=== PATIENT | male | born 1955 | race Caucasian/White ===

== ENCOUNTER 2022-01-19 07:30 | Outpatient (REF) | payer OTHER, SELFPAY ==
--- NOTE | ~2022-01-19 | MR_ITS ---
EXAMINATION: MR LUMBAR SPINE WITHOUT CONTRAST CLINICAL INFORMATION: Lumbosacral radiculopathy. . Patient reports no prior spine surgery. COMPARISON: MRI 10/24/2018 TECHNIQUE: MRI of the lumbar spine was obtained using routine sequences without contrast. FINDINGS: VERTEBRAL BODIES AND PARASPINAL STRUCTURES: Alignment is anatomic. Vertebral body heights are maintained. No evidence of acute fracture. Bone marrow signal is within normal limits. Small marginal osteophytes and endplate irregularity seen at multiple levels. Disc desiccation prominent disc height loss at L5-S1. The right kidney is inferiorly positioned, at the level of the lumbosacral junction. No suspicious findings in the left kidney. Psoas and paraspinal musculature appears unremarkable. CONUS MEDULLARIS AND CAUDA EQUINA: Normal signal in the distal cord and conus. Conus terminating at the level of L1. SPINAL LEVELS: T12-L1: There is a disc osteophyte complex anteriorly. No significant disc bulge along the posterior aspect. No significant central canal or neural foramen stenosis. L1-L2: No significant posterior disc bulge. No central canal or neural foramen stenosis. L2-L3: Broad-based posterior disc bulge, with a right paracentral disc extrusion with inferior migration is redemonstrated. Moderate central canal stenosis, more prominent on the right, with right L3 nerve root compression. Findings appear relatively similar as compared to previous. No significant neural foramen stenosis. Bilateral facet arthropathy. L3-L4: Mild broad-based posterior disc bulge abutting bilateral L4 nerves. Mild central canal stenosis. Bilateral facet arthropathy. Mild bilateral neural foramen narrowing, similar to previous. L4-L5: Mild diffuse disc bulge, abutting bilateral L5 nerves. Moderate central canal stenosis. Bilateral facet arthropathy. Inferior hypertrophy. Mild bilateral neural foramen narrowing. L5-S1: There is a diffuse disc bulge. There is a moderate posterior disc osteophyte complex, more prominent from previous. This is abutting bilateral S1 nerves. Bilateral facet arthropathy. Ligamentum hypertrophy. Severe central canal stenosis. Moderate to severe right neural foramen, mild left neural foramen narrowing. Findings more prominent as compared to previous. MR/MR lumbar spine wo con IMPRESSION: -At L2-3, there is disc abnormality including a right paracentral disc extrusion with inferior migration, moderate central canal stenosis and the right L3 nerve root compression. Findings appear similar as compared to previous. -L5-S1, there is a moderate posterior disc osteophyte complex, abutting bilateral S1 nerves, severe central canal stenosis, moderate to severe right neural foramen stenosis, mild left neural foramen narrowing. Findings more prominent as compared to previous. -There is multilevel lumbar spondylosis, with findings detailed level by level in the body report. -The right kidney is inferiorly positioned anterior to the lumbosacral junction.
== END 2022-01-19 07:31 | disposition home or self-care (01) ==
LOC: HO.MRI 07:30
PROVIDERS: Visit Provider Anesthesiology
DX: M54.17 Radiculopathy, lumbosacral region (principal)
CPT/HCPCS: 72148

== ENCOUNTER 2022-04-06 07:29 | Outpatient (REF) | payer OTHER, SELFPAY ==
--- NOTE | ~2022-04-06 | MR_ITS ---
EXAMINATION: MR THORACIC SPINE WITHOUT CONTRAST CLINICAL INFORMATION: 67-year-old with self-reported upper abdominal pain with pressure wrapping around to back. History of disc disease. Thoracic radiculopathy. COMPARISON: None TECHNIQUE: MRI of the thoracic spine was obtained using routine sequences without contrast. FINDINGS: ALIGNMENT: There is approximately 43 degrees of thoracic kyphosis centered at the T7 level. No spondylolisthesis or retrolisthesis. VERTEBRAL BODIES AND BONE MARROW: Mild-to- moderate chronic anterior wedge compression deformity of T8 and a mild anterior chronic wedge compression deformity of T7. Mild anterior wedge compression deformity of T9 also noted and possibly at T6. No non-healed compression fractures. Remaining vertebral body heights are well-maintained. No suspicious marrow replacing process or bone marrow edema or retrolisthesis. DISC SPACES AND ENDPLATES: Multilevel discogenic degenerative changes, most apparent at T7-T8 with severe disc space height loss, disc desiccation, Schmorl's nodes and spondylosis at this level. Moderate disc space height loss, disc desiccation and Schmorl's nodes with mild spondylosis at T6-T7 and T8-T9 and to a lesser degree at T9-T10 and T10-T11. Schmorl's nodes at T5-T6 noted. Anterior marginal spondylosis asymmetric to the right noted between T5-T6 and T12-L1 inclusive. Schmorl's nodes noted at T8-T11-T12 and T12-L1. Anterior marginal disc osteophyte complexes at T1-T2 and T2-T3. PARASPINAL SOFT TISSUES: The paravertebral soft tissues appear unremarkable. Possible small gallstone in the gallbladder on activities director scouting view. SPINAL CORD: The thoracic spinal cord is normal in morphology and signal intensity without focal lesion, edema or syrinx accounting for artifacts. The conus terminates at T12-L1. SPINAL LEVELS: C7-T1: Small central disc protrusion noted with mild indentation of the ventral thecal sac without cord impingement or canal stenosis. No significant facet arthrosis or neuroforaminal stenosis. T1-T2: Unremarkable. T2-T3: No disc herniation or canal stenosis. No significant facet arthrosis or neuroforaminal stenosis. There is a prominent vein in the interspinous space at this level of indeterminate significance. T3-T4: No disc herniation or canal stenosis. No significant DJD or neuroforaminal stenosis. Prominent vein in the intraspinal space noted. T4-T5: Unremarkable. T5-T6: Unremarkable. T6-T7: Unremarkable. T7-T8: Unremarkable. T8-T9: Unremarkable. T9-T10: Small right paramedian disc osteophyte complex without cord impingement or canal stenosis. No significant DJD or neuroforaminal stenosis. T10-T11: Unremarkable. T11-T12: Tiny left subarticular to foraminal disc protrusion without significant canal or neuroforaminal stenosis and no evidence for neural impingement. T12-L1: Unremarkable. MR/MR thoracic spine wo con IMPRESSION: 1. Thoracic kyphosis centered at T7 as described above. 2. Multilevel thoracic DDD and spondylosis as detailed by level above with degenerative changes most prominent in the mid thoracic spine, with a small right paramedian disc osteophyte complex at T9-T10 and a tiny left subarticular to foraminal disc protrusion at T11-T12 without significant canal or neuroforaminal compromise and no evidence for spinal cord or neural impingement. 3. [id number] chronic anterior wedge compression deformities between T6 and T9 inclusive with no evidence for any non-healed fractures or significant retropulsion. 4. Possible gallstone in the gallbladder which can be confirmed sonographically if clinically warranted.
== END 2022-04-06 07:30 | disposition home or self-care (01) ==
LOC: HO.MRI 07:29
PROVIDERS: Visit Provider Internal Medicine
DX: M54.14 Radiculopathy, thoracic region (principal)
CPT/HCPCS: 72146

== ENCOUNTER 2022-04-22 08:26 | Outpatient (REF) | payer OTHER, SELFPAY ==
--- NOTE | ~2022-04-22 | US_ITS ---
EXAMINATION: US ABDOMEN COMPLETE CLINICAL INFORMATION: Epigastric pain. COMPARISON: None TECHNIQUE: Real-time imaging of the abdominal viscera. FINDINGS: PANCREAS: Normal. ABDOMINAL AORTA: The proximal, mid, and distal segments are normal in caliber. INFERIOR VENA CAVA: Visualized portions are normal. LIVER: The liver is normal in size. The liver contour is normal. There is mild increased liver echogenicity. No focal hepatic lesion. There is no intrahepatic biliary duct dilatation seen. GALLBLADDER: The gallbladder is physiologically distended. Multiple mobile gallstones are present. No evidence of gallbladder wall thickening or pericholecystic fluid. COMMON BILE DUCT: Normal in caliber measuring 0.2 cm in diameter. RIGHT KIDNEY:: The right kidneys located in the pelvis No hydronephrosis. No renal calculi or focal parenchymal lesions. The kidney measures 9.3 cm in maximum dimension. LEFT KIDNEY: Normal. No hydronephrosis. No renal calculi or focal parenchymal lesions. The kidney measures 11.3 cm in maximum dimension. SPLEEN: Normal. The spleen measures 9.2 cm in maximum dimension. FREE FLUID: None. US/US abdomen complete IMPRESSION: Cholelithiasis without wall thickening. The right kidney is located in the pelvis Mild hepatic steatosis Rest of the abdominal ultrasound is unremarkable.
== END 2022-04-22 08:27 | disposition home or self-care (01) ==
LOC: HO.HMGCX 08:26
PROVIDERS: PCP Internal Medicine; Visit Provider Internal Medicine
DX: R10.13 Epigastric pain (principal)
CPT/HCPCS: 76700

== ENCOUNTER 2023-04-22 13:15 | Observation (INO) | payer OTHER, SELFPAY ==
--- NOTE | ~2023-04-22 | XR_ITS ---
EXAMINATION: XR CHEST CLINICAL INFORMATION: Syncope, chest pressure. COMPARISON: None available. TECHNIQUE: Frontal view of the chest was obtained. FINDINGS: No significant abnormality is noted involving the heart, lungs, mediastinum, bony thorax or soft tissues. XR/XR chest 1V IMPRESSION: Unremarkable chest examination.
--- NOTE | ~2023-04-22 | CT_ITS ---
CT head/brain wo IV con CLINICAL INFORMATION: Reason for Exam syncope COMPARISON: No prior CT scan available for comparison. TECHNIQUE: Department standard protocol. This CT examination was performed using dose optimization techniques as appropriate, variously including the following: *Automated exposure control *Adjustment of mA and/or kV according to patient size (this includes techniques or standardized protocols for targeted exams where dose is matched to indication/reason for exam; i.e. extremities or head) *Use of iterative reconstruction technique DLP: 584 mGy-cm FINDINGS: CEREBRAL HEMISPHERES: There is no evidence of intra-axial or extra-axial mass, hemorrhage or acute infarct. BRAIN PARENCHYMA: Normal larsen-white matter differentiation. SUBDURAL SPACE: No bleed. BASAL GANGLIA AND PINEAL GLAND: Unremarkable VENTRICLES: Symmetric and normal in size. CEREBELLUM AND BRAINSTEM: No space-occupying mass, hemorrhage or acute infarct. CEREBELLOPONTINE ANGLES: No lesion found. ORBITS: No intraorbital mass. VESSELS: Unremarkable SKULL BASE: Unremarkable INCLUDED SINUSES AT SKULL BASE: Clear SKULL AND SKIN: No fracture or bone lesion found. CT/CT head/brain wo IV con IMPRESSION: No CT evidence of intracranial space-occupying mass, bleed or infarct.
--- NOTE | 2023-04-22 13:17 | ECG_ITS ---
Test Reason : SYNCOPE Blood Pressure : / mmHG Vent. Rate : 064 BPM Atrial Rate : 064 BPM P-R Int : 168 ms QRS Dur : 086 ms QT Int : 418 ms P-R-T Axes : 078 071 063 degrees QTc Int : 431 ms Normal sinus rhythm Normal ECG No previous ECGs available Referred By: Melanie Chavis Electronically Signed By:SAMINA PARKER MD
[2023-04-22 13:28] VITALS: BP 101/60; BP 106/47; PULSE 60; PULSE 65; RESP 12; TEMP 36.4; O2SAT 99; BMI 28.5
[2023-04-22] MEDS: ondansetron HCL 4 MG/2 ML VIAL IVPUSH (13:41)
--- NOTE | 2023-04-22 13:41 | ED_ITS ---
HPI - General Adult General Chief complaint: General Medical Stated complaint: SYNCOPE Time Seen by Provider: 04/22/23 13:15 Source: patient, family ( spouse /daughter) and EMS Mode of arrival: EMS Limitations: no limitations History of Present Illness HPI narrative: 68-year-old male otherwise healthy came in by ambulance after had a syncopal episode at home, daughter/ spouse both in the medical field could not detect a pulse started CPR x1 compression then patient started to wake up. No witnessed seizure activity, no tongue biting, no urinary incontinence , no history of seizure. Patient has sustained a left thumb skin flap. Patient declined chest pain before the syncope now is complaining of lower sternal chest pain likely from a starting CPR. Related Data Allergies Allergy/AdvReac Type Severity Reaction Status Date / Time No Known Allergies Allergy Verified 04/22/23 13:43 Review of Systems 2 Review of Systems: All other systems are reviewed and are negative Constitutional: Reports as per HPI and Reports no additional constitutional complaints Eyes: Reports as per HPI and Reports no additional eye complaints Reports system reviewed and no additional complaints, except as documented Cardiovascular: Reports as per HPI and Reports no additional cardiovascular complaints Respiratory: Reports as per HPI and Reports no additional respiratory complaints Gastrointestinal: Reports as per HPI and Reports no additional gastrointestinal complaints Genitourinary: Reports no additional female genitourinary complaints Musculoskeletal: Reports no additional musculoskeletal complaints Skin/Breast: Reports system reviewed and no additional complaints, except as docu Psychiatric: Reports no additional psychiatric complaints Endocrine: Reports no additional endocrine complaints Hematologic/Lymphatic: Reports no additional hematologic/lymphatic complaints Allergic/Immunologic: Reports no additional allergic/immunologic complaints Reports system reviewed and no additional complaints, except as documented and Reports Abnormal speech present [facility] Social History Social History Advance Directives: No Advance Directives Information Provided: No Physical Exam ED Vital Signs: Vital Signs - 24 hr 04/22/23 13:28 04/22/23 13:45 Temperature 97.5 F Pulse Rate 65 61 Respiratory Rate 12 12 Blood Pressure 106/47 L 115/48 L Pulse Oximetry 99 98 Oxygen Delivery Method Room Air Room Air BMI result Body Mass Index 28.5 Vital signs have been reviewed and appear to be correct. Blood pressure elevated. Heart rate normal. Respiratory rate normal. Temperature normal. Oxygen saturation normal. Appearance: Alert. Oriented X3. No acute distress. Head: Normal external exam. Normocephalic. Atraumatic. No Cody signs noted. No raccoon eyes noted Eyes: PERRLA. EOMI. Conjunctiva and sclera normal. Eyelids normal. ENT: TM's Normal. Pharynx normal. Uvula midline. Moist mucous membranes. No trismus noted. No drooling noted. No muffled voice noted. Neck: Normal inspection. Neck supple. FROM. No adenopathy. Thyroid Normal. No meningeal signs. No neck mass noted. CVS: Normal heart rate and rhythm. Heart sound normal. No murmurs noted. Pulses normal throughout. Respiratory: No respiratory distress. Painless inspiration. Breath sounds normal. No wheezes/rales/rhonchi noted. Chest nontender. No accessory muscle usage noted or decreased air movement noted. Abdomen: Soft and nontender. Bowel sounds normal in all 4 quadrants. No distention noted. No organomegaly noted. No visible injury noted. Back: No CVA tenderness. Full range of motion noted. Skin: Skin warm and dry. Normal skin color. Normal skin turgor. No rashes/lesions/lacerations noted. Extremities: 1 x 1 cm area of skin tear at the tip of the left thumb Neuro: Oriented X 3. Cranial nerve exam: II-XII are grossly intact No motor deficit. No sensory deficit. Reflexes normal. Course Reevaluation(s) Reevaluation #1: a 68-year-old male came in by EMS after had a syncopal episode while he was working in his backyard, patient declined any chest pain or shortness of breath, family stated that they could not detect a pulse they started CPR x1 the patient started to respond. Patient is complaining of chest pain unlikely after CPR, otherwise there is no significant finding on the EKG lead, labs or chest x-ray. Time: 14:54 Medications Administered Discontinued Medications Generic Name Dose Route Start Last Admin Trade Name Freq PRN Reason Stop Dose Admin Ondansetron HCl 4 mg 04/22/23 13:27 04/22/23 13:41 Ondansetron Hcl 4 Mg/2 Ml Vial IVPUSH 04/22/23 13:28 4 mg ONCE ONE Administration Medical Decision Making Differential Diagnosis Differential Diagnoses: The differential diagnosis associated with the presentation includes ( ACS, CHF, orthostatic hypotension, dehydration, intracranial pathology, electrolyte abnormality, severe anemia.) Admission/Observation Consideration of admission/observation: Escalation of care including admission/observation considered Consult Healthcare Provider Management of the patient was discussed with: Hospitalist ( Dr. Back.) Lab Data MDM Lab Attestation statement: I reviewed the patient's lab results. 04/22/23 13:40 04/22/23 13:40 Labs: Lab Results 04/22/23 Range/Units 13:40 WBC 12.0 H (4.8-10.8) X10*3/uL RBC 2.38 L (4.60-5.80) X10*6/uL Hgb 9.5 L (14.0-18.0) g/dl Hct 27.0 L (42.0-52.0) % MCV 113.4 H (80.0-98.0) fL MCH 39.9 H (27.0-33.0) pg MCHC 35.2 (31.0-36.0) g/dl RDW 19.7 H (11.0-16.0) % Plt Count 367 (160-400) X10*3/uL MPV 11.1 (9.4-12.4) fL Immature Gran % (Auto) 1.2 H (0.0-0.4) % Neut % (Auto) 56.5 (45-73) % Lymph % (Auto) 32.6 (20-40) % [place] % (Auto) 6.7 (2-11) % Eos % (Auto) 1.7 (0-4) % Baso % (Auto) 1.3 (0-2) % Lymph # (Auto) 3.9 (1.2-4.9) X10*3/uL [place] # (Auto) 0.8 (0.1-1.2) X10*3/uL Eos # (Auto) 0.2 (0.0-0.4) X10*3/uL Baso # (Auto) 0.2 (0.0-0.2) X10*3/uL Abs Immat Gran (auto) 0.14 H (0.00-0.03) X10*3/uL Absolute Neuts (auto) 6.8 (2.0-8.3) x10*3/uL Absolute Nucleated RBC 0.210 H (0.0-0.012) X10*3/uL Nucleated RBC % (auto) 1.8 H (0.0-0.2) /100WBC Sodium 139 (135-145) mmol/L Potassium 3.8 (3.3-5.1) mmol/L Chloride 106 (96-108) mmol/L Carbon Dioxide 21 L (22-29) mmol/L Anion Gap 16 (12-20) BUN 9 (9-16) mg/dL Creatinine 0.91 (0.5-1.4) mg/dL Estim Creat Clear Calc 82.5 Estimated GFR > 60 Random Glucose 138 H (60-115) mg/dL Calcium 9.7 (8.4-10.2) mg/dL Troponin I High Sens < 2.7 (<3.5-35.0) ng/L B-Natriuretic Peptide 110 H (<100) pg/mL Independent Interpretation I performed an independent interpretation of an: Plain X-Ray ( chest: No acute pathology.) and CT Scan ( Head: No acute intracranial pathology.) Radiology Impression Discussion of test interpretation with radiology: I have reviewed the radiologist's reading. Discharge Plan Discharge Clinical Impression: Syncope and collapse Patient Disposition: Admitted As Inpatient
[2023-04-22 13:44] LABS: MANUAL DIFF FLAG NO
[2023-04-22 13:45] VITALS: BP 115/48; PULSE 61; RESP 12; O2SAT 98
[2023-04-22 13:46] LABS: Basophils Absolute Auto 0.2 X10*3/uL (0.0-0.2); Basophils Percent Auto 1.3 % (0-2); Eosinophils Absolute Auto 0.2 X10*3/uL (0.0-0.4); Eosinophils Percent Auto 1.7 % (0-4); Hemoglobin 9.5 g/dl (14.0-18.0); Imm Gran Abs Auto 0.14 X10*3/uL (0.00-0.03); Imm Gran Pct Auto 1.2 % (0.0-0.4); Lymphocytes Absolute Auto 3.9 X10*3/uL (1.2-4.9); Lymphocytes Percent Auto 32.6 % (20-40); Mean Corpuscular HGB Conc 35.2 g/dl (31.0-36.0); Mean Corpuscular Hemoglobin 39.9 pg (27.0-33.0); Mean Platelet Volume 11.1 fL (9.4-12.4); Monocytes Absolute Auto 0.8 X10*3/uL (0.1-1.2); Monocytes Percent Auto 6.7 % (2-11); Neutrophils Absolute Auto 6.8 x10*3/uL (2.0-8.3); Neutrophils Percent Auto 56.5 % (45-73); Platelet Count 367 X10*3/uL (160-400); Red Blood Count 2.38 X10*6/uL (4.60-5.80); Red Cell Distribution Width 19.7 % (11.0-16.0)
--- NOTE | 2023-04-22 13:46 | PC.NURSE ---
resting quietly in room with family at bedside. patient alert and oriented, respirations even and unlabored. medicated per the SEP, call huynh within reach
[2023-04-22 13:48] LABS: Mean Corpuscular Volume 113.4 fL (80.0-98.0); NRBC Pct Auto 1.8 /100WBC (0.0-0.2)
[2023-04-22 14:06] LABS: Anion Gap 16 (12-20); Blood Urea Nitrogen 9 mg/dL (9-16); Calcium 9.7 mg/dL (8.4-10.2); Carbon Dioxide 21 mmol/L (22-29); Chloride 106 mmol/L (96-108); Creatinine Clr Calc Pharmacy 82.5; Estimated Glomerular Filt Rate > 60; Glucose Random 138 mg/dL (60-115); Potassium 3.8 mmol/L (3.3-5.1); Sodium 139 mmol/L (135-145)
[2023-04-22 14:19] LABS: B Type Natriuretic Peptide 110 pg/mL (<100)
[2023-04-22 14:20] LABS: Troponin-I High Sensitivity < 2.7 ng/L (<3.5-35.0)
--- NOTE | 2023-04-22 15:13 | PHA.MEDREC ---
Pharmacy Consult ? Medication Reconciliation Pharmacy has completed the medication reconciliation. spoke with at bedside and confirmed patient medications. She reported that he takes them all at night so he has not had anything today.
--- NOTE | 2023-04-22 15:26 | PM.IMHP ---
History of Present Illness Date of Service: 04/22/23 Chief Complaint: Syncope 68 year old male with anxiety, gerd and no other chronic illness, anemia is undergoing hematoly work and due for bone marrow bx in the near future, has been experiecing fatigue lately. He presents with a syncopal episode witnessed by and daughter. He was doing outdoor work and had a small cut on left thumb and shortly thereafter felt dizzy and unresponsive in sitting position, pulses were checked and appeared absent. They initiated CPR but became awake just about 30 seconds later. Event didn't resemble seizure, no tongue bite, no urinary or stool incontinence, no foaming from mouth, did had some chest discomfort aftewwards. ED work work up negative, including head CT, normal ECG, troponin I level is normal. Noted anemia with hemoglobin of 9.5 Review of Systems Review of Systems: Gen: no fever Resp: no sob, no cough CV: sligh discomfor chest, no EVANGELISTA, no leg edema GI: No n/v, no abd pain Neuro: No confusion Yes all other systems are reviewed and are negative PMFSH Social History Household Members: Spouse Household Members Other:: 2 Housing: House Do you presently have visiting nurse or other home services: No Patient Tobacco Use Status: Former Tobacco user Tobacco use type: Cigarette and Cigar Cigarette Packs Per Day: 1 Cigarettes Per Day: 20.0 Years Smoked: 27 Smoked in Last 30 Days: No Patient Interested in Nicotine Replacement: No Patient Given Instructions on How to Stop Smoking: No Second Hand Smoke Exposure: No Use of substances other than those prescribed or required for medical reasons: No Currently Displaying Signs/Symptoms of Drug Intoxication Withdrawal: No Any prior treatment program specific to substance use: No Have you been hit, kicked, punched, or otherwise hurt by someone within the past year? If so, by whom?: No Do you feel safe in your current relationship?: Yes Is there a partner from a previous relationship who is making you feel unsafe now?: No Are you made to feel afraid or neglected: No Advance Directives: No Advance Directives Information Provided: No Do you have thoughts of harming others: None Do you have a plan to hurt others: No Plan Recently lost weight without trying: No How much weight loss: Unsure Eating poorly because of decreased appetite: Yes Nutrition screen score: 3 Nutrition Risks: No Nutritional Risk Poor oral hygiene: No Meds Allergies Allergy/AdvReac Type Severity Reaction Status Date / Time No Known Allergies Allergy Verified 04/22/23 13:43 Active Medications: Current Medications Acetaminophen (Acetaminophen 325 Mg Tablet) 650 mg PO Q6H PRN PRN Reason: Pain, Mild (Pain Scale 1-3) Acetaminophen (Acetaminophen Supp 650 Mg Supp.Rect) 650 mg AK Q6H PRN PRN Reason: Pain, Mild (Pain Scale 1-3) Al Hydroxide/Mg Hydroxide (Magnesium Hydrox/Alum Hydrox 30 Ml Oral.Susp) 30 ml PO Q4H PRN PRN Reason: Heartburn/Nausea Ibuprofen (Ibuprofen 400 Mg Tablet) 400 mg PO Q6H PRN PRN Reason: Fever or Pain, Mild (Pain Scale 1-3) Magnesium Hydroxide (Milk Of Magnesia 30 Ml Oral.Susp) 30 ml PO DAILY PRN PRN Reason: Constipation Melatonin (Melatonin 3 Mg Tablet) 3 mg PO BEDTIME PRN PRN Reason: Insomnia Ondansetron HCl (Ondansetron Hcl 4 Mg/2 Ml Vial) 4 mg IVPUSH Q8H PRN PRN Reason: Nausea and Vomiting Sodium Chloride (0.9 % Sodium Chloride Flush 3 Ml Syringe) 3 ml IVFLUSH [facility] Home Medications Medication Instructions Recorded Confirmed Last Taken Type escitalopram oxalate 10 mg tablet 10 mg PO DAILY 04/22/23 04/22/23 Unknown History famotidine 10 mg tablet 10 mg PO DAILY 04/22/23 04/22/23 Unknown History folic acid 400 mcg tablet 0.4 mg PO DAILY 04/22/23 04/22/23 Unknown History multivitamin 1 tab PO DAILY 04/22/23 04/22/23 Unknown History Physical Exam Vital Signs and Narrative: Vital Signs: Last Vital Signs Temp 97.5 F 04/22/23 13:28 Pulse 61 04/22/23 13:45 Resp 12 04/22/23 13:45 BP 115/48 L 04/22/23 13:45 Pulse Ox 98 04/22/23 13:45 O2 Del Method Room Air 04/22/23 13:45 BMI result Body Mass Index 28.5 Const: Other: General: AO X 3, no acute distress Resp: CTA bilateral CVS: S1,S2,RRR GI: +BS, NT, no distention Skin: No rash Neuro: motor grossly intact Psych: appropriate affect Results Labs 04/22/23 13:40 04/22/23 13:40 Labs: Laboratory Results - last 24 hr 04/22/23 13:40 MCV 113.4 H MCH 39.9 H MCHC 35.2 RDW 19.7 H Plt Count 367 MPV 11.1 Immature Gran % (Auto) 1.2 H Neut % (Auto) 56.5 Lymph % (Auto) 32.6 [place] % (Auto) 6.7 Eos % (Auto) 1.7 Baso % (Auto) 1.3 Lymph # (Auto) 3.9 [place] # (Auto) 0.8 Eos # (Auto) 0.2 Baso # (Auto) 0.2 Abs Immat Gran (auto) 0.14 H Absolute Neuts (auto) 6.8 Absolute Nucleated RBC 0.210 H Nucleated RBC % (auto) 1.8 H Anion Gap 16 Estim Creat Clear Calc 82.5 Estimated GFR > 60 Random Glucose 138 H Calcium 9.7 B-Natriuretic Peptide 110 H Imaging Radiologist's Impressions: Impressions Chest X-Ray 04/22/23 14:10 IMPRESSION: Unremarkable chest examination. Head CT 04/22/23 14:34 IMPRESSION: No CT evidence of intracranial space-occupying mass, bleed or infarct. Assessment and Plan (1) Syncope and collapse: Status: Acute Plan Syncope and colapse--story most consistent with vasovagal syncope plan: observe on tele to rule out malignant arrythmia, cardiology to assess to see if further w/u is indicated. 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 Quality Stroke Does the patient have a stroke diagnosis?: No VTE Prior VTE?: No VTE Risk Level:: Medical - low VTE Device Contraindication: N/A - Device Ordered VTE Drug Contraindication: Treatment Not Indicated
[2023-04-22 15:27] VITALS: BP 120/51; PULSE 68
[2023-04-22 15:28] VITALS: BP 113/51; BP 120/51; BP 87/54; PULSE 65; PULSE 66; PULSE 68; RESP 16; O2SAT 99
--- NOTE | 2023-04-22 15:42 | PC.NURSE ---
left thumb cleaned, bacitracin applied to area, wrapped with bandage. family remains at bedside.
[2023-04-22 16:09] VITALS: BMI 27.8
[2023-04-22 16:22] VITALS: BP 126/61; PULSE 75; RESP 18; TEMP 36.5; O2SAT 100
[2023-04-22] MEDS: 0.9 % Sodium Chloride 1,000 ML 100 ML IVCONT (16:44)
[2023-04-22] MEDS: 0.9 % Sodium Chloride Flush 3 ML SYRINGE IVFLUSH ×2 (16:44→21:06)
[2023-04-22 19:20] VITALS: BP 118/58; PULSE 77; RESP 18; TEMP 36.4; O2SAT 98
[2023-04-22] MEDS: Escitalopram Oxalate 10 MG TABLET PO (21:05)
[2023-04-22] MEDS: Multivitamin TABLET 1 TAB PO (21:05)
[2023-04-22] MEDS: Folic Acid 1 MG TABLET 0.5 MG PO (21:06)
[2023-04-22] MEDS: Famotidine 20 MG TABLET 10 MG PO (21:06)
[2023-04-23] VITALS: BP 107/51; PULSE 80; RESP 20; TEMP 36.4; O2SAT 97
[2023-04-23] MEDS: 0.9 % Sodium Chloride 1,000 ML 100 ML IVCONT (01:43)
[2023-04-23 03:04] VITALS: BP 117/56; PULSE 56; RESP 20; TEMP 36.6; O2SAT 97
[2023-04-23 07:31] VITALS: BP 109/56; PULSE 72; RESP 17; TEMP 36.6; O2SAT 96
--- NOTE | 2023-04-23 07:47 | P.PNIM_ITS ---
Subjective Subjective Date of Service: 04/23/23 Interval History: no issues overnight, feels fine, no dizziness Review of Systems Gen: no fever Resp: no sob, no cough CV: no chest pain, no sob GI: No n/v, no abd pain Neuro: No confusion Physical Exam 2 Vital Signs: Vital Signs: Last Vital Signs Temp 97.8 F 04/23/23 07:31 Pulse 72 04/23/23 07:31 Resp 17 04/23/23 07:31 BP 109/56 L 04/23/23 07:31 Pulse Ox 96 04/23/23 07:31 O2 Del Method Room Air 04/23/23 07:31 BMI result Body Mass Index 27.8 Const: Other: General: AO X 3, no acute distress Resp: CTA bilateral CVS: S1,S2,RRR GI: +BS, NT, no distention Skin: No rash Neuro: motor grossly intact Psych: appropriate affect Objective Data Active Medications Acetaminophen (Acetaminophen 325 Mg Tablet) 650 mg PO Q6H PRN PRN Reason: Pain, Mild (Pain Scale 1-3) Al Hydroxide/Mg Hydroxide (Magnesium Hydrox/Alum Hydrox 30 Ml Oral.Susp) 30 ml PO Q4H PRN PRN Reason: Heartburn/Nausea Escitalopram Oxalate (Escitalopram Oxalate 10 Mg Tablet) 10 mg PO BEDTIME [facility] Last Admin: 04/22/23 21:05 Dose: 10 mg Documented By: LAURYN Famotidine (Famotidine 20 Mg Tablet) 10 mg PO BEDTIME [facility] Last Admin: 04/22/23 21:06 Dose: 10 mg Documented By: LAURYN Folic Acid (Folic Acid 1 Mg Tablet) 0.5 mg PO BEDTIME [facility] Last Admin: 04/22/23 21:06 Dose: 0.5 mg Documented By: LAURYN Sodium Chloride (Ns) 1,000 mls @ 100 mls/hr IVCONT .Q10H [facility] Last Admin: 04/23/23 01:43 Dose: 100 mls/hr Documented By: LAURYN Ibuprofen (Ibuprofen 400 Mg Tablet) 400 mg PO Q6H PRN PRN Reason: Fever or Pain, Mild (Pain Scale 1-3) Influenza Virus Vaccine (Flu Vacc [id number](6mos Up)/Pf 0.5 Ml Syringe) 0.5 ml IM .ONCE ONE Stop: 04/23/23 09:01 Magnesium Hydroxide (Milk Of Magnesia 30 Ml Oral.Susp) 30 ml PO DAILY PRN PRN Reason: Constipation Melatonin (Melatonin 3 Mg Tablet) 3 mg PO BEDTIME PRN PRN Reason: Insomnia Multivitamins/Vitamin C (Multivitamin Tablet) 1 tab PO BEDTIME [facility] Last Admin: 04/22/23 21:05 Dose: 1 tab Documented By: LAURYN Ondansetron HCl (Ondansetron Hcl 4 Mg/2 Ml Vial) 4 mg IVPUSH Q8H PRN PRN Reason: Nausea and Vomiting Sodium Chloride (0.9 % Sodium Chloride Flush 3 Ml Syringe) 3 ml IVFLUSH QSHIFT [facility] Last Admin: 04/22/23 21:06 Dose: 3 ml Documented By: LAURYN Labs 04/22/23 13:40 04/22/23 13:40 Labs: Laboratory Results - last 24 hr 04/22/23 13:40 MCV 113.4 H MCH 39.9 H MCHC 35.2 RDW 19.7 H Plt Count 367 MPV 11.1 Immature Gran % (Auto) 1.2 H Neut % (Auto) 56.5 Lymph % (Auto) 32.6 [place] % (Auto) 6.7 Eos % (Auto) 1.7 Baso % (Auto) 1.3 Lymph # (Auto) 3.9 [place] # (Auto) 0.8 Eos # (Auto) 0.2 Baso # (Auto) 0.2 Abs Immat Gran (auto) 0.14 H Absolute Neuts (auto) 6.8 Absolute Nucleated RBC 0.210 H Nucleated RBC % (auto) 1.8 H Anion Gap 16 Estim Creat Clear Calc 82.5 Estimated GFR > 60 Random Glucose 138 H Calcium 9.7 B-Natriuretic Peptide 110 H Assessment and Plan (1) Vasovagal syncope: Status: Acute Plan Syncope and colapse--story most consistent with vasovagal syncope plan: He was observed on tele overnight without any issues, feels fine this morning, up walking and would like to go home Plan : discharge home and to follow up with PCP/locomotive operator tomorrow Anemia w/u underway with [facility] nut sorter operator Time Spent With Patient Time: Total time managing care of this patient today ____ minutes. Quality Stroke Does the patient have a stroke diagnosis?: No VTE Prior VTE?: No VTE Risk Level:: Medical - low VTE Device Contraindication: N/A - Device Ordered VTE Drug Contraindication: Treatment Not Indicated
--- NOTE | 2023-04-23 09:03 | PM.DS ---
DS: Providers Provider Date of Service: 04/23/23 Date of admission: 04/22/23 15:28 Primary care physician: Unknown Physician DS: Diagnosis Discharge Diagnosis (1) Vasovagal syncope: Status: Acute DS: Summary Hospital Course Hospital Course: Patient presented with syncope consistent with vasovagal event, he was observed overnight without any incident and is being discharged home tomorrow, will see PCP/transmission operator tomorrow Time Spent with Patient Time attestation: Total time managing care of this patient today ____ minutes. Discharge coordination time: Greater than 30 minutes Quality: Safe Use of Opioids Does Pt have an Active Cancer Diagnosis on the Problem List?: No Quality: Stroke Does the patient have a stroke diagnosis?: No Physical Exam Vital Signs: Vital Signs: Last Vital Signs Temp 97.8 F 04/23/23 07:31 Pulse 72 04/23/23 07:31 Resp 17 04/23/23 07:31 BP 109/56 L 04/23/23 07:31 Pulse Ox 96 04/23/23 07:31 O2 Del Method Room Air 04/23/23 07:31 BMI result Body Mass Index 27.8 Const: Other: General: AO X 3, no acute distress Resp: CTA bilateral CVS: S1,S2,RRR GI: +BS, NT, no distention Skin: No rash Neuro: motor grossly intact Psych: appropriate affect DS: Data Data Completed and Pending Labs on day of discharge: Laboratory Results - last 24 hr 04/22/23 13:40 WBC 12.0 H RBC 2.38 L Hgb 9.5 L Hct 27.0 L MCV 113.4 H MCH 39.9 H MCHC 35.2 RDW 19.7 H Plt Count 367 MPV 11.1 Immature Gran % (Auto) 1.2 H Neut % (Auto) 56.5 Lymph % (Auto) 32.6 [place] % (Auto) 6.7 Eos % (Auto) 1.7 Baso % (Auto) 1.3 Lymph # (Auto) 3.9 [place] # (Auto) 0.8 Eos # (Auto) 0.2 Baso # (Auto) 0.2 Abs Immat Gran (auto) 0.14 H Absolute Neuts (auto) 6.8 Absolute Nucleated RBC 0.210 H Nucleated RBC % (auto) 1.8 H Sodium 139 Potassium 3.8 Chloride 106 Carbon Dioxide 21 L Anion Gap 16 BUN 9 Creatinine 0.91 Estim Creat Clear Calc 82.5 Estimated GFR > 60 Random Glucose 138 H Calcium 9.7 Troponin I High Sens < 2.7 B-Natriuretic Peptide 110 H Discharge Plan Discharge Anticipated Discharge Date/Time: 04/23/23 08:52 Patient Disposition: Home, Self-Care Discharge Diagnosis: Vasovagal syncope Referrals: Physician,Unknown J [Primary Care Provider] - 1 Week Discharge Medications: Continued multivitamin Tablet 1 tab PO DAILY famotidine 10 mg Tablet 10 mg PO DAILY folic acid 400 mcg Tablet 0.4 mg PO DAILY escitalopram oxalate 10 mg tablet 10 mg PO DAILY Discharge Orders: Discharge Order (Routine); Ordered 04/23/23 Ordered By: Herve Mullins Diet: Advance to usual diet Activity on Discharge: As tolerated Stand Alone Forms: Patient Portal Discharge page Care Plan Goals: full recovery from syncope Health Concerns: vasovagal syncope Plan of Treatment: follow up with your heart doctor as planned Assessment: as above
--- NOTE | 2023-04-23 09:11 | MHC.CM.PN ---
order for home, self-care prior to CM interview w/Pt. CM acknowledge.
--- NOTE | 2023-04-23 09:37 | PC.NURSE ---
Alert and oriented x4 neurologically intact. CISNEROS to command 5/5 sensation intact, +pp bilat no edema noted. LSCTA denies SOB or CP, NS with bigeminy on tele. BS+X4 abdomen soft non-tender denies nausea/vomiting tolerating diet. Denies pain/discomfort. IV removed from left arm cath intact. Discharge to home with spouse education provided able to teach back follow up.
== END 2023-04-23 09:34 | disposition home or self-care (01) ==
LOC: HO.ED 14:53 → HO.EDOVER 15:28 → HO.IMC 15:39
PROVIDERS: Physician Assistant; Admitting Provider Internal Medicine; Emergency Provider Emergency Medicine; Visit Provider Internal Medicine
DX: R55 Syncope and collapse (principal); D64.9 Anemia, unspecified; R07.89 Other chest pain; S61.012A Laceration without foreign body of left thumb without damage to nail, initial encounter; Y28.9XXA Contact with unspecified sharp object, undetermined intent, initial encounter; Y93.H2 Activity, gardening and landscaping; Y92.9 Unspecified place or not applicable; Y99.9 Unspecified external cause status
CPT/HCPCS: 36415; 70450; 71045; 80048; 83880; 84484; 85025; 93005; 96361; 96374; 99222; 99285; J2405

== ENCOUNTER → 2023-04-22 15:28 | Outpatient (BNV) | payer OTHER, SELFPAY | PROVIDERS: Admitting Provider Internal Medicine; Emergency Provider Emergency Medicine; Visit Provider Internal Medicine | DX: R55 Syncope and collapse (principal) | CPT/HCPCS: 99223; 99239 ==

== ENCOUNTER 2023-04-28 14:00 | Outpatient (AMB) | payer OTHER, SELFPAY ==
--- NOTE | 2023-04-28 07:33 | A.OFFVIS_ITS ---
Intake Intake Visit Reasons: LDCT SD Allergies No Known Allergies Allergy (Verified 04/22/23 13:43) HPI LDCT SD HPI Details Initial visit for this 68yo smoker with a 50PYH. Patient has been smoking since age 16 for 52 years at 1ppd. Currently down to 1/2ppd. . Denies marijuana use. Notes social second hand smoke exposure. Reports exposure to asbestos and diesel fumes. . Denies known family history of lung cancer. Denies personal history of cancers. Denies chest CT in last year. . Denies recent travel outside the [place]. Denies recent respiratory illness or recent hospitalization for respiratory issues. Reports testing positive for COVID 07/2021. Admits receiving COVID Vaccine. x 4. . Denies fever, chills, new/worsening cough, hemoptysis, hoarseness or dysphagia. Denies significant chest pain, significant dyspnea or unintentional weight loss. Patient Lung Cancer Screening Questionnaire reviewed with patient by provider. . Shared Decision Making Completed. Patient meets criteria. Discussed in detail with patient, the risk vs benefit of LDCT screening. Patient consents to proceed with scan. Discussed smoking cessation. He is currently using patch trying to quit. [facility] Medical History (Updated 04/28/23 @ 14:08 by Eugenia Agustin PA-C) BPH (benign prostatic hyperplasia) GERD (gastroesophageal reflux disease) Generalized anxiety disorder Nicotine dependence, cigarettes, uncomplicated Surgical History (Updated 04/28/23 @ 07:38 by Eugenia Agustin PA-C) History of cataract surgery Family History (Updated 04/28/23 @ 07:38 by Eugenia Agustin PA-C) Mother Colon cancer, Onset Age: 84 Social History (Updated 04/28/23 @ 14:08 by Eugenia Agustin PA-C) Household Members: Spouse Household Members Other:: 2 Housing: House Do you presently have visiting nurse or other home services: No Patient Tobacco Use Status: Current everyday Tobacco user Tobacco use type: Cigarette and Cigar Cigarettes Per Day: 10 Years Smoked: onset 16yo, 1ppd x 52yrs, now 1/2ppd - 50pyh Second Hand Smoke Exposure: No Assessment & Plan Assessment & Plan (1) Nicotine dependence, cigarettes, uncomplicated: Comment: (current smoker, onset 16yo, 1ppd x 52yrs, now 1/2ppd - 50pyh) Code(s): F17.210 - Nicotine dependence, cigarettes, uncomplicated Plan: - SDM visit completed today in office. - Patient meets criteria for LDCT for lung cancer screening purposes and is asymptomatic. - Smoking cessation counseling offered. Patients can always call [phone]. - Will arrange for a LDCT scan of the chest for screening purposes at [facility]. - Risks, benefits, and alternatives were discussed in detail and the patient agrees to proceed. - Risks discussed include but are not limited to: radiation exposure, anxiety during testing and while awaiting results, false negatives, false positives and possibility of additional intervention such as further imaging or surgical procedures for benign disease. - Benefits are obviously detection of lung cancer at an early stage which can lead to improved outcomes. - Discussed the importance of screening program compliance with adherence to yearly LDCT scan as scheduled - or sooner interval scans for personalized screening regimen. - Discussed follow up plan. Our office will send a letter discussing results and if needed set up phone call and office visit based on CT findings. - Patient educated on results categorization and the management decisions for suspicious findings potentially found on the screening LDCT scan. Any patient with a Lung RADS score of 3 or 4 will be reviewed by a multidisciplinary team at [facility] to form a plan of action in regards to scan findings. - If further work up is warranted for a suspicious lung finding this will be followed by the Lung Cancer Screening program in conjunction with the Thoracic Surgery Department at [facility]. - A copy of the office note and LDCT will be sent to the patient's PCP - as well as documentation on any associated further plans of care. - Incidental findings on LDCT are the PCP's responsibility. These findings are indicated with an S finding on the LDCT Assessment. A note discussing the findings will be sent to the PCP who is then responsible for further management. - All questions answered.? Coding Level of Care Code Lung Cancer Screening G0296 Diagnoses Nicotine dependence, cigarettes, uncomplicated F17.210
== END 2023-04-28 14:30 | disposition home or self-care (01) ==
PROVIDERS: PCP Internal Medicine; Visit Provider Physician Assistant Medical
DX: F17.210 Nicotine dependence, cigarettes, uncomplicated (principal)
CPT/HCPCS: G0296

== ENCOUNTER 2023-04-28 14:20 | Outpatient (REF) | payer OTHER, SELFPAY ==
--- NOTE | ~2023-04-28 | CT_ITS ---
EXAMINATION: CT CHEST LOW-DOSE SCREENING WITHOUT CONTRAST HISTORY: Asymptomatic patient meeting criteria for lung screening. PATIENT PACK-YEAR HISTORY: 52 Current Smoker: Yes If former smoker, years since quitting: COMPARISON: None available. TECHNIQUE: Multidetector volumetric non-contrast CT imaging of the chest was performed using low dose screening CT technique. Axial thin section 0.625 mm reformations in soft tissue and lung windows were obtained. Sagittal and coronal reformations were obtained. Axial MIP images were also created and reviewed. RECONSTRUCTED WIDTH: 1.25 mm x 1.25 mm TOTAL EXAM DLP: 55 mGy-cm CTDIvol: 1.27 L mGy FINDINGS: LUNGS: Mild centrilobular emphysema. No suspicious pulmonary nodule. No focal consolidation. Central airways are patent. PLEURA: Small right pleural effusion. Trace left pleural effusion. LYMPH NODES: No bulky mediastinal, hilar or axillary lymphadenopathy. MEDIASTINUM: Great vessels are of normal caliber. Heart size is normal. No pericardial effusion. CORONARY ARTERY CALCIFICATIONS: Marked. CHEST WALL/BREASTS: Gynecomastia. UPPER ABDOMEN: This study was performed without contrast and with lower than standard dose, reducing the sensitivity for detection of small lesions in the upper abdomen. OSSEOUS STRUCTURES: No destructive bone lesions. CT/CT lung screening IMPRESSION: No suspicious pulmonary nodule. Small right pleural effusion. Trace left pleural effusion. LUNG-RADS CATEGORY ASSESSMENT: 1. Negative. No nodules or definitely benign nodules. Continue annual screening with low-dose CT in 12 months. Probability of malignancy less than 1%. INCIDENTAL FINDINGS (S CATEGORY): Finding: No incidental findings. Significance category: Normal or normal variant. RECOMMENDATION: Low dose lung CT. overall in 1 year. Visual estimate of coronary calcified plaque burden: Severe. However, this exam cannot replace a dedicated cardiac CT calcium score for accurate assessment. LUNG-RADS CATEGORY: 1 -- NEGATIVE
== END 2023-04-28 14:21 | disposition home or self-care (01) ==
LOC: HO.CT 14:20
PROVIDERS: Visit Provider Physician Assistant Medical
DX: Z12.2 Encounter for screening for malignant neoplasm of respiratory organs (principal); F17.210 Nicotine dependence, cigarettes, uncomplicated
CPT/HCPCS: 71271; G0296

== ENCOUNTER → 2023-05-19 07:29 | Outpatient (REF) | payer OTHER, SELFPAY ==
--- NOTE | ~2023-05-19 | NM_ITS ---
Myocardial perfusion study Indication: Heart disease to evaluate for myocardial ischemia Technique: The patient was brought in for a Lexiscan perfusion study on 05/19/2023. Patient performed low-level exercise and was injected 0.4 mg of Lexiscan intravenously. Within a minute of injection, 30 mCi of sestamibi was given intravenously. Images were obtained using the SPECT gamma camera interlaced with the gating device. Images were obtained in supine position. Resting perfusion study was performed on 05/23/2023. Patient was administered 30 mCi of sestamibi intravenously at rest. Images were then obtained in supine position. Images obtained with and without CT attenuation. Total DLP 98 mGy-cm. Images were processed with the software and compared side to side in short axis, horizontal long axis and vertical long axis views. Findings: The stress perfusion study showed non attenuated images show mildly reduced uptake in the mid anterior wall of the LV myocardium with generalized thinning of the anterior wall is noted. Attenuation corrected images also shows mildly to moderately reduced uptake in the mid and generalized of the mid to distal anterior and apical wall of the LV myocardium.. The gated study shows normal LV systolic function with calculated LVEF of 63%. LV cavity is normal in size. The gated study shows normal systolic wall thickening and contraction of segments. Resting study shows both non attenuated as well as attenuated corrected images the inferior wall is improved uptake in the mid anterior wall.. Gating at rest reveals normal systolic wall motion with ejection fraction at 53%. The findings are consistent with very focal mild intensity reversible defect of the mid anterior wall. NM/NM chilango perf SPECT rest & str Impression: 1. Myocardial perfusion imaging study shows very focal mild intensity mid anterior wall ischemia could be branch vessel disease in diagonal territory. 2. Gated LVEF is 63% 3. Transient ischemic dilatation not present EKG is nondiagnostic for ischemia
--- NOTE | 2023-05-19 07:38 | CA_ITS ---
Acquisition Time: 2023-05-19 08:00:53 Total Exercise Time: 00:04:02 Test Indications: CAD Medications: ESCITALOPRAM FAMOTIDINE Protocol: ROMINA Max HR: 118 BPM 77% of Pred: 152 BPM Max BP: 178/062 mmHG Max Work Load: 5.8 METS Exercise stress test exercise 4 min 2 sec of Romina protocol achieiving 77% MPHR, with mild to moderate SOB, no chest discomfort, with isolated PVCs, with normoteensive response to exercise, with nondiagnositic EKGs. Once breathing returned to normal test changed to pharmacolgoical stress test. Pharmaoclgoical stress test with Lexiscan injection while sitting and marching in place, with mild SOB, no chest discomfort, with isolated PACs, with normotensive response to injection, with nondiagnoistiic EKGs. Aminophylline 75mg IVP given to reverse Lexiscan. Nuclear images pending. Test reviewed with Dr. Paredes. Referred By: Chas Noel Overread By: Alicia Jiménez
== END ==
LOC: HO.CARD 07:29
PROVIDERS: Visit Provider Internal Medicine
DX: I25.118 Atherosclerotic heart disease of native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 (principal)
CPT/HCPCS: 78452; 93017; A9500; J0280; J2785

== ENCOUNTER → 2023-05-19 07:38 | Outpatient (BNV) | payer OTHER, SELFPAY | PROVIDERS: Visit Provider Nurse Practitioner | DX: I25.10 Atherosclerotic heart disease of native coronary artery without angina pectoris (principal) | CPT/HCPCS: 78452; 93016; 93018 ==

== ENCOUNTER → 2023-09-04 15:00 | Outpatient (BNV) | payer OTHER, SELFPAY | PROVIDERS: PCP Internal Medicine; Referring Provider Internal Medicine Hematology; Visit Provider Internal Medicine Medical Oncology | DX: D46.9 Myelodysplastic syndrome, unspecified (principal) | CPT/HCPCS: 99204; 99213 ==

== ENCOUNTER 2024-04-29 08:04 | Outpatient (REF) | payer OTHER, SELFPAY ==
--- NOTE | ~2024-04-29 | CT_ITS ---
EXAMINATION: CT LOW-DOSE SCREENING CHEST WITHOUT CONTRAST CLINICAL INFORMATION: Nicotine dependence, cigarettes, uncomplicated. The patient is a current smoker with a 53 pack-year history of smoking. COMPARISON: CT chest 04/28/2023. X-ray chest 04/22/2023. TECHNIQUE: Multidetector volumetric CT imaging of the chest is performed on a Siemens SOMATOM Definition scanner without contrast using low dose technique. Additional 2D coronal and sagittal reformatted images and axial 3D maximum intensity projection (MIP) images are generated on the CT workstation. This CT examination was performed using dose optimization techniques as appropriate, variously including the following: *Automated exposure control *Adjustment of mA and/or kV according to patient size (this includes techniques or standardized protocols for targeted exams where dose is matched to indication/reason for exam; i.e. extremities or head) *Use of iterative reconstruction technique TOTAL EXAM DLP: 55 mGy-cm. CTDIvol: 1.50 mGy. FINDINGS: PULMONARY NODULES: A few tiny punctate nodules are seen. (see saved cartagena images). LUNGS: Lungs bilaterally symmetrically expanded. There is emphysema present with hyperinflation. Mild bronchial thickening without bronchiectasis. No biapical pleural-parenchymal scarring is present, right greater than left, with calcifications. Again seen is a small right pleural effusion, similar to slightly increased when compared to prior. No left-sided effusion or pneumothorax. Central airways patent. MEDIASTINUM: No mediastinal, hilar or axillary adenopathy or free fluid collection. CORONARY ARTERY CALCIFICATION: Severe. THYROID GLAND: Unremarkable to the extent seen. CARDIOVASCULAR STRUCTURES: Aortic and heart size normal. No pericardial effusion. CHEST WALL/AXILLA: Unremarkable. UPPER ABDOMEN: Included portions of the solid organs in the upper abdomen unremarkable on noncontrast imaging. OSSEOUS STRUCTURES: No suspicious focal findings. CT/CT lung screening IMPRESSION: 1. No evidence of pulmonary malignancy. 2. Emphysema. 3. Small right pleural effusion. 4. Severe coronary artery calcifications. ASSESSMENT: 1. Lung-RADS Category 2: Benign appearance or behavior of nodules. N/A 2. Lung-RADS Category S: Negative. There are no clinically significant or potentially clinically significant findings not related to the lungs requiring urgent additional evaluation. RECOMMENDATION: Continued routine annual low-dose CT lung screening in 1 year is recommended. An order for CT CHEST LOW DOSE CANCER SCREENING ([id number]) can be placed. Electronically signed by: Serg Moore MD 06/13/2024 03:52 PM MACY RP
== END 2024-04-29 08:05 | disposition home or self-care (01) ==
LOC: HO.CT 08:04
PROVIDERS: PCP Internal Medicine; Visit Provider Physician Assistant Medical
DX: Z12.2 Encounter for screening for malignant neoplasm of respiratory organs (principal); F17.210 Nicotine dependence, cigarettes, uncomplicated
CPT/HCPCS: 71271

== ENCOUNTER 2024-09-23 11:41 | Outpatient (AMB) | payer OTHER, SELFPAY ==
--- NOTE | 2024-09-23 11:47 | A.OFFVIS_ITS ---
Vital Signs 09/23/24 11:48 Height 5 ft 8 in Weight 178 lb BMI 27.1 BP 138/60 Blood Pressure Location Lt brachial Position Sitting Respiration 16 Pulse 80 Pulse Source Pulse Oximeter Pulse Oximetry (%) 98 Oxygen Delivery Method Room Air Intake Visit Reasons: Chronic back pain Resident Athletic Trainer Required: No Allergies No Known Allergies Allergy (Verified 09/23/24 11:50) Medication List - Last Reconciled 09/23/24 by Anali Frye LPN aspirin 1 tab PO DAILY escitalopram oxalate 10 mg PO DAILY famotidine 10 mg PO DAILY folic acid 0.4 mg PO DAILY metoprolol succinate ER 50 mg PO DAILY multivitamin 1 tab PO DAILY rosuvastatin 40 mg PO DAILY HPI HPI Chronic back pain: Details: History of Present Illness The patient is a 69-year-old male presenting with chronic low back pain. He has experienced low back pain radiating to the right lower extremity for many years due to disc protrusions at the right S1 nerve root and right L3 nerve root at the L2-3 level. Previous treatment consisted of lumbar epidural steroid injections every three months, but they have reduced effectiveness in recent times, providing shorter relief durations. The pain is mainly located in the lower back and exacerbated by physical activity. The patient also has macrocytic anemia affecting his overall vitality. Management options, including nerve stimulator trials and updated imaging, were discussed as the current treatment plan's efficacy diminishes. Pain Description - Onset and Timing: Chronic onset with symptoms present for multiple years. - Quality and Character: Aching and stabbing sensations. - Primary Location: Lower back. - Areas of Radiation: Right lower extremity. - Exacerbating Factors: Physical activity such as walking. - Alleviating Factors: Rest and acetaminophen as needed. - Activities/Functions Interfered: Daily activities due to pain recurrence when steroid injection effects diminish. Physical Exam - Musculoskeletal- Negative straight leg raise test on the right side. Results - Labs: Macrocytic anemia; hemoglobin reported at 8.2, managed with Procrit. - Previous MRI (2021): Disc protrusion at right S1 nerve root and L3 nerve root at the L2-3 level indicating lumbar spinal stenosis. Pain Management - Affect: Pain affects daily activity levels and mobility; limits patient's capability to engage in daily tasks. - Analgesia: Current pain managed with acetaminophen as needed. Pain score ranges from 2-6. - Adverse Effects: Side effects from steroid injections include hiccoughs and rhinorrhea. - Activities of Daily Living: Reduced physical activity, limited engagement in projects, and decreased quality of life. - Aberrant Drug Related Behaviors: None reported or discussed. [facility] Medical History (Updated 09/23/24 @ 12:07 by Joel Astorga MD) Myelodysplastic syndrome GERD (gastroesophageal reflux disease) Generalized anxiety disorder BPH (benign prostatic hyperplasia) Nicotine dependence, cigarettes, uncomplicated Surgical History History of bone marrow biopsy History of cataract surgery Family History Mother Colon cancer, Onset Age: 84 Social History Household Members: Spouse Household Members Other:: 2 Housing: House Do you presently have visiting nurse or other home services: No Patient Tobacco Use Status: Current everyday Tobacco user Tobacco use type: Cigarette and Cigar Cigarette Packs Per Day: 1 Years Smoked: onset 16yo, 1ppd x 52yrs, now 1/2ppd - 50pyh Second Hand Smoke Exposure: No service: No Current occupational status: retired Physical Exam Vital Signs: Last Vital Signs Pulse 80 09/23/24 11:48 Resp 16 09/23/24 11:48 BP 138/60 09/23/24 11:48 Pulse Ox 98 09/23/24 11:48 Oxygen Delivery Method Room Air 09/23/24 11:48 BMI result Body Mass Index 27.1 Assessment & Plan Assessment & Plan (1) Lumbar radiculopathy: Code(s): M54.16 - Radiculopathy, lumbar region Category: Medical Plan Plan 1. Different approaches to the epidural steroid injections were discussed, including using a TF approach with varied steroid types like Decadron, hoping for extended relief. A trial of a temporary nerve stimulator was discussed though the patient presently favors not pursuing this option. Surgical options, such as decompression, remain a potential consideration if other measures fail to provide relief. Continuation of anemia care with ongoing Procrit was acknowledged. Follow-up will either be an in-person visit or a telephone consultation, based on MRI results. Patient was informed and verbally consented to the use of an ambient scribe for clinic note documentation during this visit. Discussion Notes We discussed possible explanations for the patient?s chronic low back pain and considered updated imaging to guide ongoing management. Options for modifying epidural injection technique were explained, along with the introduction to a temporary nerve stimulator, which preliminary trials indicate could provide considerable pain relief. Risks and benefits were thoroughly examined, and patient consent was sought regarding this unit's invasive nature versus regular injections. However, lifestyle implications and scheduling influenced his decision to postpone the trial for now. Alternatives such as potential surgery were also reviewed. We arranged follow-up to assess MRI findings and reassess treatment plans. Patient Instructions - Undergo new MRI imaging as planned. - Continue current analgesic regimen with acetaminophen as needed. - Consider varied approach techniques for future epidural injections. - Avoid activities that exacerbate lower back pain. - Maintain communication with director of slot operations regarding anemia management. - Follow up with our office post-MRI for further evaluation and treatment adjustments. - Report any significant changes in symptoms or new concerns immediately. Orders: Orders MR lumbar spine wo con 09/25/24 M54.16 - Radiculopathy, lumbar region Coding Level of Care Code New Pt Level 4 (95092) Diagnoses Lumbar radiculopathy M54.16
[2024-09-23 11:48] VITALS: BP 138/60; PULSE 80; RESP 16; O2SAT 98; BMI 27.1
== END 2024-09-23 12:16 | disposition home or self-care (01) ==
LOC: HO.PMC 11:42
PROVIDERS: PCP Internal Medicine; Visit Provider Internal Medicine
DX: M54.16 Radiculopathy, lumbar region (principal)
CPT/HCPCS: 99204

== ENCOUNTER → 2024-09-23 11:41 | Outpatient (BNVA) | payer OTHER, SELFPAY | PROVIDERS: PCP Internal Medicine; Visit Provider Internal Medicine ==

== ENCOUNTER 2024-09-25 18:23 | Outpatient (REF) | payer OTHER, SELFPAY ==
--- NOTE | ~2024-09-25 | MR_ITS ---
EXAMINATION: MR LUMBAR SPINE WITHOUT CONTRAST CLINICAL INFORMATION: Radioculopathy, lumbar region. COMPARISON: 01/23/2022. TECHNIQUE: MRI of the lumbar spine was obtained using routine sequences without contrast. FINDINGS: Last rib-bearing vertebra labeled T12. Bone marrow inhomogeneity throughout the axial skeleton. No bone marrow STIR signal abnormality. Multilevel marginal osteophyte formation and disc desiccation from T11-12 to L5-S1. The alignment is normal. The conus medullaris ends at intervertebral disc T12-L1 with normal signal. T11-12: No disc herniation. No neuroforamina stenosis. T12-L1: No disc herniation. No neuroforamina stenosis. L1-2: Left subarticular small disc protrusion. No focal stenosis no compression upon neural elements. L2-3: Broad-based disc bulging. Facet joint and ligamentum flavum hypertrophy. Reduced AP diameter of the thecal sac and the neural foramina. No compression upon neural elements. L3-4: Broad-based disc bulging. Facet joint and ligamentum flavum hypertrophy. Reduced AP diameter of the thecal sac and the neural foramina likely encroaching the neural elements. L4-5: Broad-based disc bulging. Facet joint and ligamentum flavum hypertrophy. Reduced AP diameter of the thecal sac and the neural foramina likely encroaching the neural elements of the central spinal canal. L5-S1: Slightly asymmetric to the right broad-based disc bulging. Facet joint hypertrophy as well as ligamentum flavum. Central spinal canal and to a lesser extent bilateral neuroforamina stenosis right greater than the left side encroaching likely compressing the right S1 right L5 and to a lesser extent left S1 nerve roots. No prevertebral compartment hematoma, mass or fluid collection. Mild dextroconvex curvature apex at L3-4. There is a 2 cm low signal within the lumen of the gallbladder. The left kidney is in normal anatomic position of the retroperitoneum. The right kidney is slightly midline to the right lower pelvis with a small cystic lesion. MR/MR lumbar spine wo con IMPRESSION: Multilevel lumbar spondylosis resulting in central spinal canal and bilateral neuroforamina stenosis right and the left side at L5-S1 encroaching likely compressing the exiting nerve roots, similar findings to a lesser extent at L4-5 and L3-4 and L2-3 levels. Cholelithiasis. Right pelvic kidney ectopy. Electronically signed by: John Beavers MD 09/26/2024 10:14 AM EDT
--- OUTSIDE RECORDS SUMMARY | 2024-09-25 18:30 | XMS_ITS | Data Portability ---
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 On exam ,he has pain on flexion. MRI Lumbar spine shows at L5-S1 level, there is broad based central to right disc protrusion causing right sided stenosis with Right S1 nerve root compression. At L2-3 level there is a small broad based right paracentral extruded disc with inferior migration with right L3 nerve root compression . He is here for a repeat Lumbar epidural steroid injections under fluoroscopic guidance . The risks and benefits of the procedure were discussed in detail. He wishes to proceed. He can follow up as needed. [email or web address] Not available 08/15/2023 14:01:24 11/14/2023 11/14/2023 Man Joe is a 68 year old man with low back pain radiating into right lower extremity with numbness . On exam ,he has pain on flexion. MRI Lumbar spine shows at L5-S1 level, there is broad based central to right disc protrusion causing right sided stenosis with Right S1 nerve root compression. At L2-3 level there is a small broad based right paracentral extruded disc with inferior migration with right L3 nerve root compression . He is here for a repeat Lumbar epidural steroid injections under fluoroscopic guidance . The risks and benefits of the procedure were discussed in detail. He wishes to proceed. He can follow up as needed. [email or web address] Not available 11/14/2023 10:55:08 2024 2024 Man Joe is a 68 year old man with low back pain radiating into right lower extremity with numbness . On exam ,he has pain on flexion. MRI Lumbar spine shows at L5-S1 level, there is broad based central to right disc protrusion causing right sided stenosis with Right S1 nerve root compression. At L2-3 level there is a small broad based right paracentral extruded disc with inferior migration with right L3 nerve root compression . He is here for a repeat Lumbar epidural steroid injections under fluoroscopic guidance . The risks and benefits of the procedure were discussed in detail. He wishes to proceed. He can follow up as needed. [email or web address] Not available 2024 09:04:27 05/15/2024 05/15/2024 Man Joe is a 69 year old man with low back pain radiating into right lower extremity with numbness . On exam ,he has pain on flexion. MRI Lumbar spine shows at L5-S1 level, there is broad based central to right disc protrusion causing right sided stenosis with Right S1 nerve root compression. At L2-3 level there is a small broad based right paracentral extruded disc with inferior migration with right L3 nerve root compression . He is here for a repeat Lumbar epidural steroid injections under fluoroscopic guidance . The risks and benefits of the procedure were discussed in detail. He wishes to proceed. He can follow up as needed. [email or web address] Not available 05/15/2024 14:35:32 08/15/2024 08/15/2024 Man Joe is a 69 year old man with low back pain radiating into right lower extremity with numbness . On exam ,he has pain on flexion. MRI Lumbar spine shows at L5-S1 level, there is broad based central to right disc protrusion causing right sided stenosis with Right S1 nerve root compression. At L2-3 level there is a small broad based right paracentral extruded disc with inferior migration with right L3 nerve root compression . He is here for a repeat Lumbar epidural steroid injections under fluoroscopic guidance . The risks and benefits of the procedure were discussed in detail. He wishes to proceed. He can follow up as needed. [email or web address] Not available 08/15/2024 10:21:47 Plan of Treatment Reminders Order Date Submit Date Provider Last Modified By Organization Details Last Modified Time Details Appointments PROCEDURE 2024 10:00A M Eddi ellison MD Not available Not available Not available Lab None recorded. Referral None recorded. Procedures None recorded. Surgeries None recorded. Imaging None recorded. Medication Orders None recorded. Patient TargetsNo targets recorded. Patient Instructions Encounter Date Encounter Id Patient Instructions Last Modified By Organization Details Last Modified Time 08/15/2023 [id number] He was advised against bed rest lasting longer than four days and to continue activities as tolerated. [email or web address] Not available 08/15/2023 14:01:25 11/14/2023 [id number] He was advised against bed rest lasting longer than four days and to continue activities as tolerated. [email or web address] Not available 11/14/2023 10:55:13 08/15/2024 [id number] He was advised against bed rest lasting longer than four days and to continue activities as tolerated. [email or web address] Not available 08/15/2024 10:24:49 Reason for Referral None Reported. Problems Name Problem SNOMED Code Status Onset Date Resolution Date Notes Provider Name and Address Organization Details Recorded Time Lumbosacral radiculopathy 9167979 Active Eddi ellison MD [address] [facility] , [address], [place], [address], [place] [facility] 15:50:02 Degeneration of lumbar intervertebral disc 74479985 Active Eddi ellison MD [address] [facility] , [address], [place], [address], [place] [facility] 9 15:50:11 Lumbosacral spondylosis without myelopathy [id number] Naomi ellison MD [address] [facility] , [address], [place], [address], [place] [facility] 9 15:50:26 Spinal stenosis of lumbar region 90635128 Active Eddi ellison MD [address] [facility] , [address], [place], [address], [place] [facility] 9 15:50:39 Problem Notes None recorded. Procedures Surgical History Date Name Laterality Status Provider Name and Address Organization Details Recorded Time 08/15/19 25 Lumbar Epidural steroid injection under fluoroscopic guidance completed Eddi Sanchez MD [address] , [address], [place], [address], [place] [facility] 08/15/2024 10:23:05 05/15/20 24 Lumbar Epidural steroid injection under fluoroscopic guidance completed Eddi Sanchez MD [address] , [address], [place], [address], [place] [facility] 05/15/2024 14:35:05 02/06/20 24 Lumbar Epidural steroid injection under fluoroscopic guidance completed Eddi Sanchez MD [address] , [address], [place], [address], [place] [facility] 2024 09:05:55 11/14/19 24 Lumbar Epidural steroid injection under fluoroscopic guidance completed Eddi Sanchez MD [address] , [address], [place], [address], [place] [facility] 11/14/2023 10:55:57 08/15/19 24 Lumbar Epidural steroid injection under fluoroscopic guidance completed Eddi Sanchez MD [address] , [address], [place], [address], [place] [facility] 08/15/2023 14:02:28 05/11/20 23 Lumbar Epidural steroid injection under fluoroscopic guidance completed Eddi Sanchez MD [address] , [address], [place], [address], [place] [facility] 05/11/2023 13:44:22 02/08/20 23 Lumbar Epidural steroid injection under fluoroscopic guidance completed Eddi Sanchez MD [address] , [address], [place], [address], [place] [facility] 02/07/2023 14:32:47 11/09/19 23 Lumbar Epidural steroid injection under fluoroscopic guidance completed Eddi Sanchez MD [address] , [address], [place], [address], [place] [facility] 11/08/2022 11:49:19 08/18/19 23 Lumbar Epidural steroid injection under fluoroscopic guidance completed Eddi Sanchez MD [address] , [address], [place], [address], [place] [facility] 08/18/2022 13:38:49 05/31/20 22 Lumbar Epidural steroid injection under fluoroscopic guidance completed Eddi Sanchez MD [address] , [address], [place], [address], [place] [facility] 05/31/2022 12:01:38 02/17/20 22 Lumbar Epidural steroid injection under fluoroscopic guidance completed Eddi Sanchez MD [address] , [address], [place], [address], [place] [facility] 02/16/2022 11:18:13 11/18/19 22 Lumbar Epidural steroid injection under fluoroscopic guidance completed Eddi Sanchez MD [address] , [address], [place], [address], [place] [facility] 11/17/2021 13:34:00 08/03/19 22 Lumbar Epidural steroid injection under fluoroscopic guidance completed Eddi Sanchez MD [address] , [address], [place], [address], [place] [facility] 08/03/2021 13:51:35 05/04/20 21 Lumbar Epidural steroid injection under fluoroscopic guidance completed Eddi Sanchez MD [address] , [address], [place], [address], [place] [facility] 05/04/2021 09:45:14 02/03/20 21 Lumbar Epidural steroid injection under fluoroscopic guidance completed Eddi Sanchez MD [address] , [address], [place], [address], [place] [facility] 02/02/2021 09:56:45 10/29/19 21 Lumbar Epidural steroid injection under fluoroscopic guidance completed Eddi Sanchez MD [address] , [address], [place], [address], [place] [facility] 10/28/2020 11:04:44 07/08/20 20 Lumbar Epidural steroid injection under fluoroscopic guidance completed Eddi Sanchez MD [address] , [address], [place], [address], [place] [facility] 07/08/2020 09:25:16 01/28/20 20 Lumbar Epidural steroid injection under fluoroscopic guidance completed Eddi Sanchez MD [address] [facility] , [address], [place], [address], [place] [facility] 01/28/2020 11:40:25 08/28/19 20 Lumbar Epidural steroid injection under fluoroscopic guidance completed Eddi Sanchez MD [address] [facility] , [address], [place], [address], [place] [facility] 08/28/2019 13:27:06 03/26/20 19 Lumbar Epidural steroid injection under fluoroscopic guidance completed Eddi Sanchez MD [address] [facility] , [address], [place], [address], [place] [facility] 03/26/2019 10:59:17 01/02/20 19 Lumbar Epidural steroid injection under fluoroscopic guidance completed Eddi Sanchez MD [address] [facility] , [address], [place], [address], [place] [facility] 01/01/2019 18:23:14 11/14/19 19 Lumbar Epidural steroid injection under fluoroscopic guidance completed Eddi Sanchez MD [address] [facility] , [address], [place], [address], [place] [facility] 11/14/2018 08:43:51 Imaging Results None recorded. Procedure Notes None recorded. Medical Equipment None Reported. Allergies No known drug allergies Medications Name Sig Start Date Stop Date Status Note LastModified by Organization Details LastModified Time metoprolol succinate ER 50 mg tablet,exte nded release 24 hr active Not Available Not Available Not Available valacyclovi r 1 gram tablet 01/27 completed Not Available Not Available Not Available Motrin IB 200 mg tablet 4 tab twice daily as needed 03/26 completed Not Available Not Available Not Available morphine ER 30 mg tablet,exte nded release TAKE 1 TABLET BY MOUTH EVERY 12 HOURS FOR 14 DAYS 03/26 completed Not Available Not Available Not Available ketorolac 0.5 % eye drops PUT 1 DROP INTO AFFECTED EYE 4 TIMES A DAY START 3 DAYS PRIOR TO SURGERY 01/20 completed Not Available Not Available Not Available Tylenol 500 mg tablet as needed active Not Available Not Available Not Available oxycodone 5 mg capsule 11/07 completed Not Available Not Available Not Available nicotine 21 mg/24 hr daily transdermal patch 05/15 completed Not Available Not Available Not Available aspirin 81 mg chewable tablet active Not Available Not Available Not Available morphine ER 15 mg tablet,exte nded release 03/26 completed Not Available Not Available Not Available lorazepam 1 mg tablet active Not Available Not Available No t Available methylpredn isolone 4 mg tablets in a dose pack 11/07 completed Not Available Not Available Not Available amoxicillin 875 mg-potassiu m clavulanate 125 mg tablet TAKE 1 TABLET BY MOUTH EVERY 12 HOURS FOR 7 DAYS 08/18 completed Not Available Not Available Not Available oxycodone 5 mg tablet twice daily 01/27 completed Not Available Not Available Not Available escitalopra m 10 mg tablet TAKE 1 TABLET BY MOUTH EVERY DAY FOR 90 DAYS active Not Available Not Available No t Available rosuvastati n 40 mg tablet active Not Available Not Available Not Available Lyrica 50 mg capsule 11/07 completed Not Available Not Available Not Available famotidine active Not Available Not Av ailable Not Available oxycodone 10 mg tablet TAKE 1 TABLET BY MOUTH NEEDED EVERY 4 HOURS FOR 7 DAYS 03/26 completed Not Available Not Available Not Available Prevnar 13 (PF) 0.5 mL intramuscul ar syringe [facility] 02/02 completed Not Available Not Available Not Available morphine 30 mg tablet, crush resistant, extended release Take 1 tablet every 12 hours by oral route. 03/26 completed Not Available Not Available Not Available Flublok Quad (PF) 180 mcg (45 mcg x 4)/0.5 mL IM syringe [facility] 02/02 completed Not Available Not Available Not Available Vitals Date Recorded Body height Heart rate Oxygen saturation Oxygen saturation in Arterial blood by Pulse oximetry Systolic blood pressure Diastolic blood pressure Provider Name and Address Organization Details Last Updated DateTime 4 172.72 cm 65 /min 98 % 98 % 111 mm[Hg] 38 mm[Hg] [facility] 4 13:41:50 Date Recorded Body height Heart rate Oxygen saturation Oxygen saturation in Arterial blood by Pulse oximetry Systolic blood pressure Diastolic blood pressure Provider Name and Address Organization Details Last Updated DateTime 4 172.72 cm 83 /min 97 % 97 % 116 mm[Hg] 42 mm[Hg] Angela [facility] 4 10:33:00 Date Recorded Body height Heart rate Oxygen saturation Oxygen saturation in Arterial blood by Pulse oximetry Systolic blood pressure Diastolic blood pressure Provider Name and Address Organization Details Last Updated DateTime 4 172.72 cm 62 /min 98 % 98 % 119 mm[Hg] 44 mm[Hg] Delia Oswald [facility] 4 08:33:01 Date Recorded Body height Pain severity - 0-10 verbal numeric rating [Score] - Reported Body mass index (BMI) Body weight Oxygen saturation Oxygen saturation in Arterial blood by Pulse oximetry Heart rate Systolic blood pressure Diastolic blood pressure Provider Name and Address Organization Details Last Updated DateTime 4 172.72 cm 5 26.5 kg/m2 10219.0 7 g 98 % 98 % 73 /min 101 mm[Hg] 47 mm[Hg] Jackie Thakkar [place] [facility] 4 14:08:54 Date Recorded Body height Heart rate Oxygen saturation Oxygen saturation in Arterial blood by Pulse oximetry Pain severity - 0-10 verbal numeric rating [Score] - Reported Systolic blood pressure Diastolic blood pressure Provider Name and Address Organization Details Last Updated DateTime 5 172.72 cm 76 /min 98 % 98 % 4 129 mm[Hg] 44 mm[Hg] Seble nicholas [place] [facility] 5 09:24:11 Social History Question Answer Notes LastModified by Organizat ion Details LastModified Time Tobacco Smoking Status Never Smoker Occasional cigar smoker Not Available [employer] 04/24/2020 03:16:11 What Is Your Level Of Alcohol Consumption? None [id number] Information not available 04/24/2020 Are You Currently Employed? No [id number] Information not available 04/24/2020 Which Illicit Or Recreational Drugs Have You Used? None [id number] Information not available 04/24/2020 Education 12 Information n ot available 11/07/2018 What Is Your Occupation? Retired [id number] Information not available 04/24/2020 Live Alone Or With Others? With Others Information not available 11/07/2018 GED No Information n ot available 11/07/2018 Marital Status veronica Informati on not available 11/07/2018 What Was The Date Of Your Most Recent Tobacco Screening? 01/01/2019 [id number] Information not available 04/24/2020 Sex: Unknown Functional Status None recorded. Mental Status None recorded. Family History Relationship Description Onset Age of this Age Resolved Age Notes LastModified by Organization Details LastModified Time Mother Malignant neoplastic disease [email or web address] Not available 2018 15:14:18 Father Malignant neoplastic disease [email or web address] Not available 2018 15:14:18 Medical History Condition Response Anxiety Disorder Y GERD/Reflux Y Past Encounters Encounter ID Performer Location Encounter Start Date Encounter Closed Date Diagnosis/Indication Diagnosis SNOMED-CT Code Diagnosis ICD10 Code Diagnosis Note [id number] Eddi Sanchez MD PAIN OFFICE [address] [place] [address] 11/07/2018 14:04:21 11/07/2018 16:05:18 Lumbosacral radiculopathy 4322332 M54.17 Degenerati on of lumbar intervertebral disc 47199585 M51.36 Lumbosacra l spondylosis without myelopathy 68425557 M47.817 Spinal bhumi nosis of lumbar region 22397143 M48.061 [id number] Eddi Sanchez MD PAIN OFFICE [address] [place] [address] 11/13/2018 14:30:19 11/14/2018 11:34:42 Lumbosacral radiculopathy 7847861 M54.17 Degenerati on of lumbar intervertebral disc 21876681 M51.36 Lumbosacra l spondylosis without myelopathy 21280918 M47.817 Spinal bhumi nosis of lumbar region 93150657 M48.061 [id number] Eddi Sanchez MD PAIN OFFICE [address] [place] [address] 12/06/2018 14:16:15 12/06/2018 15:28:49 Lumbosacral radiculopathy 2845191 M54.17 Degenerati on of lumbar intervertebral disc 95884858 M51.36 Lumbosacra l spondylosis without myelopathy 47143604 M47.817 Spinal bhumi nosis of lumbar region 46147797 M48.061 [id number] Eddi Sanchez MD PAIN OFFICE [address] [place] [address] 01/01/2019 13:04:31 01/01/2019 18:26:49 Lumbosacral radiculopathy 6578866 M54.17 Degenerati on of lumbar intervertebral disc 34665729 M51.36 Lumbosacra l spondylosis without myelopathy 62885529 M47.817 Spinal bhumi nosis of lumbar region 54629616 M48.061 [id number] Eddi Sanchez MD PAIN OFFICE [address] [place] [address] 03/26/2019 10:19:14 03/26/2019 11:02:16 Lumbosacral radiculopathy 0408106 M54.17 Degenerati on of lumbar intervertebral disc 29567022 M51.36 Lumbosacra l spondylosis without myelopathy 41285888 M47.817 Spinal bhumi nosis of lumbar region 52132099 M48.061 [id number] Eddi Sanchez MD PAIN OFFICE [address] [place] [address] 08/28/2019 12:47:58 08/28/2019 13:30:23 Lumbosacral radiculopathy 9461821 M54.17 Degenerati on of lumbar intervertebral disc 21624889 M51.36 Lumbosacra l spondylosis without myelopathy 54571845 M47.817 Spinal bhumi nosis of lumbar region 71874339 M48.061 [id number] Eddi Sanchez MD PAIN OFFICE [address] [place] [address] 01/28/2020 11:16:52 01/28/2020 14:56:45 Lumbosacral radiculopathy 9136148 M54.17 Degenerati on of lumbar intervertebral disc 64321266 M51.36 Lumbosacra l spondylosis without myelopathy 96174256 M47.817 Spinal bhumi nosis of lumbar region 61570637 M48.061 [id number] Eddi Sanchez MD PAIN OFFICE [address] [place] [address] 07/08/2020 09:22:42 07/08/2020 11:19:23 Lumbosacral radiculopathy 5483111 M54.17 Degenerati on of lumbar intervertebral disc 17395680 M51.36 Lumbosacra l spondylosis without myelopathy 25885013 M47.817 Spinal bhumi nosis of lumbar region 93184586 M48.061 [id number] Eddi Sanchez MD PAIN OFFICE [address] [place] [address] 10/28/2020 09:52:49 10/28/2020 16:05:47 Lumbosacral radiculopathy 0764169 M54.17 Degenerati on of lumbar intervertebral disc 11238709 M51.36 Lumbosacra l spondylosis without myelopathy 73968296 M47.817 Spinal bhumi nosis of lumbar region 76753075 M48.061 [id number] Eddi Sanchez MD PAIN OFFICE [address] [place] [address] 02/02/2021 09:24:48 02/02/2021 10:27:20 Lumbosacral radiculopathy 3630827 M54.17 Degenerati on of lumbar intervertebral disc 20981932 M51.36 Lumbosacra l spondylosis without myelopathy 63398948 M47.817 Spinal bhumi nosis of lumbar region 39632577 M48.061 [id number] Eddi Sanchez MD PAIN OFFICE [address] [place] [address] 05/04/2021 09:11:40 05/04/2021 09:58:06 Lumbosacral radiculopathy 2058044 M54.17 Degenerati on of lumbar intervertebral disc 55389791 M51.36 Lumbosacra l spondylosis without myelopathy 00000300 M47.817 Spinal bhumi nosis of lumbar region 15516869 M48.061 [id number] Eddi Sanchez MD PAIN OFFICE [address] [place] [address] 08/03/2021 13:20:36 08/03/2021 14:49:32 Lumbosacral radiculopathy 9118050 M54.17 Degenerati on of lumbar intervertebral disc 76558728 M51.36 Lumbosacra l spondylosis without myelopathy 03637565 M47.817 Spinal bhumi nosis of lumbar region 97417210 M48.061 [id number] Eddi Sanchez MD PAIN OFFICE [address] [place] [address] 11/17/2021 13:01:32 11/17/2021 13:36:27 Lumbosacral radiculopathy 8430628 M54.17 Degenerati on of lumbar intervertebral disc 75501531 M51.36 Lumbosacra l spondylosis without myelopathy 85372447 M47.817 Spinal bhumi nosis of lumbar region 60509337 M48.061 [id number] Eddi Sanchez MD PAIN OFFICE [address] [place] [address] 01/07/2022 11:31:26 01/11/2022 09:36:03 Lumbosacral radiculopathy 3617653 M54.17 [id number] Eddi Sanchez MD PAIN OFFICE [address] [place] [address] 02/16/2022 10:53:02 02/16/2022 14:02:50 Lumbosacral radiculopathy 7548041 M54.17 Degenerati on of lumbar intervertebral disc 87638860 M51.36 Lumbosacra l spondylosis without myelopathy 95694200 M47.817 Spinal bhumi nosis of lumbar region 72598041 M48.061 [id number] Eddi Sanchez MD PAIN OFFICE [address] [place] [address] 05/31/2022 09:53:11 05/31/2022 14:22:50 Lumbosacral radiculopathy 6549381 M54.17 Degenerati on of lumbar intervertebral disc 01869555 M51.36 Lumbosacra l spondylosis without myelopathy 13544640 M47.817 Spinal bhumi nosis of lumbar region 19558654 M48.061 [id number] Eddi Sanchez MD PAIN OFFICE [address] [place] [address] 08/18/2022 11:12:06 08/18/2022 13:45:18 Lumbosacral radiculopathy 6607080 M54.17 Degenerati on of lumbar intervertebral disc 04270531 M51.36 Spinal bhumi nosis of lumbar region 10820084 M48.062 [id number] Eddi Sanchez MD PAIN OFFICE [address] [place] [address] 11/08/2022 11:25:10 11/08/2022 14:29:03 Lumbosacral radiculopathy 9437424 M54.17 Degenerati on of lumbar intervertebral disc 02893132 M51.36 Spinal bhumi nosis of lumbar region 71264823 M48.062 [id number] Eddi Sanchez MD PAIN OFFICE [address] [place] [address] 01/20/2023 10:14:06 01/20/2023 10:40:11 Lumbosacral radiculopathy 1217878 M54.17 Degenerati on of lumbar intervertebral disc 42552767 M51.36 Lumbosacra l spondylosis without myelopathy 56929429 M47.817 Spinal bhumi nosis of lumbar region 90510240 M48.061 [id number] Eddi Sanchez MD PAIN OFFICE [address] [place] [address] 02/07/2023 12:59:20 02/07/2023 14:44:01 Lumbosacral radiculopathy 1801583 M54.17 Degenerati on of lumbar intervertebral disc 48214111 M51.36 Spinal bhumi nosis of lumbar region 54489955 M48.062 [id number] Eddi Sanchez MD PAIN OFFICE [address] [facility] [place] [address] 05/11/2023 11:21:41 05/11/2023 13:50:13 Spinal stenosis of lumbar region 98850056 M48.062 Lumbosacra l radiculopathy 9347978 M54.17 Degenerati on of lumbar intervertebral disc 81864328 M51.36 [id number] Eddi Sanchez MD PAIN OFFICE [address] [place] [address] 08/15/2023 13:25:57 08/15/2023 14:23:43 Spinal stenosis of lumbar region 21226083 M48.062 Lumbosacra l radiculopathy 9157442 M54.17 Degenerati on of lumbar intervertebral disc 24745191 M51.36 [id number] Eddi Sanchez MD PAIN OFFICE [address] [place] [address] 11/14/2023 10:21:58 11/14/2023 11:00:27 Spinal stenosis of lumbar region 99609937 M48.062 Lumbosacra l radiculopathy 9141548 M54.17 Degenerati on of lumbar intervertebral disc 61399765 M51.36 [id number] Eddi Sanchez MD PAIN OFFICE [address] [place] [address] 2024 08:29:21 2024 09:08:44 Spinal stenosis of lumbar region 75423467 M48.062 Lumbosacra l radiculopathy 1210526 M54.17 Degenerati on of lumbar intervertebral disc 40032154 M51.36 [id number] Eddi Sanchez MD PAIN OFFICE [address] [place] [address] 05/15/2024 13:56:51 05/15/2024 15:51:39 Spinal stenosis of lumbar region [id number] M48.062 Lumbosacra l radiculopathy 1900088 M54.17 Degenerati on of lumbar intervertebral disc [id number] M51.362 [id number] Eddi Sanchez MD PAIN OFFICE [address] [facility] [address] [place] [address] 08/15/2024 09:14:54 08/15/2024 14:55:48 Spinal stenosis of lumbar region [id number] M48.062 Lumbosacra l radiculopathy 2924747 M54.17 Degenerati on of lumbar intervertebral disc 05471504 M51.362 Health Concerns Section Related Observation LastModified by Organization Detai ls LastModified Time None Recorded Concern Status LastModified by Organization Details LastModified Time None Recorded Advance Directives Directive None Recorded Payers Encounter Date Sequence Insurance Name Policy Number Policy Nye Covered Member ID Nye Member ID Guarantor Name 08/15/2023 1 [employer] [place] [id number] Amisha Greenwood Garreffi [id number] Man Garreffi 11/14/2023 1 [employer] [id number] Amisha Greenwood Garreffi [id number] Man Garreffi 2024 1 [employer] [id number] Amisha Greenwood Garreffi [id number] Man Garreffi 05/15/2024 1 [employer] [id number] Amisha Greenwood Garreffi [id number] Man Garreffi 08/15/2024 1 [employer] [place] [id number] Amisha Greenwood Garreffi [id number] Man Garreffi Notes Date Note Type Note Provider Name and Address Organization Details Recorded Time 08/15/2023 text/html He is here today for a lumbar epidural steroid injection under fluoroscopic guidance. He is seeing his PCP regularly.He has macrocytic anemia and is seeing Dr. Kim and had a bone marrow biopsy done. His platelet count is within normal limits. Eddi Sanchez MD [address] [facility] , [address], [place], [address], [place] [facility] 08/15/2023 16:52:24 11/14/2023 text/html He is here today for a lumbar epidural steroid injection under fluoroscopic guidance. He is seeing his PCP regularly.He has macrocytic anemia and is seeing Dr. Kim and had a bone marrow biopsy done. His platelet count is within normal limits. Eddi Sanchez MD [address] [facility] , [address], [place], [address], [place] [facility] 11/14/2023 16:22:56 2024 text/html He is here today for a lumbar epidural steroid injection under fluoroscopic guidance. He is seeing his PCP regularly.He has macrocytic anemia and is seeing Dr. Kim and had a bone marrow biopsy done. His platelet count is within normal limits.He has been diagnosed with diabetes and was advised to lose weight. His HbA1c was 6.5 in September and he does not know his latest results Eddi Sanchez MD [address] [facility] , [address], [place], [address], [facility] - Pain Management 2024 10:06:16 05/15/2024 text/html He is here today for a lumbar epidural steroid injection under fluoroscopic guidance. He is seeing his PCP regularly. Eddi Sanchez MD [address] [facility] , [address], [place], [address], [facility] - Pain Management 05/15/2024 15:54:49 08/15/2024 text/html He is here today for a lumbar epidural steroid injection under fluoroscopic guidance. He is seeing his PCP regularly.He had a blood transfusion for his macrocytic anemia recently Eddi Sanchez MD [address] [facility] , [address], [place], [address], [facility] - Pain Management 08/15/2024 15:22:41
--- OUTSIDE RECORDS SUMMARY | 2024-09-25 18:31 | XMS_ITS ---
Author Organization Chas Noel MD Address [address] [id number] Care Team Providers Care Warper Fixer Name Role Phone Chas Noel Primary Care Provider [phone] Allergies No Known Allergies Results Component Value Reference Range Notes EKG (Not yet reviewed by pro vider) Interpretation: Performing Lab: Notes/Report: ECGDiastolicBP 46 ECGHr 69 ECGPRInterval 180 ECGPWaveAxis 66 ECGQRSDuration 84 ECGQrsWaveAxis 52 ECGQTcInterval 409 ECGQTInterval 394 ECGSystolicBP 118 ECGTWaveAxis 55 RR_DiastolicBP 0 RR_MaxRRInterval 0 RR_MeanHR 0 RR_MeanRRInterval 0 RR_MinRRInterval 0 RR_NumBeats 0 RR_NumNormalBeats 0 RR_SystolicBP 0 REASON FOR VISIT PRE OP SURGERY 10/16 Medications Medication SIG (Take, Route, Frequency, Duration) Notes Start Date End Date Status LORazepam 1 MG 1 tablet at bedtime as needed Orally Every 8 hours 04/25/2023 Not-Taking Zinc Active Escitalopram Oxalate 10 MG TAKE 1 TABLET BY MOUTH DAILY for 90 Active Rosuvastatin Calcium 40 MG TAKE 1 TABLET BY MOUTH ONCE A DAY. for 30 Active Metoprolol Succinate ER 50 MG TAKE 1/2 TABLET (25MG) BY MOUTH ONCE A DAY. for 30 Active Famotidine 20 MG 1 tablet at bedtime Orally Once a day Active Aspirin Low Dose 81 MG TAKE 1 TABLET BY MOUTH ONCE A DAY for 30 Active Social History Tobacco Use: Social History Observation Description Date Details (start date - stop date) Former Smoker NA - 04/24/2023 AUDIT-C (Standard) Question Answer Notes Did you have a drink containing alcohol in the p ast year? No Points 0 Interpretation Negative Tobacco Control (Standard) Question Answer Notes Tobacco use: Former smoker When did you stop smoking? 04/24/2023 How long has it been since y ou last smoked? 1-5 years Additional Findings: Tobacco non-user Ex -moderate cigarette smoker (10-19/day) Vital Signs Blood pressure systolic 118 mm Hg 09/24/19 25 Blood pressure diastolic 46 mm Hg 025 Temperature 96.8 degrees Fahrenheit 09/24/19 25 Heart Rate 82 /min 09/23/2024 Weight 171 lbs 09/23/2024 BMI 26.0 kg/m2 09/23/2024 Height 5 ft 8 in in 09/23/2024 Oximetry 98 % 09/23/2024 Encounters Encounter Location Date Provider Diagnosis Chas Noel MD [address] [phone] 09/23/2024 Chas Noel Type 2 diabetes mellitus with diabetic chronic kidney disease E11.22 ; Atherosclerotic heart disease of [place]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 I25.118 ; Myelodysplastic syndrome, unspecified D46.9 ; Generalized anxiety disorder F41.1 ; Mixed hyperlipidemia E78.2 ; Gastro-esophageal reflux disease without esophagitis K21.9 ; Other spondylosis with radiculopathy, lumbosacral region M47.27 ; Nicotine dependence, cigarettes, with unspecified nicotine-induced disorders F17.219 and Vitamin D deficiency, unspecified E55.9 Assessments Encounter Date Diagnosis (ICD Code) Assessment Notes Treatment Notes Treatment Clinical Notes Section Notes 09/23/2024 Type 2 diabetes mellitus with diabetic chronic kidney disease (ICD-10 - E11.22) Stable at present. He is A1c is probably artifactually low based on rapid turnover. At the present time can continue to follow glucose on a periodic basis and he may need a continuous glucose monitor to help further monitor his disease state. 09/23/2024 Atherosclerotic heart disease of [place]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 (ICD-10 - I25.118) Symptomatically stable with current medical therapy. He does not have any active symptoms and he is able to perform daily activities that equate to 4 METS without any symptoms. Therefore at the present time he remains medically control. He is scheduled for surgical dental extraction and given the stability of his coronary artery disease and other medical illnesses there is no acute contraindication identified. He would be considered low to moderate risk for complications from a medical perspective. 09/23/2024 Myelodysplastic syndrome, unspecified (ICD-10 - D46.9) Stable at present. He continues to follow-up with hematology and gets periodic Retacrit and as needed transfusions. Hopefully there will not be significant blood loss during and after his surgery. If there is significant blood loss then he will need transfusion given his myelodysplastic syndrome. 09/23/2024 Generalized anxiety disorder (ICD-10 - F41.1) Fair control and stable with current medical therapy 09/23/2024 Mixed hyperlipidemia (ICD-10 - E78.2) Controlled with current medical therapy with LDL less than 50. His goal would be LDL less than 40 to minimize plaque progression and hopefully allow plaque volume regression. 09/23/2024 Gastro-esophageal reflux disease without esophagitis (ICD-10 - K21.9) Symptomatically stable at present 09/23/2024 Other spondylosis with radiculopathy, lumbosacral region (ICD-10 - M47.27) Stable with periodic injections 09/23/2024 Nicotine dependence, cigarettes, with unspecified nicotine-induced disorders (ICD-10 - F17.219) Smoking cessation has been counseled in the past 09/23/2024 Vitamin D deficiency, unspecified (ICD-10 - E55.9) Fair control on prior labs as reviewed. Recommend vitamin D supplementation for goal level of 30+ 09/23/2024 Other This note was created with voice dictation recognition software and may contain errors of grammar and syntax. Also labs were reviewed with patient. Plan Of Treatment Pending Test Test Name Order Date EKG 09/23/2024 Next Appt Details Follow Up: 3 Months, Reason: Annual Provider Name:Chas Noel , 12/16/2024 11:30:00 AM, [address] [place] [address], [address], [id number], Provider Name:Chas Noel , 05/30/2025 10:00:00 AM, [address] [place] [address], [phone], Progress Notes * Javan JOEOB:1954 (69 yo M)Acc No.[id number]:09/23/2024 Progress Note Patient:?Man JOE Provider:?Chas Noel MD :1955???Age:69 Y???Sex:Male Drew e:09/23/2024 Address:[address] [place], [place] [id number] Subjective: * Chief Complaints: * ???PRE OP SURGERY 10/16 * HPI: ???Coronary Artery Disease:?69 year old male presents with c/o Patient presents for follow-up of coronary artery disease.?Diabetes mellitus:?c/o The patient presents for follow-up of diabetes mellitus.? * Medical History:? * Surgical History:?cataract-l ens implants, RT ataract-lens implants, LT 09/2022 * Hospitalization/Major Diagno stic Procedure:?Syncope 04/2023 * Family History:?Spouse: jorgito camacho 61 yrs, Healthy.?Father: , Leukemia at 69.?Mother: , Colon cancer at 84, diagnosed with Family history of malignant neoplasm of digestive organs.?Daughter(s): alive 29 yrs, Healthy1 daughter alive 1998 healthy.?4 brother(s) - healthy. 2 daughter(s) - healthy. .? (AWV) Family history verified no changes since last visit. * Social History:?Tobacco Use:?Tobacco Control (Standard)?Tobacco use:?Former smoker ?When did you stop smoking??04/24/2023 ?How long has it been since you last smoked??1-5 years ?Additional Findings: Tobacco non-user?Ex-moderate cigarette smoker (10-19/day) ???Drugs/Alcohol:?Drugs?Have you used drugs other than those for medical reasons in the past 12 months??No ?Caffeine?Intake:?2-3 cups per day ?Do you smoke marijuana?: Denies. ?Do you drink alcohol?: No. ???Miscellaneous:?Exercise: no. ???Household:?Household?Marital status:?Drug/Alcohol:?AUDIT-C (Standard)?Did you have a drink containing alcohol in the past year??No ?Points?0 ?Interpretation?Negative * Medications:?TakingFamotidin e 20 MG Tablet 1 tablet at bedtime Orally Once a day Aspirin Low Dose 81 MG Tablet Chewable TAKE 1 TABLET BY MOUTH ONCE A DAY Zinc Escitalopram Oxalate 10 MG Tablet TAKE 1 TABLET BY MOUTH DAILY Rosuvastatin Calcium 40 MG Tablet TAKE 1 TABLET BY MOUTH ONCE A DAY. Metoprolol Succinate ER 50 MG Tablet Extended Release 24 Hour TAKE 1/2 TABLET (25MG) BY MOUTH ONCE A DAY. Taking Famotidine 20 MG Tablet 1 tablet at bedtime Orally Once a day Taking Aspirin Low Dose 81 MG Tablet Chewable TAKE 1 TABLET BY MOUTH ONCE A DAY Taking Zinc Taking Escitalopram Oxalate 10 MG Tablet TAKE 1 TABLET BY MOUTH DAILY Taking Rosuvastatin Calcium 40 MG Tablet TAKE 1 TABLET BY MOUTH ONCE A DAY. Taking Metoprolol Succinate ER 50 MG Tablet Extended Release 24 Hour TAKE 1/2 TABLET (25MG) BY MOUTH ONCE A DAY. Not-Taking/PRNLORazepam 1 MG Tablet 1 tablet at bedtime as needed Orally Every 8 hours Medication List reviewed and reconciled with the patientNot-Taking/PRN LORazepam 1 MG Tablet 1 tablet at bedtime as needed Orally Every 8 hours Medication List reviewed and reconciled with the patient * Allergies:?N.K.D.A.no[Allerg ies Verified] Objective: * Vitals:?Temp:96.8F, HR:82/mi n, BP:Sitting Right Arm: 118/46mm Hg, Wt:171lbs, BMI:26Index, Ht:5 ft 8 in, Oxygen sat %:98%. Past Vitals:* 08/15/2024 Temp:96.3F, HR:77/min, BP:Si tting Right Arm: 122/60mm Hg, Wt:169lbs, BMI:25.69Index, Ht:5 ft 8 in, Oxygen sat %:97% * 05/14/2024 Temp:97.3F, HR:75/min, BP:Si tting Right Arm: 114/54mm Hg, Wt:175lbs, BMI:26.61Index, Ht:5 ft 8 in, Oxygen sat %:98% * 04/16/2024 Temp:97.4F, HR:72/min, BP:Si tting Right Arm: 112/50mm Hg, Wt:173lbs, BMI:26.3Index, Ht:5 ft 8 in, Oxygen sat %:98% * ???Past Orders: Lab:CBC With Differential/Pl davinlet-[id number] * Collection Date 04/16/2024 09/27/2023 Collection Time 09:01 AM 03:52 PM Order Date 04/16/2024 09/27/2023 WBC 9.8 (Ref Range: 3.4-10.8 x10E3/uL) 10.9?H (Ref Range: 3.4-10.8 x10E3/uL) RBC 2.43?LL (Ref Range: 4.14-5.80 x10E6/uL) 2.77?L (Ref Range: 4.14-5.80 x10E6/uL) Hemoglobin 9.9?L (Ref Range: 13.0-17.7 g/dL) 11.0?L (Ref Range: 13.0-17.7 g/dL) Hematocrit 29.0?L (Ref Range: 37.5-51.0 %) 31.1?L (Ref Range: 37.5-51.0 %) MCV 119?H (Ref Range: 79-97 fL) 112?H (Ref Range: 79-97 fL) MCH 40.7?H (Ref Range: 26.6-33.0 pg) 39.7?H (Ref Range: 26.6-33.0 pg) MCHC 34.1 (Ref Range: 31.5-35.7 g/dL) 35.4 (Ref Range: 31.5-35.7 g/dL) RDW 21.5?H (Ref Range: 11.6-15.4 %) 17.8?H (Ref Range: 11.6-15.4 %) Platelets 429 (Ref Range: 150-450 x10E3/uL) 436 (Ref Range: 150-450 x10E3/uL) Neutrophils 60 (Ref Range: Not Estab. %) 57 (Ref Range: Not Estab. %) Lymphs 30 (Ref Range: Not Estab. %) 33 (Ref Range: Not Estab. %) Monocytes 5 (Ref Range: Not Estab. %) 6 (Ref Range: Not Estab. %) Eos 2 (Ref Range: Not Estab. %) 2 (Ref Range: Not Estab. %) Basos 2 (Ref Range: Not Estab. %) 1 (Ref Range: Not Estab. %) Neutrophils (Absolute) 5.9 (Ref Range: 1.4-7.0 x10E3/uL) 6.2 (Ref Range: 1.4-7.0 x10E3/uL) Lymphs (Absolute) 2.9 (Ref Range: 0.7-3.1 x10E3/uL) 3.6?H (Ref Range: 0.7-3.1 x10E3/uL) Monocytes(Absolute) 0.5 (Ref Range: 0.1-0.9 x10E3/uL) 0.7 (Ref Range: 0.1-0.9 x10E3/uL) Eos (Absolute) 0.2 (Ref Range: 0.0-0.4 x10E3/uL) 0.2 (Ref Range: 0.0-0.4 x10E3/uL) Baso (Absolute) 0.2 (Ref Range: 0.0-0.2 x10E3/uL) 0.1 (Ref Range: 0.0-0.2 x10E3/uL) Immature Granulocytes 1 (Ref Range: Not Estab. %) 1 (Ref Range: Not Estab. %) Immature Grans (Abs) 0.1 (Ref Range: 0.0-0.1 x10E3/uL) 0.1 (Ref Range: 0.0-0.1 x10E3/uL) NRBC 1?H (Ref Range: 0 - 0 %) 1?H (Ref Range: 0 - 0 %) * Lab:Comp. Metabolic Panel (1 4)-[id number] * Collection Date 04/16/2024 09/27/2023 Collection Time 09:01 AM 03:52 PM Order Date 04/16/2024 09/27/2023 Glucose 96 (Ref Range: 70-99 mg/dL) 80 (Ref Range: 70-99 mg/dL) BUN 7?L (Ref Range: 8-27 mg/dL) 8 (Ref Range: 8-27 mg/dL) Creatinine 0.91 (Ref Range: 0.76-1.27 mg/dL) 0.84 (Ref Range: 0.76-1.27 mg/dL) BUN/Creatinine Ratio 8?L (Ref Range: 10-24) 10 (Ref Range: 10-24) Sodium TNP (Ref Range: mmol/L) 141 (Ref Range: 134-144 mmol/L) Potassium TNP (Ref Range: mmol/L) 5.2 (Ref Range: 3.5-5.2 mmol/L) Chloride TNP (Ref Range: mmol/L) 102 (Ref Range: 96-106 mmol/L) Carbon Dioxide, Total TNP (Ref Range: mmol/L) 25 (Ref Range: 20-29 mmol/L) Calcium TNP (Ref Range: mg/dL) 9.9 (Ref Range: 8.6-10.2 mg/dL) Protein, Total 6.9 (Ref Range: 6.0-8.5 g/dL) 6.8 (Ref Range: 6.0-8.5 g/dL) Albumin 4.3 (Ref Range: 3.9-4.9 g/dL) 4.3 (Ref Range: 3.9-4.9 g/dL) Globulin, Total 2.6 (Ref Range: 1.5-4.5 g/dL) 2.5 (Ref Range: 1.5-4.5 g/dL) A/G Ratio NR 1.7 (Ref Range: 1.2-2.2) Bilirubin, Total 0.5 (Ref Range: 0.0-1.2 mg/dL) 0.5 (Ref Range: 0.0-1.2 mg/dL) Alkaline Phosphatase TNP (Ref Range: IU/L) 78 (Ref Range: 44-121 IU/L) AST (SGOT) 29 (Ref Range: 0-40 IU/L) 15 (Ref Range: 0-40 IU/L) ALT (SGPT) 21 (Ref Range: 0-44 IU/L) 23 (Ref Range: 0-44 IU/L) eGFR 91 (Ref Range: >59 mL/min/1.73) 95 (Ref Range: >59 mL/min/1.73) * Lab:Hemoglobin A1C * Collection Date 08/15/2024 11/29/2023 Collection Time 10:27 AM 02:51 PM Order Date 08/15/2024 11/29/2023 HbA1c 5.5 (Ref Range: %) 6.4 (Ref Range: %) * Lab:LP+Non-HDL Cholesterol-3 40059 * Collection Date 04/16/2024 09/27/2023 Collection Time 09:01 AM 03:52 PM Order Date 04/16/2024 09/27/2023 Cholesterol, Total 92?L (Ref Range: 100-199 mg/dL) 99?L (Ref Range: 100-199 mg/dL) Triglycerides 57 (Ref Range: 0-149 mg/dL) 48 (Ref Range: 0-149 mg/dL) HDL Cholesterol 47 (Ref Range: >39 mg/dL) 56 (Ref Range: >39 mg/dL) VLDL Cholesterol [place] 13 (Ref Range: 5-40 mg/dL) 12 (Ref Range: 5-40 mg/dL) LDL Chol Calc (NIH) 32 (Ref Range: 0-99 mg/dL) 31 (Ref Range: 0-99 mg/dL) Non-HDL Cholesterol 45 (Ref Range: 0-129 mg/dL) 43 (Ref Range: 0-129 mg/dL) ???Lab:Reticulocyte Count-[id number] (Order Date - 04/16/2024) (Collection Date & Time - 04/16/2024 09:01 AM)?ValueReference Range?Reticulocyte Count2.30.6-2.6 - %?Request ProblemTNP- ???Lab:Vitamin D, 18-Ufjaiop-[id number] (Order Date - 04/16/2024) (Collection Date & Time - 409:01 AM)?ValueReference Range?Vitamin D, 25-Rskvnbr52.1L30.0-100.0 - ng/mL ???Lab:Urinalysis, Complete-[id number] (Order Date - 04/16/2024) (Collection Date & Time - 04/16/2024 09:01 AM)?ValueReference Range?Specific [place] 1.0241.005-1.030 -?pH5.55.0-7.5 -?Urine-ColorYellowYellow - ?AppearanceClearClear -?WBC EsteraseNegativeNegative - ?Protein1+ANegative/Trace -?GlucoseNegativeNegative - ?KetonesNegativeNegative -?Occult BloodNegativeNegative - ?BilirubinNegativeNegative -?Urobilinogen,Semi-Qn1.00.2-1.0 - mg/dL?Nitrite, UrineNegativeNegative -?Microscopic ExaminationSee below:-?WBCNone seen0 - 5 - /hpf?RBCNone seen0 - 2 - /hpf ?Epithelial Cells (non renal)None seen0 - 10 - /hpf?CastsNone seen None seen - /lpf?BacteriaNone seenNone seen/Few - ???Lab:Albumin/Creatinine Ratio,Urine-[id number] (Order Date - 04/16/2024) (Collection Date & Time - 04/16/2024 09:01 AM)?ValueReference Range ?Creatinine, [place]221.5Not Estab. - mg/dL?Albumin, Urine31.5Not Estab. - ug/mL?Alb/Creat Hrkdx107-60 - mg/g creat * Examination: ???General Examination: ?GENERAL APPEARANCE:?Age appropriate, in no acute distress, well developed, well nourished.?HEAD:? atraumatic, normocephalic.?EYES:? sclera anicteric, extraocular movement full and smooth.?HEART:?regular rate and rhythm, S1, S2 normal, occasional extrasystole.?LUNGS:?clear to auscultation bilaterally.?EXTREMITIES:?no clubbing, cyanosis, or edema.?NEUROLOGIC:?alert and oriented, gait normal.?PSYCH:? good eye contact, speech clear.? Assessment: * Assessment: 1.?Type 2 diabetes mellitus with diabetic chronic kidney disease - E11.22???2.?Atherosclerotic heart disease of [place]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 - I25.118 (Primary)???3.?Myelodysplastic syndrome, unspecified - D46.9?? 4.?Generalized anxiety disorder - F41.1???5.?Mixed hyperlipidemia - E78.2???6.?Gastro-esophageal reflux disease without esophagitis - K21.9???7.?Other spondylosis with radiculopathy, lumbosacral region - M47.27???8. Nicotine dependence, cigarettes, with unspecified nicotine-induced disorders - F17.219???9.?Vitamin D deficiency, unspecified - E55.9??? Plan: * Treatment: ? Value Reference Range ?ECGDiastolicBP 46 * ?ECGHr 69 * ?ECGPRInterval 180 * ?ECGPWaveAxis 66 * ?ECGQRSDuration 84 * ?ECGQrsWaveAxis 52 * ?ECGQTcInterval 409 * ?ECGQTInterval 394 * ?ECGSystolicBP 118 * ?ECGTWaveAxis 55 Clinical Notes: Symptomatically stable with current medical therapy. He does not have any active symptoms and he is able to perform daily activities that equate to 4 METS without any symptoms. Therefore at the present time he remains medically control. He is scheduled for surgical dental extractionand given the stability of his coronary artery disease and other medical illnesses there is no acute contraindication identified. He would be considered low to moderate risk for complications from a medical perspective.??2.?Type 2 diabetes mellitus with diabetic chronic kidney disease? Clinical Notes: Stable at present. He is A1c is probably artifactually low based on rapid turnover.At the present time can continue to follow glucose on a periodic basis and he may need a continuousglucose monitor to help further monitor his disease state.??3.?Myelodysplastic syndrome, unspecified? Clinical Notes: Stable at present. He continues to follow-up with hematology and gets periodic Retacrit and as needed transfusions. Hopefully there will not be significant blood loss during and afterhis surgery. If there is significant blood loss then he will need transfusion given his myelodysplastic syndrome. ??4.?Generalized anxiety disorder? Clinical Notes: Fair control and stable with current medical therapy??5.?Mixed hyperlipidemia? Clinical Notes: Controlled with current medical therapy with LDL less than 50. His goal would be LDL less than 40 to minimize plaque progression and hopefully allow plaque volume regression.? 6.?Gastro-esophageal reflux disease without esophagitis? Clinical Notes: Symptomatically stable at present??7.?Other spondylosis with radiculopathy, lumbosacral region? Clinical Notes: Stable with periodic injections??8.?Nicotine dependence, cigarettes, with unspecified nicotine-induced disorders? Clinical Notes: Smoking cessation has been counseled in the past??9.?Vitamin D deficiency, unspecified? Clinical Notes: Fair control on prior labs as reviewed. Recommend vitamin D supplementation for goal level of 30+??10.?Others? Clinical Notes: This note was created with voice dictation recognition software and may contain errors of grammar and syntax. Also labs were reviewed with patient.?? * Procedure Codes:?82579 -ELEC TROCARDIOGRAM, [id number] HG A1C LEVEL LT 7.0% * Preventive Medicine:? ??Counseling:?BP Management:?LIFESTYLE RECOMMENDATION:?Lifestyle education regarding hypertension ?PHYSICAL ACTIVITY RECOMMENDATION:?Given encouragement to exercise ?WEIGHT REDUCTION RECOMMENDATION:?Given encouragement to lose weight ?BMI Care Goal follow up?Above Normal BMI Follow-up?Given encouragement to exercise ?Smoking:?Patient counselled on the dangers of tobacco use and urged to quit.?08/15/2024 ??Immunizations:?TdaP?Last Tdap was administered?07/27/2016 ?PCV 13 (Prevnar)?Last PCV13 was administered?04/08/2020 ?PPV 23 (pneumococcal)?Last PPV23 was administered?04/27/2021 ?Influenza?Last Influenza was administered?04/25/2023 ?COVID?[employer]?Moderna ?First Dose?09/10/2020 ??Refused Tests:?Colonoscopy?Colonoscopy refused as colon cancer screen?05/14/2024 ??Screenings:?Abdominal Aortic Aneurysm Screening:?Date of most recent screening:?03/18/2020 ?Colon cancer screening?Provider recommendation:?5 years ?Date of most recent screening:?10/01/2015 * Follow Up:?3 Months (Reason: Annual) * Images: Billing Information: * Visit Code:? 05821 Office Visit, Est Pt., Level 4. * Procedure Codes:? 88552 -ELECTROCARDIOGRAM, COMPLETE. 3044F HG A1C LEVEL LT 7.0%. * Sign off status: Completed true * Provider:?Chas Noel MD Date:?09/23 Generated for Krystynai jose enrique/[place]/eTransmitting on:?09/25/2024 06:30 PM EDT History and Physical Notes * HPI (History of Present Illness) Category Sub-Category Detail Notes Category Not es Coronary Artery Disease Patient presents for follow-up of coronary artery disease Diabetes mellitus The patient presents for follow-up of diabetes mellitus Examination Category Sub-Category Detail Notes Category Not es General Examination GENERAL APPEARANCE: Age appr opriate, in no acute distress, well developed, well nourished HEAD: atraumatic, normocep halic EYES: sclera anicteric, ex traocular movement full and smooth HEART: regular rate and rhy thm, S1, S2 normal, occasional extrasystole LUNGS: clear to auscultatio n bilaterally NEUROLOGIC: alert and oriented, gait normal SKIN: EXTREMITIES: no clubbing, cyanosi s, or edema PSYCH: good eye contact, sp eech clear
--- OUTSIDE RECORDS SUMMARY | 2024-09-25 18:31 | XMS_ITS | Patient Health Record ---
Author Organization [facility] Address [address] [place] [address] [phone] Care Team Providers Care Agricultural Adviser Name Role Phone [facility] Primary Care Provider [phone] Allergies No Known Allergies Results Component Value Reference Range Notes EKG (Not yet reviewed by pro vider) Interpretation: Performing Lab: Notes/Report: ECGDiastolicBP 46 ECGHr 69 ECGPRInterval 180 ECGPWaveAxis 66 ECGQRSDuration 84 ECGQrsWaveAxis 52 ECGQTcInterval 409 ECGQTInterval 394 ECGSystolicBP 118 ECGTWaveAxis 55 RR_DiastolicBP 0 RR_MaxRRInterval 0 RR_MeanHR 0 RR_MeanRRInterval 0 RR_MinRRInterval 0 RR_NumBeats 0 RR_NumNormalBeats 0 RR_SystolicBP 0 Hemoglobin A1C Reviewed date:08/15/2024 04:32:37 PM Interpretation: Performing Lab: Notes/Report: DCA Taylor 2 (DCA Taylor 2), [facility] Lot: [id number] Hemoglobin [id number] Reviewed date:04/24/2024 06:31:12 PM Interpretation: Performing Lab:[facility], [address] [facility], [place], Phone - [phone], Director - Jolene Notes/Report: Hemoglobin A1c 6.3 4.8-5.6 % . Prediabetes: 5.7 - 6.4 Diabetes: >6.4 Glycemic control for adults with diabetes: <7.0 Urinalysis, Complete-[id number] Reviewed date:04/24/2024 06:31:12 PM Interpretation: Performing Lab:[facility], [address] [facility], Phone - [phone], Director - Jolene Notes/Report: Specific Platina 1.024 1.005-1.030 pH 5.5 5.0-7.5 Urine-Color Yellow Yellow Appearance Clear Clear WBC Esterase Negative Negative Protein 1+ Negative/Trace Glucose Negative Negative Ketones Negative Negative Occult Blood Negative Negative Bilirubin Negative Negative Urobilinogen,Semi-Qn 1.0 0.2-1.0 mg/dL Nitrite, Urine Negative Negative Microscopic Examination See below: Micr oscopic was indicated and was performed. WBC None seen 0 - 5 /hpf RBC None seen 0 - 2 /hpf Epithelial Cells (non renal) None seen 0 - 10 /hpf Casts None seen None seen /lpf Bacteria None seen None seen/Few CBC With Differential/Platel et-[id number] Reviewed date:04/24/2024 06:31:12 PM Interpretation: Performing Lab:[facility] [place], [address] [facility], Phone - [phone], Director - Jolene Notes/Report: WBC 9.8 3.4-10.8 x10E3/uL RBC 2.43 4.14-5.80 x10E6/uL Hemoglobin 9.9 13.0-17.7 g/dL Hematocrit 29.0 37.5-51.0 % MCV 119 79-97 fL MCH 40.7 26.6-33.0 pg MCHC 34.1 31.5-35.7 g/dL RDW 21.5 11.6-15.4 % Platelets 429 150-450 x10E3/uL Neutrophils 60 Not Estab. % Lymphs 30 Not Estab. % Monocytes 5 Not Estab. % Eos 2 Not Estab. % Basos 2 Not Estab. % Neutrophils (Absolute) 5.9 1.4-7.0 x10E3/uL Lymphs (Absolute) 2.9 0.7-3.1 x10E3/uL Monocytes(Absolute) 0.5 0.1-0.9 x10E3/uL Eos (Absolute) 0.2 0.0-0.4 x10E3/uL Baso (Absolute) 0.2 0.0-0.2 x10E3/uL Immature Granulocytes 1 Not Estab. % Immature Grans (Abs) 0.1 0.0-0.1 x10E3/uL NRBC 1 0 - 0 % Reticulocyte Count-[id number] Reviewed date:04/24/2024 06:31:12 PM Interpretation: Performing Lab:[facility], Phone - [phone], [facility]/Report: Reticulocyte Count 2.3 0.6-2.6 % Request Problem TNP Test not performed. Sample contaminated with EDTA which is not suitable for test ordered. TEST: [id number] Sodium Panel: [id number] Potassium Panel: [id number] Chloride Panel: [id number] Carbon Dioxide, Total Panel: 963482 960010 Calcium Panel: 385844 766213 Alkaline Phosphatase Panel: [id number] Vitamin D, 34-Nezlfmk-[id number] Reviewed date:04/24/2024 06:31:13 PM Interpretation: Performing Lab:[facility], Phone - [phone], [facility]/Report: Vitamin D, 25-Hydroxy 28.1 30.0-100.0 ng/mL Vitamin D deficiency has been defined by the [place] [employer] and an Endocrine Society practice guideline as a level of serum 25-OH vitamin D less than 20 ng/mL (1,2). The Endocrine Society went on to further define vitamin D insufficiency as a level between 21 and 29 ng/mL (2). 1. IOM ([place] [employer]). 2010. Dietary reference intakes for calcium and D. [place]: The National Academies Press. 2. Kiko MF, Gigi NC, Anya CUMMINGS, et al. Evaluation, treatment, and prevention of vitamin D deficiency: an Endocrine Society clinical practice guideline. JCEM. 2010; 96(7):1911-30. Albumin/Creatinine Ratio,Uri ne-[id number] Reviewed date:04/24/2024 06:31:13 PM Interpretation: Performing Lab:[facility], Phone - [phone], [facility]/Report: Creatinine, Urine 238.5 Not Estab. mg/dL Albumin, Urine 31.5 Not Estab. ug/mL Alb/Creat Ratio 13 0-29 mg/g creat Normal: 0 - 29 Moderately increased: 30 - 300 Severely increased: >300 Comp. Metabolic Panel (14)-3 33957 Reviewed date:04/24/2024 06:31:13 PM Interpretation: Performing Lab:Niyah Reyes, [address] [facility], Phone - [phone], Director - Jolene Notes/Report: Glucose 96 70-99 mg/dL BUN 7 8-27 mg/dL Creatinine 0.91 0.76-1.27 mg/dL eGFR 91 >59 mL/min/1.73 BUN/Creatinine Ratio 8 10-24 Sodium TNP Test not performed. Sample contaminated with EDTA which is not suitable for test ordered. Potassium TNP Test not performed. Sample contaminated with EDTA which is not suitable for test ordered. Chloride TNP Test not performed. Sample contaminated with EDTA which is not suitable for test ordered. Carbon Dioxide, Total TNP Test not performed. Sample contaminated with EDTA which is not suitable for test ordered. Calcium TNP Test not performed. Sample contaminated with EDTA which is not suitable for test ordered. Protein, Total 6.9 6.0-8.5 g/dL Albumin 4.3 3.9-4.9 g/dL Globulin, Total 2.6 1.5-4.5 g/dL Bilirubin, Total 0.5 0.0-1.2 mg/dL Alkaline Phosphatase TNP Test not performed. Sample contaminated with EDTA which is not suitable for test ordered. AST (SGOT) 29 0-40 IU/L ALT (SGPT) 21 0-44 IU/L LP+Non-HDL Cholesterol-[id number] 5 Reviewed date:04/24/2024 06:31:13 PM Interpretation: Performing Lab:[facility], [address] [facility], [place], Phone - [phone], Director - Jolene Notes/Report: Cholesterol, Total 92 100-199 mg/dL Triglycerides 57 0-149 mg/dL HDL Cholesterol 47 >39 mg/dL VLDL Cholesterol Romeo 13 5-40 mg/dL LDL Chol Calc (NIH) 32 0-99 mg/dL Non-HDL Cholesterol 45 0-129 mg/dL Hemoglobin A1C Reviewed date:2024 07:03:45 PM Interpretation: Performing Lab: Notes/Report: DCA Taylor (DCA Taylor), [facility] Lot: [id number] PDF Report Reviewed date:09/29/2023 08:35:31 AM Interpretation: Performing Lab:[facility], [address] [place] [address], Phone - [phone], Director - Jolene Notes/Report: LP+Non-HDL Cholesterol-[id number] 5 Reviewed date:09/29/2023 08:35:31 AM Interpretation: Performing Lab:[facility], [address] [place] [address], Phone - [phone], Director - Jolene Notes/Report: Cholesterol, Total 99 100-199 mg/dL Triglycerides 48 0-149 mg/dL HDL Cholesterol 56 >39 mg/dL VLDL Cholesterol Romeo 12 5-40 mg/dL LDL Chol Calc ([facility]) 31 0-99 mg/dL Non-HDL Cholesterol 43 0-129 mg/dL Comp. Metabolic Panel (14)-3 Reviewed date:09/29/2023 08:35:31 AM Interpretation: Performing Lab:[facility], [address] [place] [address], Phone - [phone], Director - Jolene Notes/Report: Glucose 80 70-99 mg/dL BUN 8 8-27 mg/dL Creatinine 0.84 0.76-1.27 mg/dL eGFR 95 >59 mL/min/1.73 BUN/Creatinine Ratio 10 10-24 Sodium 141 134-144 mmol/L Potassium 5.2 3.5-5.2 mmol/L Chloride 102 96-106 mmol/L Carbon Dioxide, Total 25 20-29 mmol/L Calcium 9.9 8.6-10.2 mg/dL Protein, Total 6.8 6.0-8.5 g/dL Albumin 4.3 3.9-4.9 g/dL Globulin, Total 2.5 1.5-4.5 g/dL A/G Ratio 1.7 1.2-2.2 Bilirubin, Total 0.5 0.0-1.2 mg/dL Alkaline Phosphatase 78 44-121 IU/L AST (SGOT) 15 0-40 IU/L ALT (SGPT) 23 0-44 IU/L CBC With Differential/Platel et-[id number] Reviewed date:09/29/2023 08:35:31 AM Interpretation: Performing Lab:[facility], [address] [place] [address], Phone - [phone], Director - Jolene Notes/Report: WBC 10.9 3.4-10.8 x10E3/uL RBC 2.77 4.14-5.80 x10E6/uL Hemoglobin 11.0 13.0-17.7 g/dL Hematocrit 31.1 37.5-51.0 % MCV 112 79-97 fL MCH 39.7 26.6-33.0 pg MCHC 35.4 31.5-35.7 g/dL RDW 17.8 11.6-15.4 % Platelets 436 150-450 x10E3/uL Neutrophils 57 Not Estab. % Lymphs 33 Not Estab. % Monocytes 6 Not Estab. % Eos 2 Not Estab. % Basos 1 Not Estab. % Neutrophils (Absolute) 6.2 1.4-7.0 x10E3/uL Lymphs (Absolute) 3.6 0.7-3.1 x10E3/uL Monocytes(Absolute) 0.7 0.1-0.9 x10E3/uL Eos (Absolute) 0.2 0.0-0.4 x10E3/uL Baso (Absolute) 0.1 0.0-0.2 x10E3/uL Immature Granulocytes 1 Not Estab. % Immature Grans (Abs) 0.1 0.0-0.1 x10E3/uL NRBC 1 0 - 0 % Hemoglobin [id number] Reviewed date:09/29/2023 08:35:31 AM Interpretation: Performing Lab:Niyah Reyes, [address] [place] [address], Phone - [phone], Director - Jolene Notes/Report: Hemoglobin A1c 6.5 4.8-5.6 % . Prediabetes: 5.7 - 6.4 Diabetes: >6.4 Glycemic control for adults with diabetes: <7.0 Reason For Referral No Information Medications Medication SIG (Take, Route, Frequency, Duration) Notes Start Date End Date Status LORazepam 1 MG 1 tablet at bedtime as needed Orally Every 8 hours 04/25/2023 Not-Taking Zinc Active Escitalopram Oxalate 10 MG TAKE 1 TABLET BY MOUTH DAILY for 90 Active Famotidine 20 MG 1 tablet at bedtime Orally Once a day Active Aspirin Low Dose 81 MG TAKE 1 TABLET BY MOUTH ONCE A DAY for 30 Active Rosuvastatin Calcium 40 MG TAKE 1 TABLET BY MOUTH ONCE A DAY. for 30 Active Metoprolol Succinate ER 50 MG TAKE 1/2 TABLET (25MG) BY MOUTH ONCE A DAY. for 30 Active Immunizations Vaccine Route Administration Date Status Comme nts Pneumococcal polysaccharide PCV 13 IM Intramuscular 04/08/2020 Administered Influenza, seasonal, injectable (split), for 3 yrs and up IM Intramuscular 04/08/2020 Administered Mfd by [employer]of[employer] Pasteur Influenza (Fluad) Unknown 04/25/2022 Administered CLZXT-78-Nknmngy Vaccine Unknown 09/10/2020 Administered VTQWT-49-Nyaabpl Vaccine Unknown 10/08/2020 Administered VFGAH-90-Ixuvoxp Vaccine Unknown 05/25/2021 Administered COVID-19 Moderna BiValent Booster Unknown 04/25/2022 Administered *Tdap IM Intramuscular 07/27/2016 Administered *Pneumococcal polysaccharide PPV23 IM Intramuscular 04/27/2021 Administered *Influenza-Medicare-A S IM Intramuscular 04/24/2019 Administered *Influenza-Medicare-A S IM Intramuscular 04/27/2021 Administered *Hyqvkbhbr-Mwwjzoh-Dk gh Dose-65+ IM Intramuscular 04/16/2024 Administered *Influenza, High Dose Seasonal, Quadrivatent IM Intramuscular 04/25/2023 Administered Social History Tobacco Use: Social History Observation [...] Tobacco non-user Ex -moderate cigarette smoker (10-19/day) Problems Problem Type SNOMED Code ICD Code Onset Dates Problem Status W/U Status Risk Notes Problem Myelodysplastic syndrome (761448168) Myelodysplastic syndrome, unspecified (D46.9) Active confirmed Problem Folate deficiency anemia (41996312) Folate deficiency anemia, 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) Active confirmed Problem Diabetic renal disease (206302495) Type 2 diabetes mellitus with diabetic chronic kidney disease (E11.22) Active confirmed Problem Vitamin D deficiency (79304813) Vitamin D deficiency, unspecified (E55.9) Active confirmed Problem Mixed hyperlipidemia (505597544) Mixed hyperlipidemia (E78.2) Active confirmed Problem Mental disorder caused by drug (343913635) Nicotine dependence, cigarettes, with unspecified nicotine-induced disorders (F17.219) Active confirmed Problem Generalized anxiety disorder (45090310) Generalized anxiety disorder (F41.1) Active confirmed Problem Angina co-occurrent and due to coronary arteriosclerosis (disorder) (53615600190035355) 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) Active confirmed Problem Atrial premature depolarization (819167145) Atrial premature depolarization (I49.1) Active confirmed Problem Gastro-esophageal reflux disease without esophagitis (991568739) Gastro-esophageal reflux disease without esophagitis (K21.9) Active confirmed Problem Gallbladder and bile duct calculi (500635652) Calculus of gallbladder and bile duct without cholecystitis without obstruction (K80.70) Active confirmed Problem Lumbosacral spondylosis without myelopathy (00013853) Other spondylosis with radiculopathy, lumbosacral region (M47.27) Active confirmed Problem Cervical disc disorder with radiculopathy (944846445) Cervical disc disorder with radiculopathy, high cervical region (M50.11) Active confirmed Problem Displacement of lumbar intervertebral disc without myelopathy (82107668) Other intervertebral disc displacement, lumbosacral region (M51.27) Active confirmed Problem Chronic kidney disease stage 2 (720277250) Chronic kidney disease, stage 2 (mild) (N18.2) Active confirmed Problem Syncope and collapse (628933515) Syncope and collapse (R55) Active confirmed Problem Family history of malignant neoplasm of gastrointestinal tract (736765144) Family history of malignant neoplasm of digestive organs (Z80.0) Active confirmed Problem Lower urinary tract symptoms due to benign prostatic hypertrophy (03637636103422) Benign prostatic hyperplasia with lower urinary tract symptoms (N40.1) Active confirmed Problem Age-related nuclear cataract of right eye (848025952214685) Age-related nuclear cataract, right eye (H25.11) Problem resolved confirmed Problem Age-related nuclear cataract of left eye (904088789266974) Age-related nuclear cataract, left eye (H25.12) Problem resolved confirmed Vital Signs Heart Rate 82 /min 09/23/2024 Temperature 96.8 degrees Fahrenheit 09/23/2024 Oximetry 98 % 09/23/2024 Blood pressure diastolic 46 mm Hg 09/23/2024 Height 5 ft 8 in in 09/23/2024 Blood pressure systolic 118 mm Hg 09/23/2024 Weight 171 lbs 09/23/2024 BMI 26.0 kg/m2 09/23/2024 Encounters Encounter Location Date Provider Diagnosis [facility] No[facility] MD [address] [id number] 09/29/2023 Chas Noel MD [address] [id number] 12/03/2023 Chas Noel MD [address] [id number] 01/08/2024 Chas Noel MD [address] [id number] 03/22/2024 Chas Noel Other fatigue R53.83 Chas Noel MD [address] [id number] 03/27/2024 Chas Noel MD [address] [id number] 08/12/2024 Chas Noel MD [address] [id number] 08/15/2024 Chas Noel Type 2 diabetes mellitus with diabetic chronic kidney disease E11.22 ; Myelodysplastic syndrome, unspecified D46.9 ; Generalized anxiety disorder F41.1 ; Atherosclerotic heart disease of [place]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 I25.118 ; Mixed hyperlipidemia E78.2 ; Gastro-esophageal reflux disease without esophagitis K21.9 ; Other spondylosis with radiculopathy, lumbosacral region M47.27 ; Nicotine dependence, cigarettes, with unspecified nicotine-induced disorders F17.219 and Vitamin D deficiency, unspecified E55.9 Chas Noel MD [address] [id number] 09/27/2023 Chas Noel Generalized anxiety disorder F41.1 ; Atrial premature depolarization I49.1 ; Atherosclerotic heart disease of [place]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 I25.118 ; Myelodysplastic syndrome, unspecified D46.9 ; Gastro-esophageal reflux disease without esophagitis K21.9 ; Mixed hyperlipidemia E78.2 ; Nicotine dependence, cigarettes, with unspecified nicotine-induced disorders F17.219 ; Vitamin D deficiency, unspecified E55.9 and Other abnormal glucose R73.09 Ch[facility] No[facility] MD [address] [id number] 11/29/2023 Chas Noel Type 2 diabetes mellitus with diabetic chronic kidney disease E11.22 ; Atherosclerotic heart disease of [place]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 I25.118 and Myelodysplastic syndrome, unspecified D46.9 [facility]as No[facility] MD [address] [id number] 04/16/2024 Chas Noel Type 2 diabetes mellitus with diabetic chronic kidney disease E11.22 ; Myelodysplastic syndrome, unspecified D46.9 ; Generalized anxiety disorder F41.1 ; Atherosclerotic heart disease of [place]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 I25.118 ; Mixed hyperlipidemia E78.2 ; Gastro-esophageal reflux disease without esophagitis K21.9 ; Other spondylosis with radiculopathy, lumbosacral region M47.27 ; Nicotine dependence, cigarettes, with unspecified nicotine-induced disorders F17.219 ; Vitamin D deficiency, unspecified E55.9 and Encounter for immunization Z23 Chas Noel MD [address] [id number] 05/14/2024 Chas Noel Type 2 diabetes mellitus with diabetic chronic kidney disease E11.22 ; Encounter for general adult medical examination without abnormal findings Z00.00 ; Myelodysplastic syndrome, unspecified D46.9 ; Generalized anxiety disorder F41.1 ; Atherosclerotic heart disease of [place]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 I25.118 ; Mixed hyperlipidemia E78.2 ; Gastro-esophageal reflux disease without esophagitis K21.9 ; Other spondylosis with radiculopathy, lumbosacral region M47.27 ; Family history of malignant neoplasm of digestive organs Z80.0 ; Nicotine dependence, cigarettes, with unspecified nicotine-induced disorders F17.219 ; Vitamin D deficiency, unspecified E55.9 ; Encounter for screening for malignant neoplasm of colon Z12.11 ; Encounter for screening for malignant neoplasm of prostate Z12.5 ; Encounter for screening for cardiovascular disorders Z13.6 ; Encounter for immunization Z23 ; Encounter for antibody response examination Z01.84 and Encounter for screening for other viral diseases Z11.59 [facility] MD [address] [id number] 09/23/2024 Chas Noel Type 2 diabetes mellitus with diabetic chronic kidney disease E11.22 ; Atherosclerotic heart disease of [place] coronary artery with other forms of angina [...] Treatment Notes Treatment Clinical Notes Section Notes 08/15/2024 Myelodysplastic syndrome, unspecified (ICD-10 - D46.9) Fair control at present. He has continued low blood counts despite Retacrit injections and just recently received his first blood transfusion. Has follow-up CBC pending next week and frequency of transfusions to be determined by hematology 08/15/2024 Type 2 diabetes mellitus with diabetic chronic kidney disease (ICD-10 - E11.22) Stable at present. He has lost weight. Most likely he is better. Today his A1c may be artifactually low result because he had a blood transfusion yesterday. 05/14/2024 Type 2 diabetes mellitus with diabetic chronic kidney disease (ICD-10 - E11.22) He has lost a few pounds and his A1c is better. Continue lifestyle modification for treatment of his diabetes. His A1c is probably higher than measured due to the rapid turnover of red cells with his history of myelodysplasia 05/14/2024 Encounter for general adult medical examination without abnormal findings (ICD-10 - Z00.00) General healthcare up-to-date. Check routine labs. Healthcare proxy already on file 04/16/2024 Myelodysplastic syndrome, unspecified (ICD-10 - D46.9) Stable with periodic follow-up with hematology and continues to get Retacrit injections 04/16/2024 Type 2 diabetes mellitus with diabetic chronic kidney disease (ICD-10 - E11.22) Stable with lifestyle management of some degree of activity. His A1c is stable. It is probably an underestimate based on his rapid turnover of his red cells. Can recheck status in adjust medical therapy if indicated 11/29/2023 Type 2 diabetes mellitus with diabetic chronic kidney disease (ICD-10 - E11.22) His A1c is elevated consistent with the diagnosis of diabetes. Today is a slightly better. However he also has myelodysplasia and a variable and probably shorter than normal Red cell half-life. If this is true then he is A1c may be underestimating his true diabetes status. At this point recommend exercise and weight loss and oral glucose tolerance test to establish diagnosis of diabetes and degree of diabetes. 11/29/2023 Atherosclerotic heart disease of [place]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 (ICD-10 - I25.118) He says he is doing better. He does not have PVCs anymore. His breathing is doing well. He is LDL is controlled and his blood pressure is controlled and his diabetes will be evaluated and treated. At this point continue current medical therapy 09/23/2024 Type 2 diabetes mellitus with diabetic chronic kidney disease (ICD-10 - E11.22) Stable at present. He is A1c is probably artifactually low based on rapid turnover. At the present time can continue to follow glucose on a periodic basis and he may need a continuous glucose monitor to help further monitor his disease state. 03/22/2024 Other fatigue (ICD-10 - R53.83) 09/23/2024 Atherosclerotic heart disease of [place] coronary artery with other forms of angina [...] risk for complications from a medical perspective. 09/27/2023 Generalized anxiety disorder (ICD-10 - F41.1) Stable with current medical therapy. Continue same 09/27/2023 Atrial premature depolarization (ICD-10 - I49.1) Symptomatically better with beta-savage therapy 09/27/2023 Atherosclerotic heart disease of [place]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 (ICD-10 - I25.118) Symptomatically he feels the same. He does not have any shortness of breath that he reports that he has no loss of stamina. At this point continue medical therapy and medical treatment. 09/23/2024 Myelodysplastic syndrome, unspecified (ICD-10 - D46.9) Stable at present. He continues to follow-up with hematology and gets periodic Retacrit and as needed transfusions. Hopefully there will not be significant blood loss during and after his surgery. If there is significant blood loss then he will need transfusion given his myelodysplastic syndrome. 11/29/2023 Myelodysplastic syndrome, unspecified (ICD-10 - D46.9) Stable with periodic follow-up with hematology and Retacrit injections. 04/16/2024 Generalized anxiety disorder (ICD-10 - F41.1) He feels he is doing well with current medical therapy. Continue same 08/15/2024 Generalized anxiety disorder (ICD-10 - F41.1) Stable at present. Continue current medical therapy 05/14/2024 Myelodysplastic syndrome, unspecified (ICD-10 - D46.9) Fair control and stable with periodic follow-up with hematology and Retacrit injections 08/15/2024 Atherosclerotic heart disease of [place]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 (ICD-10 - I25.118) Symptomatically stable without any active symptoms. Continue current medical therapy. 04/16/2024 Atherosclerotic heart disease of [place]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 (ICD-10 - I25.118) Symptomatically stable. He says he does not have any progressive shortness of breath nor chest discomfort that would suggest progressive coronary disease and angina. Continue control of comorbidities 05/14/2024 Generalized anxiety disorder (ICD-10 - F41.1) Stable at present. Continue current medical therapy 09/23/2024 Generalized anxiety disorder (ICD-10 - F41.1) Fair control and stable with current medical therapy 09/27/2023 Myelodysplastic syndrome, unspecified (ICD-10 - D46.9) Stable with periodic follow-up with hematology and Procrit injections 09/27/2023 Gastro-esophageal reflux disease without esophagitis (ICD-10 - K21.9) Symptomatically stable at present time 09/23/2024 Mixed hyperlipidemia (ICD-10 - E78.2) Controlled with current medical therapy with LDL less than 50. His goal would be LDL less than 40 to minimize plaque progression and hopefully allow plaque volume regression. 05/14/2024 Atherosclerotic heart disease of [place]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 (ICD-10 - I25.118) Stable without any active symptoms. Continue medical therapy with beta-savage and statin and aspirin 04/16/2024 Mixed hyperlipidemia (ICD-10 - E78.2) Stable with LDL less than 50. Continue current medical therapy. 08/15/2024 Mixed hyperlipidemia (ICD-10 - E78.2) Stable with LDL less than 50. Continue current statin therapy. He is at goal which would be LDL less than 50 08/15/2024 Gastro-esophageal reflux disease without esophagitis (ICD-10 - K21.9) Symptomatically stable at present 04/16/2024 Gastro-esophageal reflux disease without esophagitis (ICD-10 - K21.9) Nonexistent and stable with current medical therapy at this point in time 05/14/2024 Mixed hyperlipidemia (ICD-10 - E78.2) Stable with LDL less than 50. Continue current statin therapy 09/23/2024 Gastro-esophageal reflux disease without esophagitis (ICD-10 - K21.9) Symptomatically stable at present 09/27/2023 Mixed hyperlipidemia (ICD-10 - E78.2) Given his coronary artery disease recommend medical therapy for goal level less than 50. 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 04/16/2024 Other spondylosis with radiculopathy, lumbosacral region (ICD-10 - M47.27) Stable without any motor dysfunction. Continues to get injections every 3 months. He can continue this as long as there is no motor dysfunction and if that does happen he will need another MRI and evaluation for surgical intervention 08/15/2024 Other spondylosis with radiculopathy, lumbosacral region (ICD-10 - M47.27) Stable with periodic injections. He said he just had his injection last week as well. 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 This would not only benefit his coronary artery disease but may also benefit his myelodysplasia 04/16/2024 Nicotine dependence, cigarettes, with unspecified nicotine-induced disorders (ICD-10 - F17.219) He is smoking again. 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 05/14/2024 Other spondylosis with radiculopathy, lumbosacral region (ICD-10 - M47.27) Stable with periodic injections. Continue same. 09/23/2024 Nicotine dependence, cigarettes, with unspecified nicotine-induced disorders (ICD-10 - F17.219) Smoking cessation has been counseled in the past 09/27/2023 Vitamin D deficiency, unspecified (ICD-10 - E55.9) Fair on prior labs as reviewed. Recommend vitamin D supplementation for goal level of 50 09/27/2023 Other abnormal glucose (ICD-10 - R73.09) His glucose was elevated. Can recheck labs to verify that there is no impaired fasting glucose 09/23/2024 Vitamin D deficiency, unspecified (ICD-10 - E55.9) Fair control on prior labs as reviewed. Recommend vitamin D supplementation for goal level of 30+ 05/14/2024 Family history of malignant neoplasm of digestive organs (ICD-10 - Z80.0) Recommend colonoscopy but he does not want to get colonoscopies until he is 70 years old. 04/16/2024 Vitamin D deficiency, unspecified (ICD-10 - E55.9) Fair control and prior labs reviewed. Recommend vitamin D supplementation for goal level of 30+. Recheck status 08/15/2024 Vitamin D deficiency, unspecified (ICD-10 - E55.9) Fair control and prior labs reviewed. 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 05/14/2024 Vitamin D deficiency, unspecified (ICD-10 - E55.9) Fair control on prior labs reviewed and recommend vitamin D supplementation for goal level of 30+ 05/14/2024 Encounter for screening for malignant neoplasm of colon (ICD-10 - Z12.11) Due for colon cancer screening but he refuses colon cancer screening 05/14/2024 Encounter for screening for malignant neoplasm of prostate (ICD-10 - Z12.5) Can check PSA has prostate cancer screening realizing the limitation of this test as a screening test 05/14/2024 Encounter for screening for cardiovascular disorders (ICD-10 - Z13.6) Blood pressure is stable. Can check for comorbidity of hyperlipidemia and hyperglycemia to further assess risk. 05/14/2024 Encounter for immunization (ICD-10 - Z23) Vaccines up to date 05/14/2024 Encounter for antibody response examination (ICD-10 - Z01.84) Titers have been checked in the past and there is immunity to rubeola 05/14/2024 Encounter for screening for other viral diseases (ICD-10 - Z11.59) Can screen for hepatitis C as per general recommendation 09/27/2023 Other This note was created with voice dictation recognition software and may contain errors of grammar and syntax. Also labs were reviewed with patient. 11/29/2023 Other This note was created with voice dictation recognition software and may contain errors of grammar and syntax. Also labs were reviewed with patient. 04/16/2024 Other This note was created with voice dictation recognition software and may contain errors of grammar and syntax. Also labs were reviewed with patient. 05/14/2024 Other This note was created with voice dictation recognition software and may contain errors of grammar and syntax. Also labs were reviewed with patient. 08/15/2024 Other This note was created with voice dictation recognition software and may contain errors of grammar and syntax. Also labs were reviewed with patient. 09/23/2024 Other This note was created with voice dictation recognition software and may contain errors of grammar and syntax. Also labs were reviewed with patient. Plan Of Treatment Pending Test Test Name Order Date COMPLETE CBC WITH DIFF 02/02/2023 FOLIC ACID 02/02/2023 EKG 09/23/2024 FOLATE 08/21/2018 CR Upper GI Small Bowel Series CT Low Dose Lung Screening 02/01/2023 Hemoglobin [id number] 05/14/2024 Urinalysis, Complete-[id number] 05/14/2024 CBC With Differential/Platelet-503089 Reticulocyte Count-745540 05/14/2024 Prostate-Specific Ag-[id number] 05/14/2024 Vitamin D, 43-Eejlvmo-092743 05/14/2024 Glucose Tolerance (4 Sp Blood)-773788 Albumin/Creatinine Ratio,Urine-689812 Comp. Metabolic Panel (14)-163500 2023 LP+Non-HDL Cholesterol-[id number] 05/14/2024 HCV Antibody-[id number] 05/14/2024 Next Appt Details Provider Name:Chas Bert , 12/16/2024 11:30:00 AM, [address] [place] [address], [phone], Provider Name:Chas Bert , 05/30/2025 10:00:00 AM, [address] [place] [address], [phone], Insurance Providers Payer Name Payer Address Payer Phone Subscriber Number Group Number Insured Name Patient Relationship to Insured Coverage Start Date Coverage End Date [employer] [place] [address] [place] [address] [id number] Man Joe Self - patient is the insured Medical (General) History Medical History History ICD Code Anxiety disorder, unspecified F41.9 Atrial premature depolarization I49.1 Gastro-esophageal reflux disease without esophagitis K21.9 Vitamin D deficiency, unspecified E55.9 Cervical disc disorder with radiculopath y, high cervical region M50.11 Nicotine dependence, cigaret sonny, with unspecified nicotine-induced disorders F17.219 Family history of malignant neoplasm of digestive organs Z80.0 Other spondylosis with radiculopathy, rae mbosacral region M47.27 Other intervertebral disc displacement, lumbosacral region M51.27 Age-related nuclear cataract, right eye (resolved 02/01/2023) undefined Age-related nuclear cataract, left eye ( resolved 02/01/2023) Surgical History Surgery Date(Month/Year) cataract-lens implants, RT 2021 cataract-lens implants, LT 09/2022 Hospitalization History Reason Date(Month/Year) Syncope 04/2023
--- OUTSIDE RECORDS SUMMARY | 2024-09-25 18:31 | XMS_ITS ---
Author Organization Chas Noel MD Address [address] [place] [id number] Care Team Providers Care Pile Driving Setter Name Role Phone Chas Noel Primary Care Provider [phone] REASON FOR VISIT Few important things Encounters Encounter Location Date Provider Diagnosis Chas Noel MD [address] [place] [address] [place] [phone] 08/12/2024 Chas Noel Plan Of Treatment Next Appt Details Provider Name:Chas Noel , 12/16/2024 11:30:00 AM, [address] [place] [address], [phone], Provider Name:Chas Noel , 05/30/2025 10:00:00 AM, [address] [place] [address], [phone], Progress Notes * Javan JOEOB:1954 (69 yo M)Acc No.[id number]:08/12/2024 Patient:?Man JOE :1955???Age:69 Y???Sex:Male Address:[address] [place] [address], [phone] * true * Date:? Generated for Josh quispe/[place]/eTransmitting on:?09/25/2024 06:30 PM EDT
--- OUTSIDE RECORDS SUMMARY | 2024-09-25 18:31 | XMS_ITS ---
Author Organization [facility] Address [address] [phone] Care Team Providers Care Change Management Facilitator Name Role Phone Chas Noel Primary Care Provider Allergies No Known Allergies Results Component Value Reference Range Notes Hemoglobin A1C Reviewed date:08/15/2024 04:32:37 PM Interpretation: Performing Lab: Notes/Report: [facility] [place] [facility] ([facility] [place] [facility]), [facility] Lot: [id number] HbA1c 5.5 1.000;0.0 %;NGS P REASON FOR VISIT 3m f/u dm Medications Medication SIG (Take, Route, Frequency, Duration) Notes Start Date End Date Status Rosuvastatin Calcium 40 MG TAKE 1 TABLET BY MOUTH ONCE A DAY. for 30 Active Metoprolol Succinate ER 50 MG TAKE 1/2 TABLET (25MG) BY MOUTH ONCE A DAY. for 30 Active Escitalopram Oxalate 10 MG TAKE 1 TABLET BY MOUTH DAILY for 90 Active LORazepam 1 MG 1 tablet at bedtime as needed Orally Every 8 hours 04/25/2023 Not-Taking Zinc Active Aspirin Low Dose 81 MG TAKE 1 TABLET BY MOUTH ONCE A DAY for 30 Active Famotidine 20 MG 1 tablet at bedtime Orally Once a day Active Social History Tobacco Use: Social History [...] smoker (10-19/day) Vital Signs Blood pressure systolic 122 mm Hg 08/15/19 25 Blood pressure diastolic 60 mm Hg 025 Temperature 96.3 degrees Fahrenheit 08/15/19 25 Heart Rate 77 /min 08/15/2024 Weight 169 lbs 08/15/2024 BMI 25.69 kg/m2 08/15/2024 Height 5 ft 8 in in 08/15/2024 Oximetry 97 % 08/15/2024 Encounters Encounter Location Date Provider Diagnosis Chas Noel MD [address] [place], [place] [phone] 08/15/2024 Chas Noel Type 2 diabetes mellitus with diabetic chronic kidney disease E11.22 ; Myelodysplastic syndrome, unspecified D46.9 ; Generalized anxiety disorder F41.1 ; Atherosclerotic heart disease of [place]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 I25.118 ; Mixed hyperlipidemia E78.2 ; Gastro-esophageal reflux disease without esophagitis K21.9 ; Other spondylosis with radiculopathy, lumbosacral region M47.27 ; Nicotine dependence, cigarettes, with unspecified nicotine-induced disorders F17.219 and Vitamin D deficiency, unspecified E55.9 Assessments Encounter Date Diagnosis (ICD Code) Assessment Notes Treatment Notes Treatment Clinical Notes Section Notes 08/15/2024 Type 2 diabetes mellitus with diabetic chronic kidney disease (ICD-10 - E11.22) Stable at present. He has lost weight. Most likely he is better. Today his A1c may be artifactually low result because he had a blood transfusion yesterday. 08/15/2024 Myelodysplastic syndrome, unspecified (ICD-10 - D46.9) Fair control at present. He has continued low blood counts despite Retacrit injections and just recently received his first blood transfusion. Has follow-up CBC pending next week and frequency of transfusions to be determined by hematology 08/15/2024 Generalized anxiety disorder (ICD-10 - F41.1) Stable at present. Continue current medical therapy 08/15/2024 Atherosclerotic heart disease of [place]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 (ICD-10 - I25.118) Symptomatically stable without any active symptoms. Continue current medical therapy. 08/15/2024 Mixed hyperlipidemia (ICD-10 - E78.2) Stable with LDL less than 50. Continue current statin therapy. He is at goal which would be LDL less than 50 08/15/2024 Gastro-esophageal reflux disease without esophagitis (ICD-10 - K21.9) Symptomatically stable at present 08/15/2024 Other spondylosis with radiculopathy, lumbosacral region (ICD-10 - M47.27) Stable with periodic injections. He said he just had his injection last week as well. 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 This would not only benefit his coronary artery disease but may also benefit his myelodysplasia 08/15/2024 Vitamin D deficiency, unspecified (ICD-10 - E55.9) Fair control and prior labs reviewed. Recommend vitamin D supplementation or increased dietary vitamin D such as fish for goal level of 30+ and if possible 50+ 08/15/2024 Other This note was created with voice dictation recognition software and may contain errors of grammar and syntax. Also labs were reviewed with patient. Plan Of Treatment Next Appt Details Follow Up: 4 Months, Reason: Diabetes Provider Name:Chas Noel , 12/16/2024 11:30:00 AM, [address] [place] [address], [phone], Provider Name:Chas Noel , 05/30/2025 10:00:00 AM, [address] [place] [address], [phone], Progress Notes * Javan JOEOB:1954 (69 yo M)Acc No.[id number]:08/15/2024 Progress Notes Patient:?Man JOE Provider:?Chas Noel MD :1955???Age:69 Y???Sex:Male Drew e:08/15/2024 Address:[address] [place], [place] [phone] Subjective: * Chief Complaints: * ???3m f/u dm * HPI: ???Coronary Artery Disease:?69 year old [...] Tablet TAKE 1 TABLET BY MOUTH DAILY Metoprolol Succinate ER 50 MG Tablet Extended Release 24 Hour TAKE 1/2 TABLET (25MG) BY MOUTH ONCE A DAY. Rosuvastatin Calcium 40 MG Tablet TAKE 1 TABLET BY MOUTH ONCE A DAY. Taking Famotidine 20 MG Tablet 1 tablet at bedtime Orally Once a day Taking Aspirin Low Dose 81 MG Tablet Chewable TAKE 1 TABLET BY MOUTH ONCE A DAY Taking Zinc Taking Escitalopram Oxalate 10 MG Tablet TAKE 1 TABLET BY MOUTH DAILY Taking Metoprolol Succinate ER 50 MG Tablet Extended Release 24 Hour TAKE 1/2 TABLET (25MG) BY MOUTH ONCE A DAY. Taking Rosuvastatin Calcium 40 MG Tablet TAKE 1 TABLET BY MOUTH ONCE A DAY. Not-Taking/PRNLORazepam 1 MG Tablet 1 tablet at bedtime as needed Orally Every 8 hours Not-Taking/PRN LORazepam 1 MG Tablet 1 tablet at bedtime as needed Orally Every 8 hours * Allergies:?N.K.D.A.no[Allerg ies Verified] Objective: * Vitals:?Temp:96.3F, HR:77/mi n, BP:Sitting Right Arm: 122/60mm Hg, Wt:169lbs, BMI:25.69Index, Ht:5 ft 8 in, Oxygen sat %:97%. Past Vitals:* 05/14/2024 Temp:97.3F, HR:75/min, BP:Si tting Right Arm: 114/54mm Hg, Wt:175lbs, BMI:26.61Index, Ht:5 ft 8 in, Oxygen sat %:98% * 04/16/2024 Temp:97.4F, HR:72/min, BP:Si tting Right Arm: 112/50mm Hg, Wt:173lbs, BMI:26.3Index, Ht:5 ft 8 in, Oxygen sat %:98% * 11/29/2023 Temp:97.2F, HR:68/min, BP:St anding Right Arm: 116/60mm Hg, Wt:179lbs, BMI:27.21Index, Ht:5 ft 8 in, Oxygen sat %:97% * ???Past Orders: Lab:CBC With Differential/Pl antwan-[id number] * Collection Date 04/16/2024 09/27/2023 Collection Time [...] 0 %) * Lab:Comp. Metabolic Panel (1 4)-[id number] * Collection Date 04/16/2024 09/27/2023 Collection Time [...] mL/min/1.73) 95 (Ref Range: >59 mL/min/1.73) * Lab:LP+Non-HDL Cholesterol-3 15832 * Collection Date 04/16/2024 09/27/2023 Collection Time 09:01 AM 03:52 PM Order Date 04/16/2024 09/27/2023 Cholesterol, Total 92?L (Ref Range: 100-199 mg/dL) 99?L (Ref Range: 100-199 mg/dL) Triglycerides 57 (Ref Range: 0-149 mg/dL) 48 (Ref Range: 0-149 mg/dL) HDL Cholesterol 47 (Ref Range: >39 mg/dL) 56 (Ref Range: >39 mg/dL) VLDL Cholesterol Romeo 13 (Ref Range: 5-40 mg/dL) 12 (Ref Range: 5-40 mg/dL) LDL Chol Calc (NIH) 32 (Ref Range: 0-99 mg/dL) 31 (Ref Range: 0-99 mg/dL) Non-HDL Cholesterol 45 (Ref Range: 0-129 mg/dL) 43 (Ref Range: 0-129 mg/dL) * Lab:Hemoglobin [id number] * Collection Date 04/16/2024 09/27/2023 Collection Time 09:01 AM 03:52 PM Order Date 04/16/2024 09/27/2023 Hemoglobin A1c 6.3?H (Ref Range: 4.8-5.6 %) 6.5?H (Ref Range: 4.8-5.6 %) ???Lab:Reticulocyte Count-[id number] (Order Date - 04/16/2024) (Collection Date & Time - 04/16/2024 09:01 AM)?ValueReference Range?Reticulocyte Count2.30.6-2.6 - %?Request ProblemTNP- ???Lab:Urinalysis, Complete-[id number] (Order Date - 04/16/2024) (Collection Date & Time - 04/16/2024 09:01 AM)?ValueReference Range?Specific [place] 1.0241.005-1.030 -?pH5.55.0-7.5 -?Urine-ColorYellowYellow - ?AppearanceClearClear -?WBC EsteraseNegativeNegative - ?Protein1+ANegative/Trace -?GlucoseNegativeNegative - ?KetonesNegativeNegative -?Occult BloodNegativeNegative - ?BilirubinNegativeNegative -?Urobilinogen,Semi-Qn1.00.2-1.0 - mg/dL?Nitrite, UrineNegativeNegative -?Microscopic ExaminationSee below:-?WBCNone seen0 - 5 - /hpf?RBCNone seen0 - 2 - /hpf ?Epithelial Cells (non renal)None seen0 - 10 - /hpf?CastsNone seen None seen - /lpf?BacteriaNone seenNone seen/Few - ???Lab:Albumin/Creatinine Ratio,Urine-[id number] (Order Date - 04/16/2024) (Collection Date & Time - 04/16/2024 09:01 AM)?ValueReference Range ?Creatinine, Pftya613.5Not Estab. - mg/dL?Albumin, Urine31.5Not Estab. - ug/mL?Alb/Creat Kbdpe704-40 - mg/g creat ???Lab:Vitamin D, 71-Iannrmf-[id number] (Order Date - 04/16/2024) (Collection Date & Time - 409:01 AM)?ValueReference Range?Vitamin D, 25-Yrikbib80.1L30.0-100.0 - ng/mL * Examination: ???General Examination: ?GENERAL APPEARANCE:?Age appropriate, in no acute distress, well developed, well nourished.?HEAD:? atraumatic, normocephalic.?EYES:? sclera anicteric, extraocular movement full and smooth.?HEART:?regular rate and rhythm, S1, S2 normal, occasional extrasystole.?LUNGS:?clear to auscultation bilaterally.?EXTREMITIES:?no clubbing, cyanosis, or edema.?NEUROLOGIC:?alert and oriented, gait normal.?PSYCH:? good eye contact, speech clear.? Assessment: * Assessment: 1.?Myelodysplastic syndrome, unspecified - D46.9???2.?Type 2 diabetes mellitus with diabetic chronic kidney disease - E11.22 (Primary)???3.?Generalized anxiety disorder - F41.1???4.?Atherosclerotic heart disease of [place]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 - I25.118???5.?Mixed hyperlipidemia - E78.2???6.?Gastro- esophageal reflux disease without esophagitis - K21.9???7.?Other spondylosis with radiculopathy, lumbosacral region - M47.27???8. Nicotine dependence, cigarettes, with unspecified nicotine-induced disorders - F17.219???9.?Vitamin D deficiency, unspecified - E55.9??? Plan: * Treatment: ? Value Reference Range ?HbA1c 5.5 - % Clinical Notes: Stable at present. He has lost weight. Most likely he is better. Today his A1c may be artifactually low result because he had a blood transfusion yesterday.??2.?Myelodysplastic syndrome, unspecified? Clinical Notes: Fair control at present. He has continued low blood counts despite Retacrit injections and just recently received his first blood transfusion. Has follow-up CBC pending next week and frequency of transfusions to be determined by hematology ??3.?Generalized anxiety disorder? Clinical Notes: Stable at present. Continue current medical therapy?? 4.?Atherosclerotic heart disease of [place]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? Clinical Notes: Symptomatically stable without any active symptoms. Continue current medical therapy.??5.?Mixed hyperlipidemia? Clinical Notes: Stable with LDL less than 50. Continue current statin therapy. He is at goal which would be LDL less than 50??6.?Gastro-esophageal reflux disease without esophagitis? Clinical Notes: Symptomatically stable at present??7.?Other spondylosis with radiculopathy, lumbosacral region? Clinical Notes: Stable with periodic injections. He said he just had his injection last week as well.??8.?Nicotine dependence, cigarettes, with unspecified nicotine-induced disorders? Clinical Notes: Scalder smoking cessation. This would not only benefit his coronary artery disease but may also benefit his myelodysplasia??9.?Vitamin D deficiency, unspecified? Clinical Notes: Fair control and prior labs reviewed. Recommend vitamin D supplementation or increased dietary vitamin D such as fish for goal level of 30+ and if possible 50+??10.?Others? Clinical Notes: This note was created with voice dictation recognition software and may contain errors of grammar and syntax. Also labs were reviewed with patient.?? * Procedure Codes:?91031 GLYCA MORTEZA HEMOGLOBIN TEST, Modifiers: QW 3044F HG A1C LEVEL LT 7.0% * Preventive [...] PPV23 was administered?04/27/2021 ?Influenza?Last Influenza was administered?04/25/2023 ?COVID?Extractor Operator Helper?Moderna ?First Dose?09/10/2020 ??Refused Tests:?Colonoscopy?Colonoscopy refused as colon cancer screen?05/14/2024 ??Screenings:?Abdominal Aortic Aneurysm Screening:?Date of most recent screening:?03/18/2020 ?Colon cancer screening?Provider recommendation:?5 years ?Date of most recent screening:?10/01/2015 * Follow Up:?4 Months (Reason: Diabetes) * Images: Billing Information: * Visit Code:? 40869 Counseling to Prevent Tobacco Use, 3 - 10 min. Modifiers: 25 21604 Office Visit, Est Pt., Level 4. * Procedure Codes:? 11702 GLYCATED HEMOGLOBIN TEST. Modifiers: QW 3044F HG A1C LEVEL LT 7.0%. * Sign off status: Completed true * Provider:?Chas Noel MD Date:?08/15 Generated for Josh quispe/[place]/eTransmitting on:?09/25/2024 06:31 PM EDT History and Physical Notes * HPI (History of Present Illness) Category Sub-Category Detail Notes Category Not es Coronary Artery Disease Patient presents for follow-up of coronary artery disease The last appointment for coronary artery disease was The patient complains of chest pain The patient complains of shortness of br eath The patient reports palpitations Other symptoms include Patient denies ... Investigational studies include Risk factors include Complications from coronary artery disea se include ... Interventions include Medication(s) include Response to medication(s) Diabetes mellitus The patient presents for follow-up o f diabetes mellitus The patient's last follow-up was The patient complains of polyuria The patient complains of polydipsia The patient also reports fatigue Other symptoms include The patient denies ... Laboratory testing has included Sugars have been running Complications from diabetes have include d ... Medication(s) include Response to therapy Examination Category Sub-Category Detail Notes Category Not [...]
== END 2024-09-25 18:24 | disposition home or self-care (01) ==
LOC: HO.MRI 18:23
PROVIDERS: PCP Internal Medicine; Visit Provider Internal Medicine
DX: M54.16 Radiculopathy, lumbar region (principal)
CPT/HCPCS: 72148

== ENCOUNTER → 2024-09-25 18:38 | Outpatient (BNV) | payer OTHER, SELFPAY | PROVIDERS: PCP Internal Medicine; Visit Provider Radiology Diagnostic Radiology | DX: M47.816 Spondylosis without myelopathy or radiculopathy, lumbar region (principal); M99.63 Osseous and subluxation stenosis of intervertebral foramina of lumbar region; K80.20 Calculus of gallbladder without cholecystitis without obstruction | CPT/HCPCS: 72148 ==

== ENCOUNTER 2024-10-21 12:26 | Outpatient (AMB) | payer OTHER, SELFPAY ==
--- NOTE | 2024-10-21 12:27 | MHC.OFFVIS ---
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 He has chronic low back pain due to a right asymmetric broad-based disc bulge at L5-S1, bilateral neuroforaminal stenosis, and facet joint hypertrophy noted in his September 2024 MRI. The MRI results showed the stenosis was compressing the right S1 nerve root, correlating with his low back pain radiating to the right thigh and leg. Previous interventions, notably an epidural steroid injection in August, offered mild relief. However, interlaminar epidural injections have lost efficacy over time. The patient's walking is accompanied by pain, although previous MRI findings from 2021 show no significant progression. He is considering a different injection approach for improved pain relief. Pain Description - Onset: Chronic; Details revealed in September 2024 MRI. - Quality: Radiating pain down right leg. - Location: Low back and radiating to the right thigh and leg. - Aggravating factors: Walking. - Relieving factors: Epidural steroid injection provided mild relief. - Previous treatments: Interlaminar epidural steroid injections with diminishing efficacy. Physical Exam - Musculoskeletal- Able to walk despite pain radiating down the right leg. Results - MRI (September 2024): Asymmetric right broad-based disc bulge at L5-S1, facet joint hypertrophy, ligamentum flavum hypertrophy, bilateral neuroforaminal stenosis at L5-S1, compression of right S1 nerve root. Pain Management - Affect: Mild relief from previous interventions. - Analgesia: Interested in a new injection approach for better relief. - Adverse Effects: NONE reported from the previous injection. - Activities of Daily Living: Walking interfered by right leg pain. - Aberrant Drug-Related Behaviors: NONE. [facility] Medical History (Updated 09/23/24 @ 12:07 by Joel Astorga MD) Myelodysplastic syndrome GERD (gastroesophageal reflux disease) Generalized anxiety disorder BPH (benign prostatic hyperplasia) Nicotine dependence, cigarettes, uncomplicated Surgical History History of bone marrow biopsy History of cataract surgery Family History Mother Colon cancer, Onset Age: 84 Social History Household Members: Spouse Household Members Other:: 2 Housing: House Do you presently have visiting nurse or other home services: No Patient Tobacco Use Status: Current everyday Tobacco user Tobacco use type: Cigarette and Cigar Cigarette Packs Per Day: 1 Years Smoked: onset 16yo, 1ppd x 52yrs, now 1/2ppd - 50pyh Second Hand Smoke Exposure: No service: No Current occupational status: retired Physical Exam Vital Signs: Last Vital Signs Pulse 43 L 10/21/24 12:29 Resp 16 10/21/24 12:29 BP 118/74 10/21/24 12:29 Pulse Ox 100 10/21/24 12:29 Oxygen Delivery Method Room Air 10/21/24 12:29 BMI result Body Mass Index 40.6 Assessment & Plan Assessment & Plan (1) Lumbar radiculopathy: Code(s): M54.16 - Radiculopathy, lumbar region Category: Medical Plan Plan I will initiate a PA for right L5 transforaminal epidural steroid injection to determine if greater pain alleviation can be achieved compared to prior interlaminar injections, due to current right-sided lumbar findings and persistent radiculopathy. If axial pain persists, we may consider nerve stimulation for targeted relief. These interventions were discussed in relation to potential risks and benefits. The patient agrees to the proposed approaches. Patient was informed and verbally consented to the use of an ambient scribe for clinic note documentation during this visit. Discussion Notes During our conversation, we reviewed the results of the September 2024 MRI, emphasizing the right L5-S1 disc bulge, resulting neuroforaminal stenosis, and its correlation with ongoing symptoms. I explained the rationale and anticipated benefits of pursuing a right L5 transforaminal epidural injection, as this may provide enhanced relief by specifically targeting the area of concern. We explored potential future options like nerve stimulation for axial back pain if needed. Risks and alternatives, including another interlaminar injection, were clearly communicated, along with typical procedural risks and expected outcomes. I addressed all questions and ensured patient comprehension and agreement with our management plan. Patient Instructions - Plan for the right L5 transforaminal epidural steroid injection. - Monitor symptoms and report any changes in pain patterns. - Schedule the procedure in early November, as discussed. - Be aware of any new or worsening symptoms and report them promptly. Coding Level of Care Code Est Pt Level 3 (64211) Diagnoses Lumbar radiculopathy M54.16
[2024-10-21 12:29] VITALS: BP 118/74; PULSE 43; RESP 16; O2SAT 100; BMI 40.6
--- OUTSIDE RECORDS SUMMARY | 2024-10-21 14:20 | XMS_ITS ---
Author Organization Chas Noel MD Address [address] [id number] Care Team Providers [employer] Name Role Phone Chas Noel Primary Care Provider Allergies No Known Allergies Results Component Value Reference Range Notes EKG Reviewed date:09/27/2024 03:02:43 PM Interpretation: Performing Lab: Notes/Report: ECGDiastolicBP 46 ECGHr [...] Location Date Provider Diagnosis Chas Noel MD [address] [phone] 09/23/2024 Chas Noel Type 2 diabetes mellitus with diabetic chronic kidney disease E11.22 ; Atherosclerotic heart disease of [place] coronary artery with other forms of angina [...] disease state. 09/23/2024 Atherosclerotic heart disease of [place] coronary artery with other forms of angina [...] Of Treatment Next Appt Details Follow Up: 3 Months, Reason: Annual Provider Name:Chas Noel , 12/16/2024 11:30:00 AM, [address] [place] [address], [phone], Provider Name:Chas Noel , 05/30/2025 10:00:00 AM, [address] [place] [address], [phone], Progress Notes * Sarah JOE:1954 (69 yo M)Acc No.[id number]:09/23/2024 Progress Note Patient:?Man JOE Provider:?Chas Noel MD :1955???Age:69 Y???Sex:Male Drew e:09/23/2024 Address:[address] [place], [place] [id number] Subjective: * Chief Complaints: * ???PRE OP [...] %:98% * ???Past Orders: Lab:CBC With Differential/Pl [place]-[id number] * Collection Date 04/16/2024 09/27/2023 Collection Time [...] 0 %) * Lab:Comp. Metabolic Panel (1 4)-[id number] * Collection Date 04/16/2024 09/27/2023 Collection Time [...] 6.4 (Ref Range: %) * Lab:LP+Non-HDL Cholesterol-3 21573 * Collection Date 04/16/2024 09/27/2023 Collection Time [...] mg/dL) 43 (Ref Range: 0-129 mg/dL) ???Lab:Reticulocyte Count-[id number] (Order Date - 04/16/2024) (Collection Date & Time - 04/16/2024 09:01 AM)?ValueReference Range?Reticulocyte Count2.30.6-2.6 - %?Request ProblemTNP- ???Lab:Vitamin D, 22-Gfickdt-[id number] (Order Date - 04/16/2024) (Collection Date & Time - 409:01 AM)?ValueReference Range?Vitamin D, 25-Yovfwwu16.1L30.0-100.0 - ng/mL ???Lab:Urinalysis, Complete-[id number] (Order Date - 04/16/2024) (Collection Date & Time - 04/16/2024 09:01 AM)?ValueReference Range?Specific [place] 1.0241.005-1.030 -?pH5.55.0-7.5 -?Urine-ColorYellowYellow - ?AppearanceClearClear -?WBC EsteraseNegativeNegative - ?Protein1+ANegative/Trace -?GlucoseNegativeNegative - ?KetonesNegativeNegative -?Occult BloodNegativeNegative - ?BilirubinNegativeNegative -?Urobilinogen,Semi-Qn1.00.2-1.0 - mg/dL?Nitrite, UrineNegativeNegative -?Microscopic ExaminationSee below:-?WBCNone seen0 - 5 - /hpf?RBCNone seen0 - 2 - /hpf ?Epithelial Cells (non renal)None seen0 - 10 - /hpf?CastsNone seen None seen - /lpf?BacteriaNone seenNone seen/Few - ???Lab:Albumin/Creatinine Ratio,Urine-[id number] (Order Date - 04/16/2024) (Collection Date & Time - 04/16/2024 09:01 AM)?ValueReference Range ?Creatinine, Yzavz329.5Not Estab. - mg/dL?Albumin, Urine31.5Not Estab. - ug/mL?Alb/Creat Ouepg234-65 - mg/g creat * Examination: ???General Examination: [...] kidney disease - E11.22???2.?Atherosclerotic heart disease of [place] coronary artery with other forms of angina [...] 394 * ?ECGSystolicBP 118 * ?ECGTWaveAxis 55 * ?RR_DiastolicBP 0 * ?RR_MaxRRInterval 0 * ?RR_MeanHR 0 * ?RR_MeanRRInterval 0 * ?RR_MinRRInterval 0 * ?RR_NumBeats 0 * ?RR_NumNormalBeats 0 * ?RR_SystolicBP 0 * This DI was reviewed by Jesika Noel on 09/27/2024 at 15:02 PM EDT Clinical Notes: Symptomatically stable with current medical [...] labs were reviewed with patient.?? * Procedure Codes:?24750 -ELEC TROCARDIOGRAM, [id number] HG A1C LEVEL LT 7.0% * Preventive [...] PPV23 was administered?04/27/2021 ?Influenza?Last Influenza was administered?04/25/2023 ?COVID?Valve Fitter?Moderna ?First Dose?09/10/2020 ??Refused Tests:?Colonoscopy?Colonoscopy refused as colon cancer screen?05/14/2024 ??Screenings:?Abdominal Aortic Aneurysm Screening:?Date of most recent screening:?03/18/2020 ?Colon cancer screening?Provider recommendation:?5 years ?Date of most recent screening:?10/01/2015 * Follow Up:?3 Months (Reason: Annual) * Images: Billing Information: * Visit Code:? 08992 Office Visit, Est Pt., Level 4. * Procedure Codes:? 74601 -ELECTROCARDIOGRAM, COMPLETE. 3044F HG A1C LEVEL LT 7.0%. * Sign off status: Completed true * Provider:?Chas Noel MD Date:?09/23 Generated for Josh quispe/[place]/eTransmitting on:?10/21/2024 02:20 PM EDT History and Physical Notes * [...]
--- OUTSIDE RECORDS SUMMARY | 2024-10-21 14:20 | XMS_ITS | Data Portability ---
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 [email or web address] Not available 08/15/2023 14:01:25 11/14/2023 [id number] He was advised against bed rest lasting longer than four days and to continue activities as tolerated. [email or web address] Not available 11/14/2023 10:55:13 08/15/2024 [id number] He was advised against bed rest lasting longer than four days and to continue activities as tolerated. [email or web address] Not available 08/15/2024 10:24:49 Reason for Referral None Reported. Problems Name Problem SNOMED Code Status Onset Date Resolution Date Notes Provider Name and Address Organization Details Recorded Time Lumbosacral radiculopathy 5939416 Active Eddi ellison MD [address] [facility] , [address], [place], [address], [place] [facility] 15:50:02 Degeneration of lumbar intervertebral disc 08721309 Active Eddi ellison MD [address] [facility] , [address], [place], [address], [place] [facility] 9 15:50:11 Lumbosacral spondylosis without myelopathy 43710874 Naomi ellison MD [address] [facility] , [address], [place], [address], [place] [facility] 9 15:50:26 Spinal stenosis of lumbar region 29779406 Active Eddi ellison MD [address] [facility] , [address], [place], [address], [place] [facility] 9 15:50:39 Problem Notes None recorded. Procedures Surgical History Date Name Laterality Status Provider Name and Address Organization Details Recorded Time 08/15/19 25 Lumbar Epidural steroid injection under fluoroscopic guidance completed Eddi Sanchez MD [address] , [address], [place], [address], [place] [facility] 08/15/2024 10:23:05 05/15/20 24 Lumbar Epidural steroid injection under fluoroscopic guidance completed Eddi Sanchez MD [address] , [address], [place], [address], [place] [facility] 05/15/2024 14:35:05 02/06/20 24 Lumbar Epidural steroid injection under fluoroscopic guidance completed Eddi Sanchez MD [address] , [address], [place], [address], [place] [facility] 2024 09:05:55 11/14/19 24 Lumbar Epidural steroid injection under fluoroscopic guidance completed Eddi Sanchez MD [address] , [address], [place], [address], [place] [facility] 11/14/2023 10:55:57 08/15/19 24 Lumbar Epidural steroid injection under fluoroscopic guidance completed Eddi Sanchez MD [address] , [address], [place], [address], [place] [facility] 08/15/2023 14:02:28 05/11/20 23 Lumbar Epidural steroid injection under fluoroscopic guidance completed Eddi Sanchez MD [address] , [address], [place], [address], [place] [facility] 05/11/2023 13:44:22 02/08/20 23 Lumbar Epidural steroid injection under fluoroscopic guidance completed Eddi Sanchez MD [address] , [address], [place], [address], [place] [facility] 02/07/2023 14:32:47 11/09/19 23 Lumbar Epidural steroid injection under fluoroscopic guidance completed Eddi Sanchez MD [address] , [address], [place], [address], [place] [facility] 11/08/2022 11:49:19 08/18/19 23 Lumbar Epidural steroid injection under fluoroscopic guidance completed Eddi Sanchez MD [address] , [address], [place], [address], [place] [facility] 08/18/2022 13:38:49 05/31/20 22 Lumbar Epidural steroid injection under fluoroscopic guidance completed Eddi Sanchez MD [address] , [address], [place], [address], [place] [facility] 05/31/2022 12:01:38 02/17/20 22 Lumbar Epidural steroid injection under fluoroscopic guidance completed Eddi Sanchez MD [address] , [address], [place], [address], [place] [facility] 02/16/2022 11:18:13 11/18/19 22 Lumbar Epidural steroid injection under fluoroscopic guidance completed Eddi Sanchez MD [address] , [address], [place], [address], [place] [facility] 11/17/2021 13:34:00 08/03/19 22 Lumbar Epidural steroid injection under fluoroscopic guidance completed Eddi Sanchez MD [address] , [address], [place], [address], [place] [facility] 08/03/2021 13:51:35 05/04/20 21 Lumbar Epidural steroid injection under fluoroscopic guidance completed Eddi Sanchez MD [address] , [address], [place], [address], [place] [facility] 05/04/2021 09:45:14 02/03/20 21 Lumbar Epidural steroid injection under fluoroscopic guidance completed Eddi Sanchez MD [address] , [address], [place], [address], [place] [facility] 02/02/2021 09:56:45 10/29/19 21 Lumbar Epidural steroid injection under fluoroscopic guidance completed Eddi Sanchez MD [address] , [address], [place], [address], [place] [facility] 10/28/2020 11:04:44 07/08/20 20 Lumbar Epidural steroid injection under fluoroscopic guidance completed Eddi Sanchez MD [address] , [address], [place], [address], [place] [facility] 07/08/2020 09:25:16 01/28/20 20 Lumbar Epidural steroid injection under fluoroscopic guidance completed Eddi Sanchez MD [address] [facility] , [address], [place], [address], [place] [facility] 01/28/2020 11:40:25 08/28/19 20 Lumbar Epidural steroid injection under fluoroscopic guidance completed Eddi Sanchez MD [address] [facility] , [address], [place], [address], [place] [facility] 08/28/2019 13:27:06 03/26/20 19 Lumbar Epidural steroid injection under fluoroscopic guidance completed Eddi Sanchez MD [address] [facility] , [address], [place], [address], [place] [facility] 03/26/2019 10:59:17 01/02/20 19 Lumbar Epidural steroid injection under fluoroscopic guidance completed Eddi Sanchez MD [address] [facility] , [address], [place], [address], [place] [facility] 01/01/2019 18:23:14 11/14/19 19 Lumbar Epidural steroid injection under fluoroscopic guidance completed Eddi Sanchez MD [address] [facility] , [address], [place], [address], [place] [facility] 11/14/2018 [...] 0.5 mL intramuscul ar syringe [facility] 02/02 completed Not Available Not Available Not [...] % 116 mm[Hg] 42 mm[Hg] Angela Nicole [place] [facility] 4 10:33:00 Date Recorded Body height Heart rate Oxygen saturation Oxygen saturation in Arterial blood by Pulse oximetry Systolic blood pressure Diastolic blood pressure Provider Name and Address Organization Details Last Updated DateTime 4 172.72 cm 62 /min 98 % 98 % 119 mm[Hg] 44 mm[Hg] Delia Oswald [place] [facility] 4 08:33:01 Date Recorded Body height Pain severity - 0-10 verbal numeric rating [Score] - Reported Body mass index (BMI) Body weight Oxygen saturation Oxygen saturation in Arterial blood by Pulse oximetry Heart rate Systolic blood pressure Diastolic blood pressure Provider Name and Address Organization Details Last Updated DateTime 4 172.72 cm 5 26.5 kg/m2 18091.0 7 g 98 % 98 % 73 /min 101 mm[Hg] 47 mm[Hg] Jackie Thakkar [place] [facility] 4 14:08:54 Date Recorded Body height Heart rate Oxygen saturation Oxygen saturation in Arterial blood by Pulse oximetry Pain severity - 0-10 verbal numeric rating [Score] - Reported Systolic blood pressure Diastolic blood pressure Provider Name and Address Organization Details Last Updated DateTime 5 172.72 cm 76 /min 98 % 98 % 4 129 mm[Hg] 44 mm[Hg] Seble nicholas [place] - [facility] 5 09:24:11 Social History Question Answer Notes LastModified by Organizat ion Details LastModified Time Tobacco Smoking Status Never Smoker Occasional cigar smoker Not Available [facility] 04/24/2020 03:16:11 What Is Your Level Of Alcohol Consumption? None [id number] Information not available 04/24/2020 Are You Currently Employed? No [id number] Information not available 04/24/2020 Which Illicit Or Recreational Drugs Have You Used? None [id number] Information not available 04/24/2020 Education 12 Information n ot available 11/07/2018 What Is Your Occupation? Retired [id number] Information not available 04/24/2020 Live Alone Or With Others? With Others Information not available 11/07/2018 GED No Information n ot available 11/07/2018 Marital Status veronica Informati on not available 11/07/2018 What Was The Date Of Your Most Recent Tobacco Screening? 01/01/2019 [id number] Information not available 04/24/2020 Sex: Unknown Functional [...] SNOMED-CT Code Diagnosis ICD10 Code Diagnosis Note [id number] Eddi Sanchez MD PAIN OFFICE [address] [place] [address] 11/07/2018 14:04:21 11/07/2018 16:05:18 Lumbosacral radiculopathy 6001002 M54.17 Degenerati on of lumbar intervertebral disc 81912023 M51.36 Lumbosacra l spondylosis without myelopathy 78512280 M47.817 Spinal bhumi nosis of lumbar region 95138506 M48.061 84165 Eddi Sanchez MD PAIN OFFICE [address] [place] [address] 11/13/2018 14:30:19 11/14/2018 11:34:42 Lumbosacral radiculopathy 7963784 M54.17 Degenerati on of lumbar intervertebral disc 57461944 M51.36 Lumbosacra l spondylosis without myelopathy 25312876 M47.817 Spinal bhumi nosis of lumbar region 11708771 M48.061 85588 Eddi Sanchez MD PAIN OFFICE [address] [place] [address] 12/06/2018 14:16:15 12/06/2018 15:28:49 Lumbosacral radiculopathy 8652262 M54.17 Degenerati on of lumbar intervertebral disc 61498658 M51.36 Lumbosacra l spondylosis without myelopathy 57066034 M47.817 Spinal bhumi nosis of lumbar region 67363319 M48.061 61248 Eddi Sanchez MD PAIN OFFICE [address] [facility] [place] [address] 01/01/2019 13:04:31 01/01/2019 18:26:49 Lumbosacral radiculopathy 1035721 M54.17 Degenerati on of lumbar intervertebral disc 62945254 M51.36 Lumbosacra l spondylosis without myelopathy 19151923 M47.817 Spinal bhumi nosis of lumbar region 35511979 M48.061 04148 Eddi Sanchez MD PAIN OFFICE [address] [place] [address] 03/26/2019 10:19:14 03/26/2019 11:02:16 Lumbosacral radiculopathy 1479367 M54.17 Degenerati on of lumbar intervertebral disc 89588369 M51.36 Lumbosacra l spondylosis without myelopathy 19884818 M47.817 Spinal bhumi nosis of lumbar region 34755559 M48.061 97741 Eddi Sanchez MD PAIN OFFICE [address] [place] [address] 08/28/2019 12:47:58 08/28/2019 13:30:23 Lumbosacral radiculopathy 0978812 M54.17 Degenerati on of lumbar intervertebral disc 95805034 M51.36 Lumbosacra l spondylosis without myelopathy 89483411 M47.817 Spinal bhumi nosis of lumbar region 17236225 M48.061 88165 Eddi Sanchez MD PAIN OFFICE [address] [place] [address] 01/28/2020 11:16:52 01/28/2020 14:56:45 Lumbosacral radiculopathy 8816170 M54.17 Degenerati on of lumbar intervertebral disc 46773389 M51.36 Lumbosacra l spondylosis without myelopathy 73783328 M47.817 Spinal bhumi nosis of lumbar region 15642033 M48.061 84311 Eddi Sanchez MD PAIN OFFICE [address] [place] [address] 07/08/2020 09:22:42 07/08/2020 11:19:23 Lumbosacral radiculopathy 5947573 M54.17 Degenerati on of lumbar intervertebral disc 82969181 M51.36 Lumbosacra l spondylosis without myelopathy 92298044 M47.817 Spinal bhumi nosis of lumbar region 76928864 M48.061 61139 Eddi Sanchez MD PAIN OFFICE [address] [place] [address] 10/28/2020 09:52:49 10/28/2020 16:05:47 Lumbosacral radiculopathy 7839869 M54.17 Degenerati on of lumbar intervertebral disc 35900762 M51.36 Lumbosacra l spondylosis without myelopathy 82355866 M47.817 Spinal bhumi nosis of lumbar region 53970189 M48.061 31853 Eddi Sanchez MD PAIN OFFICE [address] [place] [address] 02/02/2021 09:24:48 02/02/2021 10:27:20 Lumbosacral radiculopathy 9656205 M54.17 Degenerati on of lumbar intervertebral disc 22159948 M51.36 Lumbosacra l spondylosis without myelopathy 72597810 M47.817 Spinal bhumi nosis of lumbar region 77590601 M48.061 03882 Eddi Sanchez MD PAIN OFFICE [address] [place] [address] 05/04/2021 09:11:40 05/04/2021 09:58:06 Lumbosacral radiculopathy 9176793 M54.17 Degenerati on of lumbar intervertebral disc 71531742 M51.36 Lumbosacra l spondylosis without myelopathy 04352113 M47.817 Spinal bhumi nosis of lumbar region 55186981 M48.061 78992 Eddi Sanchez MD PAIN OFFICE [address] [place] [address] 08/03/2021 13:20:36 08/03/2021 14:49:32 Lumbosacral radiculopathy 2399000 M54.17 Degenerati on of lumbar intervertebral disc 10096643 M51.36 Lumbosacra l spondylosis without myelopathy 27182424 M47.817 Spinal bhumi nosis of lumbar region 49119721 M48.061 50247 Eddi Sanchez MD PAIN OFFICE [address] [place] [address] 11/17/2021 13:01:32 11/17/2021 13:36:27 Lumbosacral radiculopathy 2575175 M54.17 Degenerati on of lumbar intervertebral disc 67306781 M51.36 Lumbosacra l spondylosis without myelopathy 50936263 M47.817 Spinal bhumi nosis of lumbar region 50567758 M48.061 12209 Eddi Sanchez MD PAIN OFFICE [address] [place] [address] 01/07/2022 11:31:26 01/11/2022 09:36:03 Lumbosacral radiculopathy 9123787 M54.17 98707 Eddi Sanchez MD PAIN OFFICE [address] [place] [address] 02/16/2022 10:53:02 02/16/2022 14:02:50 Lumbosacral radiculopathy 8862514 M54.17 Degenerati on of lumbar intervertebral disc 69884450 M51.36 Lumbosacra l spondylosis without myelopathy 02683776 M47.817 Spinal bhumi nosis of lumbar region 42442571 M48.061 67572 Eddi Sanchez MD PAIN OFFICE [address] [place] [address] 05/31/2022 09:53:11 05/31/2022 14:22:50 Lumbosacral radiculopathy 6892281 M54.17 Degenerati on of lumbar intervertebral disc 22338920 M51.36 Lumbosacra l spondylosis without myelopathy 48842972 M47.817 Spinal bhumi nosis of lumbar region 43271207 M48.061 23358 Eddi Sanchez MD PAIN OFFICE [address] [place] [address] 08/18/2022 11:12:06 08/18/2022 13:45:18 Lumbosacral radiculopathy 0108859 M54.17 Degenerati on of lumbar intervertebral disc 08411236 M51.36 Spinal bhumi nosis of lumbar region 90018446 M48.062 14791 Eddi Sanchez MD PAIN OFFICE [address] [place] [address] 11/08/2022 11:25:10 11/08/2022 14:29:03 Lumbosacral radiculopathy 8780628 M54.17 Degenerati on of lumbar intervertebral disc 62863545 M51.36 Spinal bhumi nosis of lumbar region 49421851 M48.062 05591 Eddi Sanchez MD PAIN OFFICE [address] [place] [address] 01/20/2023 10:14:06 01/20/2023 10:40:11 Lumbosacral radiculopathy 7543973 M54.17 Degenerati on of lumbar intervertebral disc 97503704 M51.36 Lumbosacra l spondylosis without myelopathy 17836604 M47.817 Spinal bhumi nosis of lumbar region 36719003 M48.061 04130 Eddi Sanchez MD PAIN OFFICE [address] [place] [address] 02/07/2023 12:59:20 02/07/2023 14:44:01 Lumbosacral radiculopathy 2122883 M54.17 Degenerati on of lumbar intervertebral disc 41624070 M51.36 Spinal bhumi nosis of lumbar region 61809514 M48.062 53209 Eddi Sanchez MD PAIN OFFICE [address] [facility] [place] [address] 05/11/2023 11:21:41 05/11/2023 13:50:13 Spinal stenosis of lumbar region 74705225 M48.062 Lumbosacra l radiculopathy 0797974 M54.17 Degenerati on of lumbar intervertebral disc 24495887 M51.36 57825 Eddi Sanchez MD PAIN OFFICE [address] [place] [address] 08/15/2023 13:25:57 08/15/2023 14:23:43 Spinal stenosis of lumbar region 26431523 M48.062 Lumbosacra l radiculopathy 2176404 M54.17 Degenerati on of lumbar intervertebral disc 07176636 M51.36 25156 Eddi Sanchez MD PAIN OFFICE [address] [place] [address] 11/14/2023 10:21:58 11/14/2023 11:00:27 Spinal stenosis of lumbar region 72269768 M48.062 Lumbosacra l radiculopathy 2684461 M54.17 Degenerati on of lumbar intervertebral disc 34013146 M51.36 99888 Eddi Sanchez MD PAIN OFFICE [address] [place] [address] 2024 08:29:21 2024 09:08:44 Spinal stenosis of lumbar region 95813581 M48.062 Lumbosacra l radiculopathy 8127392 M54.17 Degenerati on of lumbar intervertebral disc 42633913 M51.36 92863 Eddi Sanchez MD PAIN OFFICE [address] [place] [address] 05/15/2024 13:56:51 05/15/2024 15:51:39 Spinal stenosis of lumbar region 44313716 M48.062 Lumbosacra l radiculopathy 2437627 M54.17 Degenerati on of lumbar intervertebral disc 02935441 M51.362 58623 Eddi Sanchez MD PAIN OFFICE [address] [facility] [address] [place] [address] 08/15/2024 09:14:54 08/15/2024 14:55:48 Spinal stenosis of lumbar region 02160439 M48.062 Lumbosacra l radiculopathy 4842911 M54.17 Degenerati on of lumbar intervertebral disc 65889797 M51.362 Health Concerns Section Related Observation LastModified by Organization Detai ls LastModified Time None Recorded Concern Status LastModified by Organization Details LastModified Time None Recorded Advance Directives Directive None Recorded Payers Encounter Date Sequence Insurance Name Policy Number Policy Nye Covered Member ID Nye Member ID Guarantor Name 08/15/2023 1 [employer] [place] [id number] Amisha Greenwood Garreffi [id number] Man Garreffi 11/14/2023 1 [employer] [place] [id number] Amisha Greenwood Garreffi [id number] Man Garreffi 2024 1 [employer] [place] [id number] Amisha Greenwood Garreffi [id number] Man Garreffi 05/15/2024 1 [employer] [place] [id number] Amisha Greenwood Garreffi [id number] Man Garreffi 08/15/2024 1 [employer] [place] [id number] Amisha Greenwood Garreffi [id number] Man Garreffi Notes Date Note Type Note Provider Name and Address Organization Details Recorded Time 08/15/2023 text/html He is here today for a lumbar epidural steroid injection under fluoroscopic guidance. He is seeing his PCP regularly.He has macrocytic anemia and is seeing Dr. Kim and had a bone marrow biopsy done. His platelet count is within normal limits. Eddi Sanchez MD [address] [facility] , [address], [place], [address], [place] [facility] 08/15/2023 16:52:24 11/14/2023 text/html He is here today for a lumbar epidural steroid injection under fluoroscopic guidance. He is seeing his PCP regularly.He has macrocytic anemia and is seeing Dr. Kim and had a bone marrow biopsy done. His platelet count is within normal limits. Eddi Sanchez MD [address] [facility] , [address], [place], [address], [place] [facility] 11/14/2023 16:22:56 [...] his latest results Eddi Sanchez MD [address] [facility] , [address], [place], [address], [facility] - Pain Management 2024 10:06:16 05/15/2024 text/html He is here today for a lumbar epidural steroid injection under fluoroscopic guidance. He is seeing his PCP regularly. Eddi Sanchez MD [address] [facility] , [address], [place], [address], [facility] - Pain Management 05/15/2024 15:54:49 08/15/2024 text/html He is here today for a lumbar epidural steroid injection under fluoroscopic guidance. He is seeing his PCP regularly.He had a blood transfusion for his macrocytic anemia recently Eddi Sanchez MD [address] [facility] , [address], [place], [address], [facility] - Pain Management 08/15/2024 15:22:41
--- OUTSIDE RECORDS SUMMARY | 2024-10-21 14:21 | XMS_ITS ---
Author Organization Chas Noel MD Address [address] [place] [phone] Care Team Providers Care Construction Driller Name Role Phone Chas Noel Primary Care Provider Allergies No Known Allergies REASON FOR VISIT Requesting Rx Medications Medication SIG (Take, Route, Frequency, Duration) Notes Start Date End Date Status Nicoderm CQ 21 MG/24HR 1 patch to skin T ransdermal Once a day for 30 days 10/16/2024 12/15/2024 Active Encounters Encounter Location Date Provider Diagnosis Chas Noel MD [address] [place] [phone] 10/16/2024 Chas Noel Plan Of Treatment Medication Medication Name Sig Start Date Stop Date Notes Nicoderm CQ 21 MG/24HR 1 patch to skin T ransdermal Once a day for 30 days 10/16/2024 12/15/2024 Next Appt Details Provider Name:Chas Noel , 12/16/2024 11:30:00 AM, [address] [place] [address], [phone], Provider Name:Chas Noel , 05/30/2025 10:00:00 AM, [address] [place] [address], [phone], Progress Notes * Javan JOEOB:1954 (69 yo M)Acc No.[id number]:10/16/2024 Patient:?Man JOE :1955???Age:69 Y???Sex:Male Address:[address] [place] [address], [phone] * Refills? Start Nicoderm CQ Patch 24 Hour, 21 MG/24HR, Transdermal, 30, 1 patch to skin, Once a day, 30 days, Refills=1 Subjective: * Chief Complaints: * ???Requesting Rx * Medical History:? * Surgical History:? * Hospitalization/Major Diagno stic Procedure:? * Medications:? * Allergies:?N.K.D.A.no[Allerg ies Verified] Objective: * Vitals:? Past Vitals:* 09/23/2024 Temp:96.8F, HR:82/min, BP:Si tting Right Arm: 118/46mm Hg, Wt:171lbs, BMI:26Index, Ht:5 ft 8 in, Oxygen sat %:98% * 08/15/2024 Temp:96.3F, HR:77/min, BP:Si tting Right Arm: 122/60mm Hg, Wt:169lbs, BMI:25.69Index, Ht:5 ft 8 in, Oxygen sat %:97% * 05/14/2024 Temp:97.3F, HR:75/min, BP:Si tting Right Arm: 114/54mm Hg, Wt:175lbs, BMI:26.61Index, Ht:5 ft 8 in, Oxygen sat %:98% * Physical Examination:? Assessment: Plan: * Treatment: * Procedure Codes:? * true * Date:? Generated for Josh quispe/[place]/Berniesmitting on:?10/21/2024 02:20 PM EDT
--- OUTSIDE RECORDS SUMMARY | 2024-10-21 14:21 | XMS_ITS ---
Author Organization [facility] Address [address] [id number] Care Team Providers Care Radio Communication Coordinator Name Role Phone [facility] Primary Care Provider Allergies No Known Allergies Results Component Value Reference Range Notes Hemoglobin A1C Reviewed date:08/15/2024 04:32:37 PM Interpretation: Performing Lab: Notes/Report: [facility] Sikes 2 (DCA Sikes 2), [facility] Lot: [id number] [...] Location Date Provider Diagnosis [facility] [address] [place], [place] [phone] 08/15/2024 [facility] Type 2 diabetes mellitus with diabetic chronic kidney disease E11.22 ; Myelodysplastic syndrome, unspecified D46.9 ; Generalized anxiety disorder F41.1 ; Atherosclerotic heart disease of [place] coronary artery with other forms of angina [...] medical therapy 08/15/2024 Atherosclerotic heart disease of [place] coronary artery with other forms of angina [...] with unspecified nicotine-induced disorders (ICD-10 - F17.219) 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 This would not only benefit [...] Name:[facility]el , 12/16/2024 11:30:00 AM, [address] [place] [address], [phone], Provider Name:[facility] , 05/30/2025 10:00:00 AM, [address] [place] [address], [phone], Progress Notes * Javan JOEOB:1954 (69 yo M)Acc No.[id number]:08/15/2024 Progress Notes Patient:?Man JOE Provider:?[facility] MD :1955???Age:69 Y???Sex:Male Drew e:08/15/2024 Address:[address] [place], [place] [id number] Subjective: * Chief Complaints: * ???3m f/u [...] %:97% * ???Past Orders: Lab:CBC With Differential/Pl [place]-[id number] * Collection Date 04/16/2024 09/27/2023 Collection Time [...] 0 %) * Lab:Comp. Metabolic Panel (1 4)-[id number] * Collection Date 04/16/2024 09/27/2023 Collection Time [...] (Ref Range: >59 mL/min/1.73) * Lab:LP+Non-HDL Cholesterol-3 11229 * Collection Date 04/16/2024 09/27/2023 Collection Time [...] 43 (Ref Range: 0-129 mg/dL) * Lab:Hemoglobin Z5y-[id number] * Collection Date 04/16/2024 09/27/2023 Collection Time 09:01 AM 03:52 PM Order Date 04/16/2024 09/27/2023 Hemoglobin A1c 6.3?H (Ref Range: 4.8-5.6 %) 6.5?H (Ref Range: 4.8-5.6 %) ???Lab:Reticulocyte Count-[id number] (Order Date - 04/16/2024) (Collection Date & Time - 04/16/2024 09:01 AM)?ValueReference Range?Reticulocyte Count2.30.6-2.6 - %?Request ProblemTNP- ???Lab:Urinalysis, Complete-[id number] (Order Date - 04/16/2024) (Collection Date & Time - 04/16/2024 09:01 AM)?ValueReference Range?Specific [place] 1.0241.005-1.030 -?pH5.55.0-7.5 -?Urine-ColorYellowYellow - ?AppearanceClearClear -?WBC EsteraseNegativeNegative - ?Protein1+ANegative/Trace -?GlucoseNegativeNegative - ?KetonesNegativeNegative -?Occult BloodNegativeNegative - ?BilirubinNegativeNegative -?Urobilinogen,Semi-Qn1.00.2-1.0 - mg/dL?Nitrite, UrineNegativeNegative -?Microscopic ExaminationSee below:-?WBCNone seen0 - 5 - /hpf?RBCNone seen0 - 2 - /hpf ?Epithelial Cells (non renal)None seen0 - 10 - /hpf?CastsNone seen None seen - /lpf?BacteriaNone seenNone seen/Few - ???Lab:Albumin/Creatinine Ratio,Urine-[id number] (Order Date - 04/16/2024) (Collection Date & Time - 04/16/2024 09:01 AM)?ValueReference Range ?Creatinine, Nwjac032.5Not Estab. - mg/dL?Albumin, Urine31.5Not Estab. - ug/mL?Alb/Creat Mqzkl100-57 - mg/g creat ???Lab:Vitamin D, 49-Ztsrxax-[id number] (Order Date - 04/16/2024) (Collection Date & Time - 409:01 AM)?ValueReference Range?Vitamin D, 25-Gynstkx08.1L30.0-100.0 - ng/mL * Examination: ???General Examination: ?GENERAL [...] anxiety disorder - F41.1???4.?Atherosclerotic heart disease of [place] coronary artery with other forms of angina [...] current medical therapy?? 4.?Atherosclerotic heart disease of [place] coronary artery with other forms of angina [...] cigarettes, with unspecified nicotine-induced disorders? Clinical Notes: 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 This would not only benefit [...] labs were reviewed with patient.?? 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 77653 Counseling to Prevent Tobacco Use, 3 - 10 min. Modifiers: 25 04501 Office Visit, Est Pt., Level 4. * Procedure Codes:? 16897 GLYCATED HEMOGLOBIN TEST. Modifiers: QW 3044F HG A1C LEVEL LT 7.0%. * Sign off status: Completed true * Provider:?[facility] Date:?08/15 Generated for Josh quispe/[place]/eTransmitting on:?10/21/2024 02:21 PM EDT History and Physical Notes * [...]
--- OUTSIDE RECORDS SUMMARY | 2024-10-21 14:21 | XMS_ITS | Patient Health Record ---
Author Organization [facility] Address [address] [place] [phone] Care Team Providers Care Door Opener Name Role Phone [facility] Primary Care Provider [phone] Allergies No Known Allergies Results Component Value Reference Range Notes Hemoglobin A1C Reviewed date:08/15/2024 04:32:37 PM Interpretation: Performing Lab: Notes/Report: DCA [facility] 2 ([facility]), [facility] Lot: [id number] EKG Reviewed date:09/27/2024 03:02:43 PM Interpretation: Performing Lab: Notes/Report: ECGDiastolicBP 46 ECGHr 69 ECGPRInterval 180 ECGPWaveAxis 66 ECGQRSDuration 84 ECGQrsWaveAxis 52 ECGQTcInterval 409 ECGQTInterval 394 ECGSystolicBP 118 ECGTWaveAxis 55 RR_DiastolicBP 0 RR_MaxRRInterval 0 RR_MeanHR 0 RR_MeanRRInterval 0 RR_MinRRInterval 0 RR_NumBeats 0 RR_NumNormalBeats 0 RR_SystolicBP 0 Hemoglobin A1C Reviewed date:2024 07:03:45 PM Interpretation: Performing Lab: Notes/Report: CORINNE Gill ([facility]), [facility] Lot: [id number] Hemoglobin [id number] Reviewed date:04/24/2024 06:31:12 PM Interpretation: Performing Lab:[facility], [address], [place], Phone - [phone], Director - Jolene Notes/Report: Hemoglobin A1c 6.3 4.8-5.6 % . Prediabetes: 5.7 - 6.4 Diabetes: >6.4 Glycemic control for adults with diabetes: <7.0 Urinalysis, Complete-[id number] Reviewed date:04/24/2024 06:31:12 PM Interpretation: Performing [facility], [address] [place] [address], Phone - [phone], Director - Jolene Notes/Report: Specific [place] 1.024 1.005-1.030 pH 5.5 5.0-7.5 Urine-Color Yellow [...] None seen None seen/Few CBC With Differential/Platel et-[id number] Reviewed date:04/24/2024 06:31:12 PM Interpretation: Performing Lab:[facility], [address] , [place], Phone - [phone], Director - Jolene Notes/Report: WBC 9.8 3.4-10.8 [...] NRBC 1 0 - 0 % Reticulocyte Count-813610 Reviewed date:04/24/2024 06:31:12 PM Interpretation: Performing Lab:[facility], [address] [place] [address], Phone - [phone], Director - Payaly Notes/Report: Reticulocyte Count 2.3 0.6-2.6 % Request Problem TNP Test not performed. Sample contaminated with EDTA which is not suitable for test ordered. TEST: [id number] Sodium Panel: 852813 365305 Potassium Panel: 881150 814209 Chloride Panel: 133274 348560 Carbon Dioxide, Total Panel: 853341 748525 Calcium Panel: 146340 500985 Alkaline Phosphatase Panel: 725827 Vitamin D, 68-Xthcfty-706271 Reviewed date:04/24/2024 06:31:13 PM Interpretation: Performing Lab:[facility], [address] [place] [address], Phone - [phone], Director - Jolene Notes/Report: Vitamin D, 25-Hydroxy 28.1 30.0-100.0 ng/mL Vitamin D deficiency has been defined by the [place] [employer] and an Endocrine Society practice guideline as a level of serum 25-OH vitamin D less than 20 ng/mL (1,2). The Endocrine Society went on to further define vitamin D insufficiency as a level between 21 and 29 ng/mL (2). 1. IOM ([place] [employer]). 2010. Dietary reference intakes for calcium and D. [place]: The National Academies Press. 2. Kiko MF, Gigi NC, Schuyler-Juan CUMMINGS, et al. Evaluation, treatment, and prevention of vitamin D deficiency: an Endocrine Society clinical practice guideline. JCEM. 2010; 96(7):1911-30. Albumin/Creatinine Ratio,Uri ne-227078 Reviewed date:04/24/2024 06:31:13 PM Interpretation: Performing Lab:[facility], [address] [place] [address], [place], Phone - [phone], Director - Jolene Notes/Report: Creatinine, Urine 238.5 Not Estab. mg/dL Albumin, Urine 31.5 Not Estab. ug/mL Alb/Creat Ratio 13 0-29 mg/g creat Normal: 0 - 29 Moderately increased: 30 - 300 Severely increased: >300 Comp. Metabolic Panel (14)-3 Reviewed date:04/24/2024 06:31:13 PM Interpretation: Performing Lab:[facility], [address], [place], Phone - [phone], Director - Jolene Notes/Report: Glucose 96 70-99 [...] IU/L ALT (SGPT) 21 0-44 IU/L LP+Non-HDL Cholesterol-12399 5 Reviewed date:04/24/2024 06:31:13 PM Interpretation: Performing Lab:[facility], [address], [place], Phone - [phone], Director - Jolene Notes/Report: Cholesterol, Total 92 100-199 mg/dL Triglycerides 57 0-149 mg/dL HDL Cholesterol 47 >39 mg/dL VLDL Cholesterol Romeo 13 5-40 mg/dL LDL Chol Calc ([facility]) 32 0-99 mg/dL Non-HDL Cholesterol 45 0-129 mg/dL Reason For Referral No Information Medications Medication [...] MOUTH ONCE A DAY. for 30 Active Nicoderm CQ 21 MG/24HR 1 patch to skin Transdermal Once a day for 30 days 10/16/2024 12/15/2024 Active Metoprolol Succinate ER 50 MG TAKE 1/2 TABLET (25MG) BY MOUTH ONCE A DAY. for 30 Active Immunizations Vaccine Route Administration Date Status Comme nts Influenza (Fluad) Unknown 04/25/2022 Administered OETJN-70-Bvmbele Vaccine Unknown 09/10/2020 Administered UZHIO-69-Iipaiuj Vaccine Unknown 10/08/2020 Administered RXVLA-94-Kyiertt Vaccine Unknown 05/25/2021 Administered COVID-19 Moderna BiValent Booster Unknown 04/25/2022 Administered *Tdap IM Intramuscular 07/27/2016 Administered *Pneumococcal polysaccharide PPV23 IM Intramuscular 04/27/2021 Administered *Influenza-Medicare-A S IM Intramuscular 04/24/2019 Administered *Influenza-Medicare-A S IM Intramuscular 04/27/2021 Administered *Zconzyacv-Yftrgno-Dw gh Dose-65+ IM Intramuscular 04/16/2024 Administered *Influenza, High Dose Seasonal, Quadrivatent IM Intramuscular 04/25/2023 Administered Influenza, seasonal, injectable (split), for 3 yrs and up IM Intramuscular 04/08/2020 Administered Mfd by [employer] Pasteur Pneumococcal polysaccharide PCV 13 IM Intramuscular 04/08/2020 Administered Social History Tobacco Use: Social History [...] Findings: Tobacco non-user Ex -moderate cigarette smoker (-19/day) Problems Problem Type SNOMED Code ICD Code Onset Dates Problem Status W/U Status Risk Notes Problem Myelodysplastic syndrome (263153501) Myelodysplastic syndrome, unspecified (D46.9) Active confirmed Problem Folate deficiency anemia (52103722) Folate deficiency anemia, 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) Active confirmed Problem Diabetic renal disease (451758043) Type 2 diabetes mellitus with diabetic chronic kidney disease (E11.22) Active confirmed Problem Vitamin D deficiency (61551837) Vitamin D deficiency, unspecified (E55.9) Active confirmed Problem Mixed hyperlipidemia (632477186) Mixed hyperlipidemia (E78.2) Active confirmed Problem Mental disorder caused by drug (615519029) Nicotine dependence, cigarettes, with unspecified nicotine-induced disorders (F17.219) Active confirmed Problem Generalized anxiety disorder (61219889) Generalized anxiety disorder (F41.1) Active confirmed Problem Angina co-occurrent and due to coronary arteriosclerosis (disorder) (84007948770595185) 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) Active confirmed Problem Atrial premature depolarization (641556016) Atrial premature depolarization (I49.1) Active confirmed Problem Gastro-esophageal reflux disease without esophagitis (364154441) Gastro-esophageal reflux disease without esophagitis (K21.9) Active confirmed Problem Gallbladder and bile duct calculi (440258168) Calculus of gallbladder and bile duct without cholecystitis without obstruction (K80.70) Active confirmed Problem Lumbosacral spondylosis without myelopathy (72623754) Other spondylosis with radiculopathy, lumbosacral region (M47.27) Active confirmed Problem Cervical disc disorder with radiculopathy (439762790) Cervical disc disorder with radiculopathy, high cervical region (M50.11) Active confirmed Problem Displacement of lumbar intervertebral disc without myelopathy (68336831) Other intervertebral disc displacement, lumbosacral region (M51.27) Active confirmed Problem Chronic kidney disease stage 2 (668881006) Chronic kidney disease, stage 2 (mild) (N18.2) Active confirmed Problem Syncope and collapse (044589405) Syncope and collapse (R55) Active confirmed Problem Family history of malignant neoplasm of gastrointestinal tract (386426068) Family history of malignant neoplasm of digestive organs (Z80.0) Active confirmed Problem Lower urinary tract symptoms due to benign prostatic hypertrophy (91804484819805) Benign prostatic hyperplasia with lower urinary tract symptoms (N40.1) Active confirmed Problem Age-related nuclear cataract of right eye (862662835764996) Age-related nuclear cataract, right eye (H25.11) Problem resolved confirmed Problem Age-related nuclear cataract of left eye (728939818917723) Age-related nuclear cataract, left eye (H25.12) Problem resolved confirmed Vital Signs Heart Rate 82 /min 09/23/2024 Temperature 96.8 degrees Fahrenheit 09/23/2024 Blood pressure diastolic 46 mm Hg 09/23/2024 Oximetry 98 % 09/23/2024 Height 5 ft 8 in in 09/23/2024 Blood pressure systolic 118 mm Hg 09/23/2024 Weight 171 lbs 09/23/2024 BMI 26.0 kg/m2 09/23/2024 Encounters Encounter Location Date Provider Diagnosis [facility] [address] [id number] 10/16/2024 [facility] [address] [id number] 12/03/2023 [facility] MD [address] [id number] 01/08/2024 [facility] [address] [id number] 03/22/2024 [facility] Other fatigue R53.83 [facility] MD [address] [id number] 03/27/2024 [facility] [address] [id number] 08/12/2024 [facility] MD [address] [id number] 08/15/2024 [facility] Type 2 diabetes mellitus with diabetic chronic kidney disease E11.22 ; Myelodysplastic syndrome, unspecified D46.9 ; Generalized anxiety disorder F41.1 ; Atherosclerotic heart disease of [place]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 I25.118 ; Mixed hyperlipidemia E78.2 ; Gastro-esophageal reflux disease without esophagitis K21.9 ; Other spondylosis with radiculopathy, lumbosacral region M47.27 ; Nicotine dependence, cigarettes, with unspecified nicotine-induced disorders F17.219 and Vitamin D deficiency, unspecified E55.9 [facility] [address] [id number] 11/29/2023 [facility] Type 2 diabetes mellitus with diabetic chronic kidney disease E11.22 ; Atherosclerotic heart disease of [place]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 I25.118 and Myelodysplastic syndrome, unspecified D46.9 [facility] [address] [id number] 04/16/2024 [facility] Type 2 diabetes mellitus with diabetic chronic kidney disease E11.22 ; Myelodysplastic syndrome, unspecified D46.9 ; Generalized anxiety disorder F41.1 ; Atherosclerotic heart disease of [place]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 I25.118 ; Mixed hyperlipidemia E78.2 ; Gastro-esophageal reflux disease without esophagitis K21.9 ; Other spondylosis with radiculopathy, lumbosacral region M47.27 ; Nicotine dependence, cigarettes, with unspecified nicotine-induced disorders F17.219 ; Vitamin D deficiency, unspecified E55.9 and Encounter for immunization Z23 [facility] [address] [id number] 05/14/2024 [facility] Type 2 diabetes mellitus with diabetic chronic kidney disease E11.22 ; Encounter for general adult medical examination without abnormal findings Z00.00 ; Myelodysplastic syndrome, unspecified D46.9 ; Generalized anxiety disorder F41.1 ; Atherosclerotic heart disease of [place] coronary artery with other forms of angina [...] other viral diseases Z11.59 [facility] [address] [id number] 09/23/2024 [facility] Type 2 diabetes mellitus with diabetic chronic kidney disease E11.22 ; Atherosclerotic heart disease of [place] coronary artery with other forms of angina [...] Treatment Notes Treatment Clinical Notes Section Notes 03/22/2024 Other fatigue (ICD-10 - R53.83) 04/16/2024 Myelodysplastic syndrome, unspecified (ICD-10 - D46.9) [...] status in adjust medical therapy if indicated 05/14/2024 Type 2 diabetes mellitus with diabetic [...] routine labs. Healthcare proxy already on file 08/15/2024 Myelodysplastic syndrome, unspecified (ICD-10 - D46.9) [...] because he had a blood transfusion yesterday. 09/23/2024 Type 2 diabetes mellitus with diabetic chronic kidney disease (ICD-10 - E11.22) Stable at present. He is A1c is probably artifactually low based on rapid turnover. At the present time can continue to follow glucose on a periodic basis and he may need a continuous glucose monitor to help further monitor his disease state. 09/23/2024 Atherosclerotic heart disease of [place] coronary artery with other forms of angina [...] risk for complications from a medical perspective. 11/29/2023 Type 2 diabetes mellitus with diabetic [...] of diabetes. 11/29/2023 Atherosclerotic heart disease of [place]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 (ICD-10 - I25.118) He says he is doing better. He does not have PVCs anymore. His breathing is doing well. He is LDL is controlled and his blood pressure is controlled and his diabetes will be evaluated and treated. At this point continue current medical therapy 11/29/2023 Myelodysplastic syndrome, unspecified (ICD-10 - D46.9) Stable with periodic follow-up with hematology and Retacrit injections. 09/23/2024 Myelodysplastic syndrome, unspecified (ICD-10 - D46.9) Stable at present. He continues to follow-up with hematology and gets periodic Retacrit and as needed transfusions. Hopefully there will not be significant blood loss during and after his surgery. If there is significant blood loss then he will need transfusion given his myelodysplastic syndrome. 08/15/2024 Generalized anxiety disorder (ICD-10 - F41.1) Stable at present. Continue current medical therapy 05/14/2024 Myelodysplastic syndrome, unspecified (ICD-10 - D46.9) Fair control and stable with periodic follow-up with hematology and Retacrit injections 04/16/2024 Generalized anxiety disorder (ICD-10 - F41.1) He feels he is doing well with current medical therapy. Continue same 04/16/2024 Atherosclerotic heart disease of [place]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 (ICD-10 - I25.118) Symptomatically stable. He says he does not have any progressive shortness of breath nor chest discomfort that would suggest progressive coronary disease and angina. Continue control of comorbidities 05/14/2024 Generalized anxiety disorder (ICD-10 - F41.1) Stable at present. Continue current medical therapy 08/15/2024 Atherosclerotic heart disease of [place]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 (ICD-10 - I25.118) Symptomatically stable without any active symptoms. Continue current medical therapy. 09/23/2024 Generalized anxiety disorder (ICD-10 - F41.1) Fair control and stable with current medical therapy 09/23/2024 Mixed hyperlipidemia (ICD-10 - E78.2) Controlled with current medical therapy with LDL less than 50. His goal would be LDL less than 40 to minimize plaque progression and hopefully allow plaque volume regression. 05/14/2024 Atherosclerotic heart disease of [place]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 (ICD-10 - I25.118) Stable without any active symptoms. Continue medical therapy with beta-savage and statin and aspirin 08/15/2024 Mixed hyperlipidemia (ICD-10 - E78.2) Stable with LDL less than 50. Continue current statin therapy. He is at goal which would be LDL less than 50 04/16/2024 Mixed hyperlipidemia (ICD-10 - E78.2) Stable with LDL less than 50. Continue current medical therapy. 05/14/2024 Mixed hyperlipidemia (ICD-10 - E78.2) Stable with LDL less than 50. Continue current statin therapy 04/16/2024 Gastro-esophageal reflux disease without esophagitis (ICD-10 - K21.9) Nonexistent and stable with current medical therapy at this point in time 08/15/2024 Gastro-esophageal reflux disease without esophagitis (ICD-10 - K21.9) Symptomatically stable at present 09/23/2024 Gastro-esophageal reflux disease without esophagitis (ICD-10 - K21.9) Symptomatically stable at present 09/23/2024 Other spondylosis with radiculopathy, lumbosacral region (ICD-10 - M47.27) Stable with periodic injections 08/15/2024 Other spondylosis with radiculopathy, lumbosacral region (ICD-10 - M47.27) Stable with periodic injections. He said he just had his injection last week as well. 04/16/2024 Other spondylosis with radiculopathy, lumbosacral region (ICD-10 - M47.27) Stable without any motor dysfunction. Continues to get injections every 3 months. He can continue this as long as there is no motor dysfunction and if that does happen he will need another MRI and evaluation for surgical intervention 05/14/2024 Gastro-esophageal reflux disease without esophagitis (ICD-10 - K21.9) Symptomatically stable at present. 05/14/2024 Other spondylosis with radiculopathy, lumbosacral region (ICD-10 - M47.27) Stable with periodic injections. Continue same. 08/15/2024 Nicotine dependence, cigarettes, with unspecified nicotine-induced disorders (ICD-10 - F17.219) [employer] P[employer] smoking cessation. This would not only benefit his coronary artery disease but may also benefit his myelodysplasia 04/16/2024 Nicotine dependence, cigarettes, with unspecified nicotine-induced disorders (ICD-10 - F17.219) He is smoking again. [employer] P[employer] smoking cessation. 09/23/2024 Nicotine dependence, cigarettes, with unspecified nicotine-induced disorders (ICD-10 - F17.219) Smoking cessation has been counseled in the past 09/23/2024 Vitamin D deficiency, unspecified (ICD-10 - E55.9) Fair control on prior labs as reviewed. Recommend vitamin D supplementation for goal level of 30+ 04/16/2024 Vitamin D deficiency, unspecified (ICD-10 - E55.9) Fair control and prior labs reviewed. Recommend vitamin D supplementation for goal level of 30+. Recheck status 08/15/2024 Vitamin D deficiency, unspecified (ICD-10 - E55.9) Fair control and prior labs reviewed. Recommend vitamin D supplementation or increased dietary vitamin D such as fish for goal level of 30+ and if possible 50+ 05/14/2024 Family history of malignant neoplasm of digestive organs (ICD-10 - Z80.0) Recommend colonoscopy but he does not want to get colonoscopies until he is 70 years old. 04/16/2024 Encounter for immunization (ICD-10 - Z23) 05/14/2024 Nicotine dependence, cigarettes, with unspecified nicotine-induced disorders (ICD-10 - F17.219) [employer] P[employer] smoking cessation. 05/14/2024 Vitamin D deficiency, unspecified [...] for hepatitis C as per general recommendation 11/29/2023 Other This note was created with [...] CBC WITH DIFF 02/02/2023 FOLIC ACID 02/02/2023 FOLATE 08/21/2018 CR Upper GI Small Bowel Series CT Low Dose Lung Screening 02/01/2023 Hemoglobin T7h-076529 05/14/2024 Urinalysis, Complete-765475 05/14/2024 CBC With Differential/Platelet-307685 Reticulocyte Count-215299 05/14/2024 Prostate-Specific Ag-098334 05/14/2024 Vitamin D, 37-Ssflntk-620084 05/14/2024 Glucose Tolerance (4 Sp Blood)-930888 Albumin/Creatinine Ratio,Urine-716784 Comp. Metabolic Panel (14)-[phone] LP+Non-HDL Cholesterol-069658 05/14/2024 HCV Antibody-904164 05/14/2024 Next Appt Details Provider Name:Chas Noel , 12/16/2024 11:30:00 AM, [address] [place] [address], [phone], Provider Name:Chas Noel , 05/30/2025 10:00:00 AM, [address] [place] [address], [phone], Insurance Providers Payer Name Payer Address Payer Phone Subscriber Number Group Number Insured Name Patient Relationship to Insured Coverage Start Date Coverage End Date [employer] [place] [address] [place] [address] [id number] Man Joe Self - patient is the [...]
== END 2024-10-21 12:46 | disposition home or self-care (01) ==
PROVIDERS: PCP Internal Medicine; Visit Provider Internal Medicine
DX: M54.16 Radiculopathy, lumbar region (principal)
CPT/HCPCS: 99213

== ENCOUNTER → 2024-11-04 10:30 | Outpatient (BNV) | payer OTHER, SELFPAY | PROVIDERS: PCP Internal Medicine; Referring Provider Internal Medicine Hematology; Visit Provider Internal Medicine Cardiovascular Disease | DX: I49.3 Ventricular premature depolarization (principal) | CPT/HCPCS: 93010 ==

== ENCOUNTER 2024-11-21 06:06 | Outpatient (REF) | payer OTHER, SELFPAY ==
--- OUTSIDE RECORDS SUMMARY | 2024-11-21 06:08 | XMS_ITS | Patient Health Record ---
Author Organization Chas Noel MD Address [address] [place] [id number] Care Team Providers Care Adult Neurologist Name Role Phone Chas Noel Primary Care Provider [phone] Allergies No Known Allergies Results Component Value Reference Range Notes EKG Reviewed date:09/27/2024 03:02:43 PM Interpretation: Performing Lab: Notes/Report: ECGDiastolicBP 46 ECGHr 69 ECGPRInterval 180 ECGPWaveAxis 66 ECGQRSDuration 84 ECGQrsWaveAxis 52 ECGQTcInterval 409 ECGQTInterval 394 ECGSystolicBP 118 ECGTWaveAxis 55 RR_DiastolicBP 0 RR_MaxRRInterval 0 RR_MeanHR 0 RR_MeanRRInterval 0 RR_MinRRInterval 0 RR_NumBeats 0 RR_NumNormalBeats 0 RR_SystolicBP 0 Hemoglobin A7x-253350 Reviewed date:04/24/2024 06:31:12 PM Interpretation: Performing Lab:[facility], [address] [place] [address], Phone - [phone], Director - Jolene Notes/Report: Hemoglobin A1c 6.3 4.8-5.6 % . Prediabetes: 5.7 - 6.4 Diabetes: >6.4 Glycemic control for adults with diabetes: <7.0 Urinalysis, Complete-755682 Reviewed date:04/24/2024 06:31:12 PM Interpretation: Performing Lab:[facility], [address] [facility], Phone - [phone], Director - Jolene Notes/Report: Specific Williams 1.024 1.005-1.030 pH 5.5 5.0-7.5 Urine-Color Yellow [...] None seen None seen/Few CBC With Differential/Platel et-825394 Reviewed date:04/24/2024 06:31:12 PM Interpretation: Performing Lab:[facility], [address] [place] [address], [place], Phone - [phone], Director - Jolene Notes/Report: WBC 9.8 3.4-10.8 [...] NRBC 1 0 - 0 % Reticulocyte Count-989284 Reviewed date:04/24/2024 06:31:12 PM Interpretation: Performing Lab:[facility] [place], [address] [facility], Phone - [phone], Director - Payaly Notes/Report: Reticulocyte Count 2.3 0.6-2.6 % Request Problem TNP Test not performed. Sample contaminated with EDTA which is not suitable for test ordered. TEST: [id number] Sodium Panel: 825002 627153 Potassium Panel: 211888 594345 Chloride Panel: 083908 336564 Carbon Dioxide, Total Panel: 746022 146693 Calcium Panel: 428916 841187 Alkaline Phosphatase Panel: 677651 LP+Non-HDL Cholesterol-26129 5 Reviewed date:04/24/2024 06:31:13 PM Interpretation: Performing Lab:[facility] [place], [address] [facility], [place], Phone - [phone], Director - MDMarilu Notes/Report: Cholesterol, Total 92 100-199 mg/dL Triglycerides 57 0-149 mg/dL HDL Cholesterol 47 >39 mg/dL VLDL Cholesterol Romeo 13 5-40 mg/dL LDL Chol Calc (NIH) 32 0-99 mg/dL Non-HDL Cholesterol 45 0-129 mg/dL Comp. Metabolic Panel (14)-3 16077 Reviewed date:04/24/2024 06:31:13 PM Interpretation: Performing Lab:[facility], [address] [facility], [place], Phone - [phone], Director - MDMarilu Notes/Report: Glucose 96 70-99 mg/dL BUN 7 [...] 0-40 IU/L ALT (SGPT) 21 0-44 IU/L Albumin/Creatinine Ratio,Uri ne-703543 Reviewed date:04/24/2024 06:31:13 PM Interpretation: Performing Lab:[facility] [place], [address] [facility], [place], Phone - [phone], Director - Jolene Notes/Report: Creatinine, Urine 238.5 Not Estab. mg/dL Albumin, Urine 31.5 Not Estab. ug/mL Alb/Creat Ratio 13 0-29 mg/g creat Normal: 0 - 29 Moderately increased: 30 - 300 Severely increased: >300 Vitamin D, 29-Anmnttw-951548 Reviewed date:04/24/2024 06:31:13 PM Interpretation: Performing Lab:[facility] [place], [address] [facility], [place], Phone - [phone], Director - Jolnee Notes/Report: Vitamin D, 25-Hydroxy 28.1 30.0-100.0 ng/mL Vitamin D deficiency has been defined by the [place] [employer] and an Endocrine Society practice guideline as a level of serum 25-OH vitamin D less than 20 ng/mL (1,2). The Endocrine Society went on to further define vitamin D insufficiency as a level between 21 and 29 ng/mL (2). 1. IOM ([place] of [employer]). 2010. Dietary reference intakes for calcium and D. [place]: The National Academies Press. 2. Kiko MF, Gigi NC, Anya CUMMINGS, et al. Evaluation, treatment, and prevention of vitamin D deficiency: an Endocrine Society clinical practice guideline. JCEM. 2010; 96(7):1911-30. Hemoglobin A1C Reviewed date:2024 07:03:45 PM Interpretation: Performing Lab: Notes/Report: [facility] Chas Noel MD PC Lot: [id number] Hemoglobin A1C Reviewed date:08/15/2024 04:32:37 PM Interpretation: Performing Lab: Notes/Report: [facility]), Chas Noel MD PC Lot: [id number] Reason For Referral No Information Medications Medication [...] Vaccine Route Administration Date Status Comme nts Influenza, seasonal, injectable (split), for 3 yrs and up IM Intramuscular 04/08/2020 Administered Mfd by Sanofi Pasteur Influenza (Fluad) Unknown 04/25/2022 Administered KOHYU-99-Lzfzfvy Vaccine Unknown 09/10/2020 Administered PXIVP-54-Auesnht Vaccine Unknown 10/08/2020 Administered OWLRT-61-Dawcwhr Vaccine Unknown 05/25/2021 Administered COVID-19 Moderna BiValent Booster Unknown 04/25/2022 Administered *Tdap IM Intramuscular 07/27/2016 Administered *Pneumococcal polysaccharide PPV23 IM Intramuscular 04/27/2021 Administered *Influenza-Medicare-A S IM Intramuscular 04/24/2019 Administered *Influenza-Medicare-A S IM Intramuscular 04/27/2021 Administered *Rlkiywbfv-Olacpiw-Bb gh Dose-65+ IM Intramuscular 04/16/2024 Administered *Influenza, High Dose Seasonal, Quadrivatent IM Intramuscular 04/25/2023 Administered Pneumococcal polysaccharide PCV 13 IM Intramuscular 04/08/2020 [...] W/U Status Risk Notes Problem Myelodysplastic syndrome (804195319) Myelodysplastic syndrome, unspecified (D46.9) Active confirmed Problem Folate deficiency anemia (80684660) Folate deficiency anemia, 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) Active confirmed Problem Diabetic renal disease (676828807) Type 2 diabetes mellitus with diabetic chronic kidney disease (E11.22) Active confirmed Problem Vitamin D deficiency (09358013) Vitamin D deficiency, unspecified (E55.9) Active confirmed Problem Mixed hyperlipidemia (778850579) Mixed hyperlipidemia (E78.2) Active confirmed Problem Mental disorder caused by drug (952599967) Nicotine dependence, cigarettes, with unspecified nicotine-induced disorders (F17.219) Active confirmed Problem Generalized anxiety disorder (39178486) Generalized anxiety disorder (F41.1) Active confirmed Problem Angina co-occurrent and due to coronary arteriosclerosis (disorder) (77309311596501067) 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) Active confirmed Problem Atrial premature depolarization (294074981) Atrial premature depolarization (I49.1) Active confirmed Problem Gastro-esophageal reflux disease without esophagitis (934745553) Gastro-esophageal reflux disease without esophagitis (K21.9) Active confirmed Problem Gallbladder and bile duct calculi (354310753) Calculus of gallbladder and bile duct without cholecystitis without obstruction (K80.70) Active confirmed Problem Lumbosacral spondylosis without myelopathy (78313890) Other spondylosis with radiculopathy, lumbosacral region (M47.27) Active confirmed Problem Cervical disc disorder with radiculopathy (822740381) Cervical disc disorder with radiculopathy, high cervical region (M50.11) Active confirmed Problem Displacement of lumbar intervertebral disc without myelopathy (38148273) Other intervertebral disc displacement, lumbosacral region (M51.27) Active confirmed Problem Chronic kidney disease stage 2 (684452258) Chronic kidney disease, stage 2 (mild) (N18.2) Active confirmed Problem Syncope and collapse (383887924) Syncope and collapse (R55) Active confirmed Problem Family history of malignant neoplasm of gastrointestinal tract (253846087) Family history of malignant neoplasm of digestive organs (Z80.0) Active confirmed Problem Lower urinary tract symptoms due to benign prostatic hypertrophy (03784428405488) Benign prostatic hyperplasia with lower urinary tract symptoms (N40.1) Active confirmed Problem Age-related nuclear cataract of right eye (799629482481356) Age-related nuclear cataract, right eye (H25.11) Problem resolved confirmed Problem Age-related nuclear cataract of left eye (251246939426760) Age-related nuclear cataract, left eye (H25.12) Problem resolved confirmed Vital Signs Heart Rate 82 /min 09/23/2024 Temperature 96.8 degrees Fahrenheit 09/23/2024 Blood pressure diastolic 46 mm Hg 09/23/2024 Oximetry 98 % 09/23/2024 Height 5 ft 8 in in 09/23/2024 Blood pressure systolic 118 mm Hg 09/23/2024 Weight 171 lbs 09/23/2024 BMI 26.0 kg/m2 09/23/2024 Encounters Encounter Location Date Provider Diagnosis Chas Noel MD [address] [id number] 10/16/2024 Chas Noel MD [address] [id number] 12/03/2023 Chas Noel MD [address] [id number] 01/08/2024 Chas Noel MD [address] [id number] 03/22/2024 Chas Noel Other fatigue R53.83 Chas Noel MD [address] [id number] 03/27/2024 Chas Noel MD [address] [id number] 08/12/2024 Chas Noel MD [address] [id number] 08/15/2024 Chas Noel Type 2 diabetes mellitus with diabetic chronic kidney disease E11.22 ; Myelodysplastic syndrome, unspecified D46.9 ; Generalized anxiety disorder F41.1 ; Atherosclerotic heart disease of [place]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 I25.118 ; Mixed hyperlipidemia E78.2 ; Gastro-esophageal reflux disease without esophagitis K21.9 ; Other spondylosis with radiculopathy, lumbosacral region M47.27 ; Nicotine dependence, cigarettes, with unspecified nicotine-induced disorders F17.219 and Vitamin D deficiency, unspecified E55.9 Chas Noel MD [address] [id number] 11/29/2023 Chas Noel Type 2 diabetes mellitus with diabetic chronic kidney disease E11.22 ; Atherosclerotic heart disease of [place]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 I25.118 and Myelodysplastic syndrome, unspecified D46.9 Chas Noel MD [address] [id number] 04/16/2024 Chas Noel Type 2 diabetes mellitus with diabetic chronic kidney disease E11.22 ; Myelodysplastic syndrome, unspecified D46.9 ; Generalized anxiety disorder F41.1 ; Atherosclerotic heart disease of [place]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 I25.118 ; Mixed hyperlipidemia E78.2 ; Gastro-esophageal reflux disease without esophagitis K21.9 ; Other spondylosis with radiculopathy, lumbosacral region M47.27 ; Nicotine dependence, cigarettes, with unspecified nicotine-induced disorders F17.219 ; Vitamin D deficiency, unspecified E55.9 and Encounter for immunization Z23 Chas Noel MD [address] [id number] 05/14/2024 Chas Noel Type 2 diabetes mellitus with diabetic chronic kidney disease E11.22 ; Encounter for general adult medical examination without abnormal findings Z00.00 ; Myelodysplastic syndrome, unspecified D46.9 ; Generalized anxiety disorder F41.1 ; Atherosclerotic heart disease of [place] coronary artery with other forms of angina [...] other viral diseases Z11.59 Chas Noel MD [address] [id number] 09/23/2024 Chas Noel Type 2 diabetes mellitus with diabetic chronic kidney disease E11.22 ; Atherosclerotic heart disease of [place] coronary artery with other forms of angina [...] disease state. 09/23/2024 Atherosclerotic heart disease of [place] coronary artery with other forms of angina [...] risk for complications from a medical perspective. 08/15/2024 Myelodysplastic syndrome, unspecified (ICD-10 - D46.9) [...] routine labs. Healthcare proxy already on file 03/22/2024 Other fatigue (ICD-10 - R53.83) 11/29/2023 Type 2 diabetes mellitus with diabetic [...] of diabetes. 11/29/2023 Atherosclerotic heart disease of [place]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 (ICD-10 - I25.118) He says he is doing better. He does not have PVCs anymore. His breathing is doing well. He is LDL is controlled and his blood pressure is controlled and his diabetes will be evaluated and treated. At this point continue current medical therapy 04/16/2024 Myelodysplastic syndrome, unspecified (ICD-10 - D46.9) [...] status in adjust medical therapy if indicated 04/16/2024 Generalized anxiety disorder (ICD-10 - F41.1) He feels he is doing well with current medical therapy. Continue same 11/29/2023 Myelodysplastic syndrome, unspecified (ICD-10 - D46.9) Stable with periodic follow-up with hematology and Retacrit injections. 05/14/2024 Myelodysplastic syndrome, unspecified (ICD-10 - D46.9) Fair control and stable with periodic follow-up with hematology and Retacrit injections 08/15/2024 Generalized anxiety disorder (ICD-10 - F41.1) Stable at present. Continue current medical therapy 09/23/2024 Myelodysplastic syndrome, unspecified (ICD-10 - D46.9) [...] control and stable with current medical therapy 08/15/2024 Atherosclerotic heart disease of [place]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 (ICD-10 - I25.118) Symptomatically stable without any active symptoms. Continue current medical therapy. 05/14/2024 Generalized anxiety disorder (ICD-10 - F41.1) Stable at present. Continue current medical therapy 04/16/2024 Atherosclerotic heart disease of [place]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 (ICD-10 - I25.118) Symptomatically stable. He says he does not have any progressive shortness of breath nor chest discomfort that would suggest progressive coronary disease and angina. Continue control of comorbidities 04/16/2024 Mixed hyperlipidemia (ICD-10 - E78.2) Stable with LDL less than 50. Continue current medical therapy. 05/14/2024 Atherosclerotic heart disease of [place]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 (ICD-10 - I25.118) Stable without any active symptoms. Continue medical therapy with beta-savage and statin and aspirin 08/15/2024 Mixed hyperlipidemia (ICD-10 - E78.2) Stable with LDL less than 50. Continue current statin therapy. He is at goal which would be LDL less than 50 09/23/2024 Mixed hyperlipidemia (ICD-10 - E78.2) Controlled with current medical therapy with LDL less than 50. His goal would be LDL less than 40 to minimize plaque progression and hopefully allow plaque volume regression. 09/23/2024 Gastro-esophageal reflux disease without esophagitis (ICD-10 - K21.9) Symptomatically stable at present 08/15/2024 Gastro-esophageal reflux disease without esophagitis (ICD-10 - K21.9) Symptomatically stable at present 05/14/2024 Mixed hyperlipidemia (ICD-10 - E78.2) Stable with LDL less than 50. Continue current statin therapy 04/16/2024 Gastro-esophageal reflux disease without esophagitis (ICD-10 - K21.9) Nonexistent and stable with current medical therapy at this point in time 04/16/2024 Other spondylosis with radiculopathy, lumbosacral region (ICD-10 - M47.27) Stable without any motor dysfunction. Continues to get injections every 3 months. He can continue this as long as there is no motor dysfunction and if that does happen he will need another MRI and evaluation for surgical intervention 05/14/2024 Gastro-esophageal reflux disease without esophagitis (ICD-10 - K21.9) Symptomatically stable at present. 08/15/2024 Other spondylosis with radiculopathy, lumbosacral region (ICD-10 - M47.27) Stable with periodic injections. He said he just had his injection last week as well. 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 This would not only benefit his coronary artery disease but may also benefit his myelodysplasia 05/14/2024 Other spondylosis with radiculopathy, lumbosacral region (ICD-10 - M47.27) Stable with periodic injections. Continue same. 04/16/2024 Nicotine dependence, cigarettes, with unspecified nicotine-induced disorders (ICD-10 - F17.219) He is smoking again. 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 04/16/2024 Vitamin D deficiency, unspecified (ICD-10 - E55.9) Fair control and prior labs reviewed. Recommend vitamin D supplementation for goal level of 30+. Recheck status 05/14/2024 Family history of malignant neoplasm of digestive organs (ICD-10 - Z80.0) Recommend colonoscopy but he does not want to get colonoscopies until he is 70 years old. 08/15/2024 Vitamin D deficiency, unspecified (ICD-10 - E55.9) Fair control and prior labs reviewed. Recommend vitamin D supplementation or increased dietary vitamin D such as fish for goal level of 30+ and if possible 50+ 09/23/2024 Vitamin D deficiency, unspecified (ICD-10 - E55.9) Fair control on prior labs as reviewed. 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 04/16/2024 Encounter for immunization (ICD-10 - Z23) 05/14/2024 Vitamin D deficiency, unspecified (ICD-10 - [...] CT Low Dose Lung Screening 02/01/2023 Hemoglobin L8j-258898 05/14/2024 Urinalysis, Complete-379093 05/14/2024 CBC With Differential/Platelet-778224 Reticulocyte Count-912339 05/14/2024 Prostate-Specific Ag-319321 05/14/2024 Vitamin D, 44-Ybpblic-463444 05/14/2024 Glucose Tolerance (4 Sp Blood)-286952 Albumin/Creatinine Ratio,Urine-185521 Comp. Metabolic Panel (14)-529442 2023 LP+Non-HDL Cholesterol-511638 05/14/2024 HCV Antibody-746305 05/14/2024 Next Appt Details Provider Name:Chas Noel , 12/16/2024 11:30:00 AM, [address] [place] [address], [phone], Provider Name:Chas Noel , 05/30/2025 10:00:00 AM, [address] [place] [address], [phone], Insurance Providers Payer Name Payer Address Payer Phone Subscriber Number Group Number Insured Name Patient Relationship to Insured Coverage Start Date Coverage End Date [employer] [place] [address] [place] [address] [phone] [id number] Man Joe Self - patient is the [...]
--- OUTSIDE RECORDS SUMMARY | 2024-11-21 06:08 | XMS_ITS ---
Author Organization Chas Noel MD Address [address] [id number] Care Team Providers Care Independent Marketing Consultant Name Role Phone Chas Noel Primary Care Provider [phone] Allergies No Known Allergies Results Component Value [...] 82 /min 09/23/2024 Weight 171 lbs 09/23/2024 Height 5 ft 8 in in 09/23/2024 BMI 26.0 kg/m2 09/23/2024 Oximetry 98 % 09/23/2024 Encounters Encounter Location Date Provider Diagnosis Chas Noel MD [address] [id number] 09/23/2024 Chas Noel Type 2 diabetes mellitus with diabetic chronic kidney disease E11.22 ; Atherosclerotic heart disease of [place] coronary artery with other forms of angina [...] disease state. 09/23/2024 Atherosclerotic heart disease of [place] coronary artery with other forms of angina [...] Provider Name:Chas Noel , 12/16/2024 11:30:00 AM, [address] [place] [address], [phone], Provider Name:Chas Noel , 05/30/2025 10:00:00 AM, [address] [place] [address], [phone], Progress Notes * Sarah JOE:1954 (69 yo M)Acc No.[id number]:09/23/2024 Progress Note Patient:?Man JOE Provider:?Chas Noel MD :1955???Age:69 Y???Sex:Male Drew e:09/23/2024 Address:[address] [place], [place] [id number] Subjective: * Chief Complaints: * ???PRE OP [...] %:98% * ???Past Orders: Lab:CBC With Differential/Pl antwan-738168 * Collection Date 04/16/2024 09/27/2023 Collection Time [...] 0 %) * Lab:Comp. Metabolic Panel (1 4)-099054 * Collection Date 04/16/2024 09/27/2023 Collection Time [...] 6.4 (Ref Range: %) * Lab:LP+Non-HDL Cholesterol-3 60556 * Collection Date 04/16/2024 09/27/2023 Collection Time [...] mg/dL) 43 (Ref Range: 0-129 mg/dL) ???Lab:Reticulocyte Count-378959 (Order Date - 04/16/2024) (Collection Date & Time - 04/16/2024 09:01 AM)?ValueReference Range?Reticulocyte Count2.30.6-2.6 - %?Request ProblemTNP- ???Lab:Vitamin D, 71-Jxhrkys-733886 (Order Date - 04/16/2024) (Collection Date & Time - 409:01 AM)?ValueReference Range?Vitamin D, 25-Yznlqyk24.1L30.0-100.0 - ng/mL ???Lab:Urinalysis, Complete-303953 (Order Date - 04/16/2024) (Collection Date & Time - 04/16/2024 09:01 AM)?ValueReference Range?Specific [place] 1.0241.005-1.030 -?pH5.55.0-7.5 -?Urine-ColorYellowYellow - ?AppearanceClearClear -?WBC EsteraseNegativeNegative - ?Protein1+ANegative/Trace -?GlucoseNegativeNegative - ?KetonesNegativeNegative -?Occult BloodNegativeNegative - ?BilirubinNegativeNegative -?Urobilinogen,Semi-Qn1.00.2-1.0 - mg/dL?Nitrite, UrineNegativeNegative -?Microscopic ExaminationSee below:-?WBCNone seen0 - 5 - /hpf?RBCNone seen0 - 2 - /hpf ?Epithelial Cells (non renal)None seen0 - 10 - /hpf?CastsNone seen None seen - /lpf?BacteriaNone seenNone seen/Few - ???Lab:Albumin/Creatinine Ratio,Urine-322607 (Order Date - 04/16/2024) (Collection Date & Time - 04/16/2024 09:01 AM)?ValueReference Range ?Creatinine, Xwpcw928.5Not Estab. - mg/dL?Albumin, Urine31.5Not Estab. - ug/mL?Alb/Creat Culvr888-61 - mg/g creat * Examination: ???General Examination: [...] kidney disease - E11.22???2.?Atherosclerotic heart disease of [place] coronary artery with other forms of angina [...] labs were reviewed with patient.?? * Procedure Codes:?20735 -ELEC TROCARDIOGRAM, [id number] HG A1C LEVEL LT 7.0% * Preventive [...] PPV23 was administered?04/27/2021 ?Influenza?Last Influenza was administered?04/25/2023 ?COVID?Law Enforcement Officer?Moderna ?First Dose?09/10/2020 ??Refused Tests:?Colonoscopy?Colonoscopy refused as colon cancer screen?05/14/2024 ??Screenings:?Abdominal Aortic Aneurysm Screening:?Date of most recent screening:?03/18/2020 ?Colon cancer screening?Provider recommendation:?5 years ?Date of most recent screening:?10/01/2015 * Follow Up:?3 Months (Reason: Annual) * Images: Billing Information: * Visit Code:? 38325 Office Visit, Est Pt., Level 4. * Procedure Codes:? 00054 -ELECTROCARDIOGRAM, COMPLETE. 3044F HG A1C LEVEL LT 7.0%. * Sign off status: Completed true * Provider:?Chas Noel MD Date:?09/23 Generated for Josh quispe/[place]/eTransmitting on:?11/21/2024 06:08 AM EDT History and Physical Notes * HPI [...]
--- OUTSIDE RECORDS SUMMARY | 2024-11-21 06:09 | XMS_ITS ---
Author Organization [facility] Address [address] [phone] Care Team Providers Care Voucher Examiner Name Role Phone [facility] Primary Care Provider Allergies No Known Allergies Results Component Value Reference Range Notes Hemoglobin A1C Reviewed date:08/15/2024 04:32:37 PM Interpretation: Performing Lab: Notes/Report: [facility] [place] [facility] ([facility] [place] [facility]), [facility] Lot: [id number] [...] Date Provider Diagnosis Chas Noel MD [address] [place], [place] [phone] 08/15/2024 [facility] Type 2 diabetes mellitus with diabetic chronic kidney disease E11.22 ; Myelodysplastic syndrome, unspecified D46.9 ; Generalized anxiety disorder F41.1 ; Atherosclerotic heart disease of [place] coronary artery with other forms of angina [...] medical therapy 08/15/2024 Atherosclerotic heart disease of [place] coronary artery with other forms of angina [...] with unspecified nicotine-induced disorders (ICD-10 - F17.219) 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 This would not only benefit [...] Provider Name:Chas Noel , 12/16/2024 11:30:00 AM, [address] [place] [address], [phone], Provider Name:Chas Noel , 05/30/2025 10:00:00 AM, [address] [place] [address], [phone], Progress Notes * Javan JOEOB:1954 (69 yo M)Acc No.[id number]:08/15/2024 Progress Notes Patient:?Man JOE Provider:?[facility]as Noel MD :1955???Age:69 Y???Sex:Male Drew e:08/15/2024 Address:[address] [place], [place] [phone] Subjective: * Chief Complaints: * ???3m f/u [...] %:97% * ???Past Orders: Lab:CBC With Differential/Pl [place]-[id number] * Collection Date 04/16/2024 09/27/2023 Collection Time [...] 0 %) * Lab:Comp. Metabolic Panel (1 4)-[id number] * Collection Date 04/16/2024 09/27/2023 Collection Time [...] (Ref Range: >59 mL/min/1.73) * Lab:LP+Non-HDL Cholesterol-3 40538 * Collection Date 04/16/2024 09/27/2023 Collection Time [...] 43 (Ref Range: 0-129 mg/dL) * Lab:Hemoglobin Y5v-[id number] * Collection Date 04/16/2024 09/27/2023 Collection Time 09:01 AM 03:52 PM Order Date 04/16/2024 09/27/2023 Hemoglobin A1c 6.3?H (Ref Range: 4.8-5.6 %) 6.5?H (Ref Range: 4.8-5.6 %) ???Lab:Reticulocyte Count-[id number] (Order Date - 04/16/2024) (Collection Date & Time - 04/16/2024 09:01 AM)?ValueReference Range?Reticulocyte Count2.30.6-2.6 - %?Request ProblemTNP- ???Lab:Urinalysis, Complete-[id number] (Order Date - 04/16/2024) (Collection Date & Time - 04/16/2024 09:01 AM)?ValueReference Range?Specific [place] 1.0241.005-1.030 -?pH5.55.0-7.5 -?Urine-ColorYellowYellow - ?AppearanceClearClear -?WBC EsteraseNegativeNegative - ?Protein1+ANegative/Trace -?GlucoseNegativeNegative - ?KetonesNegativeNegative -?Occult BloodNegativeNegative - ?BilirubinNegativeNegative -?Urobilinogen,Semi-Qn1.00.2-1.0 - mg/dL?Nitrite, UrineNegativeNegative -?Microscopic ExaminationSee below:-?WBCNone seen0 - 5 - /hpf?RBCNone seen0 - 2 - /hpf ?Epithelial Cells (non renal)None seen0 - 10 - /hpf?CastsNone seen None seen - /lpf?BacteriaNone seenNone seen/Few - ???Lab:Albumin/Creatinine Ratio,Urine-[id number] (Order Date - 04/16/2024) (Collection Date & Time - 04/16/2024 09:01 AM)?ValueReference Range ?Creatinine, Hawwh547.5Not Estab. - mg/dL?Albumin, Urine31.5Not Estab. - ug/mL?Alb/Creat Oygty191-67 - mg/g creat ???Lab:Vitamin D, 40-Uuaxmfe-[id number] (Order Date - 04/16/2024) (Collection Date & Time - 409:01 AM)?ValueReference Range?Vitamin D, 25-Seqjaaj45.1L30.0-100.0 - ng/mL * Examination: ???General Examination: ?GENERAL [...] anxiety disorder - F41.1???4.?Atherosclerotic heart disease of [place] coronary artery with other forms of angina [...] current medical therapy?? 4.?Atherosclerotic heart disease of [place] coronary artery with other forms of angina [...] cigarettes, with unspecified nicotine-induced disorders? 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 This would not only benefit [...] labs were reviewed with patient.?? * Procedure Codes:?20889 GLYCA MORTEZA HEMOGLOBIN TEST, Modifiers: QW 3044F [...] was administered?04/27/2021 ?Influenza?Last Influenza was administered?04/25/2023 ?COVID?Senior Client Advisor?Moderna ?First Dose?09/10/2020 ??Refused Tests:?Colonoscopy?Colonoscopy refused as colon cancer screen?05/14/2024 ??Screenings:?Abdominal Aortic Aneurysm Screening:?Date of most recent screening:?03/18/2020 ?Colon cancer screening?Provider recommendation:?5 years ?Date of most recent screening:?10/01/2015 * Follow Up:?4 Months (Reason: Diabetes) * Images: Billing Information: * Visit Code:? 07324 Counseling to Prevent Tobacco Use, 3 - 10 min. Modifiers: 25 [address]3872 Office Visit, Est Pt., Level 4. * Procedure Codes:? 16521 GLYCATED HEMOGLOBIN TEST. Modifiers: QW 3044F HG A1C LEVEL LT 7.0%. * Sign off status: Completed true * Provider:?Chas Noel MD Date:?08/15 Generated for Josh quispe/[place]/eTransmitting on:?11/21/2024 06:08 AM [...]
--- OUTSIDE RECORDS SUMMARY | 2024-11-21 06:09 | XMS_ITS | Clinical Summary ---
Author Organization [facility] Address [address] [place] [address] Phone Care Team Providers Care Fiberglass Tube Molder Name Role Phone Chas Borden MD Primary Care Provider [phone] Allergies No known active allergies Medications multivitamin with minerals tablet Take 1 tablet by mouth 1 (one) time each day. Active metoprolol succinate (TOPROL-XL) 25 mg 24 hr tablet Take 1 tablet (25 mg total) by mouth 1 (one) time each day. Do not crush or chew. Active citalopram (CeleXA) 10 mg tablet Take 1 tablet (10 mg total) by mouth 1 (one) time each day. Active aspirin 81 mg EC tablet Take 1 tablet (81 mg total) by mouth 1 (one) time each day. Active rosuvastatin (CRESTOR) 10 mg tablet Take 1 tablet (10 mg total) by mouth 1 (one) time each day. Active famotidine (PEPCID) 20 mg tablet Take by mouth. Active B complex tablet Take 1 tablet by mouth 1 (one) time each day. Active Active Problems Problem Noted Date Diagnosed Date Dysrhythmias 10/16/2024 Anemia 10/16/2024 Gastroesophageal reflux disease 10/16/2024 Encounters Date Type Department Care Team Description 10/16/2024 7:39 AM EDT Anesthesia Event [facility] Main OR [address] [place] [phone] Ena Rivera MD 10/16/2024 7:30 AM EDT - 10/16/2024 10:00 AM EDT Surgery [facility] OR [address] [place] [phone] Jensen Sheridan DMD EXTRACTION FULL BONE IMPACTED #1,EXTRACTIONS #,2,4,5,6,8,9,11,1 2,14, 18,19,20,21,22,23, 27,28,29,32 [D7140] 10/16/2024 6:23 AM EDT - 10/16/2024 11:18 AM EDT Hospital Encounter [facility] Main OR [address] [place] [phone] Jensen Sheridan DMD Discharge Disposition: Home or Self Care from Last 3 Months Surgical History Surgery Date Site/Laterality Comments COLONOSCOPY UPPER GASTROINTESTINAL ENDOSCOPY CATARACT EXTRACTION Medical History Medical History Date Comments Hyperlipidemia GERD (gastroesophageal reflux disease) Arrhythmia pac, PVC Macrocytic anemia History of blood transfusion Social History Tobacco Use Types Packs/Day Years Used Date Smoking Tobacco: Every Day Cigars Tobacco Cessation:Ready to Q uit: Not Asked; Counseling Given: Not Answered Alcohol Use Standard Drinks/Week Comments Not Currently 0 (1 standard drink = 0.6 oz pur e alcohol) Interpersonal Safety Answer Date Record ed Physical Abuse 10/16/2024 Verbal Abuse 10/16/2024 Sex and Gender Information Value Date Recorded Sex Assigned at Male 10/16/2024 6:19 AM EDT Legal Sex Male 12:11 PM EDT Gender Identity Male 10/16/2024 6:19 AM EDT Sexual Orientation Straight 10/16/2024 6: 19 AM EDT Obstetrics History Last Filed Vital Signs Vital Sign Reading Time Taken Comments Blood Pressure 127/50 10/16/2024 10:05 AM EDT Pulse 85 10/16/2024 10:05 AM EDT Temperature 36.7 ??C (98 ??F) 10/16/2024 10:05 AM EDT Respiratory Rate 12 10/16/2024 9:45 AM EDT Oxygen Saturation 96% 10/16/2024 10:05 AM EDT Inhaled Oxygen Concentration - - Weight 79.8 kg (176 lb) 10/16/2024 6:53 AM EDT Height 172.7 cm (5' 8 ) 10/09/2024 12:00 PM EDT Body Mass Index 26.76 10/09/2024 12:00 PM EDT Plan of Treatment Health Maintenance Due Date Last Done Comments DTaP,Tdap,and Td Vaccines (1 - Tdap) 1974 Pneumococcal Vaccine: 50+ Ye ars (1 of 2 - PCV) 1974 Zoster Vaccines (1 of 2) 2005 COVID-19 Vaccine (1 - 2023-2 5 season) 2024 Cholesterol Screening (Lipid Panel) 10/03/2024 Colorectal Cancer Screening: Colonoscopy 10/03/2024 Depression Screening 10/03/2024 Hepatitis C Screening 10/03/2024 Social Influencers of Health Screening 10/03/2024 Influenza Vaccine (Season Ended) 2025 Falls Risk Assessment 10/16/2025 10/16/2024 RSV Immunization Adult Patie nts (1 - 1-dose 75+ series) 2030 Abdominal Aortic Aneurysm (A AA) Screen Completed 03/30/2020 HIB Vaccines Aged Out No longer eligi ble based on patient's age to complete this topic HPV Vaccines Aged Out No longer eligi ble based on patient's age to complete this topic Hepatitis A Vaccines Aged Out No long er eligible based on patient's age to complete this topic Hepatitis B Vaccines Aged Out No long er eligible based on patient's age to complete this topic IPV Vaccines Aged Out No longer eligi ble based on patient's age to complete this topic MMR Vaccines Aged Out No longer eligi ble based on patient's age to complete this topic Meningococcal ACWY Vaccine Aged Out N o longer eligible based on patient's age to complete this topic Meningococcal B Vaccine Aged Out No l onger eligible based on patient's age to complete this topic RSV Immunization Patients Un shilpa 20 months Aged Out No longer eligible b ased on patient's age to complete this topic Varicella Vaccines Aged Out No longer eligible based on patient's age to complete this topic Procedures Procedure Name Priority Date/Time Associated Diagnosis Comments OXYGEN THERAPY, ADULT Routine 10/16/2024 9:09 AM EDT OXYGEN THERAPY, ADULT Routine 10/16/2024 9:09 AM EDT TH AN ENDOTRACHEAL(NO CHARGE) Routine 10/16/2024 8:13 AM EDT EXTRACTION TEETH 10/16/2024 7:38 AM EDT Dental caries on smooth surface penetrating into dentin Periapical abscess without sinus Cracked tooth Special Needs CPT CODES D7240 X1, D7140 X19 US ABDOMEN AORTA SCR STUDY AAA Routine 03/30/2020 12:37 PM EDT Encounter for screening for cardiovascular disorders from Last 3 Months or Most Recently Relevant to Health Maintenance Results * TH AN ENDOTRACHEAL(NO CHARGE) (10/16/2024 8:13 AM EDT) Narrative Nnamdi Thomas CRNA - 10/16/2024 8:13 AM EDT Nnamdi Thomas CRNA ? 10/16/2024 ??8:14 AM General Information and Staff Patient location during procedure: OR Anesthesiologist: Ena Rivera MD Performed: anesthesiologist Performed by: Nnamdi Thomas CRNA Authorized by: Ena Rivera MD ?? Intubation Airway not difficult Urgency: elective Final Airway Details Successful airway: ETT Cuffed: yes Successful intubation technique: video laryngoscopy Facilitating devices/methods: intubating stylet Endotracheal tube insertion site: oral Blade: Jose G Blade size: #3 ETT size (mm): 7.5 Cormack-Lehane Classification: grade I - full view of glottis Placement verified by: chest auscultation and capnometry Measured from: teeth ETT to teeth (cm): 23 Number of attempts at approach: 1Final airway type: endotracheal airway Indications and Patient Condition Indications for airway management: anesthesia Spontaneous ventilation: present Sedation level: Yes Preoxygenated: yes Soft Tissue Damage: No Dentition Unchanged: Yes Patient position: sniffing MILS maintained throughout Mask difficulty assessment: 0 - not attempted us Ena Rivera MD ANESTHESIA ORDERABLES Final Resu lt * US ABDOMEN AORTA SCR STUDY AAA (03/30/2020 12:37 PM EDT) Anatomical Region Laterality Modality Ultrasound 03/30/2020 8:03 AM EDT Narrative 03/30/2020 12:37 PM EDT [facility] Diagnostic Imaging Department [address] [place] [phone] Patient: ??MAN JOE ?/Age/Sex: 1955 - 65 - M Unit#: ??[id number] ? Location/Status: ??SPDIUS/REG CLI ? Mnemonic/Ordering Site: ??AAASCRSTUD/SPUS Ordering Physician: ??CHAS BORDEN MD US Abdomen Aorta Scr Study AAA - 03/30/20 - HISTORY: Abdominal aortic aneurysm screening with history of prior smoker FINDINGS: Transabdominal ultrasound examination of the abdominal aorta was performed. The abdominal aorta measures up to 2.8 cm proximally and 1.6 cm distally. There is no aneurysm identified. There is normal appearance of the aortic bifurcation. IMPRESSION: No visualized abdominal aortic aneurysm. [id number] Dictating Physician: ??SANTIAGO JON MD Electronically Signed by: ??SANTIAGO JON MD Dic Date/Time: ??03/30/20 1236 Sign date/Time: ??03/30/20 1237 Procedure Note Santiago Jon MD - 06/29/2022 [facility] Diagnostic Imaging Department [address] [place] [id number] Patient: MAN JOE /Age/Sex: 1955 - 65 - M Unit#: [id number] Location/Status: SPDIUS/REG CLI Mnemonic/Ordering Site: AAASCRSTUD/SPUS Ordering Physician: CHAS BORDEN MD US Abdomen Aorta Scr Study AAA - 03/30/20 - HISTORY: Abdominal aortic aneurysm screening with history of priorsmoker FINDINGS: Transabdominal ultrasound examination of the abdominal aortawas performed. The abdominal aorta measures up to 2.8 cm proximally and 1.6cm distally. There is no aneurysm identified. There is normal appearance ofthe aortic bifurcation. IMPRESSION: No visualized abdominal aortic aneurysm. [id number] Dictating Physician: SANTIAGO JON MD Electronically Signed by: SANTIAGO JON MD Dic Date/Time: 03/30/20 1236 Sign date/Time: 03/30/20 1237 us Chas Borden MD IM US PROCEDURES Final Result from Last 3 Months or Most Recently Relevant to Health Maintenance Insurance [facility] MEDICARE Care Teams Fiberglass Tube Molder Relationship Specialty Start Date End Date Chas Borden MD [address] [place] [address] PCP - General Internal Medicine 10/16/24
--- OUTSIDE RECORDS SUMMARY | 2024-11-21 06:09 | XMS_ITS ---
Author Organization [facility] Address [address] [place] [phone] Care Team Providers Care Residential Care Officer Name Role Phone Chas Noel Primary Care Provider Allergies No Known Allergies REASON FOR VISIT Requesting Rx Medications Medication SIG (Take, Route, Frequency, Duration) Notes Start Date End Date Status Nicoderm CQ 21 MG/24HR 1 patch to skin T ransdermal Once a day for 30 days 10/16/2024 12/15/2024 Active Encounters Encounter Location Date Provider Diagnosis Chas Noel MD [address] [place] [phone] 10/16/2024 Chas Noel Plan Of Treatment Medication Medication Name Sig Start Date Stop Date Notes Nicoderm CQ 21 MG/24HR 1 patch to skin T ransdermal Once a day for 30 days 10/16/2024 12/15/2024 Next Appt Details Provider Name:Chas Noel , 12/16/2024 11:30:00 AM, [address] [place] [address], [phone], Provider Name:Chas Noel , 05/30/2025 10:00:00 AM, [address] [place] [address], [phone], Progress Notes * Javan JOEOB:1954 (69 yo M)Acc No.[id number]:10/16/2024 Patient:?Man JOE :1955???Age:69 Y???Sex:Male Address:[address] [place] [address], [phone] * Refills? Start Nicoderm CQ Patch 24 [...] true * Date:? Generated for Josh quispe/[place]/Berniesmitting on:?11/21/2024 06:08 AM EDT
--- OUTSIDE RECORDS SUMMARY | 2024-11-21 06:09 | XMS_ITS | Data Portability ---
Author Organization [facility], PAIN OFFICE Address [address] [facility],[address] [address] Care Team Providers Care Appeals Court Associate Justice Name Role Phone SUHA GALDINOALEXANDREA Primary Care Provider [phone] Assessment Encounter Date Assessment Date Assessment LastModified [...] Organization Details Last Modified Time Details Appointments None record ed. Lab None record ed. Referral None record ed. Procedures None record ed. Surgeries None record ed. Imaging None record ed. Medication Orders None record ed. Patient TargetsNo targets recorded. Patient Instructions Encounter Date Encounter Id Patient Instructions Last Modified By Organization Details Last Modified Time 08/15/2023 [id number] He was advised against bed rest lasting longer than four days and to continue activities as tolerated. [email or web address] Not available 08/15/2023 14:01:25 11/14/2023 [id number] He was advised against bed rest lasting longer than four days and to continue activities as tolerated. [email or web address] Not available 11/14/2023 10:55:13 08/15/2024 [id number] He was advised against bed rest lasting longer than four days and to continue activities as tolerated. [email or web address] Not available 08/15/2024 10:24:49 Reason for Referral None Reported. Problems Name Problem SNOMED Code Status Onset Date Resolution Date Notes Provider Name and Address Organization Details Recorded Time Lumbosacral radiculopathy 1398101 Active Eddi ellison MD [address] [place] [address] , [facility], [place], [place], [address], [place] [facility] 15:50:02 Degeneration of lumbar intervertebral disc 65152876 Active Eddi ellison MD [address] [facility] , [facility] [address], [place], [address], [place] [facility] 9 15:50:11 Lumbosacral spondylosis without myelopathy 28431730 Active Eddi ellison MD [address] [facility] , [facility] [address], [place], [place], [place] [facility] 15:50:26 Spinal stenosis of lumbar region 35853605 Active Eddi ellison MD [address] [facility] , [facility] [address], [place], [place], [place] [facility] 9 15:50:39 Problem Notes None recorded. Procedures Surgical History Date Name Laterality Status Provider Name and Address Organization Details Recorded Time 08/15/19 25 Lumbar Epidural steroid injection under fluoroscopic guidance completed Eddi Sanchez MD [address] [place] [address] , [address], [place], [address], [place] [facility] 08/15/2024 10:23:05 05/15/20 24 Lumbar Epidural steroid injection under fluoroscopic guidance completed Eddi Sanchez MD [address] [employer] [facility] , [address], [place], [address], [place] [facility] 05/15/2024 14:35:05 02/06/20 24 Lumbar Epidural steroid injection under fluoroscopic guidance completed Eddi Sanchez MD [address] [employer] [facility] , [address], [place], [address], [place] [facility] 2024 09:05:55 11/14/19 24 Lumbar Epidural steroid injection under fluoroscopic guidance completed Eddi Sanchez MD [address] [employer] [facility] , [address], [place], [address], [place] [facility] 11/14/2023 10:55:57 08/15/19 24 Lumbar Epidural steroid injection under fluoroscopic guidance completed Eddi Sanchez MD [address] [employer] [facility] , [address], [place], [address], [place] [facility] 08/15/2023 14:02:28 05/11/20 23 Lumbar Epidural steroid injection under fluoroscopic guidance completed Eddi Sanchez MD [address] [employer] [facility] , [address], [place], [address], [place] [facility] 05/11/2023 13:44:22 02/08/20 23 Lumbar Epidural steroid injection under fluoroscopic guidance completed Eddi Sanchez MD [address] [employer] [facility] , [address], [place], [address], [place] [facility] 02/07/2023 14:32:47 11/09/19 23 Lumbar Epidural steroid injection under fluoroscopic guidance completed Eddi Sanchez MD [address] [employer] [facility] , [address], [place], [address], [place] [facility] 11/08/2022 11:49:19 08/18/19 23 Lumbar Epidural steroid injection under fluoroscopic guidance completed Eddi Sanchez MD [address] [employer] [facility] , [address], [place], [address], [place] [facility] 08/18/2022 13:38:49 05/31/20 22 Lumbar Epidural steroid injection under fluoroscopic guidance completed Eddi Sanchez MD [address] , [address], [place], [address], [place] [facility] 05/31/2022 12:01:38 02/17/20 22 Lumbar Epidural steroid injection under fluoroscopic guidance completed Eddi Sanchez MD [address] , [address], [place], [address], [place] [facility] 02/16/2022 11:18:13 11/18/19 22 Lumbar Epidural steroid injection under fluoroscopic guidance completed Eddi Sanchez MD [address] [employer] [facility] , [address], [place], [address], [place] [facility] 11/17/2021 13:34:00 08/03/19 22 Lumbar Epidural steroid injection under fluoroscopic guidance completed Eddi Sanchez MD [address] [employer] [facility] , [address], [place], [address], [place] [facility] 08/03/2021 13:51:35 05/04/20 21 Lumbar Epidural steroid injection under fluoroscopic guidance completed Eddi Sanchez MD [address] [employer] [facility] , [address], [place], [address], [place] [facility] 05/04/2021 09:45:14 02/03/20 21 Lumbar Epidural steroid injection under fluoroscopic guidance completed Eddi Sanchez MD [address] [employer] [facility] , [address], [place], [address], [place] [facility] 02/02/2021 09:56:45 10/29/19 21 Lumbar Epidural steroid injection under fluoroscopic guidance completed Eddi Sanchez MD [address] [employer] [facility] , [address], [place], [address], [place] [facility] 10/28/2020 11:04:44 07/08/20 20 Lumbar Epidural steroid injection under fluoroscopic guidance completed Eddi Sanchez MD [address] [employer] [facility] , [address], [place], [address], [place] [facility] 07/08/2020 09:25:16 01/28/20 20 Lumbar Epidural steroid injection under fluoroscopic guidance completed Eddi Sanchez MD [address] [facility] , [address], [place], [address], [place] [facility] 01/28/2020 11:40:25 08/28/19 20 Lumbar Epidural steroid injection under fluoroscopic guidance completed Eddi Sanchez MD [address] [facility] , [address], [place], [address], [place] [facility] 08/28/2019 13:27:06 03/26/20 19 Lumbar Epidural steroid injection under fluoroscopic guidance completed Eddi Sanchez MD [address] [facility] , [address], [place], [address], [place] [facility] 03/26/2019 10:59:17 01/02/20 19 Lumbar Epidural steroid injection under fluoroscopic guidance completed Eddi Sanchez MD [address] [facility] , [address], [place], [address], [place] [facility] 01/01/2019 18:23:14 11/14/19 19 Lumbar Epidural steroid injection under fluoroscopic guidance completed Eddi Sanchez MD [address] [facility] , [address], [place], [address], [place] [facility] 11/14/2018 08:43:51 [...] (PF) 0.5 mL intramuscul ar syringe [facility]/02 completed Not Available Not Available Not Available morphine 30 mg tablet, crush resistant, extended release Take 1 tablet every 12 hours by oral route. 03/26 completed Not Available Not Available Not Available Flublok Quad (PF) 180 mcg (45 mcg x 4)/0.5 mL IM syringe [facility]/02 completed Not Available Not Available Not Available Vitals Date Recorded Body height Heart rate Oxygen saturation Oxygen saturation in Arterial blood by Pulse oximetry Systolic blood pressure Diastolic blood pressure Provider Name and Address Organization Details Last Updated DateTime 4 172.72 cm 65 /min 98 % 98 % 111 mm[Hg] 38 mm[Hg] Delia Oswald [place] [facility] 4 13:41:50 Date Recorded Body height Heart rate Oxygen saturation Oxygen saturation in Arterial blood by Pulse oximetry Systolic blood pressure Diastolic blood pressure Provider Name and Address Organization Details Last Updated DateTime 4 172.72 cm 83 /min 97 % 97 % 116 mm[Hg] 42 mm[Hg] Angela Nicole [place] [facility] 4 10:33:00 Date Recorded Body height Heart rate Oxygen saturation Oxygen saturation in Arterial blood by Pulse oximetry Systolic blood pressure Diastolic blood pressure Provider Name and Address Organization Details Last Updated DateTime 4 172.72 cm 62 /min 98 % 98 % 119 mm[Hg] 44 mm[Hg] Delia Oswald [place] [facility] 4 08:33:01 Date Recorded Body height Pain severity - 0-10 verbal numeric rating [Score] - Reported Body mass index (BMI) Body weight Oxygen saturation Oxygen saturation in Arterial blood by Pulse oximetry Heart rate Systolic blood pressure Diastolic blood pressure Provider Name and Address Organization Details Last Updated DateTime 4 172.72 cm 5 26.5 kg/m2 02440.0 7 g 98 % 98 % 73 /min 101 mm[Hg] 47 mm[Hg] Jackie Thakkar [place] [facility] 4 14:08:54 Date Recorded Body height Heart rate Oxygen saturation Oxygen saturation in Arterial blood by Pulse oximetry Pain severity - 0-10 verbal numeric rating [Score] - Reported Systolic blood pressure Diastolic blood pressure Provider Name and Address Organization Details Last Updated DateTime 5 172.72 cm 76 /min 98 % 98 % 4 129 mm[Hg] 44 mm[Hg] Seble Trevin nicholas [place] [facility] 5 09:24:11 Social History Question Answer Notes LastModified by Organizat ion Details LastModified Time Tobacco Smoking Status Never Smoker Occasional cigar smoker Not Available [employer] 04/24/2020 03:16:11 Which Illicit Or Recreational Drugs Have You Used? None [id number] Information not available 04/24/2020 Education 12 Information n ot available 11/07/2018 Live Alone Or With Others? With Others Information not available 11/07/2018 GED No Information n ot available 11/07/2018 Marital Status Informati on not available 11/07/2018 What Was The Date Of Your Most Recent Tobacco Screening? 01/01/2019 [id number] Information not available 04/24/2020 Sex: Unknown Functional Status Question Answer Note LastModified by Organization D etails LastModified Time What is your level of alcohol consumption? None [id number] Information not available 04/24/2020 Are you currently employed? No [id number] Information not available 04/24/2020 What is your occupation? Retired [id number] Information not available 04/24/2020 Mental Status None recorded. Family History Relationship [...] SNOMED-CT Code Diagnosis ICD10 Code Diagnosis Note [id number] Eddi Sanchez MD PAIN OFFICE [address] [place] [address] 11/07/2018 14:04:21 11/07/2018 16:05:18 Lumbosacral radiculopathy 6364316 M54.17 Degenerati on of lumbar intervertebral disc 10349460 M51.36 Lumbosacra l spondylosis without myelopathy 42497892 M47.817 Spinal bhumi nosis of lumbar region 47707834 M48.061 38180 Eddi Sanchez MD PAIN OFFICE [address] [place] [address] 11/13/2018 14:30:19 11/14/2018 11:34:42 Lumbosacral radiculopathy 4633723 M54.17 Degenerati on of lumbar intervertebral disc 23066684 M51.36 Lumbosacra l spondylosis without myelopathy 25282666 M47.817 Spinal bhumi nosis of lumbar region 19576625 M48.061 [id number] Eddi Sanchez MD PAIN OFFICE [address] [place] [address] 12/06/2018 14:16:15 12/06/2018 15:28:49 Lumbosacral radiculopathy 8770710 M54.17 Degenerati on of lumbar intervertebral disc 88555744 M51.36 Lumbosacra l spondylosis without myelopathy 43467186 M47.817 Spinal bhumi nosis of lumbar region 56635520 M48.061 87479 Eddi Sanchez MD PAIN OFFICE [address] [place] [address] 01/01/2019 13:04:31 01/01/2019 18:26:49 Lumbosacral radiculopathy 5688953 M54.17 Degenerati on of lumbar intervertebral disc 27768650 M51.36 Lumbosacra l spondylosis without myelopathy 76136853 M47.817 Spinal bhumi nosis of lumbar region 36787207 M48.061 20256 Eddi Sanchez MD PAIN OFFICE [address] [place] [address] 03/26/2019 10:19:14 03/26/2019 11:02:16 Lumbosacral radiculopathy 0447827 M54.17 Degenerati on of lumbar intervertebral disc 39695682 M51.36 Lumbosacra l spondylosis without myelopathy 34851812 M47.817 Spinal bhumi nosis of lumbar region 69891955 M48.061 60095 Eddi Sanchez MD PAIN OFFICE [address] [place] [address] 08/28/2019 12:47:58 08/28/2019 13:30:23 Lumbosacral radiculopathy 6183857 M54.17 Degenerati on of lumbar intervertebral disc 12263750 M51.36 Lumbosacra l spondylosis without myelopathy 01875089 M47.817 Spinal bhumi nosis of lumbar region 74167594 M48.061 77527 Eddi Sanchez MD PAIN OFFICE [address] [place] [address] 01/28/2020 11:16:52 01/28/2020 14:56:45 Lumbosacral radiculopathy 0054077 M54.17 Degenerati on of lumbar intervertebral disc 23453293 M51.36 Lumbosacra l spondylosis without myelopathy 47614950 M47.817 Spinal bhumi nosis of lumbar region 01950280 M48.061 31599 Eddi Sanchez MD PAIN OFFICE [address] [place] [address] 07/08/2020 09:22:42 07/08/2020 11:19:23 Lumbosacral radiculopathy 8394553 M54.17 Degenerati on of lumbar intervertebral disc 97036919 M51.36 Lumbosacra l spondylosis without myelopathy 45890923 M47.817 Spinal bhumi nosis of lumbar region 98222655 M48.061 57062 Eddi Sanchez MD PAIN OFFICE [address] [place] [address] 10/28/2020 09:52:49 10/28/2020 16:05:47 Lumbosacral radiculopathy 4778132 M54.17 Degenerati on of lumbar intervertebral disc 47711052 M51.36 Lumbosacra l spondylosis without myelopathy 16198368 M47.817 Spinal bhumi nosis of lumbar region 25090958 M48.061 53017 Eddi Sanchez MD PAIN OFFICE [address] [place] [address] 02/02/2021 09:24:48 02/02/2021 10:27:20 Lumbosacral radiculopathy 6066276 M54.17 Degenerati on of lumbar intervertebral disc 93053383 M51.36 Lumbosacra l spondylosis without myelopathy 23726673 M47.817 Spinal bhumi nosis of lumbar region 66563176 M48.061 47766 Eddi Sanchez MD PAIN OFFICE [address] [place] [address] 05/04/2021 09:11:40 05/04/2021 09:58:06 Lumbosacral radiculopathy 7990982 M54.17 Degenerati on of lumbar intervertebral disc 27656459 M51.36 Lumbosacra l spondylosis without myelopathy 25390453 M47.817 Spinal bhumi nosis of lumbar region 66156368 M48.061 63579 Eddi Sanchez MD PAIN OFFICE [address] [place] [address] 08/03/2021 13:20:36 08/03/2021 14:49:32 Lumbosacral radiculopathy 0456314 M54.17 Degenerati on of lumbar intervertebral disc 43950897 M51.36 Lumbosacra l spondylosis without myelopathy 37450181 M47.817 Spinal bhumi nosis of lumbar region 64749174 M48.061 89371 Eddi Sanchez MD PAIN OFFICE [address] [place] [address] 11/17/2021 13:01:32 11/17/2021 13:36:27 Lumbosacral radiculopathy 0496904 M54.17 Degenerati on of lumbar intervertebral disc 65314658 M51.36 Lumbosacra l spondylosis without myelopathy 67843246 M47.817 Spinal bhumi nosis of lumbar region 17249045 M48.061 11363 Eddi Sanchez MD PAIN OFFICE [address] [place] [address] 01/07/2022 11:31:26 01/11/2022 09:36:03 Lumbosacral radiculopathy 9087433 M54.17 69960 Eddi Sanchez MD PAIN OFFICE [address] [place] [address] 02/16/2022 10:53:02 02/16/2022 14:02:50 Lumbosacral radiculopathy 6762059 M54.17 Degenerati on of lumbar intervertebral disc 59306447 M51.36 Lumbosacra l spondylosis without myelopathy 83870590 M47.817 Spinal bhumi nosis of lumbar region 59068873 M48.061 04562 Eddi Sanchez MD PAIN OFFICE [address] [place] [address] 05/31/2022 09:53:11 05/31/2022 14:22:50 Lumbosacral radiculopathy 5948907 M54.17 Degenerati on of lumbar intervertebral disc 59614380 M51.36 Lumbosacra l spondylosis without myelopathy 43499427 M47.817 Spinal bhumi nosis of lumbar region 34096066 M48.061 61839 Eddi Sanchez MD PAIN OFFICE [address] [facility] [place] [place] [address] 08/18/2022 11:12:06 08/18/2022 13:45:18 Lumbosacral radiculopathy 8976577 M54.17 Degenerati on of lumbar intervertebral disc 24651577 M51.36 Spinal bhumi nosis of lumbar region 77168822 M48.062 47533 Eddi Sanchez MD PAIN OFFICE [address] [facility] [place] [address] 11/08/2022 11:25:10 11/08/2022 14:29:03 Lumbosacral radiculopathy 7621866 M54.17 Degenerati on of lumbar intervertebral disc 63999016 M51.36 Spinal bhumi nosis of lumbar region 15296279 M48.062 14990 Eddi Sanchez MD PAIN OFFICE [address] [facility] [place] [address] 01/20/2023 10:14:06 01/20/2023 10:40:11 Lumbosacral radiculopathy 8659421 M54.17 Degenerati on of lumbar intervertebral disc 97648798 M51.36 Lumbosacra l spondylosis without myelopathy 65831203 M47.817 Spinal bhumi nosis of lumbar region 28392813 M48.061 52881 Eddi Sanchez MD [facility] PAIN OFFICE [address] [facility] [place] [address] 02/07/2023 12:59:20 02/07/2023 14:44:01 Lumbosacral radiculopathy 4836912 M54.17 Degenerati on of lumbar intervertebral disc 13468429 M51.36 Spinal bhumi nosis of lumbar region 29801392 M48.062 02394 Eddi Sanchez MD [facility] PAIN [facility] [address] [place] [address] 05/11/2023 11:21:41 05/11/2023 13:50:13 Spinal stenosis of lumbar region 93974710 M48.062 Lumbosacra l radiculopathy 5334265 M54.17 Degenerati on of lumbar intervertebral disc 11130569 M51.36 [id number] Eddi Sanchez MD [facility] [address] [place] [address] 08/15/2023 13:25:57 08/15/2023 14:23:43 Spinal stenosis of lumbar region 61381217 M48.062 Lumbosacra l radiculopathy 8990009 M54.17 Degenerati on of lumbar intervertebral disc 57379061 M51.36 [id number] Eddi Sanchez MD [facility] PA[facility] [address] [place] [address] 11/14/2023 10:21:58 11/14/2023 11:00:27 Spinal stenosis of lumbar region 24305990 M48.062 Lumbosacra l radiculopathy 6913583 M54.17 Degenerati on of lumbar intervertebral disc 75779266 M51.36 [id number] Eddi Sanchez MD [facility] PAIN OFF[facility] [address] [place] [address] 2024 08:29:21 2024 09:08:44 Spinal stenosis of lumbar region 62131817 M48.062 Lumbosacra l radiculopathy 0643701 M54.17 Degenerati on of lumbar intervertebral disc 82456368 M51.36 50951 Eddi Sanchez MD [facility] PA[facility] [address] [place] [address] 05/15/2024 13:56:51 05/15/2024 15:51:39 Spinal stenosis of lumbar region 23779803 M48.062 Lumbosacra l radiculopathy 2336858 M54.17 Degenerati on of lumbar intervertebral disc 63533014 M51.362 35980 Eddi Sanchez MD PAIN OFFICE [address] [facility] [address] [place] [address] 08/15/2024 09:14:54 08/15/2024 14:55:48 Spinal stenosis of lumbar region 97810565 M48.062 Lumbosacra l radiculopathy 3815005 M54.17 Degenerati on of lumbar intervertebral disc 75730096 M51.362 Health Concerns Section Related Observation LastModified by Organization Detai ls LastModified Time None Recorded Concern Status LastModified by Organization Details LastModified Time None Recorded Advance Directives Directive None Recorded Payers Encounter Date Sequence Insurance Name Policy Number Policy Nye Covered Member ID Nye Member ID Guarantor Name 08/15/2023 1 [employer] [place] [id number] Amisha Greenwood Garreffi [id number] Man Garreffi 11/14/2023 1 [employer] [place] [id number] Amisha Greenwood Garreffi [id number] Man Garreffi 2024 1 [employer] [place] [id number] Amisha Greenwood Garreffi [id number] Man Garreffi 05/15/2024 1 [employer] [place] [id number] Amisha Greenwood Garreffi [id number] Man Garreffi 08/15/2024 1 [employer] [place] [id number] Amisha Greenwood Garreffi [id number] Man Garreffi Notes Date Note Type Note Provider Name and Address Organization Details Recorded Time 08/15/2023 text/html He is here today for a lumbar epidural steroid injection under fluoroscopic guidance. He is seeing his PCP regularly.He has macrocytic anemia and is seeing Dr. Kim and had a bone marrow biopsy done. His platelet count is within normal limits. Eddi Sanchez MD [address] [facility] , [address], [place], [address], [place] [facility] 08/15/2023 16:52:24 11/14/2023 text/html He is here today for a lumbar epidural steroid injection under fluoroscopic guidance. He is seeing his PCP regularly.He has macrocytic anemia and is seeing Dr. Kim and had a bone marrow biopsy done. His platelet count is within normal limits. Eddi Sanchez MD [address] [facility] , [address], [place], [address], [place] [facility] 11/14/2023 16:22:56 [...] his latest results Eddi Sanchez MD [address] [facility] , [address], [place], [address], [facility] - Pain Management 2024 10:06:16 05/15/2024 text/html He is here today for a lumbar epidural steroid injection under fluoroscopic guidance. He is seeing his PCP regularly. Eddi Sanchez MD [address] [facility] , [address], [place], [address], [place] [facility] 05/15/2024 15:54:49 08/15/2024 text/html He is here today for a lumbar epidural steroid injection under fluoroscopic guidance. He is seeing his PCP regularly.He had a blood transfusion for his macrocytic anemia recently Eddi Sanchez MD [address] , [address], [place], [address], [place] [facility] 08/15/2024 15:22:41
== END 2024-11-21 06:07 | disposition home or self-care (01) ==
LOC: CF 06:06
PROVIDERS: Visit Provider Internal Medicine
DX: Z13.89 Encounter for screening for other disorder (principal)

== ENCOUNTER 2024-12-05 06:18 | Outpatient (REF) | payer OTHER, SELFPAY ==
--- NOTE | ~2024-12-05 | FL_ITS ---
EXAMINATION: XR FLUOROSCOPY WITH IMAGES CLINICAL INFORMATION: Radiculopathy. COMPARISON: None available. TECHNIQUE: Fluoroscopy provided to: Dr. Astorga Fluoroscopy time: 0.1 minutes DAP: 0.0257 mGycm2 Images: 2 FINDINGS: 3 fluoroscopic images of the lower lumbar spine during pain management injection. Refer to full procedural report for details. FL/FL guidance in treatment room IMPRESSION: Fluoroscopic guidance. Electronically signed by: Christian Jiménez MD 12/05/2024 02:21 PM EDT
--- OUTSIDE RECORDS SUMMARY | 2024-12-05 06:20 | XMS_ITS | Patient Health Record ---
Author Organization [facility] Address [address] [place] [phone] Care Team Providers Care Parlor Maid Name Role Phone [facility] Primary Care Provider Allergies No Known Allergies Results Component Value Reference Range Notes LP+Non-HDL Cholesterol-32593 5 Reviewed date:04/24/2024 06:31:13 PM Interpretation: Performing Lab:[facility], [address] [facility], Phone - [phone], Director - MDJodry Notes/Report: Cholesterol, Total 92 100-199 mg/dL Triglycerides 57 0-149 mg/dL HDL Cholesterol 47 >39 mg/dL VLDL Cholesterol Romeo 13 5-40 mg/dL LDL Chol Calc ([facility]) 32 0-99 mg/dL Non-HDL Cholesterol 45 0-129 mg/dL Comp. Metabolic Panel (14)-3 [id number] Reviewed date:04/24/2024 06:31:13 PM Interpretation: Performing Lab:[facility], [address] [facility], Phone - [phone], Director - MDJodry Notes/Report: Glucose 96 70-99 mg/dL BUN 7 [...] ALT (SGPT) 21 0-44 IU/L Albumin/Creatinine Ratio,Uri ne-[id number] Reviewed date:04/24/2024 06:31:13 PM Interpretation: Performing Lab:[facility]iy[facility] Reyes, [address] [place] [address], Phone - [phone], Director - [facility] Notes/Report: Creatinine, Urine 238.5 Not Estab. mg/dL Albumin, Urine 31.5 Not Estab. ug/mL Alb/Creat Ratio 13 0-29 mg/g creat Normal: 0 - 29 Moderately increased: 30 - 300 Severely increased: >300 Vitamin D, 08-Ojmjghy-[id number] Reviewed date:04/24/2024 06:31:13 PM Interpretation: Performing Lab:Niyah Reyes, [address] [facility] [place], Phone - [phone], [facility] Notes/Report: Vitamin D, 25-Hydroxy 28.1 30.0-100.0 ng/mL Vitamin D deficiency has been defined by the [place] of [employer] and an Endocrine Society practice guideline as a level of serum 25-OH vitamin D less than 20 ng/mL (1,2). The Endocrine Society went on to further define vitamin D insufficiency as a level between 21 and 29 ng/mL (2). 1. IOM ([place] of [employer]). 2010. Dietary reference intakes for calcium and D. [place]: The National Academies Press. 2. Kiko MF, Gigi NC, Anya CUMMINGS, et al. Evaluation, treatment, and prevention of vitamin D deficiency: an Endocrine Society clinical practice guideline. JCEM. 2010; 96(7):1911-30. Reticulocyte Count-093384 Reviewed date:04/24/2024 06:31:12 PM Interpretation: Performing Lab:[facility] [place], [address] [place] [address], Phone - [phone], Director - MDLizzydry Notes/Report: Reticulocyte Count 2.3 0.6-2.6 % Request Problem TNP Test not performed. Sample contaminated with EDTA which is not suitable for test ordered. TEST: [id number] Sodium Panel: 154397 411804 Potassium Panel: 425932 397379 Chloride Panel: 749826 001212 Carbon Dioxide, Total Panel: 643026 390948 Calcium Panel: 154826 078458 Alkaline Phosphatase Panel: 643060 CBC With Differential/Platel et-800654 Reviewed date:04/24/2024 06:31:12 PM Interpretation: Performing Lab:[facility] [place], [address] [place] [address], Phone - [phone], Director - MDJodry Notes/Report: WBC 9.8 3.4-10.8 x10E3/uL RBC 2.43 [...] x10E3/uL NRBC 1 0 - 0 % Urinalysis, Complete-099739 Reviewed date:04/24/2024 06:31:12 PM Interpretation: Performing Lab:[facility] [place], [address] [place] [address], Phone - [phone], Director - Jolene Notes/Report: Specific [place] 1.024 1.005-1.030 pH 5.5 5.0-7.5 Urine-Color Yellow [...] seen /lpf Bacteria None seen None seen/Few Hemoglobin M3q-143342 Reviewed date:04/24/2024 06:31:12 PM Interpretation: Performing Lab:[facility] [place], [address] [facility], Phone - [phone], Director - Jolene Notes/Report: Hemoglobin A1c 6.3 4.8-5.6 % . Prediabetes: 5.7 - 6.4 Diabetes: >6.4 Glycemic control for adults with diabetes: <7.0 Hemoglobin A1C Reviewed date:08/15/2024 04:32:37 PM Interpretation: Performing Lab: Notes/Report: [facility] [place] [facility] ([facility] [place] [facility]), [facility] Lot: [id number] EKG Reviewed date:09/27/2024 03:02:43 PM Interpretation: Performing Lab: Notes/Report: ECGDiastolicBP 46 ECGHr 69 ECGPRInterval 180 ECGPWaveAxis 66 ECGQRSDuration 84 ECGQrsWaveAxis 52 ECGQTcInterval 409 ECGQTInterval 394 ECGSystolicBP 118 ECGTWaveAxis 55 RR_DiastolicBP 0 RR_MaxRRInterval 0 RR_MeanHR 0 RR_MeanRRInterval 0 RR_MinRRInterval 0 RR_NumBeats 0 RR_NumNormalBeats 0 RR_SystolicBP 0 Reason For Referral No Information Medications Medication [...] Vaccine Route Administration Date Status Comme nts STSRZ-23-Ofotdxt Vaccine Unknown 09/10/2020 Administered DPNOL-37-Hcjkcee Vaccine Unknown 10/08/2020 Administered CMLWD-09-Ixwwrrm Vaccine Unknown 05/25/2021 Administered COVID-19 Moderna BiValent Booster Unknown 04/25/2022 Administered *Tdap IM Intramuscular 07/27/2016 Administered *Pneumococcal polysaccharide PPV23 IM Intramuscular 04/27/2021 Administered *Influenza-Medicare-A S IM Intramuscular 04/24/2019 Administered *Influenza-Medicare-A S IM Intramuscular 04/27/2021 Administered *Wdgermvks-Ngculka-Ob gh Dose-65+ IM Intramuscular 04/16/2024 Administered *Influenza, High Dose Seasonal, Quadrivatent IM Intramuscular 04/25/2023 Administered Influenza (Fluad) Unknown 04/25/2022 Administered Influenza, seasonal, injectable (split), for 3 [...] Findings: Tobacco non-user Ex -moderate cigarette smoker (-/) Problems Problem Type SNOMED Code ICD Code Onset Dates Problem Status W/U Status Risk Notes Problem Myelodysplastic syndrome (030093702) Myelodysplastic syndrome, unspecified (D46.9) Active confirmed Problem Folate deficiency anemia (80029649) Folate deficiency anemia, 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) Active confirmed Problem Diabetic renal disease (881550290) Type 2 diabetes mellitus with diabetic chronic kidney disease (E11.22) Active confirmed Problem Vitamin D deficiency (15403215) Vitamin D deficiency, unspecified (E55.9) Active confirmed Problem Mixed hyperlipidemia (014941581) Mixed hyperlipidemia (E78.2) Active confirmed Problem Mental disorder caused by drug (504730579) Nicotine dependence, cigarettes, with unspecified nicotine-induced disorders (F17.219) Active confirmed Problem Generalized anxiety disorder (87229485) Generalized anxiety disorder (F41.1) Active confirmed Problem Angina co-occurrent and due to coronary arteriosclerosis (disorder) (54125395402606495) 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) Active confirmed Problem Atrial premature depolarization (873433064) Atrial premature depolarization (I49.1) Active confirmed Problem Gastro-esophageal reflux disease without esophagitis (315643458) Gastro-esophageal reflux disease without esophagitis (K21.9) Active confirmed Problem Gallbladder and bile duct calculi (404015274) Calculus of gallbladder and bile duct without cholecystitis without obstruction (K80.70) Active confirmed Problem Lumbosacral spondylosis without myelopathy (15865917) Other spondylosis with radiculopathy, lumbosacral region (M47.27) Active confirmed Problem Cervical disc disorder with radiculopathy (557418915) Cervical disc disorder with radiculopathy, high cervical region (M50.11) Active confirmed Problem Displacement of lumbar intervertebral disc without myelopathy (80857547) Other intervertebral disc displacement, lumbosacral region (M51.27) Active confirmed Problem Chronic kidney disease stage 2 (433098062) Chronic kidney disease, stage 2 (mild) (N18.2) Active confirmed Problem Syncope and collapse (862836021) Syncope and collapse (R55) Active confirmed Problem Family history of malignant neoplasm of gastrointestinal tract (676185347) Family history of malignant neoplasm of digestive organs (Z80.0) Active confirmed Problem Lower urinary tract symptoms due to benign prostatic hypertrophy (14178467469030) Benign prostatic hyperplasia with lower urinary tract symptoms (N40.1) Active confirmed Problem Age-related nuclear cataract of right eye (689165428994066) Age-related nuclear cataract, right eye (H25.11) Problem resolved confirmed Problem Age-related nuclear cataract of left eye (444369323027127) Age-related nuclear cataract, left eye (H25.12) Problem resolved confirmed Vital Signs Heart Rate 82 /min 09/23/2024 Temperature 96.8 degrees Fahrenheit 09/23/2024 Blood pressure diastolic 46 mm Hg 09/23/2024 Oximetry 98 % 09/23/2024 Height 5 ft 8 in in 09/23/2024 Blood pressure systolic 118 mm Hg 09/23/2024 Weight 171 lbs 09/23/2024 BMI 26.0 kg/m2 09/23/2024 Encounters Encounter Location Date Provider Diagnosis Chas Noel MD [address] [id number] 10/16/2024 Chas Noel MD [address] [id number] 01/08/2024 Chas Noel MD [address] [id number] 03/22/2024 Chas Noel Other fatigue R53.83 Chas Noel MD [address] [id number] 03/27/2024 Chas Noel MD [address] [id number] 08/12/2024 Chas Noel MD [address] [id number] 08/15/2024 Chas Noel Type 2 diabetes mellitus with diabetic chronic kidney disease E11.22 ; Myelodysplastic syndrome, unspecified D46.9 ; Generalized anxiety disorder F41.1 ; Atherosclerotic heart disease of [place]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 I25.118 ; Mixed hyperlipidemia E78.2 ; Gastro-esophageal reflux disease without esophagitis K21.9 ; Other spondylosis with radiculopathy, lumbosacral region M47.27 ; Nicotine dependence, cigarettes, with unspecified nicotine-induced disorders F17.219 and Vitamin D deficiency, unspecified E55.9 Chas Noel MD [address] [id number] 04/16/2024 Chas Noel Type 2 diabetes mellitus with diabetic chronic kidney disease E11.22 ; Myelodysplastic syndrome, unspecified D46.9 ; Generalized anxiety disorder F41.1 ; Atherosclerotic heart disease of [place]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 I25.118 ; Mixed hyperlipidemia E78.2 ; Gastro-esophageal reflux disease without esophagitis K21.9 ; Other spondylosis with radiculopathy, lumbosacral region M47.27 ; Nicotine dependence, cigarettes, with unspecified nicotine-induced disorders F17.219 ; Vitamin D deficiency, unspecified E55.9 and Encounter for immunization Z23 Ch[facility] No[facility] MD [address] [id number] 05/14/2024 Chas Noel Type 2 diabetes mellitus with diabetic chronic kidney disease E11.22 ; Encounter for general adult medical examination without abnormal findings Z00.00 ; Myelodysplastic syndrome, unspecified D46.9 ; Generalized anxiety disorder F41.1 ; Atherosclerotic heart disease of [place] coronary artery with other forms of angina [...] other viral diseases Z11.59 Chas Noel MD [address] [id number] 09/23/2024 Chas Noel Type 2 diabetes mellitus with diabetic chronic kidney disease E11.22 ; Atherosclerotic heart disease of [place] coronary artery with other forms of angina [...] disease state. 09/23/2024 Atherosclerotic heart disease of [place] coronary artery with other forms of angina [...] risk for complications from a medical perspective. 05/14/2024 Type 2 diabetes mellitus with diabetic [...] status in adjust medical therapy if indicated 03/22/2024 Other fatigue (ICD-10 - R53.83) 08/15/2024 Myelodysplastic syndrome, unspecified (ICD-10 - D46.9) [...] he had a blood transfusion yesterday. 08/15/2024 Generalized anxiety disorder (ICD-10 - F41.1) Stable at present. Continue current medical therapy 05/14/2024 Myelodysplastic syndrome, unspecified (ICD-10 - D46.9) Fair control and stable with periodic follow-up with hematology and Retacrit injections 04/16/2024 Generalized anxiety disorder (ICD-10 - F41.1) He feels he is doing well with current medical therapy. Continue same 09/23/2024 Myelodysplastic syndrome, unspecified (ICD-10 - D46.9) [...] control and stable with current medical therapy 05/14/2024 Generalized anxiety disorder (ICD-10 - F41.1) Stable at present. Continue current medical therapy 04/16/2024 Atherosclerotic heart disease of [place]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 (ICD-10 - I25.118) Symptomatically stable. He says he does not have any progressive shortness of breath nor chest discomfort that would suggest progressive coronary disease and angina. Continue control of comorbidities 08/15/2024 Atherosclerotic heart disease of [place] coronary artery with other forms of angina [...] medical therapy. 05/14/2024 Atherosclerotic heart disease of [place]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 (ICD-10 - I25.118) Stable without any active symptoms. Continue medical therapy with beta-savage and statin and aspirin 09/23/2024 Mixed hyperlipidemia (ICD-10 - E78.2) Controlled [...] less than 50. Continue current statin therapy 08/15/2024 Gastro-esophageal reflux disease without esophagitis (ICD-10 [...] another MRI and evaluation for surgical intervention 09/23/2024 Other spondylosis with radiculopathy, lumbosacral region (ICD-10 - M47.27) Stable with periodic injections 05/14/2024 Gastro-esophageal reflux disease without esophagitis (ICD-10 - K21.9) Symptomatically stable at present. 09/23/2024 Nicotine dependence, cigarettes, with unspecified nicotine-induced disorders (ICD-10 - F17.219) Smoking cessation has been counseled in the past 05/14/2024 Other spondylosis with radiculopathy, lumbosacral region (ICD-10 - M47.27) Stable with periodic injections. Continue same. 04/16/2024 Nicotine dependence, cigarettes, with unspecified nicotine-induced disorders (ICD-10 - F17.219) He is smoking again. 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 05/14/2024 Vitamin D deficiency, unspecified [...] for hepatitis C as per general recommendation 04/16/2024 Other This note was created with [...] CT Low Dose Lung Screening 02/01/2023 Hemoglobin W8r-534527 05/14/2024 Urinalysis, Complete-151055 05/14/2024 CBC With Differential/Platelet-103081 Reticulocyte Count-258316 05/14/2024 Prostate-Specific Ag-992676 05/14/2024 Vitamin D, 36-Efigwuy-496598 05/14/2024 Glucose Tolerance (4 Sp Blood)-634906 Albumin/Creatinine Ratio,Urine-385570 Comp. Metabolic Panel ([id number] 2023 LP+Non-HDL Cholesterol-425269 05/14/2024 HCV Antibody-432691 05/14/2024 Next Appt Details Provider Name:Chas Noel , 12/16/2024 11:30:00 AM, [address] [place] [address], [phone], Provider Name:Chas Noel , 05/30/2025 10:00:00 AM, [address] [place] [address], [phone], Insurance Providers Payer Name Payer Address Payer Phone Subscriber Number Group Number Insured Name Patient Relationship to Insured Coverage Start Date Coverage End Date [employer] [address] [place] [address] [id number] Man Joe Self - patient is the [...]
== END 2024-12-05 06:19 | disposition home or self-care (01) ==
LOC: CF 06:18
PROVIDERS: Visit Provider Internal Medicine
DX: M54.16 Radiculopathy, lumbar region (principal)
CPT/HCPCS: 64483; J1100; J2003; Q9967

== ENCOUNTER 2024-12-05 09:45 | Outpatient (AMB) | payer OTHER, SELFPAY ==
[2024-12-05 10:11] VITALS: BP 115/48; PULSE 64; RESP 16; O2SAT 100
--- NOTE | 2024-12-05 10:11 | MHC.OFFVIS ---
Vital Signs 12/05/24 10:11 12/05/24 11:03 BP 115/48 L 126/54 L Blood Pressure Location Lt brachial Lt brachial Position Sitting Sitting Respiration 16 16 Pulse 64 73 Pulse Source Pulse Oximeter Pulse Oximeter Pulse Oximetry (%) 100 98 Oxygen Delivery Method Room Air Room Air Intake Visit Reasons: Right L5 TFESI Spare Person Required: No Allergies No Known Allergies Allergy (Verified 12/05/24 10:12) HPI HPI Right L5 TFESI: Details: Patient presents for scheduled procedure. Denies any recent cough, cold, infection, fever or other significant changes in medical history since last office visit. [facility] Medical History Myelodysplastic syndrome GERD (gastroesophageal reflux disease) Generalized anxiety disorder BPH (benign prostatic hyperplasia) Nicotine dependence, cigarettes, uncomplicated Surgical History History of bone marrow biopsy History of cataract surgery Family History Mother Colon cancer, Onset Age: 84 Social History Household Members: Spouse Household Members Other:: 2 Housing: House Do you presently have visiting nurse or other home services: No Patient Tobacco Use Status: Current everyday Tobacco user Tobacco use type: Cigarette and Cigar Cigarette Packs Per Day: 1 Years Smoked: onset 16yo, 1ppd x 52yrs, now 1/2ppd - 50pyh Second Hand Smoke Exposure: No service: No Current occupational status: retired Physical Exam Vital Signs: Last Vital Signs Pulse 64 12/05/24 10:11 Resp 16 12/05/24 10:11 BP 115/48 L 12/05/24 10:11 Pulse Ox 100 12/05/24 10:11 Oxygen Delivery Method Room Air 12/05/24 10:11 Office Procedures Details: Transforaminal epidural steroid injection, right L5 After obtaining written consent, pre-procedure blood pressure and heart rate were stable and recorded in the nursing record. The patient was placed in the prone position on the fluoroscopy table. The lumbosacral area was prepped with chloraprep, allowed to dry and draped in sterile fashion. Using fluoroscopy, the skin overlying our target was anesthetized with 0.5% lidocaine. A 22 gauge 3.5 inch spinal needle was advanced to the safe triangle in the upper pole of the right L5 foramen. No paresthesias were elicited with needle placement and aspiration was negative for blood and CSF. Correct needle position was confirmed with approximately 1 ml contrast dye (Omnipaque 180 mg/ml) injected under real-time fluoroscopy. No evidence of vascular or intrathecal uptake was seen and there was both epidural and peripheral spread of the contrast agent. 10 mg dexamethasone plus 1 ml containing 0.5% lidocaine was slowly injected. The needle was flushed and removed. The skin was cleansed and a sterile bandages were applied. The patient tolerated the procedure well and no complications were encountered. Following the procedure the patient's vital signs were stable. The patient was discharged home in good condition with post-procedural instructions. Time Out: Immediately prior to the procedure, the following was verbally confirmed that there is a signed consent form and that the correct patient, planned procedure, site and side are consistent with documentation and that necessary equipment and/or blood products are available prior to the start of the case. Complications: none EBL: <5 cc 03866 - Lumbar/Sacral Procedure code (CPT) selection complete Assessment & Plan Assessment & Plan (1) Lumbar radiculopathy: Code(s): M54.16 - Radiculopathy, lumbar region Category: Medical Plan Patient is status post right L5 TFESI. Patient tolerated procedure well and was discharged home in stable condition with discharge instructions. All questions were answered. We will follow-up via telephone or in clinic to assess response to therapy. A follow-up appointment was made during today's visit. Orders: Orders FL guidance in treatment room Today Shefali Montejo APRN, UNIT ASSEMBLER M54.16 - Radiculopathy, lumbar region AMB Transforaminal Epidural Steroid Injection Today Joel Astorga MD M54.16 - Radiculopathy, lumbar region Coding Level of Care Code Procedure Only Diagnoses Lumbar radiculopathy M54.16 CPT Codes Transforaminal Epidural Steroid Inj - TESI 3: 22813 - Lumbar/Sacral ([id number])
[2024-12-05 11:03] VITALS: BP 126/54; PULSE 73; RESP 16; O2SAT 98
== END 2024-12-05 11:03 | disposition home or self-care (01) ==
LOC: HO.PMCPRC 09:45
PROVIDERS: PCP Internal Medicine; Visit Provider Internal Medicine
DX: M54.16 Radiculopathy, lumbar region (principal)
CPT/HCPCS: 64483

== ENCOUNTER 2025-01-17 10:25 | Outpatient (AMB) | payer OTHER, SELFPAY ==
--- NOTE | 2025-01-17 10:30 | A.OFFVIS_ITS ---
Vital Signs 01/17/25 10:31 Height 5 ft 8 in Weight 155 lb BMI 23.6 BP 118/58 L Blood Pressure Location Lt brachial Position Sitting Respiration 16 Pulse 68 Pulse Source Pulse Oximeter Pulse Oximetry (%) 100 Oxygen Delivery Method Room Air Intake Visit Reasons: s/p right L5 TFESI Danelle from 01/01 Technical Professional Required: No Allergies No Known Allergies Allergy (Verified 01/17/25 10:33) Medication List - Last Reconciled 01/17/25 by Anali Frye LPN aspirin 1 tab PO DAILY escitalopram oxalate 10 mg PO DAILY famotidine 10 mg PO DAILY folic acid 0.4 mg PO DAILY metoprolol succinate ER 50 mg PO DAILY multivitamin 1 tab PO DAILY rosuvastatin 40 mg PO DAILY HPI HPI s/p right L5 TFESI Danelle from 01/01: Details: History of Present Illness The patient is a 69-year-old male presenting for follow-up of lumbosacral radiculopathy management. The patient underwent L5 transforaminal injections on December 05, which have provided significant relief >80%. He reports no recurrence of symptoms since the procedure, which is a notable improvement compared to previous treatments where symptoms returned within five to six weeks. The patient is advised to continue his current regimen and to notify the clinic if symptoms recur. The plan is to maintain a minimum interval of three months between injections, with the possibility of extending to four or five months if symptoms remain controlled. Pain Management - Analgesia: L5 transforaminal injections have provided significant relief with no recurrence of symptoms. - Activities of Daily Living: The patient reports improvement in daily activities due to symptom relief. [facility] Medical History Myelodysplastic syndrome GERD (gastroesophageal reflux disease) Generalized anxiety disorder BPH (benign prostatic hyperplasia) Nicotine dependence, cigarettes, uncomplicated Surgical History History of bone marrow biopsy History of cataract surgery Family History Mother Colon cancer, Onset Age: 84 Social History Household Members: Spouse Household Members Other:: 2 Housing: House Do you presently have visiting nurse or other home services: No Patient Tobacco Use Status: Current everyday Tobacco user Tobacco use type: Cigarette and Cigar Cigarette Packs Per Day: 1 Years Smoked: onset 16yo, 1ppd x 52yrs, now 1/2ppd - 50pyh Second Hand Smoke Exposure: No service: No Current occupational status: retired Physical Exam Vital Signs: Last Vital Signs Pulse 68 01/17/25 10:31 Resp 16 01/17/25 10:31 BP 118/58 L 01/17/25 10:31 Pulse Ox 100 01/17/25 10:31 Oxygen Delivery Method Room Air 01/17/25 10:31 BMI result Body Mass Index 23.6 Assessment & Plan Assessment & Plan (1) Lumbar radiculopathy: Code(s): M54.16 - Radiculopathy, lumbar region Category: Medical Plan Plan - Continue current regimen and monitor for symptom recurrence. - Schedule follow-up injections with a minimum interval of three months, extending to four or five months if symptoms remain controlled. Patient was informed and verbally consented to the use of an ambient scribe for clinic note documentation during this visit. Discussion Notes I discussed with the patient the effectiveness of the L5 transforaminal injections, which have provided significant relief. We agreed to continue the current management plan and to schedule follow-up injections based on symptom recurrence, aiming for a minimum interval of three months. Patient Instructions - Continue your current activities and regimen. - Notify the clinic if symptoms return. - Plan for follow-up injections at least three months apart, or longer if symptoms remain controlled. Coding Level of Care Code Est Pt Level 3 (79144) Diagnoses Lumbar radiculopathy M54.16
[2025-01-17 10:31] VITALS: BP 118/58; PULSE 68; RESP 16; O2SAT 100; BMI 23.6
--- OUTSIDE RECORDS SUMMARY | 2025-01-17 10:55 | XMS_ITS | Patient Health Record ---
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, Phone - [phone], Director - Jolene Notes/Report: Hemoglobin A1c 6.3 4.8-5.6 % . Prediabetes: 5.7 - 6.4 Diabetes: >6.4 Glycemic control for adults with diabetes: <7.0 Urinalysis, Complete-[id number] Reviewed date:04/24/2024 06:31:12 PM Interpretation: Performing Lab:[facility] [place], [address] [place] [address], Phone - [phone], Director - Jolene Notes/Report: Specific [place] 1.024 1.005-1.030 pH 5.5 5.0-7.5 Urine-Color Yellow [...] None seen None seen/Few CBC With Differential/Platel et-[id number] Reviewed date:04/24/2024 06:31:12 PM Interpretation: Performing [facility], [address] [facility], Phone - [phone], Director - MDJodry Notes/Report: WBC 9.8 3.4-10.8 [...] NRBC 1 0 - 0 % Reticulocyte Count-770896 Reviewed date:04/24/2024 06:31:12 PM Interpretation: Performing Lab:[facility], [address] [facility], [place], Phone - [phone], Director - MDJodry Notes/Report: Reticulocyte Count 2.3 0.6-2.6 % Request Problem TNP Test not performed. Sample contaminated with EDTA which is not suitable for test ordered. TEST: 207726 Sodium Panel: 865376 245384 Potassium Panel: 108598 969666 Chloride Panel: 541269 601129 Carbon Dioxide, Total Panel: 611811 556180 Calcium Panel: 334552 611443 Alkaline Phosphatase Panel: 504550 LP+Non-HDL Cholesterol-90322 5 Reviewed date:04/24/2024 06:31:13 PM Interpretation: Performing Lab[facility], [address] [facility], [place], Phone - [phone], Director - Jolene Notes/Report: Cholesterol, Total 92 100-199 mg/dL Triglycerides 57 0-149 mg/dL HDL Cholesterol 47 >39 mg/dL VLDL Cholesterol Romeo 13 5-40 mg/dL LDL Chol Calc (NIH) 32 0-99 mg/dL Non-HDL Cholesterol 45 0-129 mg/dL Comp. Metabolic Panel (14)-3 Reviewed date:04/24/2024 06:31:13 PM Interpretation: Performing Lab[facility], [address] [facility], [place], Phone - [phone], Director - Jolene Notes/Report: Glucose 96 70-99 [...] ALT (SGPT) 21 0-44 IU/L Albumin/Creatinine Ratio,Uri ne-583502 Reviewed date:04/24/2024 06:31:13 PM Interpretation: Performing Lab:[facility] [place], [address] [facility], [place], Phone - [phone], Director - Jolene Notes/Report: Creatinine, Urine 238.5 Not Estab. mg/dL Albumin, Urine 31.5 Not Estab. ug/mL Alb/Creat Ratio 13 0-29 mg/g creat Normal: 0 - 29 Moderately increased: 30 - 300 Severely increased: >300 Vitamin D, 44-Gauupfb-795931 Reviewed date:04/24/2024 06:31:13 PM Interpretation: Performing Lab:[facility], [address] [facility], Phone - [phone], Director - Jolene Notes/Report: Vitamin D, 25-Hydroxy 28.1 30.0-100.0 ng/mL Vitamin D deficiency has been defined by the [place] of Medicine and an Endocrine Society practice guideline as a level of serum 25-OH vitamin D less than 20 ng/mL (1,2). The Endocrine Society went on to further define vitamin D insufficiency as a level between 21 and 29 ng/mL (2). 1. IOM ([place] of Medicine). 2010. Dietary reference intakes for calcium and D. [place]: The National Academies Press. 2. Kiko MF, Gigi NC, Anya CUMMINGS, et al. Evaluation, treatment, and prevention of vitamin D deficiency: an Endocrine Society clinical practice guideline. JCEM. 2010; 96(7):1911-30. EKG Reviewed date:09/27/2024 03:02:43 PM Interpretation: Performing Lab: Notes/Report: ECGDiastolicBP 46 ECGHr 69 ECGPRInterval 180 ECGPWaveAxis 66 ECGQRSDuration 84 ECGQrsWaveAxis 52 ECGQTcInterval 409 ECGQTInterval 394 ECGSystolicBP 118 ECGTWaveAxis 55 RR_DiastolicBP 0 RR_MaxRRInterval 0 RR_MeanHR 0 RR_MeanRRInterval 0 RR_MinRRInterval 0 RR_NumBeats 0 RR_NumNormalBeats 0 RR_SystolicBP 0 Hemoglobin A1C Reviewed date:08/15/2024 04:32:37 PM Interpretation: Performing Lab: Notes/Report: [facility] [place] [facility] ([facility] [place] [facility]), [facility] Lot: [id number] Respiratory Panel w/ SARS-Co [id number] Reviewed date:01/09/2025 01:56:02 PM Interpretation: Performing Lab:[facility] [place], [facility] Phone - [phone], Director - Jolene Notes/Report: Adenovirus Not Detected Not Detected Coronavirus HKU1 Not Detected Not Detected Coronavirus NL63 Not Detected Not Detected Coronavirus 229E Not Detected Not Detected Coronavirus OC43 Not Detected Not Detected SARS-CoV-2 Not Detected Not Detected Human Metapneumovirus Not Detected Not Detected Human Rhinovirus/Enterovirus Not Detected Not Detected Influenza A Not Detected Not Detected Influenza A/H1 Not Detected Not Detected Influenza A/H1-2009 Not Detected Not Detected Influenza A/H3 Not Detected Not Detected Influenza B Not Detected Not Detected Parainfluenza 1 Not Detected Not Detected Parainfluenza 2 Not Detected Not Detected Parainfluenza 3 Not Detected Not Detected Parainfluenza 4 Not Detected Not Detected Respiratory Syncytial Virus Not Detected Not Detected Bordetella parapertussis Not Detected Not Detected Bordetella pertussis Not Detected Not Detected Chlamydophila pneumoniae Not Detected Not Detected Mycoplasma pneumoniae Not Detected Not Detected Reason For Referral No Information Medications Medication SIG (Take, Route, Frequency, Duration) Notes Start Date End Date Status LORazepam 1 MG 1 tablet at bedtime as needed Orally Every 8 hours 04/25/2023 Not-Taking Zinc Active Benzonatate 200 MG 1 capsule as needed for cough Orally Three times a day; Duration: 10 days 01/08/2025 01/18/2025 Active Aspirin Low Dose 81 MG TAKE 1 TABLET BY MOUTH ONCE A DAY; Duration: 30 Active Famotidine 20 MG 1 tablet at bedtime Orally Once a day Active Metoprolol Succinate ER 50 MG TAKE 1/2 TABLET (25MG) BY MOUTH ONCE A DAY.; Duration: 30 Active Rosuvastatin Calcium 40 MG TAKE 1 TABLET BY MOUTH ONCE A DAY.; Duration: 30 Active Escitalopram Oxalate 10 MG TAKE 1 TABLET BY MOUTH DAILY; Duration: 90 Active Immunizations Vaccine Route Administration Date Status Comme nts Pneumococcal polysaccharide PCV 13 IM Intramuscular 04/08/2020 Administered Influenza, seasonal, injectable (split), for 3 yrs and up IM Intramuscular 04/08/2020 Administered Mfd by [employer]ofi Pasteur Influenza (Fluad) Unknown 04/25/2022 Administered JNOIA-51-Snqzzys Vaccine Unknown 09/10/2020 Administered WLICL-20-Prkjism Vaccine Unknown 10/08/2020 Administered NHOSW-23-Dxfhson Vaccine Unknown 05/25/2021 Administered COVID-19 Moderna BiValent Booster Unknown 04/25/2022 Administered *Tdap IM Intramuscular 07/27/2016 Administered *Pneumococcal polysaccharide PPV23 IM Intramuscular 04/27/2021 Administered *Influenza-Medicare-A S IM Intramuscular 04/24/2019 Administered *Influenza-Medicare-A S IM Intramuscular 04/27/2021 Administered *Lkvvkpoiw-Kqfwodi-Ez gh Dose-65+ IM Intramuscular 04/16/2024 Administered *Influenza, [...] Findings: Tobacco non-user Ex -moderate cigarette smoker (10-/day) Problems Problem Type SNOMED Code ICD Code Onset Dates Problem Status W/U Status Risk Notes Problem Myelodysplastic syndrome (880555295) Myelodysplastic syndrome, unspecified (D46.9) Active confirmed Problem Folate deficiency anemia (41645779) Folate deficiency anemia, 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) Active confirmed Problem Diabetic renal disease (012935999) Type 2 diabetes mellitus with diabetic chronic kidney disease (E11.22) Active confirmed Problem Vitamin D deficiency (81741610) Vitamin D deficiency, unspecified (E55.9) Active confirmed Problem Mixed hyperlipidemia (818601273) Mixed hyperlipidemia (E78.2) Active confirmed Problem Mental disorder caused by drug (740456107) Nicotine dependence, cigarettes, with unspecified nicotine-induced disorders (F17.219) Active confirmed Problem Generalized anxiety disorder (69129184) Generalized anxiety disorder (F41.1) Active confirmed Problem Angina co-occurrent and due to coronary arteriosclerosis (disorder) (93354559149933435) 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) Active confirmed Problem Atrial premature depolarization (619069752) Atrial premature depolarization (I49.1) Active confirmed Problem Gastro-esophageal reflux disease without esophagitis (783373629) Gastro-esophageal reflux disease without esophagitis (K21.9) Active confirmed Problem Gallbladder and bile duct calculi (224288146) Calculus of gallbladder and bile duct without cholecystitis without obstruction (K80.70) Active confirmed Problem Lumbosacral spondylosis without myelopathy (10671035) Other spondylosis with radiculopathy, lumbosacral region (M47.27) Active confirmed Problem Cervical disc disorder with radiculopathy (550113162) Cervical disc disorder with radiculopathy, high cervical region (M50.11) Active confirmed Problem Displacement of lumbar intervertebral disc without myelopathy (11831486) Other intervertebral disc displacement, lumbosacral region (M51.27) Active confirmed Problem Chronic kidney disease stage 2 (540535278) Chronic kidney disease, stage 2 (mild) (N18.2) Active confirmed Problem Syncope and collapse (529972361) Syncope and collapse (R55) Active confirmed Problem Family history of malignant neoplasm of gastrointestinal tract (859959995) Family history of malignant neoplasm of digestive organs (Z80.0) Active confirmed Problem Lower urinary tract symptoms due to benign prostatic hypertrophy (75932200177943) Benign prostatic hyperplasia with lower urinary tract symptoms (N40.1) Active confirmed Problem Age-related nuclear cataract of right eye (780799835935898) Age-related nuclear cataract, right eye (H25.11) Problem resolved confirmed Problem Age-related nuclear cataract of left eye (900192892221819) Age-related nuclear cataract, left eye (H25.12) Problem resolved confirmed Vital Signs Heart Rate 76 /min 01/08/2025 Temperature 96.3 degrees Fahrenheit 01/08/2025 Blood pressure diastolic 46 mm Hg 09/23/2024 Oximetry 97 % 01/08/2025 Height 5 ft 8 in in 01/08/2025 Blood pressure systolic 118 mm Hg 09/23/2024 Weight 171 lbs 01/08/2025 BMI 26.0 kg/m2 01/08/2025 Encounters Encounter Location Date Provider Diagnosis Chas Noel MD [address] [id number] 10/16/2024 Chas Noel MD [address] [id number] 01/09/2025 Chas Noel MD [address] [id number] 03/22/2024 Chas Noel Other fatigue R53.83 Chas Noel MD [address] [id number] 03/27/2024 Chas Noel MD [address] [id number] 08/12/2024 Chas Noel MD [address] [id number] 12/30/2024 Chas Noel MD [address] [id number] 12/30/2024 Chas Noel MD [address] [id number] 12/30/2024 Chas Noel Acute frontal sinusitis, unspecified J01.10 Chas Noel MD [address] [id number] 01/08/2025 Eugenia Ford Acute cough R05.1 an d Acute upper respiratory infection, unspecified J06.9 Chas Noel MD [address] [id number] 08/15/2024 Chas Noel Type 2 diabetes mellitus with diabetic chronic kidney disease E11.22 ; Myelodysplastic syndrome, unspecified D46.9 ; Generalized anxiety disorder F41.1 ; Atherosclerotic heart disease of [place]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 I25.118 ; Mixed hyperlipidemia E78.2 ; Gastro-esophageal reflux disease without esophagitis K21.9 ; Other spondylosis with radiculopathy, lumbosacral region M47.27 ; Nicotine dependence, cigarettes, with unspecified nicotine-induced disorders F17.219 and Vitamin D deficiency, unspecified E55.9 Chas Noel MD [address] [id number] 04/16/2024 Chas Noel Type 2 diabetes mellitus with diabetic chronic kidney disease E11.22 ; Myelodysplastic syndrome, unspecified D46.9 ; Generalized anxiety disorder F41.1 ; Atherosclerotic heart disease of [place]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 I25.118 ; Mixed hyperlipidemia E78.2 ; Gastro-esophageal reflux disease without esophagitis K21.9 ; Other spondylosis with radiculopathy, lumbosacral region M47.27 ; Nicotine dependence, cigarettes, with unspecified nicotine-induced disorders F17.219 ; Vitamin D deficiency, unspecified E55.9 and Encounter for immunization Z23 Ch[facility] No[facility] MD [address] [id number] 05/14/2024 Chas Noel Type 2 diabetes mellitus with diabetic chronic kidney disease E11.22 ; Encounter for general adult medical examination without abnormal findings Z00.00 ; Myelodysplastic syndrome, unspecified D46.9 ; Generalized anxiety disorder F41.1 ; Atherosclerotic heart disease of [place] coronary artery with other forms of angina [...] other viral diseases Z11.59 [facility] MD [address] [id number] 09/23/2024 Chas Noel Type 2 diabetes mellitus with diabetic chronic kidney disease E11.22 ; Atherosclerotic heart disease of [place] coronary artery with other forms of angina [...] status in adjust medical therapy if indicated 12/30/2024 Acute frontal sinusitis, unspecified (ICD-10 - J01.10) 01/08/2025 Acute upper respiratory infection, unspecified (ICD-10 - J06.9) See plan above 01/08/2025 Acute cough (ICD-10 - R05.1) Discussed with patient his persistent cough symptoms for greater than 3 weeks. Discussed with patient that he may have had a viral illness and it is not uncommon for cough to linger up to 8 to 12 weeks post viral infection. Did complete a respiratory panel swab today and will also begin treatment with Tessalon Perles as well as a short course of prednisone to further assist with patient's raspy voice which may be related to laryngitis due to an underlying viral illness that he may have been exposed to 3 weeks ago. Patient to follow up with any new or worsening symptoms despite these treatments 09/23/2024 Type 2 diabetes mellitus with diabetic chronic kidney disease (ICD-10 - E11.22) Stable at present. He is A1c is probably artifactually low based on rapid turnover. At the present time can continue to follow glucose on a periodic basis and he may need a continuous glucose monitor to help further monitor his disease state. 09/23/2024 Atherosclerotic heart disease of [place] coronary artery with other forms of angina [...] routine labs. Healthcare proxy already on file 05/14/2024 Myelodysplastic syndrome, unspecified (ICD-10 - D46.9) [...] will need transfusion given his myelodysplastic syndrome. 04/16/2024 Generalized anxiety disorder (ICD-10 - F41.1) He feels he is doing well with current medical therapy. Continue same 04/16/2024 Atherosclerotic heart disease of [place]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 (ICD-10 - I25.118) Symptomatically stable. He says he does not have any progressive shortness of breath nor chest discomfort that would suggest progressive coronary disease and angina. Continue control of comorbidities 09/23/2024 Generalized anxiety disorder (ICD-10 - F41.1) Fair control and stable with current medical therapy 08/15/2024 Atherosclerotic heart disease of [place]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 (ICD-10 - I25.118) Symptomatically stable without any active symptoms. Continue current medical therapy. 05/14/2024 Generalized anxiety disorder (ICD-10 - F41.1) Stable at present. Continue current medical therapy 05/14/2024 Atherosclerotic heart disease of [place] coronary artery with other forms of angina [...] progression and hopefully allow plaque volume regression. 04/16/2024 Mixed hyperlipidemia (ICD-10 - E78.2) Stable with LDL less than 50. Continue current medical therapy. 04/16/2024 Gastro-esophageal reflux disease without esophagitis (ICD-10 - K21.9) Nonexistent and stable with current medical therapy at this point in time 09/23/2024 Gastro-esophageal reflux disease without esophagitis (ICD-10 - K21.9) Symptomatically stable at present 08/15/2024 Gastro-esophageal reflux disease without esophagitis (ICD-10 - K21.9) Symptomatically stable at present 05/14/2024 Mixed hyperlipidemia (ICD-10 - E78.2) Stable with LDL less than 50. Continue current statin therapy 05/14/2024 Gastro-esophageal reflux disease without esophagitis (ICD-10 - K21.9) Symptomatically stable at present. 08/15/2024 Other spondylosis with radiculopathy, lumbosacral region (ICD-10 - M47.27) Stable with periodic injections. He said he just had his injection last week as well. 09/23/2024 Other spondylosis with radiculopathy, lumbosacral region (ICD-10 - M47.27) Stable with periodic injections 04/16/2024 Other spondylosis with radiculopathy, lumbosacral region (ICD-10 - M47.27) Stable without any motor dysfunction. Continues to get injections every 3 months. He can continue this as long as there is no motor dysfunction and if that does happen he will need another MRI and evaluation for surgical intervention 04/16/2024 Nicotine dependence, cigarettes, with unspecified nicotine-induced disorders (ICD-10 - F17.219) He is smoking again. [employer] smoking cessation. 09/23/2024 Nicotine dependence, cigarettes, with unspecified nicotine-induced disorders (ICD-10 - F17.219) Smoking cessation has been counseled in the past 08/15/2024 Nicotine dependence, cigarettes, with unspecified nicotine-induced disorders (ICD-10 - F17.219) [employer] smoking cessation. This would not only benefit his coronary artery disease but may also benefit his myelodysplasia 05/14/2024 Other spondylosis with radiculopathy, lumbosacral region (ICD-10 - M47.27) Stable with periodic injections. Continue same. 05/14/2024 Family history of malignant neoplasm of digestive organs (ICD-10 - Z80.0) Recommend colonoscopy but he does not want to get colonoscopies until he is 70 years old. 09/23/2024 Vitamin D deficiency, unspecified (ICD-10 - E55.9) Fair control on prior labs as reviewed. Recommend vitamin D supplementation for goal level of 30+ 08/15/2024 Vitamin D deficiency, unspecified (ICD-10 - E55.9) Fair control and prior labs reviewed. Recommend vitamin D supplementation or increased dietary vitamin D such as fish for goal level of 30+ and if possible 50+ 04/16/2024 Vitamin D deficiency, unspecified (ICD-10 - E55.9) Fair control and prior labs reviewed. Recommend vitamin D supplementation for goal level of 30+. Recheck status 04/16/2024 Encounter for immunization (ICD-10 - Z23) 05/14/2024 Nicotine dependence, cigarettes, with unspecified nicotine-induced disorders (ICD-10 - F17.219) [employer] smoking cessation. 05/14/2024 Vitamin D deficiency, unspecified [...] for hepatitis C as per general recommendation 05/14/2024 Other This note was created with [...] CT Low Dose Lung Screening 02/01/2023 Hemoglobin D1s-955058 05/14/2024 Urinalysis, Complete-915799 05/14/2024 CBC With Differential/Platelet-277898 Reticulocyte Count-638686 05/14/2024 Prostate-Specific Ag-113879 05/14/2024 Vitamin D, 63-Nrxwjnh-466951 05/14/2024 Glucose Tolerance (4 Sp Blood)-535904 Albumin/Creatinine Ratio,Urine-988903 Comp. Metabolic Panel (14)-309259 2023 LP+Non-HDL Cholesterol-914621 05/14/2024 HCV Antibody-876942 05/14/2024 Next Appt Details Provider Name:Chas Noel , 02/03/2025 08:00:00 AM, [address] [place] [address], [address], [place], [place], [phone], Provider Name:Chas Noel , 05/30/2025 10:00:00 AM, [address] [facility], [address], [place], [place], [phone], Insurance Providers Payer Name Payer Address Payer Phone Subscriber Number Group Number Insured Name Patient Relationship to Insured Coverage Start Date Coverage End Date [employer] [place] [address] [place] [address] [phone] [id number] Man Joe Self - patient is the [...]
--- OUTSIDE RECORDS SUMMARY | 2025-01-17 10:55 | XMS_ITS | Data Portability ---
Author Organization [facility] Address [address] [address] Care Team Providers Care Windows Administrator Name Role Phone BORDENTITA Primary Care Provider [phone] Assessment Encounter Date Assessment Date Assessment LastModified [...] By Organization Details Last Modified Time 08/15/2023 [id number] He was advised against bed rest lasting longer than four days and to continue activities as tolerated. [email or web address] Not available 08/15/2023 14:01:25 11/14/2023 [id number] He was advised against bed rest lasting longer than four days and to continue activities as tolerated. [email or web address] Not available 11/14/2023 10:55:13 08/15/2024 [id number] He was advised against bed rest lasting longer than four days and to continue activities as tolerated. [email or web address] Not available 08/15/2024 10:24:49 Reason for Referral None Reported. Problems Name Problem SNOMED Code Status Onset Date Resolution Date Notes Provider Name and Address Organization Details Recorded Time Lumbosacral radiculopathy 3507058 Active Eddi ellison MD [address] [facility] , [facility] [address], [place], [address], [place] [facility] 9 15:50:02 Degeneration of lumbar intervertebral disc 45642359 Active Eddi ellison MD [address] [facility] , [address] [place] [address], [place], [address], [place] [facility] 9 15:50:11 Lumbosacral spondylosis without myelopathy 93934463 Active Eddi ellison MD [address] [facility] , [facility] [address], [place], 9, [place] [facility] 9 15:50:26 Spinal stenosis of lumbar region 11377855 Active Eddi ellison MD [address] [facility] , [facility] [address], [place], [place], 9, [place] [facility] 9 15:50:39 Problem Notes None recorded. Procedures Surgical History Date Name Laterality Status Provider Name and Address Organization Details Recorded Time 08/15/19 25 Lumbar Epidural steroid injection under fluoroscopic guidance completed Eddi Sanchez MD [address] , [address], [place], [address], [place] [facility] 08/15/2024 10:23:05 05/15/20 24 Lumbar Epidural steroid injection under fluoroscopic guidance completed Eddi Sanchez MD [address] [facility] , [address], [place], [address], [place] [facility] 05/15/2024 14:35:05 02/06/20 24 Lumbar Epidural steroid injection under fluoroscopic guidance completed Eddi Sanchez MD [address] [facility] , [address], [place], [address], [place] [facility] 2024 09:05:55 11/14/19 24 Lumbar Epidural steroid injection under fluoroscopic guidance completed Eddi Sanchez MD [address] [facility] , [address], [place], [address], [place] [facility] 11/14/2023 10:55:57 08/15/19 24 Lumbar Epidural steroid injection under fluoroscopic guidance completed Eddi Sanchez MD [address] [facility] , [address], [place], [address], [place] [facility] 08/15/2023 14:02:28 05/11/20 23 Lumbar Epidural steroid injection under fluoroscopic guidance completed Eddi Sanchez MD [address] [facility] , [address], [place], [address], [place] [facility] 05/11/2023 13:44:22 02/08/20 23 Lumbar Epidural steroid injection under fluoroscopic guidance completed Eddi Sanchez MD [address] [facility] , [address], [place], [address], [place] [facility] 02/07/2023 14:32:47 11/09/19 23 Lumbar Epidural steroid injection under fluoroscopic guidance completed Eddi Sanchez MD [address] [facility] , [address], [place], [address], [place] [facility] 11/08/2022 11:49:19 08/18/19 23 Lumbar Epidural steroid injection under fluoroscopic guidance completed Eddi Sanchez MD [address] [facility] , [address], [place], [address], [place] [facility] 08/18/2022 13:38:49 05/31/20 22 Lumbar Epidural steroid injection under fluoroscopic guidance completed Eddi Sanchez MD [address] [facility] , [address], [place], [address], [place] [facility] 05/31/2022 12:01:38 02/17/20 22 Lumbar Epidural steroid injection under fluoroscopic guidance completed Eddi Sanchez MD [address] [facility] , [address], [place], [address], [place] [facility] 02/16/2022 11:18:13 11/18/19 22 Lumbar Epidural steroid injection under fluoroscopic guidance completed Eddi Sanchez MD [address] [facility] , [address], [place], [address], [place] [facility] 11/17/2021 13:34:00 08/03/19 22 Lumbar Epidural steroid injection under fluoroscopic guidance completed Eddi Sanchez MD [address] [facility] , [address], [place], [address], [place] [facility] 08/03/2021 13:51:35 05/04/20 21 Lumbar Epidural steroid injection under fluoroscopic guidance completed Eddi Sanchez MD [address] [facility] , [address], [place], [address], [place] [facility] 05/04/2021 09:45:14 02/03/20 21 Lumbar Epidural steroid injection under fluoroscopic guidance completed Eddi Sanchez MD [address] [facility] , [address], [place], [address], [place] [facility] 02/02/2021 09:56:45 10/29/19 21 Lumbar Epidural steroid injection under fluoroscopic guidance completed Eddi Sanchez MD [address] [facility] , [address], [place], [address], [place] [facility] 10/28/2020 11:04:44 07/08/20 20 Lumbar Epidural steroid injection under fluoroscopic guidance completed Eddi Sanchez MD [address] [facility] , [address], [place], [address], [place] [facility] 07/08/2020 09:25:16 01/28/20 20 Lumbar Epidural steroid injection under fluoroscopic guidance completed [facility] Sanchez MD [facility] , [address], [place], [address], [place] [facility] 01/28/2020 11:40:25 08/28/19 20 Lumbar Epidural steroid injection under fluoroscopic guidance completed Eddi Sanchez MD [address] [facility] , [address], [place], [address], [place] [facility] 08/28/2019 13:27:06 03/26/20 19 Lumbar Epidural steroid injection under fluoroscopic guidance completed Eddi Sanchez MD [address] [facility] , [address], [place], [address], [place] [facility] 03/26/2019 10:59:17 01/02/20 19 Lumbar Epidural steroid injection under fluoroscopic guidance completed Eddi Sanchez MD [address] [facility] , [address], [place], [address], [place] [facility] 01/01/2019 18:23:14 11/14/19 19 Lumbar Epidural steroid injection under fluoroscopic guidance completed Eddi Sanchez MD [address] [facility] , [address], [place], [address], [place] [facility] 11/14/2018 08:43:51 [...] (PF) 0.5 mL intramuscul ar syringe [facility] 02/02 completed Not Available Not Available Not Available morphine 30 mg tablet, crush resistant, extended release Take 1 tablet every 12 hours by oral route. 03/26 completed Not Available Not Available Not Available Flublok Quad (PF) 180 mcg (45 mcg x 4)/0.5 mL IM syringe [facility] 02/02 completed Not Available Not Available Not Available Vitals Date Recorded Body height Heart rate Oxygen saturation Oxygen saturation in Arterial blood by Pulse oximetry Systolic And Diastolic Provider Name and Address Organization Details Last Updated DateTime 4 172.72 cm 65 /min 98 % 98 % 111/38 mm[Hg] Delia Oswald [facility] 4 13:41:50 Date Recorded Body height Heart rate Oxygen saturation Oxygen saturation in Arterial blood by Pulse oximetry Systolic And Diastolic Provider Name and Address Organization Details Last Updated DateTime 5 172.72 cm 76 /min 98 % 98 % 129/44 mm[Hg] Seble Burrowsyumiko nicholas [facility] 5 09:24:11 Date Recorded Body height Heart rate Oxygen saturation Oxygen saturation in Arterial blood by Pulse oximetry Systolic And Diastolic Provider Name and Address Organization Details Last Updated DateTime 4 172.72 cm 83 /min 97 % 97 % 116/42 mm[Hg] Angela Ortegaloki [facility] 4 10:33:00 Date Recorded Body height Heart rate Oxygen saturation Oxygen saturation in Arterial blood by Pulse oximetry Systolic And Diastolic Provider Name and Address Organization Details Last Updated DateTime 4 172.72 cm 62 /min 98 % 98 % 119/44 mm[Hg] Delia Oswald [facility] 4 08:33:01 Date Recorded Body height Body mass index (BMI) Body weight Oxygen saturation Oxygen saturation in Arterial blood by Pulse oximetry Heart rate Systolic And Diastolic Provider Name and Address Organization Details Last Updated DateTime 4 172.72 cm 26.5 kg/m2 75747.0 7 g 98 % 98 % 73 /min 101/47 mm[Hg] Jackie Thakkar [facility] 4 14:08:54 Social History Question Answer Notes LastModified by Organizat ion Details LastModified Time Tobacco Smoking Status Never Smoker Occasional cigar smoker Not Available [facility] 04/24/2020 03:16:11 Which Illicit Or Recreational Drugs Have You Used? None [id number] Information not available 04/24/2020 Education 12 Information n ot available 11/07/2018 Live Alone Or With Others? With Others Information not available 11/07/2018 GED No Information n ot available 11/07/2018 Marital Status Informati on not available 11/07/2018 What Was The Date Of Your Most Recent Tobacco Screening? 01/01/2019 [id number] Information not available 04/24/2020 Sex: Unknown Functional Status Question Answer Note LastModified by Organization D etails LastModified Time What is your level of alcohol consumption? None [id number] Information not available 04/24/2020 Are you currently employed? No [id number] Information not available 04/24/2020 What is your occupation? Retired [id number] Information not available 04/24/2020 Mental Status None [...] SNOMED-CT Code Diagnosis ICD10 Code Diagnosis Note [id number] Eddi Sanchez MD PAIN OFFICE [address] [facility] [place] [address] 11/07/2018 14:04:21 11/07/2018 16:05:18 Lumbosacral radiculopathy 9149161 M54.17 Degenerati on of lumbar intervertebral disc 80424411 M51.36 Lumbosacra l spondylosis without myelopathy 44560925 M47.817 Spinal bhumi nosis of lumbar region 71745654 M48.061 03354 Eddi Sanchez MD PAIN OFFICE [address] [facility] [place] [address] 11/13/2018 14:30:19 11/14/2018 11:34:42 Lumbosacral radiculopathy 2638260 M54.17 Degenerati on of lumbar intervertebral disc 19957145 M51.36 Lumbosacra l spondylosis without myelopathy 56073007 M47.817 Spinal bhumi nosis of lumbar region 16928995 M48.061 38360 Eddi Sanchez MD PAIN OFFICE [address] [place] [address] 12/06/2018 14:16:15 12/06/2018 15:28:49 Lumbosacral radiculopathy 9567422 M54.17 Degenerati on of lumbar intervertebral disc 39893172 M51.36 Lumbosacra l spondylosis without myelopathy 65075084 M47.817 Spinal bhumi nosis of lumbar region 26027718 M48.061 07609 Eddi Sanchez MD [facility] [address] [place] [address] 01/01/2019 13:04:31 01/01/2019 18:26:49 Lumbosacral radiculopathy 8489522 M54.17 Degenerati on of lumbar intervertebral disc 68398489 M51.36 Lumbosacra l spondylosis without myelopathy 97375221 M47.817 Spinal bhumi nosis of lumbar region 72431964 M48.061 81860 Eddi Sanchez MD [facility] [address] [place] [address] 03/26/2019 10:19:14 03/26/2019 11:02:16 Lumbosacral radiculopathy 6200623 M54.17 Degenerati on of lumbar intervertebral disc 60089060 M51.36 Lumbosacra l spondylosis without myelopathy 45109368 M47.817 Spinal bhumi nosis of lumbar region 57060109 M48.061 63725 Eddi Sanchez MD [facility] [address] [place] [address] 08/28/2019 12:47:58 08/28/2019 13:30:23 Lumbosacral radiculopathy 9144519 M54.17 Degenerati on of lumbar intervertebral disc 93304564 M51.36 Lumbosacra l spondylosis without myelopathy 05068327 M47.817 Spinal bhumi nosis of lumbar region 78811377 M48.061 13316 Eddi Sanchez MD [facility] [address] [place] [address] 01/28/2020 11:16:52 01/28/2020 14:56:45 Lumbosacral radiculopathy 3299524 M54.17 Degenerati on of lumbar intervertebral disc 80532269 M51.36 Lumbosacra l spondylosis without myelopathy 85957409 M47.817 Spinal bhumi nosis of lumbar region 20161484 M48.061 45721 Eddi Sanchez MD [facility] [address] [facility] [place] [place] [address] 07/08/2020 09:22:42 07/08/2020 11:19:23 Lumbosacral radiculopathy 3779193 M54.17 Degenerati on of lumbar intervertebral disc 66415794 M51.36 Lumbosacra l spondylosis without myelopathy 79874108 M47.817 Spinal bhumi nosis of lumbar region 88927918 M48.061 25334 Eddi Sanchez MD [facility] [address] [facility] [place] [place] [address] 10/28/2020 09:52:49 10/28/2020 16:05:47 Lumbosacral radiculopathy 9849478 M54.17 Degenerati on of lumbar intervertebral disc 79637904 M51.36 Lumbosacra l spondylosis without myelopathy 13584966 M47.817 Spinal bhumi nosis of lumbar region 71191102 M48.061 24946 Eddi Sanchez MD [facility] [address] [place] [address] 02/02/2021 09:24:48 02/02/2021 10:27:20 Lumbosacral radiculopathy 5471146 M54.17 Degenerati on of lumbar intervertebral disc 70868102 M51.36 Lumbosacra l spondylosis without myelopathy 31938239 M47.817 Spinal bhumi nosis of lumbar region 25786506 M48.061 55568 Eddi Sanchez MD [facility] [address] [place] [address] 05/04/2021 09:11:40 05/04/2021 09:58:06 Lumbosacral radiculopathy 8918999 M54.17 Degenerati on of lumbar intervertebral disc 26990184 M51.36 Lumbosacra l spondylosis without myelopathy 41026860 M47.817 Spinal bhumi nosis of lumbar region 11622642 M48.061 97253 Eddi Sanchez MD [facility] [address] [place] [address] 08/03/2021 13:20:36 08/03/2021 14:49:32 Lumbosacral radiculopathy 6852333 M54.17 Degenerati on of lumbar intervertebral disc 98219576 M51.36 Lumbosacra l spondylosis without myelopathy 26881897 M47.817 Spinal bhumi nosis of lumbar region 67245691 M48.061 28236 Eddi Sanchez MD PAIN OFFICE [address] [facility] [place] [place] [address] 11/17/2021 13:01:32 11/17/2021 13:36:27 Lumbosacral radiculopathy 0777671 M54.17 Degenerati on of lumbar intervertebral disc 13555179 M51.36 Lumbosacra l spondylosis without myelopathy 60327051 M47.817 Spinal bhumi nosis of lumbar region 08836385 M48.061 91927 Eddi Sanchez MD PAIN OFFICE [address] [place] [address] 01/07/2022 11:31:26 01/11/2022 09:36:03 Lumbosacral radiculopathy 2761984 M54.17 15883 Eddi Sanchez MD PAIN OFFICE [address] [place] [address] 02/16/2022 10:53:02 02/16/2022 14:02:50 Lumbosacral radiculopathy 4424903 M54.17 Degenerati on of lumbar intervertebral disc 49668673 M51.36 Lumbosacra l spondylosis without myelopathy 49343883 M47.817 Spinal bhumi nosis of lumbar region 98500625 M48.061 83948 Eddi Sanchez MD PAIN OFFICE [address] [place] [address] 05/31/2022 09:53:11 05/31/2022 14:22:50 Lumbosacral radiculopathy 3695495 M54.17 Degenerati on of lumbar intervertebral disc 42749043 M51.36 Lumbosacra l spondylosis without myelopathy 38510367 M47.817 Spinal bhumi nosis of lumbar region 82670216 M48.061 81334 Eddi Sanchez MD [facility] [address] [facility] [place] [place] [address] 08/18/2022 11:12:06 08/18/2022 13:45:18 Lumbosacral radiculopathy 6803564 M54.17 Degenerati on of lumbar intervertebral disc 04478815 M51.36 Spinal bhumi nosis of lumbar region 12455180 M48.062 77706 Eddi Sanchez MD [facility] [address] [facility] [place] [place] [address] 11/08/2022 11:25:10 11/08/2022 14:29:03 Lumbosacral radiculopathy 3367322 M54.17 Degenerati on of lumbar intervertebral disc 66038801 M51.36 Spinal bhumi nosis of lumbar region 02750619 M48.062 41785 Eddi Sanchez MD [facility] [address] [place] [address] 01/20/2023 10:14:06 01/20/2023 10:40:11 Lumbosacral radiculopathy 2131585 M54.17 Degenerati on of lumbar intervertebral disc 67141062 M51.36 Lumbosacra l spondylosis without myelopathy 12312213 M47.817 Spinal bhumi nosis of lumbar region 44737224 M48.061 78300 Eddi Sanchez MD [facility] [address] [facility] [place] [place] [address] 02/07/2023 12:59:20 02/07/2023 14:44:01 Lumbosacral radiculopathy 8010967 M54.17 Degenerati on of lumbar intervertebral disc 04938840 M51.36 Spinal bhumi nosis of lumbar region 28296406 M48.062 37808 Eddi Sanchez MD [facility] [address] [place] [address] 05/11/2023 11:21:41 05/11/2023 13:50:13 Spinal stenosis of lumbar region 40240893 M48.062 Lumbosacra l radiculopathy 8741652 M54.17 Degenerati on of lumbar intervertebral disc 87950035 M51.36 95588 Eddi Sanchez MD PAIN OFFICE [address] [facility] [place] [place] [address] 08/15/2023 13:25:57 08/15/2023 14:23:43 Spinal stenosis of lumbar region 79558972 M48.062 Lumbosacra l radiculopathy 2898061 M54.17 Degenerati on of lumbar intervertebral disc 59235723 M51.36 13195 Eddi Sanchez MD PAIN OFFICE [address] [facility] [place] [place] [address] 11/14/2023 10:21:58 11/14/2023 11:00:27 Spinal stenosis of lumbar region 53197836 M48.062 Lumbosacra l radiculopathy 8899989 M54.17 Degenerati on of lumbar intervertebral disc 72358090 M51.36 68387 Eddi Sanchez MD PAIN OFFICE [address] [facility] [place] [place] [address] 2024 08:29:21 2024 09:08:44 Spinal stenosis of lumbar region 99173147 M48.062 Lumbosacra l radiculopathy 4605167 M54.17 Degenerati on of lumbar intervertebral disc 21589009 M51.36 43750 Eddi Sanchez MD [facility] [address] [facility] [place] [place] [address] 05/15/2024 13:56:51 05/15/2024 15:51:39 Spinal stenosis of lumbar region 92742459 M48.062 Lumbosacra l radiculopathy 0409170 M54.17 Degenerati on of lumbar intervertebral disc 86717578 M51.362 61401 Eddi Sanchez MD PAIN OFFICE [address] [place] [address] 08/15/2024 09:14:54 08/15/2024 14:55:48 Spinal stenosis of lumbar region 93627339 M48.062 Lumbosacra l radiculopathy 8972698 M54.17 Degenerati on of lumbar intervertebral disc 94206268 M51.362 Health Concerns Section Related Observation LastModified by Organization Detai ls LastModified Time None Recorded Concern Status LastModified by Organization Details LastModified Time None Recorded Advance Directives Directive None Recorded Payers Insurance Date Sequence Insurance Name Policy Number Policy Nye Covered Member ID Nye Member ID Guarantor Name [id number] 1 [facility] [id number] Man Garreffi [id number] Man Garreffi 11/16/2024 1 [employer]UE [employer]EFIT [employer] [facility] [id number] Amisha Greenwood Garreffi [id number] Man Dicksonreffi 2024 1 MEDICARE B-PA: [employer] Man Evans Garreffi [id number] Man Dicksonrefgeovani Notes Date Note Type Note Provider Name and Address Organization Details Recorded Time 08/15/2023 text/html He is here today for a lumbar epidural steroid injection under fluoroscopic guidance. He is seeing his PCP regularly.He has macrocytic anemia and is seeing Dr. Kim and had a bone marrow biopsy done. His platelet count is within normal limits. Eddi Sanchez MD [address] [facility] , [facility] [address], [place], [address], [facility] - [facility] 08/15/2023 16:52:24 11/14/2023 text/html He is here today for a lumbar epidural steroid injection under fluoroscopic guidance. He is seeing his PCP regularly.He has macrocytic anemia and is seeing Dr. Kim and had a bone marrow biopsy done. His platelet count is within normal limits. Eddi Sanchez MD [address] [facility] , [address], [place], [address], [facility] - [facility] 11/14/2023 16:22:56 2024 text/html He [...] latest results Eddi Sanchez MD [address] [facility] , [address], [place], [address], [place] [facility] 2024 10:06:16 05/15/2024 text/html He is here today for a lumbar epidural steroid injection under fluoroscopic guidance. He is seeing his PCP regularly. Eddi Sanchez MD [address] , [address], [place], [address], [place] [facility] 05/15/2024 15:54:49 08/15/2024 text/html He is here today for a lumbar epidural steroid injection under fluoroscopic guidance. He is seeing his PCP regularly.He had a blood transfusion for his macrocytic anemia recently Eddi Sanchez MD [address] , [address], [place], [address], [place] [facility] 08/15/2024 15:22:41
--- OUTSIDE RECORDS SUMMARY | 2025-01-17 10:56 | XMS_ITS | Clinical Summary ---
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 Role Phone Chas Borden MD Primary Care Provider [phone] Allergies No known active allergies Medications multivitamin [...] 10/16/2024 Anemia 10/16/2024 Gastroesophageal reflux disease 10/16/2024 Surgical History Surgery Date Site/Laterality Comments COLONOSCOPY [...] 85 10/16/2024 10:05 AM EDT Temperature 36.7 C (98 F) 10/16/2024 10:05 AM EDT Respiratory Rate 12 [...] Influencers of Health Screening 10/03/2024 Influenza Vaccine (#1) 2025 Falls Risk Assessment 10/16/2025 10/16/2024 RSV [...] Procedure Name Priority Date/Time Associated Diagnosis Comments US ABDOMEN AORTA SCR STUDY AAA Routine 03/30/2020 12:37 PM EDT Encounter for screening for cardiovascular disorders from Last 3 Months or Most Recently Relevant to Health Maintenance Results * US ABDOMEN AORTA SCR STUDY AAA (03/30/2020 12:37 PM EDT) Anatomical Region Laterality Modality Ultrasound 03/30/2020 8:03 AM EDT Narrative 03/30/2020 12:37 PM EDT [facility] Diagnostic Imaging Department [address] [place] [address] Patient: NEREIDAOMARMAN SOTOMAYOR /Age/Sex: 1955 - 65 - M Unit#: [id number] Location/Status: SPDIUS/REG CLI Mnemonic[facility] Order[facility] Physician: CHAS BORDEN MD US Abdomen [...] bifurcation. IMPRESSION: No visualized abdominal aortic aneurysm. [id number] Dictating Physician: SANTIAGO JON MD Electronically Signed by: SANTIAGO JON MD Dic Date/Time: 03/30/20 1236 Sign date/Time: 03/30/20 1237 Procedure Note Santiago Jon MD - 06/29/2022 [facility] Diagnostic Imaging Department [address] [place] [id number] Patient: BRANMAN MarinelliO.B./Age/Sex: 1955 - 65 - M Unit#: [id number] Location/Status: SPDIUS/REG CLI Mnemonic/Ordering Site: [facility] Ordering [...] bifurcation. IMPRESSION: No visualized abdominal aortic aneurysm. 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
== END 2025-01-17 10:49 | disposition home or self-care (01) ==
LOC: HO.PMC 10:26
PROVIDERS: PCP Internal Medicine; Visit Provider Internal Medicine
DX: M54.16 Radiculopathy, lumbar region (principal)
CPT/HCPCS: 99213

== ENCOUNTER 2025-02-03 10:48 | Outpatient (REF) | payer OTHER, SELFPAY ==
[2025-02-03 11:54] LABS: Hematocrit 23.2 % (42.0-52.0); Hemoglobin 7.6 g/dl (14.0-18.0); Imm Gran Abs Auto 0.03 X10*3/uL (0.00-0.03); Imm Gran Pct Auto 0.5 % (0.0-0.4); Lymphocytes Absolute Auto 2.3 X10*3/uL (1.2-4.9); MANUAL DIFF FLAG SCAN; Mean Corpuscular HGB Conc 32.8 g/dl (31.0-36.0); Mean Corpuscular Hemoglobin 36.0 pg (27.0-33.0); NRBC Abs Auto 0.040 X10*3/uL (0.0-0.012); NRBC Pct Auto 0.7 /100WBC (0.0-0.2); Platelet Count 335 X10*3/uL (160-400); Red Blood Count 2.11 X10*6/uL (4.60-5.80); SCAN SMEAR FLAG 1; White Blood Count 5.9 X10*3/uL (4.8-10.8)
[2025-02-03 11:55] LABS: Mean Corpuscular Volume 110.0 fL (80.0-98.0)
[2025-02-03 12:02] LABS: Appearance Urine Clear; Glucose Urine UA Negative (Negative); PH 5.5 (5.0-9.0); Specific Gravity - Urine 1.020 (1.005-1.025); UMIC TRIGGER UA YES
--- OUTSIDE RECORDS SUMMARY | 2025-02-03 12:08 | XMS_ITS | Patient Health Record ---
Author Organization [facility] Address [address] [place] [address] [phone] Care Team Providers Care Magnetic Locater Name Role Phone Chas [facility]el Primary Care Provider Ford Eugenia Unavailable [phone] Allergies No Known Allergies Results Component Value Reference Range Notes Hemoglobin [id number] Reviewed date:04/24/2024 06:31:12 PM Interpretation: Performing Lab:[facility], [address] [facility], Phone - [phone], Director - Jolene Notes/Report: Hemoglobin A1c 6.3 4.8-5.6 % . Prediabetes: 5.7 - 6.4 Diabetes: >6.4 Glycemic control for adults with diabetes: <7.0 Urinalysis, Complete-[id number] Reviewed date:04/24/2024 06:31:12 PM Interpretation: Performing Lab:[facility], [address] [place] [address], Phone - [phone], Director - Jolene Notes/Report: Specific Amoret 1.024 1.005-1.030 pH 5.5 5.0-7.5 Urine-Color Yellow [...] None seen None seen/Few CBC With Differential/Platel et-[id number] Reviewed date:04/24/2024 06:31:12 PM Interpretation: Performing Lab:[facility], [address] [place] [address], Phone - [phone], Director - MDJodry Notes/Report: WBC 9.8 3.4-10.8 [...] NRBC 1 0 - 0 % Reticulocyte Count-535081 Reviewed date:04/24/2024 06:31:12 PM Interpretation: Performing Lab:[facility], [address] [facility], [facility], Phone - [phone], Director - MDJodry Notes/Report: Reticulocyte Count 2.3 0.6-2.6 % Request Problem TNP Test not performed. Sample contaminated with EDTA which is not suitable for test ordered. TEST: [id number] Sodium Panel: [id number] 156934 Potassium Panel: 220507 162469 Chloride Panel: 383599 010038 Carbon Dioxide, Total Panel: 578173 252890 Calcium Panel: 180444 869481 Alkaline Phosphatase Panel: 849884 Vitamin D, 43-Aaygwyu-780636 Reviewed date:04/24/2024 06:31:13 PM Interpretation: Performing Lab:[facility], [address] [place] [address], Phone - [phone], Director - Jolene Notes/Report: Vitamin D, 25-Hydroxy 28.1 30.0-100.0 ng/mL Vitamin D deficiency has been defined by the [place] of Medicine and an Endocrine Society practice guideline as a level of serum 25-OH vitamin D less than 20 ng/mL (1,2). The Endocrine Society went on to further define vitamin D insufficiency as a level between 21 and 29 ng/mL (2). 1. IOM ([place] of Medicine). 2010. Dietary reference intakes for calcium and D. [place]: The National Academies Press. 2. Kiko MF, Gigi DOMINGUEZ, Anya CUMMINGS, et al. Evaluation, treatment, and prevention of vitamin D deficiency: an Endocrine Society clinical practice guideline. JCEM. 2010; 96(7):1911-30. Albumin/Creatinine Ratio,i ne-058598 Reviewed date:04/24/2024 06:31:13 PM Interpretation: Performing Lab:[facility], [address] [place] [address], Phone - [phone], Director - Jolene Notes/Report: Creatinine, Urine 238.5 Not Estab. mg/dL Albumin, Urine 31.5 Not Estab. ug/mL Alb/Creat Ratio 13 0-29 mg/g creat Normal: 0 - 29 Moderately increased: 30 - 300 Severely increased: >300 LP+Non-HDL Cholesterol-36464 5 Reviewed date:04/24/2024 06:31:13 PM Interpretation: Performing Lab:[facility], [address] [place] [address], Phone - [phone], Director - Jolene Notes/Report: Cholesterol, Total 92 100-199 mg/dL Triglycerides 57 0-149 mg/dL HDL Cholesterol 47 >39 mg/dL VLDL Cholesterol Romeo 13 5-40 mg/dL LDL Chol Calc (NIH) 32 0-99 mg/dL Non-HDL Cholesterol 45 0-129 mg/dL Comp. Metabolic Panel (14)-3 [id number] Reviewed date:04/24/2024 06:31:13 PM Interpretation: Performing Lab:[facility], [address] [place] [address], Phone - [phone], Director - [facility] Notes/Report: Glucose 96 70-99 mg/dL BUN 7 [...] 0-40 IU/L ALT (SGPT) 21 0-44 IU/L Hemoglobin A1C Reviewed date:08/15/2024 04:32:37 PM Interpretation: Performing Lab: Notes/Report: [facility] [place] [facility] ([facility] [place] [facility]), [facility] Lot: [id number] Respiratory Panel w/ SARS-Co [id number] Reviewed date:01/09/2025 01:56:02 PM Interpretation: Performing Lab:[facility], [address] [facility], [facility], Phone - [phone], [facility] Notes/Report: Adenovirus Not Detected Not Detected Coronavirus [...] Detected Mycoplasma pneumoniae Not Detected Not Detected EKG Reviewed date:09/27/2024 03:02:43 PM Interpretation: Performing Lab: Notes/Report: ECGDiastolicBP 46 ECGHr 69 ECGPRInterval 180 ECGPWaveAxis 66 ECGQRSDuration 84 ECGQrsWaveAxis 52 ECGQTcInterval 409 ECGQTInterval 394 ECGSystolicBP 118 ECGTWaveAxis 55 RR_DiastolicBP 0 RR_MaxRRInterval 0 RR_MeanHR 0 RR_MeanRRInterval 0 RR_MinRRInterval 0 RR_NumBeats 0 RR_NumNormalBeats 0 RR_SystolicBP 0 Reason For Referral No Information Medications Medication SIG (Take, Route, Frequency, Duration) Notes Start Date End Date Status Famotidine 20 MG 1 tablet at bedtime Orally Once a day Active Zinc Active Escitalopram Oxalate 10 MG TAKE 1 TABLET BY MOUTH DAILY; Duration: 90 Active Aspirin Low Dose 81 MG TAKE 1 TABLET BY MOUTH ONCE A DAY; Duration: 30 Active LORazepam 1 MG 1 tablet at bedtime as needed Orally Every 8 hours 04/25/2023 Not-Taking Metoprolol Succinate ER 50 MG TAKE 1/2 TABLET (25MG) BY MOUTH ONCE A DAY; Duration: 30 Active Rosuvastatin Calcium 40 MG TAKE 1 TABLET BY MOUTH ONCE A DAY.; Duration: 30 Active Immunizations Vaccine Route Administration Date Status Comme nts Influenza (Fluad) Unknown 04/25/2022 Administered Influenza, seasonal, injectable (split), for 3 yrs and up IM Intramuscular 04/08/2020 Administered Mfd by [employer] Paste[employer] WKNBJ-59-Fgnbyow Vaccine Unknown 09/10/2020 Administered RWIMG-11-Fjwizot Vaccine Unknown 10/08/2020 Administered AHZVC-69-Wksxylv Vaccine Unknown 05/25/2021 Administered COVID-19 Moderna BiValent Booster Unknown 04/25/2022 Administered *Tdap IM Intramuscular 07/27/2016 Administered *PREVNAR 20 IM Intramuscular 02/03/2025 Administered *Pneumococcal polysaccharide PPV23 IM Intramuscular 04/27/2021 Administered *Influenza-Medicare-A S IM Intramuscular 04/24/2019 Administered *Influenza-Medicare-A S IM Intramuscular 04/27/2021 Administered *Yjclpanvg-Zrttnuk-Ep gh Dose-65+ IM Intramuscular 04/16/2024 Administered *Influenza, High Dose Seasonal, Quadrivatent IM Intramuscular 04/25/2023 Administered Pneumococcal polysaccharide PCV 13 IM Intramuscular 04/08/2020 Administered Social History Tobacco Use: Social History Observation Description Date Details (start date - stop date) Current Smoker NA - NA AUDIT-C (Standard) Question Answer Notes Did you have a drink containing alcohol in the p ast year? No Points 0 Interpretation Negative Tobacco Control (Standard) Question Answer Notes Tobacco use: Current smoker Additional Findings: Tobacco user Moderate cigar ette smoker (10-19 cigs/day) Problems Problem Type SNOMED Code ICD Code Onset Dates Problem Status W/U Status Risk Notes Problem Myelodysplastic syndrome (356853698) Myelodysplastic syndrome, unspecified (D46.9) Active confirmed Problem Folate deficiency anemia (84659557) Folate deficiency anemia, 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) Active confirmed Problem Diabetic renal disease (807430191) Type 2 diabetes mellitus with diabetic chronic kidney disease (E11.22) Active confirmed Problem Malnutrition of mild degree ([place]: 75% to less than 90% of standard weight) (17315232) Mild protein-calorie malnutrition (E44.1) Active confirmed Problem Vitamin D deficiency (70226112) Vitamin D deficiency, unspecified (E55.9) Active confirmed Problem Mixed hyperlipidemia (576556832) Mixed hyperlipidemia (E78.2) Active confirmed Problem Mental disorder caused by drug (712189257) Nicotine dependence, cigarettes, with unspecified nicotine-induced disorders (F17.219) Active confirmed Problem Generalized anxiety disorder (89502605) Generalized anxiety disorder (F41.1) Active confirmed Problem Angina co-occurrent and due to coronary arteriosclerosis (disorder) (12540439706546296) 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) Active confirmed Problem Atrial premature depolarization (351918750) Atrial premature depolarization (I49.1) Active confirmed Problem Gastro-esophageal reflux disease without esophagitis (954792436) Gastro-esophageal reflux disease without esophagitis (K21.9) Active confirmed Problem Gallbladder and bile duct calculi (927758142) Calculus of gallbladder and bile duct without cholecystitis without obstruction (K80.70) Active confirmed Problem Lumbosacral spondylosis without myelopathy (45018883) Other spondylosis with radiculopathy, lumbosacral region (M47.27) Active confirmed Problem Cervical disc disorder with radiculopathy (370602378) Cervical disc disorder with radiculopathy, high cervical region (M50.11) Active confirmed Problem Displacement of lumbar intervertebral disc without myelopathy (65562452) Other intervertebral disc displacement, lumbosacral region (M51.27) Active confirmed Problem Chronic kidney disease stage 2 (101496073) Chronic kidney disease, stage 2 (mild) (N18.2) Active confirmed Problem Syncope and collapse (886434169) Syncope and collapse (R55) Active confirmed Problem Family history of malignant neoplasm of gastrointestinal tract (431300335) Family history of malignant neoplasm of digestive organs (Z80.0) Active confirmed Problem Lower urinary tract symptoms due to benign prostatic hypertrophy (11736130780744) Benign prostatic hyperplasia with lower urinary tract symptoms (N40.1) Active confirmed Problem Age-related nuclear cataract of right eye (207138527911544) Age-related nuclear cataract, right eye (H25.11) Problem resolved confirmed Problem Age-related nuclear cataract of left eye (028889024753183) Age-related nuclear cataract, left eye (H25.12) Problem resolved confirmed Vital Signs Heart Rate 69 /min 02/03/2025 Temperature 96.8 degrees Fahrenheit 02/03/2025 Blood pressure diastolic 40 mm Hg 02/03/2025 Oximetry 97 % 02/03/2025 Height 5 ft 8 in in 02/03/2025 Blood pressure systolic 100 mm Hg 02/03/2025 Weight 163 lbs 02/03/2025 BMI 24.78 kg/m2 02/03/2025 Encounters Encounter Location Date Provider Diagnosis Chas Noel MD [address] [id number] 10/16/2024 Chas Noel MD [address] [id number] 01/09/2025 Chas Noel MD [address] [id number] 03/22/2024 Chas Noel Other fatigue R53.83 Chas Noel MD [address] [id number] 03/27/2024 Chas Noel MD [address] [id number] 08/12/2024 Chas Noel MD [address] [id number] 12/30/2024 Chas Noel MD [address] [id number] 12/30/2024 Chas Noel MD [address] [id number] 12/30/2024 Chas Noel Acute frontal sinusitis, unspecified J01.10 Chas Noel MD [address] [id number] 01/08/2025 Eugenia Ford Acute cough R05.1 an d Acute upper respiratory infection, unspecified J06.9 Chas Noel MD [address] [id number] 02/03/2025 Chas Noel Type 2 diabetes mellitus with diabetic chronic kidney disease E11.22 ; 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 I25.118 ; Myelodysplastic syndrome, unspecified D46.9 ; Generalized anxiety disorder F41.1 ; Mild protein-calorie malnutrition E44.1 ; Mixed hyperlipidemia E78.2 ; Gastro-esophageal reflux disease without esophagitis K21.9 ; Other spondylosis with radiculopathy, lumbosacral region M47.27 ; Calculus of gallbladder and bile duct without cholecystitis without obstruction K80.70 ; Nicotine dependence, cigarettes, with unspecified nicotine-induced disorders F17.219 ; Vitamin D deficiency, unspecified E55.9 and Encounter for immunization Z23 Chas Noel MD [address] [id number] 08/15/2024 Chas Noel Type 2 diabetes mellitus with diabetic chronic kidney disease E11.22 ; Myelodysplastic syndrome, unspecified D46.9 ; Generalized anxiety disorder F41.1 ; 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 I25.118 ; Mixed hyperlipidemia E78.2 ; Gastro-esophageal reflux disease without esophagitis K21.9 ; Other spondylosis with radiculopathy, lumbosacral region M47.27 ; Nicotine dependence, cigarettes, with unspecified nicotine-induced disorders F17.219 and Vitamin D deficiency, unspecified E55.9 Chas Noel MD [address] [id number] 04/16/2024 Chas Noel Type 2 diabetes mellitus with diabetic chronic kidney disease E11.22 ; Myelodysplastic syndrome, unspecified D46.9 ; Generalized anxiety disorder F41.1 ; 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 I25.118 ; Mixed hyperlipidemia E78.2 ; Gastro-esophageal reflux disease without esophagitis K21.9 ; Other spondylosis with radiculopathy, lumbosacral region M47.27 ; Nicotine dependence, cigarettes, with unspecified nicotine-induced disorders F17.219 ; Vitamin D deficiency, unspecified E55.9 and Encounter for immunization Z23 [facility] MD [address] [id number] 05/14/2024 Chas Noel Type 2 diabetes mellitus with diabetic chronic kidney disease E11.22 ; Encounter for general adult medical examination without abnormal findings Z00.00 ; Myelodysplastic syndrome, unspecified D46.9 ; Generalized anxiety disorder F41.1 ; Atherosclerotic heart disease of rosebud coronary artery with other forms of angina [...] other viral diseases Z11.59 Chas Noel MD [address] [id number] 09/23/2024 Chas Noel Type 2 diabetes mellitus with diabetic chronic kidney disease E11.22 ; Atherosclerotic heart disease of rosebud coronary artery with other forms of angina [...] Notes 03/22/2024 Other fatigue (ICD-10 - R53.83) 08/15/2024 [...] because he had a blood transfusion yesterday. 12/30/2024 Acute frontal sinusitis, unspecified (ICD-10 - [...] new or worsening symptoms despite these treatments 02/03/2025 Type 2 diabetes mellitus with diabetic chronic kidney disease (ICD-10 - E11.22) Stable on prior labs as reviewed. His A1c is probably artifactually low based on rapid cell turnover from his myelodysplasia and transfusions. He has had 4 transfusions already this year. 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 Continue current control comorbidities including hyperlipidemia 09/23/2024 Type 2 diabetes mellitus with diabetic chronic kidney disease (ICD-10 - E11.22) Stable at present. He is A1c is probably artifactually low based on rapid turnover. At the present time can continue to follow glucose on a periodic basis and he may need a continuous glucose monitor to help further monitor his disease state. 09/23/2024 Atherosclerotic heart disease of rosebud coronary artery with other forms of angina [...] in adjust medical therapy if indicated 05/14/2024 Myelodysplastic syndrome, unspecified (ICD-10 - D46.9) [...] will need transfusion given his myelodysplastic syndrome. 02/03/2025 Myelodysplastic syndrome, unspecified (ICD-10 - D46.9) Fair control and stable. Continues to follow-up with hematology and continues to get Procrit as well as transfusions. 08/15/2024 Generalized anxiety disorder (ICD-10 - F41.1) Stable at present. 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 Continue current medical therapy. 02/03/2025 Generalized anxiety disorder (ICD-10 - F41.1) Stable with current medical therapy. 09/23/2024 Generalized anxiety disorder (ICD-10 - F41.1) Fair control and stable with current medical therapy 05/14/2024 Generalized anxiety disorder (ICD-10 - F41.1) Stable at present. 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 He says he does not have any progressive shortness of breath nor chest discomfort that would suggest progressive coronary disease and angina. Continue control of comorbidities 04/16/2024 Mixed hyperlipidemia (ICD-10 - E78.2) Stable with LDL less than 50. Continue current medical therapy. 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 Continue medical therapy with beta-savage and statin and aspirin 09/23/2024 Mixed hyperlipidemia (ICD-10 - E78.2) Controlled with current medical therapy with LDL less than 50. His goal would be LDL less than 40 to minimize plaque progression and hopefully allow plaque volume regression. 02/03/2025 Mild protein-calorie malnutrition (ICD-10 - E44.1) He is losing weight. He says he is unable to eat due to his dentures and that may be contributing to this. He has lost muscle mass as well and some of this may also be due to his progressive diseases. Continue nutritional support and encourage supplements 08/15/2024 Mixed hyperlipidemia (ICD-10 - E78.2) Stable with LDL less than 50. Continue current statin therapy. He is at goal which would be LDL less than 50 08/15/2024 Gastro-esophageal reflux disease without esophagitis (ICD-10 - K21.9) Symptomatically stable at present 02/03/2025 Mixed hyperlipidemia (ICD-10 - E78.2) Stable on prior labs as reviewed with LDL less than 50. Recheck status. He is at goal with LDL less than 40 09/23/2024 Gastro-esophageal reflux disease without esophagitis (ICD-10 [...] (ICD-10 - K21.9) Symptomatically stable at present. 02/03/2025 Gastro-esophageal reflux disease without esophagitis (ICD-10 - K21.9) Symptomatically stable at present 08/15/2024 Other spondylosis with radiculopathy, lumbosacral region (ICD-10 - M47.27) Stable with periodic injections. He said he just had his injection last week as well. 08/15/2024 Nicotine dependence, cigarettes, with unspecified nicotine-induced disorders (ICD-10 - F17.219) Watch Train Inspector smoking cessation. This would not only benefit his coronary artery disease but may also benefit his myelodysplasia 09/23/2024 Nicotine dependence, cigarettes, with unspecified nicotine-induced disorders (ICD-10 - F17.219) Smoking cessation has been counseled in the past 02/03/2025 Other spondylosis with radiculopathy, lumbosacral region (ICD-10 - M47.27) He is having increasing pain but has follow-up with pain management for reevaluation for injection 05/14/2024 Other spondylosis with radiculopathy, lumbosacral region (ICD-10 - M47.27) Stable with periodic injections. Continue same. 04/16/2024 Nicotine dependence, cigarettes, with unspecified nicotine-induced disorders (ICD-10 - F17.219) He is smoking again. Watch Train Inspector smoking cessation. 04/16/2024 Vitamin D deficiency, unspecified [...] D supplementation for goal level of 30+ 02/03/2025 Calculus of gallbladder and bile duct without cholecystitis without obstruction (ICD-10 - K80.70) Remains asymptomatic 08/15/2024 Vitamin D deficiency, unspecified (ICD-10 - E55.9) Fair control and prior labs reviewed. Recommend vitamin D supplementation or increased dietary vitamin D such as fish for goal level of 30+ and if possible 50+ 02/03/2025 Nicotine dependence, cigarettes, with unspecified nicotine-induced disorders (ICD-10 - F17.219) He continues to smoke. Watch Train Inspector smoking cessation to potentially benefit his myelodysplasia and heart disease 05/14/2024 Nicotine dependence, cigarettes, with unspecified nicotine-induced disorders (ICD-10 - F17.219) Watch Train Inspector smoking cessation. 04/16/2024 Encounter for immunization (ICD-10 - Z23) 05/14/2024 Vitamin D deficiency, unspecified (ICD-10 - E55.9) Fair control on prior labs reviewed and recommend vitamin D supplementation for goal level of 30+ 02/03/2025 Vitamin D deficiency, unspecified (ICD-10 - E55.9) Fair control on prior labs as reviewed. Recheck level and recommend vitamin D supplementation for goal level of 30+ 02/03/2025 Encounter for immunization (ICD-10 - Z23) 05/14/2024 Encounter for screening for malignant neoplasm [...] for hepatitis C as per general recommendation 02/03/2025 Other This note was created with voice [...] CT Low Dose Lung Screening 02/01/2023 Hemoglobin G9n-590713 05/14/2024 Hemoglobin P0j-958590 02/03/2025 Urinalysis, Complete-778156 02/03/2025 Urinalysis, Complete-205027 05/14/2024 CBC With Differential/Platelet- CBC With Differential/Platelet-496773 Reticulocyte Count-680644 05/14/2024 Prostate-Specific Ag-722392 05/14/2024 Vitamin D, 68-Mjwvggn-438449 05/14/2024 Vitamin D, 56-Ezgmcoh-142854 02/03/2025 Glucose Tolerance (4 Sp Blood)-248635 Albumin/Creatinine Ratio,Urine-936495 Albumin/Creatinine Ratio,Urine-579655 Comp. Metabolic Panel ([id number] 2024 Comp. Metabolic Panel ([id number] 2023 LP+Non-HDL Cholesterol-606105 05/14/2024 LP+Non-HDL Cholesterol-569440 02/03/2025 HCV Antibody-740397 05/14/2024 Next Appt Details Provider Name:Chas Noel , 05/30/2025 10:00:00 AM, [address] [place] [address], [place] [address], [place], [place], [phone], Insurance Providers Payer Name Payer Address Payer Phone Subscriber Number Group Number Insured Name Patient Relationship to Insured Coverage Start Date Coverage End Date BC[facility] OF [facility] [address] [place] [address] [id number] Man Joe Self - patient is the [...]
--- OUTSIDE RECORDS SUMMARY | 2025-02-03 12:08 | XMS_ITS | Clinical Summary ---
Author Organization [facility] Address [address] [place] [phone] Phone Care Team Providers Care Welding Systems And Equipment Repairer Name Role Phone Chas Borden MD Primary Care Provider [phone] Allergies No known active allergies Medications multivitamin [...] Vaccine (1 - 2023-2 5 season) 2024 Depression Screening 07/10/2024 Cholesterol Screening (Lipid Panel) 10/03/2024 Colorectal Cancer Screening: Colonoscopy 10/03/2024 Hepatitis C Screening 10/03/2024 Social Influencers [...] AM EDT Narrative 03/30/2020 12:37 PM EDT [facility] Diagnostic Imaging Department [address] [place] [address] Patient: NEREIDAOMARMAN SOTOMAYOR /Age/Sex: 1955 - 65 - M Unit#: [id number] Location/Status: SPDIUS/REG CLI Mnemonic/[facility] Ordering Physician: CHAS BORDEN MD US Abdomen [...] bifurcation. IMPRESSION: No visualized abdominal aortic aneurysm. [id number] Dictating Physician: SANTIAGO JON MD Electronically Signed by: SANTIAGO JON MD Dic Date/Time: 03/30/20 1236 Sign date/Time: 03/30/20 1237 Procedure Note Santiago Jon MD - 06/29/2022 [facility] Diagnostic Imaging Department [address] [place] [id number] Patient: BRANMAN MarinelliO.B./Age/Sex: 1955 - 65 - M Unit#: [id number] Location/Status: SPDIUS/REG CLI Mnemonic/Ordering Site: [facility] Ordering [...] bifurcation. IMPRESSION: No visualized abdominal aortic aneurysm. [id number] Dictating Physician: SANTIAGO JON MD Electronically Signed by: SANTIAGO JON MD Dic Date/Time: 03/30/20 1236 Sign date/Time: 03/30/20 1237 Chas Borden MD IMG PROCEDURES Final Result from Last 3 Months or Most Recently Relevant to Health Maintenance Insurance [place] [email or web address] [facility] MEDICARE Care Teams Welding Systems And Equipment Repairer Relationship Specialty Start Date End Date Chas Borden MD [address] [place] [id number] PCP - General Internal Medicine 10/16/24
--- OUTSIDE RECORDS SUMMARY | 2025-02-03 12:08 | XMS_ITS | Data Portability ---
Author Organization [facility] Address [address] [address] Care Team Providers Care Resource Forester Name Role Phone BORDENTITA Primary Care Provider Assessment Encounter Date Assessment [...] By Organization Details Last Modified Time 08/15/2023 [id number] He was advised against bed rest lasting longer than four days and to continue activities as tolerated. [email or web address] Not available 08/15/2023 14:01:25 11/14/2023 [id number] He was advised against bed rest lasting longer than four days and to continue activities as tolerated. [email or web address] Not available 11/14/2023 10:55:13 08/15/2024 [id number] He was advised against bed rest lasting longer than four days and to continue activities as tolerated. [email or web address] Not available 08/15/2024 10:24:49 Reason for Referral None Reported. Problems Name Problem SNOMED Code Status Onset Date Resolution Date Notes Provider Name and Address Organization Details Recorded Time Lumbosacral radiculopathy 9060216 Active Eddi ellison MD [address] [facility] , [facility], [place], [address], [place] [facility] 9 15:50:02 Degeneration of lumbar intervertebral disc 12449067 Active Eddi ellison MD [address] [facility] , [place] [address], [place], [address], [place] [facility] 9 15:50:11 Lumbosacral spondylosis without myelopathy 48792098 Active Eddi ellison MD [address] [facility] , [facility], [place], 9, [place] [facility] 9 15:50:26 Spinal stenosis of lumbar region 66456592 Active Eddi ellison MD [address] [facility] , [facility], [place], [place], [address], [place] [facility] 9 15:50:39 Problem Notes None recorded. Procedures Surgical History Date Name Laterality Status Provider Name and Address Organization Details Recorded Time 08/15/19 25 Lumbar Epidural steroid injection under fluoroscopic guidance completed Eddi Sanchez MD [address] , [address], [place], [address], [place] [facility] 08/15/2024 10:23:05 05/15/20 24 Lumbar Epidural steroid injection under fluoroscopic guidance completed Eddi Sanchez MD [address] [facility] , [address], [place], [address], [place] [facility] 05/15/2024 14:35:05 02/06/20 24 Lumbar Epidural steroid injection under fluoroscopic guidance completed Eddi Sanchez MD [address] [facility] , [address], [place], [address], [place] [facility] 2024 09:05:55 11/14/19 24 Lumbar Epidural steroid injection under fluoroscopic guidance completed Eddi Sanchez MD [address] [facility] , [address], [place], [address], [place] [facility] 11/14/2023 10:55:57 08/15/19 24 Lumbar Epidural steroid injection under fluoroscopic guidance completed Eddi Sanchez MD [address] [facility] , [address], [place], [address], [place] [facility] 08/15/2023 14:02:28 05/11/20 23 Lumbar Epidural steroid injection under fluoroscopic guidance completed Eddi Sanchez MD [address] [facility] , [address], [place], [address], [place] [facility] 05/11/2023 13:44:22 02/08/20 23 Lumbar Epidural steroid injection under fluoroscopic guidance completed Eddi Sanchez MD [address] [facility] , [address], [place], [address], [place] [facility] 02/07/2023 14:32:47 11/09/19 23 Lumbar Epidural steroid injection under fluoroscopic guidance completed Eddi Sanchez MD [address] [facility] , [address], [place], [address], [place] [facility] 11/08/2022 11:49:19 08/18/19 23 Lumbar Epidural steroid injection under fluoroscopic guidance completed Eddi Sanchez MD [address] [facility] , [address], [place], [address], [place] [facility] 08/18/2022 13:38:49 05/31/20 22 Lumbar Epidural steroid injection under fluoroscopic guidance completed Eddi Sanchez MD [address] [facility] , [address], [place], [address], [place] [facility] 05/31/2022 12:01:38 02/17/20 22 Lumbar Epidural steroid injection under fluoroscopic guidance completed Eddi Sanchez MD [address] [facility] , [address], [place], [address], [place] [facility] 02/16/2022 11:18:13 11/18/19 22 Lumbar Epidural steroid injection under fluoroscopic guidance completed Eddi Sanchez MD [address] [facility] , [address], [place], [address], [place] [facility] 11/17/2021 13:34:00 08/03/19 22 Lumbar Epidural steroid injection under fluoroscopic guidance completed Eddi Sanchez MD [address] [facility] , [address], [place], [address], [place] [facility] 08/03/2021 13:51:35 05/04/20 21 Lumbar Epidural steroid injection under fluoroscopic guidance completed Eddi Sanchez MD [address] [facility] , [address], [place], [address], [place] [facility] 05/04/2021 09:45:14 02/03/20 21 Lumbar Epidural steroid injection under fluoroscopic guidance completed Eddi Sanchez MD [address] [facility] , [address], [place], [address], [place] [facility] 02/02/2021 09:56:45 10/29/19 21 Lumbar Epidural steroid injection under fluoroscopic guidance completed Eddi Sanchez MD [address] [facility] , [address], [place], [address], [place] [facility] 10/28/2020 11:04:44 07/08/20 20 Lumbar Epidural steroid injection under fluoroscopic guidance completed Eddi Sanchez MD [address] [facility] , [address], [place], [address], [place] [facility] 07/08/2020 09:25:16 01/28/20 20 Lumbar Epidural steroid injection under fluoroscopic guidance completed Edd[facility] Sanchez MD [address] [facility] , [address], [place], [address], [place] [facility] 01/28/2020 11:40:25 08/28/19 20 Lumbar Epidural steroid injection under fluoroscopic guidance completed Eddi Sanchez MD [address] [facility] , [address], [place], [address], [place] [facility] 08/28/2019 13:27:06 03/26/20 19 Lumbar Epidural steroid injection under fluoroscopic guidance completed Eddi Sanchez MD [address] [facility] , [address], [place], [address], [place] [facility] 03/26/2019 10:59:17 01/02/20 19 Lumbar Epidural steroid injection under fluoroscopic guidance completed dEdi Sanchez MD [address] [facility] , [address], [place], [address], [place] [facility] 01/01/2019 18:23:14 11/14/19 19 Lumbar Epidural steroid injection under fluoroscopic guidance completed Eddi Sanchez MD [address] [facility] , [address], [place], [address], [place] [facility] 11/14/2018 08:43:51 [...] (PF) 0.5 mL intramuscul ar syringe [facility] 02/02 completed Not Available Not Available Not Available morphine 30 mg tablet, crush resistant, extended release Take 1 tablet every 12 hours by oral route. 03/26 completed Not Available Not Available Not Available Flublok Quad (PF) 180 mcg (45 mcg x 4)/0.5 mL IM syringe [facility] 02/02 completed Not Available Not [...] verbal numeric rating [Score] - Reported Systolic And Diastolic Provider Name and Address Organization Details Last Updated DateTime 5 172.72 cm 76 /min 98 % 98 % 4 129/44 mm[Hg] Seble Burrowsyumiko nicholas [place] [facility] 5 09:24:11 Date Recorded Body height Heart rate Oxygen saturation Oxygen saturation in Arterial blood by Pulse oximetry Systolic And Diastolic Provider Name and Address Organization Details Last Updated DateTime 4 172.72 cm 83 /min 97 % 97 % 116/42 mm[Hg] Angela Nicole [place] [facility] 4 10:33:00 Date Recorded Body height Heart rate Oxygen saturation Oxygen saturation in Arterial blood by Pulse oximetry Systolic And Diastolic Provider Name and Address Organization Details Last Updated DateTime 4 172.72 cm 62 /min 98 % 98 % 119/44 mm[Hg] Delia Oswald [place] [facility] 4 08:33:01 Date Recorded Body height Pain severity - 0-10 verbal numeric rating [Score] - Reported Body mass index (BMI) Body weight Oxygen saturation Oxygen saturation in Arterial blood by Pulse oximetry Heart rate Systolic And Diastolic Provider Name and Address Organization Details Last Updated DateTime 4 172.72 cm 5 26.5 kg/m2 12385.0 7 g 98 % 98 % 73 /min 101/47 mm[Hg] Jackie Thakkar [place] [facility] 4 14:08:54 Social History Question Answer Notes LastModified by Organizat ion Details LastModified Time Tobacco Smoking Status Never Smoker Occasional cigar smoker Not Available [employer] 04/24/2020 03:16:11 Which Illicit Or Recreational Drugs Have You Used? None [id number] Information not available 04/24/2020 Education 12 Information n ot available 11/07/2018 Live Alone Or With Others? With Others Information not available 11/07/2018 GED No Information n ot available 11/07/2018 Marital Status Informati on not available 11/07/2018 What Was The Date Of Your Most Recent Tobacco Screening? 01/01/2019 [id number] Information not available 04/24/2020 Sex: Unknown Functional Status Question Answer Note LastModified by Organization D etails LastModified Time What is your level of alcohol consumption? None [id number] Information not available 04/24/2020 Are you currently employed? 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 Family History Relationship [...] SNOMED-CT Code Diagnosis ICD10 Code Diagnosis Note [id number] Eddi Sanchez MD PAIN OFFICE [address] [place] [address] 11/07/2018 14:04:21 11/07/2018 16:05:18 Lumbosacral radiculopathy 7254201 M54.17 Degenerati on of lumbar intervertebral disc 70654635 M51.36 Lumbosacra l spondylosis without myelopathy 85339350 M47.817 Spinal bhumi nosis of lumbar region 81820152 M48.061 73698 Eddi Sanchez MD PAIN OFFICE [address] [place] [address] 11/13/2018 14:30:19 11/14/2018 11:34:42 Lumbosacral radiculopathy 0389712 M54.17 Degenerati on of lumbar intervertebral disc 15776992 M51.36 Lumbosacra l spondylosis without myelopathy 73357771 M47.817 Spinal bhumi nosis of lumbar region 19331195 M48.061 99094 Eddi Sanchez MD PAIN OFFICE [address] [place] [address] 12/06/2018 14:16:15 12/06/2018 15:28:49 Lumbosacral radiculopathy 0316985 M54.17 Degenerati on of lumbar intervertebral disc 83739502 M51.36 Lumbosacra l spondylosis without myelopathy 46777894 M47.817 Spinal bhumi nosis of lumbar region 93705984 M48.061 78926 Eddi Sanchez MD PAIN OFFICE [address] [place] [address] 01/01/2019 13:04:31 01/01/2019 18:26:49 Lumbosacral radiculopathy 1460639 M54.17 Degenerati on of lumbar intervertebral disc 90233646 M51.36 Lumbosacra l spondylosis without myelopathy 43413528 M47.817 Spinal bhumi nosis of lumbar region 14416698 M48.061 26193 Eddi Sanchez MD PAIN OFFICE [address] [place] [address] 03/26/2019 10:19:14 03/26/2019 11:02:16 Lumbosacral radiculopathy 3493641 M54.17 Degenerati on of lumbar intervertebral disc 28852489 M51.36 Lumbosacra l spondylosis without myelopathy 56612392 M47.817 Spinal bhumi nosis of lumbar region 41622838 M48.061 88140 Eddi Sanchez MD PAIN OFFICE [address] [place] [address] 08/28/2019 12:47:58 08/28/2019 13:30:23 Lumbosacral radiculopathy 1660394 M54.17 Degenerati on of lumbar intervertebral disc 02462174 M51.36 Lumbosacra l spondylosis without myelopathy 82498985 M47.817 Spinal bhumi nosis of lumbar region 79225072 M48.061 53570 Eddi Sanchez MD PAIN OFFICE [address] [place] [address] 01/28/2020 11:16:52 01/28/2020 14:56:45 Lumbosacral radiculopathy 8128052 M54.17 Degenerati on of lumbar intervertebral disc 25800589 M51.36 Lumbosacra l spondylosis without myelopathy 68363055 M47.817 Spinal bhumi nosis of lumbar region 80139695 M48.061 02513 Eddi Sanchez MD [facility] [address] [facility] [place] [address] 07/08/2020 09:22:42 07/08/2020 11:19:23 Lumbosacral radiculopathy 8288176 M54.17 Degenerati on of lumbar intervertebral disc 45189706 M51.36 Lumbosacra l spondylosis without myelopathy 94882733 M47.817 Spinal bhumi nosis of lumbar region 48214664 M48.061 88683 Eddi Sanchez MD PAIN OFFICE [address] [address] 10/28/2020 09:52:49 10/28/2020 16:05:47 Lumbosacral radiculopathy 4496666 M54.17 Degenerati on of lumbar intervertebral disc 35331188 M51.36 Lumbosacra l spondylosis without myelopathy 25795602 M47.817 Spinal bhumi nosis of lumbar region 15462432 M48.061 31463 Eddi Sanchez MD PAIN OFFICE [address] [address] 02/02/2021 09:24:48 02/02/2021 10:27:20 Lumbosacral radiculopathy 3004594 M54.17 Degenerati on of lumbar intervertebral disc 93474268 M51.36 Lumbosacra l spondylosis without myelopathy 44694670 M47.817 Spinal bhumi nosis of lumbar region 13766331 M48.061 67063 Eddi Sanchez MD PAIN OFFICE [address] [facility] [place] [address] 05/04/2021 09:11:40 05/04/2021 09:58:06 Lumbosacral radiculopathy 7795573 M54.17 Degenerati on of lumbar intervertebral disc 34547665 M51.36 Lumbosacra l spondylosis without myelopathy 91273730 M47.817 Spinal bhumi nosis of lumbar region 19189191 M48.061 35107 Eddi Sanchez MD [facility] [address] [facility] [place] [address] 08/03/2021 13:20:36 08/03/2021 14:49:32 Lumbosacral radiculopathy 1110929 M54.17 Degenerati on of lumbar intervertebral disc 76322739 M51.36 Lumbosacra l spondylosis without myelopathy 12862787 M47.817 Spinal bhumi nosis of lumbar region 08689275 M48.061 86359 Eddi Sanchez MD [facility] [address] [facility] [place] [address] 11/17/2021 13:01:32 11/17/2021 13:36:27 Lumbosacral radiculopathy 4388573 M54.17 Degenerati on of lumbar intervertebral disc 33810297 M51.36 Lumbosacra l spondylosis without myelopathy 35106912 M47.817 Spinal bhumi nosis of lumbar region 62533393 M48.061 87274 Eddi Sanchez MD [facility] [email or web address] [facility] [place] [address] 01/07/2022 11:31:26 01/11/2022 09:36:03 Lumbosacral radiculopathy 6744903 M54.17 84711 Eddi Sanchez MD [facility] [email or web address] [facility] [place] [address] 02/16/2022 10:53:02 02/16/2022 14:02:50 Lumbosacral radiculopathy 5958326 M54.17 Degenerati on of lumbar intervertebral disc 62170493 M51.36 Lumbosacra l spondylosis without myelopathy 74803917 M47.817 Spinal bhumi nosis of lumbar region 54769042 M48.061 63294 Eddi Sanchez MD [facility] [address] [facility] [place] [address] 05/31/2022 09:53:11 05/31/2022 14:22:50 Lumbosacral radiculopathy 2464006 M54.17 Degenerati on of lumbar intervertebral disc 42417232 M51.36 Lumbosacra l spondylosis without myelopathy 04416345 M47.817 Spinal bhumi nosis of lumbar region 26129629 M48.061 40447 Eddi Sanchez MD PAIN OFFICE [email or web address] [place] [address] 08/18/2022 11:12:06 08/18/2022 13:45:18 Lumbosacral radiculopathy 0426113 M54.17 Degenerati on of lumbar intervertebral disc 57799449 M51.36 Spinal bhumi nosis of lumbar region 56804112 M48.062 85596 Eddi Sanchez MD PAIN OFFICE [address] [place] [address] 11/08/2022 11:25:10 11/08/2022 14:29:03 Lumbosacral radiculopathy 6966415 M54.17 Degenerati on of lumbar intervertebral disc 37566703 M51.36 Spinal bhumi nosis of lumbar region 42255046 M48.062 68208 Eddi Sanchez MD PAIN OFFICE [address] [place] [address] 01/20/2023 10:14:06 01/20/2023 10:40:11 Lumbosacral radiculopathy 8081555 M54.17 Degenerati on of lumbar intervertebral disc 46297753 M51.36 Lumbosacra l spondylosis without myelopathy 41046376 M47.817 Spinal bhumi nosis of lumbar region 75847320 M48.061 12639 Eddi Sanchez MD [facility] [email or web address] [place] [address] 02/07/2023 12:59:20 02/07/2023 14:44:01 Lumbosacral radiculopathy 9887115 M54.17 Degenerati on of lumbar intervertebral disc 24605116 M51.36 Spinal bhumi nosis of lumbar region 40131059 M48.062 75725 Eddi Sanchez MD [facility] [address] [facility] [place] [address] 05/11/2023 11:21:41 05/11/2023 13:50:13 Spinal stenosis of lumbar region 90617331 M48.062 Lumbosacra l radiculopathy 6795255 M54.17 Degenerati on of lumbar intervertebral disc 37765396 M51.36 88813 Eddi Sanchez MD [facility] PA[facility] [address] [facility] [place] [address] 08/15/2023 13:25:57 08/15/2023 14:23:43 Spinal stenosis of lumbar region 38582181 M48.062 Lumbosacra l radiculopathy 8270160 M54.17 Degenerati on of lumbar intervertebral disc 67663755 M51.36 63505 Eddi Sanchez MD PAIN OFFICE [address] [facility] [place] [address] 11/14/2023 10:21:58 11/14/2023 11:00:27 Spinal stenosis of lumbar region 85821939 M48.062 Lumbosacra l radiculopathy 0344577 M54.17 Degenerati on of lumbar intervertebral disc 17880471 M51.36 62241 Eddi Sanchez MD PAIN OFFICE [address] [facility] [place] [address] 2024 08:29:21 2024 09:08:44 Spinal stenosis of lumbar region 49589472 M48.062 Lumbosacra l radiculopathy 6747584 M54.17 Degenerati on of lumbar intervertebral disc 26095221 M51.36 38289 Eddi Sanchez MD [facility] [address] [facility] [place] [address] 05/15/2024 13:56:51 05/15/2024 15:51:39 Spinal stenosis of lumbar region 72302249 M48.062 Lumbosacra l radiculopathy 2429557 M54.17 Degenerati on of lumbar intervertebral disc 38933340 M51.362 93786 Eddi Sanchez MD PAIN OFFICE [address] [place] [address] 08/15/2024 09:14:54 08/15/2024 14:55:48 Spinal stenosis of lumbar region 93831610 M48.062 Lumbosacra l radiculopathy 7227609 M54.17 Degenerati on of lumbar intervertebral disc 27685347 M51.362 Health Concerns Section Related Observation LastModified by Organization Detai ls LastModified Time None Recorded Concern Status LastModified by Organization Details LastModified Time None Recorded Advance Directives Directive None Recorded Payers Insurance Date Sequence Insurance Name Policy Number Policy Nye Covered Member ID Nye Member ID Guarantor Name 2024 1 [facility] [id number] Man Dicksonreffi [id number] Man Dicksonrefgeovani 11/16/2024 1 [employer]UE BENEFIT [employer] [facility] [id number] Amisha Greenwood Garreffi [id number] Man Joe 2024 1 [place]IC[place] [employer] Man Evans Garreffi [id number] Man Dicksonrefgeovani
[2025-02-03 12:09] LABS: Hemoglobin A1C 87.7087 umol/L; Total Hemoglobin (HGBA1C) 2044.8645 umol/L
[2025-02-03 12:17] LABS: Microalbum/Creatinine Ratio Ur 28.3 ug/mg cr (<30)
[2025-02-03 12:25] LABS: Alanine Aminotransferase 29 U/L (0-40); Albumin Level 4.0 g/dL (3.5-5.0); Alkaline Phosphatase 93 U/L (39-117); Anion Gap 10 (12-20); Aspartate Amino Transferase 39 U/L (5-37); Blood Urea Nitrogen 8 mg/dL (9-16); Calcium 8.9 mg/dL (8.4-10.2); Carbon Dioxide 26 mmol/L (22-29); Chloride 108 mmol/L (96-108); Cholesterol 63 mg/dL (<200); Estimated Glomerular Filt Rate > 60; HDL Cholesterol 26 mg/dL (>40); Potassium 3.9 mmol/L (3.3-5.1); Sodium 140 mmol/L (135-145); Total Protein 6.5 g/dL (6.5-8.0); Triglycerides 52 mg/dL (<150)
== END 2025-02-03 10:49 | disposition home or self-care (01) ==
LOC: HO.LAB 10:48
PROVIDERS: Visit Provider Internal Medicine
DX: I25.118 Atherosclerotic heart disease of native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 (principal); E78.2 Mixed hyperlipidemia; E11.22 Type 2 diabetes mellitus with diabetic chronic kidney disease; N18.9 Chronic kidney disease, unspecified; D63.1 Anemia in chronic kidney disease; E55.9 Vitamin D deficiency, unspecified
CPT/HCPCS: 36415; 80053; 80061; 81001; 82043; 82306; 82570; 83036; 85025

== ENCOUNTER 2025-02-13 06:09 | Outpatient (REF) | payer OTHER, SELFPAY ==
--- NOTE | ~2025-02-13 | FL_ITS ---
EXAMINATION: FL GUIDANCE ONLY HISTORY: M54.16 - Radiculopathy, lumbar region COMPARISON: None available. TECHNIQUE: Fluoroscopy time: 0.1 minutes. Cumulative Dose: 4.08 mGy. DAP: 0.0261 mGym2 Images: 3. FINDINGS: Fluoroscopic spot films of the lumbar spine demonstrate a needle and contrast material in the region of the right L5-S1 facet joint. FL/FL guidance in treatment room IMPRESSION: Fluoroscopy during procedure. Please see procedure report for additional information. Electronically signed by: Jad Darden MD 02/13/2025 01:18 PM EDT
--- OUTSIDE RECORDS SUMMARY | 2025-02-13 06:11 | XMS_ITS | Patient Health Record ---
Author Organization [facility] Address [address] [place] [phone] Care Team Providers Care Cotton Program Technician Name Role Phone Chas Noel Primary Care Provider [phone] Eugenia Unavailable [phone] Allergies No Known Allergies Results Component Value Reference Range Notes Hemoglobin [id number] Reviewed date:04/24/2024 06:31:12 PM Interpretation: Performing Lab:[facility] [place], [address] [facility], Phone - [phone], Director - Jolene Notes/Report: Hemoglobin A1c 6.3 4.8-5.6 % . Prediabetes: 5.7 - 6.4 Diabetes: >6.4 Glycemic control for adults with diabetes: <7.0 Urinalysis, Complete-[id number] Reviewed date:04/24/2024 06:31:12 PM Interpretation: Performing Lab:[facility] [place], [address] [place] [address], Phone - [phone], Director - Jolene Notes/Report: Specific Butler 1.024 1.005-1.030 pH 5.5 5.0-7.5 Urine-Color Yellow [...] None seen None seen/Few CBC With Differential/Platel et-[id number] Reviewed date:04/24/2024 06:31:12 PM Interpretation: Performing Lab:[facility], [address] [place] [address], Phone - [phone], Director - MDJodry Notes/Report: WBC 9.8 3.4-10.8 [...] NRBC 1 0 - 0 % Reticulocyte Count-481617 Reviewed date:04/24/2024 06:31:12 PM Interpretation: Performing Lab:[facility], [address] [facility], [place], Phone - [phone], Director - MDJodry Notes/Report: Reticulocyte Count 2.3 0.6-2.6 % Request Problem TNP Test not performed. Sample contaminated with EDTA which is not suitable for test ordered. TEST: [id number] Sodium Panel: [id number] 152647 Potassium Panel: 448961 183350 Chloride Panel: 058093 594084 Carbon Dioxide, Total Panel: 238191 155243 Calcium Panel: 442616 447158 Alkaline Phosphatase Panel: 419554 Vitamin D, 03-Dnbcpqy-497895 Reviewed date:04/24/2024 06:31:13 PM Interpretation: Performing Lab:[facility] [place], [address] [place] [address], Phone - [phone], Director - Jolene Notes/Report: Vitamin D, 25-Hydroxy 28.1 30.0-100.0 ng/mL Vitamin D deficiency has been defined by the [place] of Medicine and an Endocrine Society practice guideline as a level of serum 25-OH vitamin D less than 20 ng/mL (1,2). The Endocrine Society went on to further define vitamin D insufficiency as a level between 21 and 29 ng/mL (2). 1. IOM ([place] of Medicine). 2010. Dietary reference intakes for calcium and D. [place]: The National Academies Press. 2. Kiko MF, Gigi DOMINGUEZ, Anya CUMMINGS, et al. Evaluation, treatment, and prevention of vitamin D deficiency: an Endocrine Society clinical practice guideline. JCEM. 2010; 96(7):1911-30. Albumin/Creatinine Ratio,[facility] ne-608140 Reviewed date:04/24/2024 06:31:13 PM Interpretation: Performing Lab:[facility] [place], [address] [place] [address], Phone - [phone], Director - Jolene Notes/Report: Creatinine, Urine 238.5 Not Estab. mg/dL Albumin, Urine 31.5 Not Estab. ug/mL Alb/Creat Ratio 13 0-29 mg/g creat Normal: 0 - 29 Moderately increased: 30 - 300 Severely increased: >300 Comp. Metabolic Panel (14)-3 53672 Reviewed date:04/24/2024 06:31:13 PM Interpretation: Performing Lab:[facility] [place], [address] [place] [address], Phone - [phone], Director - Jolene Notes/Report: Glucose 96 70-99 [...] IU/L ALT (SGPT) 21 0-44 IU/L LP+Non-HDL Cholesterol-79674 5 Reviewed date:04/24/2024 06:31:13 PM Interpretation: Performing Lab:[facility], [address] [facility], [place], Phone - [phone], Director - Jolene Notes/Report: Cholesterol, Total 92 100-199 mg/dL Triglycerides 57 0-149 mg/dL HDL Cholesterol 47 >39 mg/dL VLDL Cholesterol Romeo 13 5-40 mg/dL LDL Chol Calc ([facility]) 32 0-99 mg/dL Non-HDL Cholesterol 45 0-129 mg/dL Respiratory Panel w/ SARS-Co [id number] Reviewed date:01/09/2025 01:56:02 PM Interpretation: Performing Lab:[facility], [address] [facility], [place], Phone - [phone], Director - Jolene Notes/Report: Adenovirus Not Detected [...] 04:32:37 PM Interpretation: Performing Lab: Notes/Report: [facility] [place] [facility] ([facility] [place] [facility]), [facility] Lot: [id number] [...] Intramuscular 04/08/2020 Administered Mfd by [employer] VWVPV-17-Ncdovik Vaccine Unknown 09/10/2020 Administered QFYZO-00-Kwovzdb Vaccine Unknown 10/08/2020 Administered VFMTU-17-[place]rm[place] Vaccine Unknown 05/25/2021 Administered COVID-19 Moderna BiValent Booster Unknown 04/25/2022 Administered *Tdap IM Intramuscular 07/27/2016 Administered *PREVNAR 20 IM Intramuscular 02/03/2025 Administered *Pneumococcal polysaccharide PPV23 IM Intramuscular 04/27/2021 Administered *Influenza-Medicare-A S IM Intramuscular 04/24/2019 Administered *Influenza-Medicare-A S IM Intramuscular 04/27/2021 Administered *Tpdlasvce-Harcoue-Im gh Dose-65+ IM Intramuscular 04/16/2024 Administered *Influenza, [...] W/U Status Risk Notes Problem Myelodysplastic syndrome (987786644) Myelodysplastic syndrome, unspecified (D46.9) Active confirmed Problem Folate deficiency anemia (11659110) Folate deficiency anemia, 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) Active confirmed Problem Diabetic renal disease (871269711) Type 2 diabetes mellitus with diabetic chronic kidney disease (E11.22) Active confirmed Problem Malnutrition of mild degree ([place]: 75% to less than 90% of standard weight) (58317669) Mild protein-calorie malnutrition (E44.1) Active confirmed Problem Vitamin D deficiency (94168508) Vitamin D deficiency, unspecified (E55.9) Active confirmed Problem Mixed hyperlipidemia (631572853) Mixed hyperlipidemia (E78.2) Active confirmed Problem Mental disorder caused by drug (777693160) Nicotine dependence, cigarettes, with unspecified nicotine-induced disorders (F17.219) Active confirmed Problem Generalized anxiety disorder (50602346) Generalized anxiety disorder (F41.1) Active confirmed Problem Angina co-occurrent and due to coronary arteriosclerosis (disorder) (68135133995216755) 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) Active confirmed Problem Atrial premature depolarization (396821351) Atrial premature depolarization (I49.1) Active confirmed Problem Gastro-esophageal reflux disease without esophagitis (413846410) Gastro-esophageal reflux disease without esophagitis (K21.9) Active confirmed Problem Gallbladder and bile duct calculi (865723695) Calculus of gallbladder and bile duct without cholecystitis without obstruction (K80.70) Active confirmed Problem Lumbosacral spondylosis without myelopathy (00852849) Other spondylosis with radiculopathy, lumbosacral region (M47.27) Active confirmed Problem Cervical disc disorder with radiculopathy (702834215) Cervical disc disorder with radiculopathy, high cervical region (M50.11) Active confirmed Problem Displacement of lumbar intervertebral disc without myelopathy (12951700) Other intervertebral disc displacement, lumbosacral region (M51.27) Active confirmed Problem Chronic kidney disease stage 2 (401239578) Chronic kidney disease, stage 2 (mild) (N18.2) Active confirmed Problem Syncope and collapse (762870172) Syncope and collapse (R55) Active confirmed Problem Family history of malignant neoplasm of gastrointestinal tract (354520122) Family history of malignant neoplasm of digestive organs (Z80.0) Active confirmed Problem Lower urinary tract symptoms due to benign prostatic hypertrophy (63658995974974) Benign prostatic hyperplasia with lower urinary tract symptoms (N40.1) Active confirmed Problem Age-related nuclear cataract of right eye (817856625718386) Age-related nuclear cataract, right eye (H25.11) Problem resolved confirmed Problem Age-related nuclear cataract of left eye (733052510762203) Age-related nuclear cataract, left eye (H25.12) Problem resolved confirmed Vital Signs Heart Rate 69 /min 02/03/2025 Temperature 96.8 degrees Fahrenheit 02/03/2025 Blood pressure diastolic 40 mm Hg 02/03/2025 Oximetry 97 % 02/03/2025 Height 5 ft 8 in in 02/03/2025 Blood pressure systolic 100 mm Hg 02/03/2025 Weight 163 lbs 02/03/2025 BMI 24.78 kg/m2 02/03/2025 Encounters Encounter Location Date Provider Diagnosis Chas Noel MD [address] [id number] 10/16/2024 Chas Noel MD [address] [id number] 01/09/2025 Chas Noel MD [address] [id number] 03/22/2024 Chas Noel Other fatigue R53.83 Chas Noel MD [address] [id number] 03/27/2024 Chas Noel MD [address] [id number] 08/12/2024 Chas Noel MD [address] [id number] 12/30/2024 Chas Noel MD [address] [id number] 12/30/2024 Chas Noel MD [address] [id number] 12/30/2024 Chas Noel Acute frontal sinusitis, unspecified J01.10 Chas Noel MD [address] [id number] 01/08/2025 [place] [address] Acute cough R05.1 an d Acute upper respiratory infection, unspecified J06.9 Chas Noel MD [address] [id number] 02/03/2025 Chas Noel Type 2 diabetes mellitus with diabetic chronic kidney disease E11.22 ; Atherosclerotic heart disease of chilkat coronary artery with other forms of angina [...] Encounter for immunization Z23 Chas Noel MD [address] [id number] 08/15/2024 Chas Noel Type 2 diabetes mellitus with diabetic chronic kidney disease E11.22 ; Myelodysplastic syndrome, unspecified D46.9 ; Generalized anxiety disorder F41.1 ; 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 I25.118 ; Mixed hyperlipidemia E78.2 ; Gastro-esophageal reflux disease without esophagitis K21.9 ; Other spondylosis with radiculopathy, lumbosacral region M47.27 ; Nicotine dependence, cigarettes, with unspecified nicotine-induced disorders F17.219 and Vitamin D deficiency, unspecified E55.9 Chas Noel MD [address] [id number] 04/16/2024 Chas Noel Type 2 diabetes mellitus with diabetic chronic kidney disease E11.22 ; Myelodysplastic syndrome, unspecified D46.9 ; Generalized anxiety disorder F41.1 ; 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 I25.118 ; Mixed hyperlipidemia E78.2 ; Gastro-esophageal reflux disease without esophagitis K21.9 ; Other spondylosis with radiculopathy, lumbosacral region M47.27 ; Nicotine dependence, cigarettes, with unspecified nicotine-induced disorders F17.219 ; Vitamin D deficiency, unspecified E55.9 and Encounter for immunization Z23 Chas Noel MD [address] [id number] 05/14/2024 Chas Noel Type 2 diabetes mellitus with diabetic chronic kidney disease E11.22 ; Encounter for general adult medical examination without abnormal findings Z00.00 ; Myelodysplastic syndrome, unspecified D46.9 ; Generalized anxiety disorder F41.1 ; Atherosclerotic heart disease of chilkat coronary artery with other forms of angina [...] other viral diseases Z11.59 Chas Noel MD [address] [id number] 09/23/2024 Chas Noel Type 2 diabetes mellitus with diabetic chronic kidney disease E11.22 ; Atherosclerotic heart disease of chilkat coronary artery with other forms of angina [...] because he had a blood transfusion yesterday. 02/03/2025 Type 2 diabetes mellitus with diabetic chronic kidney disease (ICD-10 - E11.22) Stable on prior labs as reviewed. His A1c is probably artifactually low based on rapid cell turnover from his myelodysplasia and transfusions. He has had 4 transfusions already this year. 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 Continue current control comorbidities including hyperlipidemia 01/08/2025 Acute upper respiratory infection, unspecified (ICD-10 [...] new or worsening symptoms despite these treatments 12/30/2024 Acute frontal sinusitis, unspecified (ICD-10 - J01.10) 05/14/2024 Type 2 diabetes mellitus with diabetic [...] routine labs. Healthcare proxy already on file 09/23/2024 Type 2 diabetes mellitus with diabetic chronic kidney disease (ICD-10 - E11.22) Stable at present. He is A1c is probably artifactually low based on rapid turnover. At the present time can continue to follow glucose on a periodic basis and he may need a continuous glucose monitor to help further monitor his disease state. 09/23/2024 Atherosclerotic heart disease of chilkat coronary artery with other forms of angina [...] risk for complications from a medical perspective. 04/16/2024 Myelodysplastic syndrome, unspecified (ICD-10 - D46.9) [...] indicated 03/22/2024 Other fatigue (ICD-10 - R53.83) 04/16/2024 Generalized anxiety disorder (ICD-10 - F41.1) [...] will need transfusion given his myelodysplastic syndrome. 05/14/2024 Myelodysplastic syndrome, unspecified (ICD-10 - D46.9) Fair control and stable with periodic follow-up with hematology and Retacrit injections 02/03/2025 Myelodysplastic syndrome, unspecified (ICD-10 - D46.9) Fair control and stable. Continues to follow-up with hematology and continues to get Procrit as well as transfusions. 08/15/2024 Generalized anxiety disorder (ICD-10 - F41.1) Stable at present. 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 Continue current medical therapy. 05/14/2024 Generalized anxiety disorder (ICD-10 - F41.1) Stable at present. Continue current medical therapy 02/03/2025 Generalized anxiety disorder (ICD-10 - F41.1) Stable with current medical therapy. 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 He says he does not have any progressive shortness of breath nor chest discomfort that would suggest progressive coronary disease and angina. Continue control of comorbidities 09/23/2024 Generalized anxiety disorder (ICD-10 - F41.1) Fair control and stable with current medical therapy 04/16/2024 Mixed hyperlipidemia (ICD-10 - E78.2) Stable with LDL less than 50. Continue current medical therapy. 09/23/2024 Mixed hyperlipidemia (ICD-10 - E78.2) Controlled with current medical therapy with LDL less than 50. His goal would be LDL less than 40 to minimize plaque progression and hopefully allow plaque volume regression. 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 This would not only benefit his coronary artery disease but may also benefit his myelodysplasia 02/03/2025 Other spondylosis with radiculopathy, lumbosacral region (ICD-10 - M47.27) He is having increasing pain but has follow-up with pain management for reevaluation for injection 05/14/2024 Other spondylosis with radiculopathy, lumbosacral region (ICD-10 - M47.27) Stable with periodic injections. Continue same. 09/23/2024 Nicotine dependence, cigarettes, with unspecified nicotine-induced disorders (ICD-10 - F17.219) Smoking cessation has been counseled in the past 04/16/2024 Nicotine dependence, cigarettes, with unspecified nicotine-induced disorders (ICD-10 - F17.219) He is smoking again. 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 04/16/2024 Vitamin D deficiency, unspecified (ICD-10 - E55.9) Fair control and prior labs reviewed. Recommend vitamin D supplementation for goal level of 30+. Recheck status 09/23/2024 Vitamin D deficiency, unspecified (ICD-10 - E55.9) Fair control on prior labs as reviewed. Recommend vitamin D supplementation for goal level of 30+ 05/14/2024 Family history of malignant neoplasm of digestive organs (ICD-10 - Z80.0) Recommend colonoscopy but he does not want to get colonoscopies until he is 70 years old. 02/03/2025 Calculus of gallbladder and bile duct [...] (ICD-10 - F17.219) He continues to smoke. 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 04/16/2024 Encounter for immunization (ICD-10 [...] syntax. Also labs were reviewed with patient. 02/03/2025 Other This note was created with voice dictation recognition software and may contain errors of grammar and syntax. Also labs were reviewed with patient. Plan Of Treatment Pending Test Test Name Order Date COMPLETE CBC WITH DIFF 02/02/2023 FOLIC ACID 02/02/2023 FOLATE 08/21/2018 CR Upper GI Small Bowel Series CT Low Dose Lung Screening 02/01/2023 Hemoglobin [id number] 02/03/2025 Hemoglobin N9l-350122 05/14/2024 Urinalysis, Complete-665861 05/14/2024 Urinalysis, Complete-37010802/03/2025 CBC With Differential/Platelet- CBC With Differential/Platelet-008982 Reticulocyte Count-446957 05/14/2024 Prostate-Specific Ag-715399 05/14/2024 Vitamin D, 77-Vqhbinn-606830 05/14/2024 Vitamin D, 14-Xeooryc-161140 02/03/2025 Glucose Tolerance (4 Sp Blood)-610999 Albumin/Creatinine Ratio,Urine-331606 Albumin/Creatinine Ratio,Urine-431230 Comp. Metabolic Panel ([id number] 2024 Comp. Metabolic Panel (14)-[id number] 2023 LP+Non-HDL Cholesterol-534013 05/14/2024 LP+Non-HDL Cholesterol-438243 02/03/2025 HCV Antibody-175870 05/14/2024 Next Appt Details Provider Name:Chas Noel , 05/30/2025 10:00:00 AM, [address] [place] [address], [place] [address], [place], [place], [phone], Insurance Providers Payer Name Payer Address Payer Phone Subscriber Number Group Number Insured Name Patient Relationship to Insured Coverage Start Date Coverage End Date Blue Benefit Animal Technician s daniel NAVARRETE [address] [address] [place] [address] [id number] 2 [employer] olivo Self - patient is the insured Medical [...]
--- OUTSIDE RECORDS SUMMARY | 2025-02-13 06:11 | XMS_ITS | Clinical Summary ---
Author Organization [facility] Address [address] [place] [phone] Phone Care Team Providers Care Weight Loss Counselor Name Role Phone Chas Borden MD Primary Care Provider [phone] Allergies No known active allergies Medications multivitamin [...] AM EDT Narrative 03/30/2020 12:[address] [facility] Diagnostic Imaging Department [address] [place] [address] Patient: NEREIDAOMARMAN SOTOMAYOR /Age/Sex: 1955 - 65 - M Unit#: [id number] Location/Status: SPDIUS/REG CLI [facility]em[facility] Ordering Physician: CHAS BORDEN MD US Abdomen [...] bifurcation. IMPRESSION: No visualized abdominal aortic aneurysm. [id number] Dictating Physician: SANTIAGO JON MD Electronically Signed by: SANTIAGO JON MD Dic Date/Time: 03/30/20 1236 Sign date/Time: 03/30/20 1237 Procedure Note Santiago Jon MD - 06/29/2022 [facility] Diagnostic Imaging Department [address] [place] [address] Patient: BRANMAN MarinelliO.B./Age/Sex: 1955 - 65 - M Unit#: [id number] Location/Status: SPDIUS/REG CLI Mnemonic/Ordering Site: [facility] Ordering [...] bifurcation. IMPRESSION: No visualized abdominal aortic aneurysm. [id number] Dictating Physician: SANTIAGO JON MD Electronically Signed by: SANTIAGO JON MD Dic Date/Time: 03/30/20 1236 Sign date/Time: 03/30/20 1237 Chas Borden MD IMG PROCEDURES Final Result from Last 3 Months or Most Recently Relevant to Health Maintenance Insurance [employer] [facility] MEDICARE Care Teams Weight Loss Counselor Relationship Specialty Start Date End Date Chas Borden MD [address] [place] [address] PCP - General Internal Medicine 10/16/24
== END 2025-02-13 06:10 | disposition home or self-care (01) ==
LOC: CF 06:09
PROVIDERS: Visit Provider Internal Medicine
DX: M54.16 Radiculopathy, lumbar region (principal)
CPT/HCPCS: 64483; J1100; J2003; Q9967

== ENCOUNTER 2025-02-13 09:15 | Outpatient (AMB) | payer OTHER, SELFPAY ==
--- NOTE | 2025-02-13 09:22 | MHC.OFFVIS ---
Vital Signs 02/13/25 09:23 Height 5 ft 8 in Weight 164 lb BMI 24.9 BP 104/51 L Blood Pressure Location Lt brachial Position Sitting Respiration 18 Pulse 62 Pulse Source Pulse Oximeter Pulse Oximetry (%) 100 Oxygen Delivery Method Room Air Intake Visit Reasons: Right L5 TFESI Afternoon Babysitter Required: No Allergies No Known Allergies Allergy (Verified 02/13/25 09:24) HPI HPI Right L5 TFESI: Details: Patient presents for scheduled procedure. Denies any recent cough, cold, infection, fever or other significant changes in medical history since last office visit. [facility] Medical History Myelodysplastic syndrome GERD (gastroesophageal reflux disease) Generalized anxiety disorder BPH (benign prostatic hyperplasia) Nicotine dependence, cigarettes, uncomplicated Surgical History History of bone marrow biopsy History of cataract surgery Family History Mother Colon cancer, Onset Age: 84 Social History Household Members: Spouse Household Members Other:: 2 Housing: House Do you presently have visiting nurse or other home services: No Patient Tobacco Use Status: Current everyday Tobacco user Tobacco use type: Cigarette and Cigar Cigarette Packs Per Day: 1 Years Smoked: onset 16yo, 1ppd x 52yrs, now 1/2ppd - 50pyh Second Hand Smoke Exposure: No service: No Current occupational status: retired Physical Exam Vital Signs: Last Vital Signs Pulse 62 02/13/25 09:23 Resp 18 02/13/25 09:23 BP 104/51 L 02/13/25 09:23 Pulse Ox 100 02/13/25 09:23 Oxygen Delivery Method Room Air 02/13/25 09:23 BMI result Body Mass Index 24.9 Office Procedures Details: Transforaminal epidural steroid injection, Right L5 After obtaining written consent, pre-procedure blood pressure and heart rate were stable and recorded in the nursing record. The patient was placed in the prone position on the fluoroscopy table. The lumbosacral area was prepped with chloraprep, allowed to dry and draped in sterile fashion. Using fluoroscopy, the skin overlying our target was anesthetized with 0.5% lidocaine. A 22 gauge 3.5 inch spinal needle was advanced to the safe triangle in the upper pole of the right L5 foramen. No paresthesias were elicited with needle placement and aspiration was negative for blood and CSF. Correct needle position was confirmed with approximately 1 ml contrast dye (Omnipaque 180 mg/ml) injected under real-time fluoroscopy. No evidence of vascular or intrathecal uptake was seen and there was both epidural and peripheral spread of the contrast agent. 10 mg dexamethasone plus 1 ml containing 0.5% lidocaine was slowly injected. The needle was flushed and removed. the same procedure was repeated for the remaining levels. The skin was cleansed and a sterile bandages were applied. The patient tolerated the procedure well and no complications were encountered. Following the procedure the patient's vital signs were stable. The patient was discharged home in good condition with post-procedural instructions. Time Out: Immediately prior to the procedure, the following was verbally confirmed that there is a signed consent form and that the correct patient, planned procedure, site and side are consistent with documentation and that necessary equipment and/or blood products are available prior to the start of the case. Complications: none EBL: <5 cc 89334 - Lumbar/Sacral Procedure code (CPT) selection complete Assessment & Plan Assessment & Plan (1) Lumbar radiculopathy: Code(s): M54.16 - Radiculopathy, lumbar region Category: Medical Plan Patient is status post right L5 TFESI. Patient tolerated procedure well and was discharged home in stable condition with discharge instructions. All questions were answered. We will follow-up via telephone or in clinic to assess response to therapy. A follow-up appointment was made during today's visit. Orders: Orders FL guidance in treatment room Today M54.16 - Radiculopathy, lumbar region AMB Transforaminal Epidural Steroid Injection Today M54.16 - Radiculopathy, lumbar region Coding Level of Care Code Procedure Only Diagnoses Lumbar radiculopathy M54.16 CPT Codes Transforaminal Epidural Steroid Inj - TESI 3: 86817 - Lumbar/Sacral ([id number])
[2025-02-13 09:23] VITALS: BP 104/51; PULSE 62; RESP 18; O2SAT 100; BMI 24.9
== END 2025-02-13 09:59 | disposition home or self-care (01) ==
LOC: HO.PMCPRC 09:15
PROVIDERS: PCP Internal Medicine; Visit Provider Internal Medicine
DX: M54.16 Radiculopathy, lumbar region (principal)
CPT/HCPCS: 64483

== ENCOUNTER 2025-02-21 11:40 | Outpatient (AMB) | payer OTHER, SELFPAY ==
--- NOTE | 2025-02-21 11:42 | A.OFFVIS_ITS ---
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 The injection provided limited relief, with only about 15% improvement in symptoms. The patient continues to experience chronic pain, which can escalate to a severity of 8 out of 10 with certain movements. The patient has a history of a herniated disc, with MRI findings indicating a slightly compressed nerve. The disc protrusion is not deemed severe enough to warrant surgical intervention at this time. Pain management includes the use of arthritic strength Tylenol and a patch for additional relief. The patient is reluctant to use stronger medications due to previous adverse experiences. Pain Description - Onset: Persistent pain following transforaminal steroid injection - Quality: Chronic pain with occasional spikes - Location: Associated with herniated disc - Exacerbating factors: Movement or twisting - Relieving factors: Arthritic strength Tylenol, patch Physical Exam - Appears afebrile. - Alert and oriented. - Mood and affect appropriate. - Follows and participates in conversation appropriately. - Respiratory effort is unlabored. - Able to transition from sit to stand unassisted. Results - MRI: Slightly compressed nerve, disc protrusion on one side Pain Management - Affect: Pain impacts daily activities, causing difficulty in movement - Analgesia: Current use of arthritic strength Tylenol and patch; pain level spikes to 8/10 - Adverse Effects: Avoidance of stronger medications due to past experiences - Activities of Daily Living: Pain affects ability to perform daily tasks - Aberrant Drug Related Behaviors: None reported [facility] Medical History Myelodysplastic syndrome GERD (gastroesophageal reflux disease) Generalized anxiety disorder BPH (benign prostatic hyperplasia) Nicotine dependence, cigarettes, uncomplicated Surgical History History of bone marrow biopsy History of cataract surgery Family History Mother Colon cancer, Onset Age: 84 Social History Household Members: Spouse Household Members Other:: 2 Housing: House Do you presently have visiting nurse or other home services: No Patient Tobacco Use Status: Current everyday Tobacco user Tobacco use type: Cigarette and Cigar Cigarette Packs Per Day: 1 Years Smoked: onset 16yo, 1ppd x 52yrs, now 1/2ppd - 50pyh Second Hand Smoke Exposure: No Use of substances other than those prescribed or required for medical reasons: No Have you been hit, kicked, punched, or otherwise hurt by someone within the past year? If so, by whom?: No Do you feel safe in your current relationship?: Yes Do you have thoughts of harming others: None Do you have a plan to hurt others: No Plan service: No Current occupational status: retired Physical Exam Vital Signs: Last Vital Signs Pulse 78 02/21/25 11:43 Resp 16 02/21/25 11:43 BP 112/60 02/21/25 11:43 Pulse Ox 98 02/21/25 11:43 Oxygen Delivery Method Room Air 02/21/25 11:43 BMI result Body Mass Index 24.2 Assessment & Plan Assessment & Plan (1) Lumbar radiculopathy: Code(s): M54.16 - Radiculopathy, lumbar region Category: Medical Plan Plan - Repeat right L5 transforaminal steroid injection in April. - Evaluate the potential for spinal cord stimulator if pain remains uncontrolled. - Maintain current pain management regimen with arthritic strength Tylenol and patch. Patient was informed and verbally consented to the use of an ambient scribe for clinic note documentation during this visit. Discussion Notes I discussed with the patient the limited relief from the recent transforaminal steroid injection and the possibility of repeating the procedure in April. We also talked about the option of a spinal cord stimulator if the pain does not improve with further injections. The patient was informed about the nature of the spinal cord stimulator, including its function and placement. Patient Instructions - Continue using arthritic strength Tylenol and patch as needed for pain relief. - Return for a follow-up injection in April. - Consider discussing spinal cord stimulator if pain persists after the next injection. Coding Level of Care Code Est Pt Level 3 (71528) Diagnoses Lumbar radiculopathy M54.16
--- OUTSIDE RECORDS SUMMARY | 2025-02-21 11:42 | XMS_ITS | Patient Health Record ---
Author Organization [facility] Address [address] [place] [phone] Care Team Providers Care Dairy Nutrition Consultant Name Role Phone [facility] Primary Care Provider [phone] Eugenia Unavailable [phone] Allergies No Known Allergies Results Component Value Reference Range Notes Hemoglobin F1o-[id number] Reviewed date:04/24/2024 06:31:12 PM Interpretation: Performing Lab:[facility] [place], [address] [facility], Phone - [phone], Director - Jolene Notes/Report: Hemoglobin A1c 6.3 4.8-5.6 % . Prediabetes: 5.7 - 6.4 Diabetes: >6.4 Glycemic control for adults with diabetes: <7.0 Urinalysis, Complete-[id number] Reviewed date:04/24/2024 06:31:12 PM Interpretation: Performing Lab:[facility] [place], [address] [place] [address], Phone - [phone], Director - Jolene Notes/Report: Specific Kamiah 1.024 1.005-1.030 pH 5.5 5.0-7.5 Urine-Color Yellow [...] None seen None seen/Few CBC With Differential/Platel et-[id number] Reviewed date:04/24/2024 06:31:12 PM Interpretation: Performing Lab:[facility], [address] [place] [address], Phone - [phone], Director - MDJodry Notes/Report: WBC 9.8 3.4-10.8 [...] NRBC 1 0 - 0 % Reticulocyte Count-397929 Reviewed date:04/24/2024 06:31:12 PM Interpretation: Performing Lab:[facility], [address] [facility], [place], Phone - [phone], Director - MDJodry Notes/Report: Reticulocyte Count 2.3 0.6-2.6 % Request Problem TNP Test not performed. Sample contaminated with EDTA which is not suitable for test ordered. TEST: [id number] Sodium Panel: [id number] 075404 Potassium Panel: 944790 597459 Chloride Panel: 758406 162546 Carbon Dioxide, Total Panel: [id number] 345055 Calcium Panel: 222139 356672 Alkaline Phosphatase Panel: 866377 Vitamin D, 47-Rekitnr-803003 Reviewed date:04/24/2024 06:31:13 PM Interpretation: Performing Lab:[facility] [place], [address] [place] [address], Phone - [phone], Director - Jolene Notes/Report: Vitamin D, 25-Hydroxy 28.1 30.0-100.0 ng/mL Vitamin D deficiency has been defined by the [place] of [employer] and an Endocrine Society practice guideline as a level of serum 25-OH vitamin D less than 20 ng/mL (1,2). The Endocrine Society went on to further define vitamin D insufficiency as a level between 21 and 29 ng/mL (2). 1. IOM ([place] of [employer]). 2010. Dietary reference intakes for calcium and D. [place]: The National Academies Press. 2. Kiko MF, Gigi DOMINGUEZ, Anya CUMMINGS, et al. Evaluation, treatment, and prevention of vitamin D deficiency: an Endocrine Society clinical practice guideline. JCEM. 2010; 96(7):1911-30. Albumin/Creatinine Ratio,[facility] ne-[id number] Reviewed date:04/24/2024 06:31:13 PM Interpretation: Performing Lab:[facility] [place], [address] [place] [address], Phone - [phone], Director - Jolene Notes/Report: Creatinine, Urine 238.5 Not Estab. mg/dL Albumin, Urine 31.5 Not Estab. ug/mL Alb/Creat Ratio 13 0-29 mg/g creat Normal: 0 - 29 Moderately increased: 30 - 300 Severely increased: >300 Comp. Metabolic Panel (14)-3 06519 Reviewed date:04/24/2024 06:31:13 PM Interpretation: Performing Lab:[facility] [place], [address] [place] [address], Phone - [phone], Director - Jolene Notes/Report: Glucose 96 70-99 [...] IU/L ALT (SGPT) 21 0-44 IU/L LP+Non-HDL Cholesterol-37965 5 Reviewed date:04/24/2024 06:31:13 PM Interpretation: Performing Lab:[facility], [address] [facility], Phone - [phone], Director - Jolene Notes/Report: Cholesterol, Total 92 100-199 mg/dL Triglycerides 57 0-149 mg/dL HDL Cholesterol 47 >39 mg/dL VLDL Cholesterol Romeo 13 5-40 mg/dL LDL Chol Calc ([facility]) 32 0-99 mg/dL Non-HDL Cholesterol 45 0-129 mg/dL Hemoglobin A1C Reviewed date:08/15/2024 04:32:37 PM Interpretation: Performing Lab: Notes/Report: [facility] [place] [facility] ([facility] [place] [facility] Lot: [id number] EKG Reviewed date:09/27/2024 03:02:43 PM Interpretation: Performing Lab: Notes/Report: ECGDiastolicBP 46 ECGHr 69 ECGPRInterval 180 ECGPWaveAxis 66 ECGQRSDuration 84 ECGQrsWaveAxis 52 ECGQTcInterval 409 ECGQTInterval 394 ECGSystolicBP 118 ECGTWaveAxis 55 RR_DiastolicBP 0 RR_MaxRRInterval 0 RR_MeanHR 0 RR_MeanRRInterval 0 RR_MinRRInterval 0 RR_NumBeats 0 RR_NumNormalBeats 0 RR_SystolicBP 0 Respiratory Panel w/ SARS-Co [id number] Reviewed date:01/09/2025 01:56:02 PM Interpretation: Performing Lab:[facility], [address] [facility], Phone - [phone], Director - Jolene Notes/Report: Adenovirus Not Detected [...] Sanofi Pasteur Influenza (Fluad) Unknown 04/25/2022 Administered URMKI-50-Wkeiwzt Vaccine Unknown 09/10/2020 Administered GZAZC-30-Obgbzku Vaccine Unknown 10/08/2020 Administered UQHIF-86-Dmvnlqy Vaccine Unknown 05/25/2021 Administered COVID-19 Moderna BiValent Booster Unknown 04/25/2022 Administered *Tdap IM Intramuscular 07/27/2016 Administered *PREVNAR 20 IM Intramuscular 02/03/2025 Administered *Pneumococcal polysaccharide PPV23 IM Intramuscular 04/27/2021 Administered *Influenza-Medicare-A S IM Intramuscular 04/24/2019 Administered *Influenza-Medicare-A S IM Intramuscular 04/27/2021 Administered *Fcizlwgoq-Nfvtfvd-Wa gh Dose-65+ IM Intramuscular 04/16/2024 Administered *Influenza, [...] W/U Status Risk Notes Problem Myelodysplastic syndrome (669699209) Myelodysplastic syndrome, unspecified (D46.9) Active confirmed Problem Folate deficiency anemia (46517034) Folate deficiency anemia, 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) Active confirmed Problem Diabetic renal disease (577213711) Type 2 diabetes mellitus with diabetic chronic kidney disease (E11.22) Active confirmed Problem Malnutrition of mild degree ([place]: 75% to less than 90% of standard weight) (13034997) Mild protein-calorie malnutrition (E44.1) Active confirmed Problem Vitamin D deficiency (91153023) Vitamin D deficiency, unspecified (E55.9) Active confirmed Problem Mixed hyperlipidemia (631157402) Mixed hyperlipidemia (E78.2) Active confirmed Problem Mental disorder caused by drug (807480106) Nicotine dependence, cigarettes, with unspecified nicotine-induced disorders (F17.219) Active confirmed Problem Generalized anxiety disorder (72471341) Generalized anxiety disorder (F41.1) Active confirmed Problem Angina co-occurrent and due to coronary arteriosclerosis (disorder) (80027671112520733) 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) Active confirmed Problem Atrial premature depolarization (620329018) Atrial premature depolarization (I49.1) Active confirmed Problem Gastro-esophageal reflux disease without esophagitis (168393361) Gastro-esophageal reflux disease without esophagitis (K21.9) Active confirmed Problem Gallbladder and bile duct calculi (408785004) Calculus of gallbladder and bile duct without cholecystitis without obstruction (K80.70) Active confirmed Problem Lumbosacral spondylosis without myelopathy (62034645) Other spondylosis with radiculopathy, lumbosacral region (M47.27) Active confirmed Problem Cervical disc disorder with radiculopathy (652462611) Cervical disc disorder with radiculopathy, high cervical region (M50.11) Active confirmed Problem Displacement of lumbar intervertebral disc without myelopathy (88676324) Other intervertebral disc displacement, lumbosacral region (M51.27) Active confirmed Problem Chronic kidney disease stage 2 (957860358) Chronic kidney disease, stage 2 (mild) (N18.2) Active confirmed Problem Syncope and collapse (106261126) Syncope and collapse (R55) Active confirmed Problem Family history of malignant neoplasm of gastrointestinal tract (663953959) Family history of malignant neoplasm of digestive organs (Z80.0) Active confirmed Problem Lower urinary tract symptoms due to benign prostatic hypertrophy (55063068852335) Benign prostatic hyperplasia with lower urinary tract symptoms (N40.1) Active confirmed Problem Age-related nuclear cataract of right eye (125145977165688) Age-related nuclear cataract, right eye (H25.11) Problem resolved confirmed Problem Age-related nuclear cataract of left eye (619273416755499) Age-related nuclear cataract, left eye (H25.12) Problem [...] Date Provider Diagnosis [facility] [address] [id number] 10/16/2024 [facility] MD [address] [id number] 01/09/2025 [facility] MD [address] [id number] 03/22/2024 [facility] Other fatigue R53.83 [facility] [address] [id number] 03/27/2024 [facility] MD [address] [id number] 08/12/2024 [facility] [address] [id number] 12/30/2024 [facility] MD [address] [id number] 12/30/2024 [facility] MD [address] [id number] 12/30/2024 [facility] Acute frontal sinusitis, unspecified J01.10 [facility] [address] [id number] 01/08/2025 [address] Acute cough R05.1 an d Acute upper respiratory infection, unspecified J06.9 [facility] [address] [id number] 02/03/2025 [facility] Type 2 diabetes mellitus with diabetic chronic kidney disease E11.22 ; Atherosclerotic heart disease of prairie band coronary artery with other forms of angina [...] for immunization Z23 [facility] [address] [id number] 08/15/2024 [facility] Type 2 diabetes mellitus with diabetic chronic kidney disease E11.22 ; Myelodysplastic syndrome, unspecified D46.9 ; Generalized anxiety disorder F41.1 ; 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 I25.118 ; Mixed hyperlipidemia E78.2 ; Gastro-esophageal reflux disease without esophagitis K21.9 ; Other spondylosis with radiculopathy, lumbosacral region M47.27 ; Nicotine dependence, cigarettes, with unspecified nicotine-induced disorders F17.219 and Vitamin D deficiency, unspecified E55.9 [facility] [address] [id number] 04/16/2024 [facility] Type 2 diabetes mellitus with diabetic chronic kidney disease E11.22 ; Myelodysplastic syndrome, unspecified D46.9 ; Generalized anxiety disorder F41.1 ; 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 I25.118 ; Mixed hyperlipidemia E78.2 ; Gastro-esophageal reflux disease without esophagitis K21.9 ; Other spondylosis with radiculopathy, lumbosacral region M47.27 ; Nicotine dependence, cigarettes, with unspecified nicotine-induced disorders F17.219 ; Vitamin D deficiency, unspecified E55.9 and Encounter for immunization Z23 [facility] [address] [id number] 05/14/2024 [facility] Type 2 diabetes mellitus with diabetic chronic kidney disease E11.22 ; Encounter for general adult medical examination without abnormal findings Z00.00 ; Myelodysplastic syndrome, unspecified D46.9 ; Generalized anxiety disorder F41.1 ; Atherosclerotic heart disease of prairie band coronary artery with other forms of angina [...] viral diseases Z11.59 [facility] [address] [id number] 09/23/2024 [facility] Type 2 diabetes mellitus with diabetic chronic kidney disease E11.22 ; Atherosclerotic heart disease of prairie band coronary artery with other forms of angina [...] to help further monitor his disease state. 12/30/2024 Acute frontal sinusitis, unspecified (ICD-10 - [...] or worsening symptoms despite these treatments 09/23/2024 Atherosclerotic heart disease of prairie band coronary artery with other forms of angina [...] risk for complications from a medical perspective. 02/03/2025 Type 2 diabetes mellitus with diabetic chronic kidney disease (ICD-10 - E11.22) Stable on prior labs as reviewed. His A1c is probably artifactually low based on rapid cell turnover from his myelodysplasia and transfusions. He has had 4 transfusions already this year. 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 Continue current control comorbidities including hyperlipidemia 02/03/2025 Myelodysplastic syndrome, unspecified (ICD-10 - D46.9) Fair control and stable. Continues to follow-up with hematology and continues to get Procrit as well as transfusions. 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 He says he does not have any progressive shortness of breath nor chest discomfort that would suggest progressive coronary disease and angina. Continue control of comorbidities 05/14/2024 Generalized anxiety disorder (ICD-10 - F41.1) Stable at present. 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 Continue current medical therapy. 09/23/2024 Generalized anxiety disorder (ICD-10 - F41.1) Fair control and stable with current medical therapy 02/03/2025 Generalized anxiety disorder (ICD-10 - F41.1) Stable with current medical therapy. 09/23/2024 Mixed hyperlipidemia (ICD-10 - E78.2) Controlled with current medical therapy with LDL less than 50. His goal would be LDL less than 40 to minimize plaque progression and hopefully allow plaque volume regression. 08/15/2024 Mixed hyperlipidemia (ICD-10 - E78.2) Stable with LDL less than 50. Continue current statin therapy. He is at goal which would be LDL less than 50 02/03/2025 Mild protein-calorie malnutrition (ICD-10 - E44.1) He is losing weight. He says he is unable to eat due to his dentures and that may be contributing to this. He has lost muscle mass as well and some of this may also be due to his progressive diseases. Continue nutritional support and encourage supplements 05/14/2024 Atherosclerotic heart disease of prairie band coronary artery with other forms of angina [...] less than 50. Continue current statin therapy 02/03/2025 Mixed hyperlipidemia (ICD-10 - E78.2) Stable on prior labs as reviewed with LDL less than 50. Recheck status. He is at goal with LDL less than 40 02/03/2025 Gastro-esophageal reflux disease without esophagitis (ICD-10 [...] (ICD-10 - F17.219) He is smoking again. 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 This would not only benefit his coronary artery disease but may also benefit his myelodysplasia 09/23/2024 Nicotine dependence, cigarettes, with unspecified nicotine-induced disorders (ICD-10 - F17.219) Smoking cessation has been counseled in the past 02/03/2025 Other spondylosis with radiculopathy, lumbosacral region (ICD-10 - M47.27) He is having increasing pain but has follow-up with pain management for reevaluation for injection 02/03/2025 Calculus of gallbladder and bile duct without cholecystitis without obstruction (ICD-10 - K80.70) Remains asymptomatic 09/23/2024 Vitamin D deficiency, unspecified (ICD-10 - [...] with unspecified nicotine-induced disorders (ICD-10 - F17.219) 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 02/03/2025 Nicotine dependence, cigarettes, with unspecified nicotine-induced disorders (ICD-10 - F17.219) He continues to smoke. 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 Recheck level and recommend vitamin D supplementation for goal level of 30+ 05/14/2024 Vitamin D deficiency, unspecified (ICD-10 - E55.9) Fair control on prior labs reviewed and recommend vitamin D supplementation for goal level of 30+ 05/14/2024 Encounter for screening for malignant neoplasm of colon (ICD-10 - Z12.11) Due for colon cancer screening but he refuses colon cancer screening 02/03/2025 Encounter for immunization (ICD-10 - Z23) [...] CT Low Dose Lung Screening 02/01/2023 Hemoglobin U5s-233963 02/03/2025 Hemoglobin G7h-170788 05/14/2024 Urinalysis, Complete-201160 05/14/2024 Urinalysis, Complete-37010802/03/2025 CBC With Differential/Platelet- CBC With Differential/Platelet-147031 Reticulocyte Count-498603 05/14/2024 Prostate-Specific Ag-436187 05/14/2024 Vitamin D, 31-Chpizfi-338562 05/14/2024 Vitamin D, 21-Abfugdw-245977 02/03/2025 Glucose Tolerance (4 Sp Blood)-719312 Albumin/Creatinine Ratio,Urine-823385 Albumin/Creatinine Ratio,Urine-566272 Comp. Metabolic Panel ([id number] 2024 Comp. 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
--- OUTSIDE RECORDS SUMMARY | 2025-02-21 11:42 | XMS_ITS | Clinical Summary ---
Author Organization [facility] Address [address] [place] [phone] Phone Care Team Providers Care Assistant Inventory Manager Name Role Phone Chas Borden MD Primary Care Provider [phone] Allergies No known active allergies Medications multivitamin [...] AM EDT Narrative 03/30/2020 12:37 PM EDT [facility] Diagnostic Imaging Department [address] [place] [address] Patient: NEREIDAOMARMAN SOTOMAYOR /Age/Sex: 1955 - 65 - M Unit#: [id number] Location/Status: SPDIUS/REG CLI Mnemonic/Ordering Site: [facility] Ordering Physician: CHAS BORDEN MD US Abdomen [...] bifurcation. IMPRESSION: No visualized abdominal aortic aneurysm. [id number] Dictating Physician: SANTIAGO JNO MD Electronically Signed by: SANTIAGO JON MD Dic Date/Time: 03/30/20 1236 Sign date/Time: 03/30/20 1237 Procedure Note Santiago Jon MD - 06/29/2022 [facility] Diagnostic Imaging Department [address] [place] [id number] Patient: BRANMAN MarinelliO.B./Age/Sex: 1955 - 65 - M Unit#: [id number] Location/Status: SPDIUS/REG CLI Mnemonic/Ordering Site: [facility] Ordering Physician: CHAS BRODEN MD US Abdomen Aorta Scr Study AAA - 03/30/20 - HISTORY: Abdominal aortic aneurysm screening with history of priorsmoker FINDINGS: Transabdominal ultrasound examination of the abdominal aortawas performed. The abdominal aorta measures up to 2.8 cm proximally and 1.6cm distally. There is no aneurysm identified. There is normal appearance ofthe aortic bifurcation. IMPRESSION: No visualized abdominal aortic aneurysm. [id number] Dictating Physician: SANTIAGO JON MD Electronically Signed by: SANTIAGO JON MD Dic Date/Time: 03/30/20 1236 Sign date/Time: 03/30/20 1237 Chas Borden MD IMG PROCEDURES Final Result from Last 3 Months or Most Recently Relevant to Health Maintenance Insurance [place] [employer] [facility] MEDICARE Care Teams Assistant Inventory Manager Relationship Specialty Start Date End Date Chas Borden MD [address] [place] [id number] PCP - General Internal Medicine 10/16/24
[2025-02-21 11:43] VITALS: BP 112/60; PULSE 78; RESP 16; O2SAT 98; BMI 24.2
== END 2025-02-21 12:10 | disposition home or self-care (01) ==
LOC: HO.PMC 11:41
PROVIDERS: PCP Internal Medicine; Visit Provider Internal Medicine
DX: M54.16 Radiculopathy, lumbar region (principal)
CPT/HCPCS: 99213

== ENCOUNTER 2025-03-31 10:29 | Outpatient (REF) | payer OTHER, SELFPAY ==
--- OUTSIDE RECORDS SUMMARY | 2025-03-27 13:38 | XMS_ITS ---
Author Organization Chas Noel MD Address [address] [place] [phone] Care Team Providers Care Cupola Melting Supervisor Name Role Phone Chas Noel Primary Care Provider REASON FOR VISIT Mammogram orders Encounters Encounter Location Date Provider Diagnosis Chas Noel MD [address] [phone] 03/27/2025 Chas Noel Hypertrophy of breas t N62 Assessments Encounter Date Diagnosis (ICD Code) Assessment Notes Treatment Notes Treatment Clinical Notes Section Notes 03/27/2025 Hypertrophy of breast (ICD-10 - N62) Plan Of Treatment Pending Test Test Name Order Date [facility] 03/27/2025 Next Appt Details Provider Name:Chas Noel , 05/30/2025 10:00:00 AM, [address] [place] [address], [phone], Progress Notes * Javan JOEOB:1954 (70 yo M)Acc No.[id number]:03/27/2025 Patient: Thomas Man CARLIN :1955 A ge:70 Y S ex:Male Address:[address] [place] [address], [phone] Subjective: * Chief Complaints: * M ammogram orders * Medical History: * Surgical History: * Hospitalization/Major Diagno stic Procedure: * Medications: Objective: * Vitals: Past Vitals:* 03/25/2025 Temp:97.1F, Wt:163lbs, BMI:2 4.78Index, Ht:5 ft 8 in * 02/03/2025 Temp:96.8F, HR:69/min, BP:Si tting Right Arm: 100/40mm Hg, Wt:163lbs, BMI:24.78Index, Ht:5 ft 8 in, Oxygen sat %:97% * 01/08/2025 Temp:96.3F, HR:76/min, Wt:17 1lbs, BMI:26Index, Ht:5 ft 8 in, Oxygen sat %:97% * Physical Examination: Assessment: * Assessment: 1. H ypertrophy of breast - N62 (Primary) Plan: * Treatment: * Procedure Codes: * true * Date: Generated for Josh quispe/[place]/Kina on: 0 03/31/2025 12:48 PM EDT
--- OUTSIDE RECORDS SUMMARY | 2025-03-31 12:48 | XMS_ITS | Patient Health Record ---
Author Organization [facility] Address [address] [id number] Care Team Providers Care Drug Room Clerk Name Role Phone Chas No[facility] Primary Care Provider Yanick Fordley Unavailable [phone] Allergies No Known Allergies Results Component Value Reference Range Notes Respiratory Panel w/ SARS-Co [id number] Reviewed date:01/09/2025 01:56:02 PM Interpretation: Performing Lab:[facility] [place], [address] [place] [address], Phone - [phone], Director - Jolene Notes/Report: Adenovirus Not Detected [...] Detected Mycoplasma pneumoniae Not Detected Not Detected Hemoglobin A1C Reviewed date:08/15/2024 04:32:37 PM Interpretation: Performing Lab: Notes/Report: [facility] [place] [facility] ([facility] [place] [facility]), [facility] Lot: [id number] EKG Reviewed date:09/27/2024 03:02:43 PM Interpretation: Performing Lab: Notes/Report: ECGDiastolicBP 46 ECGHr 69 ECGPRInterval 180 ECGPWaveAxis 66 ECGQRSDuration 84 ECGQrsWaveAxis 52 ECGQTcInterval 409 ECGQTInterval 394 ECGSystolicBP 118 ECGTWaveAxis 55 RR_DiastolicBP 0 RR_MaxRRInterval 0 RR_MeanHR 0 RR_MeanRRInterval 0 RR_MinRRInterval 0 RR_NumBeats 0 RR_NumNormalBeats 0 RR_SystolicBP 0 Hemoglobin S1x-850956 Reviewed date:04/24/2024 06:31:12 PM Interpretation: Performing Lab:[facility], [address] [place] [address], Phone - [phone], Director - Jolene Notes/Report: Hemoglobin A1c 6.3 4.8-5.6 % . Prediabetes: 5.7 - 6.4 Diabetes: >6.4 Glycemic control for adults with diabetes: <7.0 Urinalysis, Complete-[id number] Reviewed date:04/24/2024 06:31:12 PM Interpretation: Performing Lab:[facility], [address] [place] [address], [place], Phone - [phone], Director - Jolene Notes/Report: Specific [place] 1.024 1.005-1.030 pH 5.5 5.0-7.5 Urine-Color Yellow [...] None seen None seen/Few CBC With Differential/Platel et-707176 Reviewed date:04/24/2024 06:31:12 PM Interpretation: Performing Lab:[facility] [address] [place] [address], Phone - [phone], Director - MDJodry Notes/Report: WBC 9.8 3.4-10.8 [...] NRBC 1 0 - 0 % Reticulocyte Count-617758 Reviewed date:04/24/2024 06:31:12 PM Interpretation: Performing Lab:[facility], [address] [place] [address], Phone - [phone], Director - [facility] Notes/Report: Reticulocyte Count 2.3 0.6-2.6 % Request Problem TNP Test not performed. Sample contaminated with EDTA which is not suitable for test ordered. TEST: [id number] Sodium Panel: 709281 088372 Potassium Panel: 696189 787271 Chloride Panel: 218948 179354 Carbon Dioxide, Total Panel: 087431 786105 Calcium Panel: 660776 801022 Alkaline Phosphatase Panel: 122574 Vitamin D, 46-Ryuzrqz-933374 Reviewed date:04/24/2024 06:31:13 PM Interpretation: Performing Lab:[facility] [place], [address] [facility], [place], Phone - [phone], Director - COVincenzoy Notes/Report: Vitamin D, 25-Hydroxy 28.1 30.0-100.0 ng/mL Vitamin D deficiency has been defined by the [place] of Medicine and an Endocrine Society practice guideline as a level of serum 25-OH vitamin D less than 20 ng/mL (1,2). The Endocrine Society went on to further define vitamin D insufficiency as a level between 21 and 29 ng/mL (2). 1. IOM ([place] of Medicine). 2010. Dietary reference intakes for calcium and D. [place]: The National Academies Press. 2. Kiko MF, Gigi DOMINGUEZ, Anya CUMMINGS, et al. Evaluation, treatment, and prevention of vitamin D deficiency: an Endocrine Society clinical practice guideline. JCEM. 2010; 96(7):1911-30. Albumin/Creatinine Ratio,Uri ne-961883 Reviewed date:04/24/2024 06:31:13 PM Interpretation: Performing Lab:[facility], [address] [facility], Phone - [phone], Director - Jolene Notes/Report: Creatinine, Urine 238.5 Not Estab. mg/dL Albumin, Urine 31.5 Not Estab. ug/mL Alb/Creat Ratio 13 0-29 mg/g creat Normal: 0 - 29 Moderately increased: 30 - 300 Severely increased: >300 Comp. Metabolic Panel (14)-3 90161 Reviewed date:04/24/2024 06:31:13 PM Interpretation: Performing Lab:[facility], [address] [facility], [place], Phone - [phone], Director - Jolene Notes/Report: Glucose 96 70-99 [...] IU/L ALT (SGPT) 21 0-44 IU/L LP+Non-HDL Cholesterol-45936 5 Reviewed date:04/24/2024 06:31:13 PM Interpretation: Performing Lab:[facility], [address], [place], Phone - [phone], Director - Jolene Notes/Report: Cholesterol, Total 92 100-199 mg/dL Triglycerides 57 0-149 mg/dL HDL Cholesterol 47 >39 mg/dL VLDL Cholesterol Romeo 13 5-40 mg/dL LDL Chol Calc (NIH) 32 0-99 mg/dL Non-HDL Cholesterol 45 0-129 mg/dL Reason For Referral No Information Medications Medication SIG (Take, Route, Frequency, Duration) Notes Start Date End Date Status Escitalopram Oxalate 10 MG TAKE 1 TABLET BY MOUTH DAILY; Duration: 90 Active Rosuvastatin Calcium 40 MG TAKE 1 TABLET BY MOUTH ONCE A DAY.; Duration: 30 Active Metoprolol Succinate ER 50 MG TAKE 1/2 TABLET (25MG) BY MOUTH ONCE A DAY; Duration: 30 Active Zinc Active LORazepam 1 MG 1 tablet at bedtime as needed Orally Every 8 hours 04/25/2023 Not-Taking Aspirin Low Dose 81 MG TAKE 1 TABLET BY MOUTH ONCE A DAY; Duration: 30 Active Famotidine 20 MG 1 tablet at bedtime Orally Once a day Active Immunizations Vaccine Route Administration Date Status Comme nts Influenza (Fluad) Unknown 04/25/2022 Administered Influenza, seasonal, injectable (split), for 3 yrs and up IM Intramuscular 04/08/2020 Administered Mfd by [employer] Paste[employer] KXWBP-44-Nkicjvs Vaccine Unknown 09/10/2020 Administered LHGOI-45-Racuhcp Vaccine Unknown 10/08/2020 Administered WECFJ-07-Olbvtii Vaccine Unknown 05/25/2021 Administered COVID-19 Moderna BiValent Booster Unknown 04/25/2022 Administered *Tdap IM Intramuscular 07/27/2016 Administered *PREVNAR 20 IM Intramuscular 02/03/2025 Administered *Pneumococcal polysaccharide PPV23 IM Intramuscular 04/27/2021 Administered *Influenza-Medicare-A S IM Intramuscular 04/24/2019 Administered *Influenza-Medicare-A S IM Intramuscular 04/27/2021 Administered *Tmolxqopv-Gcwxhwd-Rm gh Dose-65+ IM Intramuscular 04/16/2024 Administered *Influenza, [...] W/U Status Risk Notes Problem Myelodysplastic syndrome (363846230) Myelodysplastic syndrome, unspecified (D46.9) Active confirmed Problem Folate deficiency anemia (59177664) Folate deficiency anemia, 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) Active confirmed Problem Diabetic renal disease (770602062) Type 2 diabetes mellitus with diabetic chronic kidney disease (E11.22) Active confirmed Problem Malnutrition of mild degree ([place]: 75% to less than 90% of standard weight) (47395756) Mild protein-calorie malnutrition (E44.1) Active confirmed Problem Vitamin D deficiency (53168210) Vitamin D deficiency, unspecified (E55.9) Active confirmed Problem Mixed hyperlipidemia (476009185) Mixed hyperlipidemia (E78.2) Active confirmed Problem Mental disorder caused by drug (498325936) Nicotine dependence, cigarettes, with unspecified nicotine-induced disorders (F17.219) Active confirmed Problem Generalized anxiety disorder (49836283) Generalized anxiety disorder (F41.1) Active confirmed Problem Angina co-occurrent and due to coronary arteriosclerosis (disorder) (49739069646413617) 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) Active confirmed Problem Atrial premature depolarization (389850778) Atrial premature depolarization (I49.1) Active confirmed Problem Gastro-esophageal reflux disease without esophagitis (049134462) Gastro-esophageal reflux disease without esophagitis (K21.9) Active confirmed Problem Gallbladder and bile duct calculi (083115218) Calculus of gallbladder and bile duct without cholecystitis without obstruction (K80.70) Active confirmed Problem Lumbosacral spondylosis without myelopathy (31742087) Other spondylosis with radiculopathy, lumbosacral region (M47.27) Active confirmed Problem Cervical disc disorder with radiculopathy (277138844) Cervical disc disorder with radiculopathy, high cervical region (M50.11) Active confirmed Problem Displacement of lumbar intervertebral disc without myelopathy (72390844) Other intervertebral disc displacement, lumbosacral region (M51.27) Active confirmed Problem Chronic kidney disease stage 2 (829278671) Chronic kidney disease, stage 2 (mild) (N18.2) Active confirmed Problem Hypertrophy of breast (532202889) Hypertrophy of breast (N62) Active confirmed Problem Syncope and collapse (228692900) Syncope and collapse (R55) Active confirmed Problem Family history of malignant neoplasm of gastrointestinal tract (204848587) Family history of malignant neoplasm of digestive organs (Z80.0) Active confirmed Problem Lower urinary tract symptoms due to benign prostatic hypertrophy (31712101613873) Benign prostatic hyperplasia with lower urinary tract symptoms (N40.1) Active confirmed Problem Age-related nuclear cataract of right eye (080480283689636) Age-related nuclear cataract, right eye (H25.11) Problem resolved confirmed Problem Age-related nuclear cataract of left eye (492392197424462) Age-related nuclear cataract, left eye (H25.12) Problem resolved confirmed Vital Signs Heart Rate 69 /min 02/03/2025 Temperature 97.1 degrees Fahrenheit 03/25/2025 Blood pressure diastolic 40 mm Hg 02/03/2025 Oximetry 97 % 02/03/2025 Height 5 ft 8 in in 03/25/2025 Blood pressure systolic 100 mm Hg 02/03/2025 Weight 163 lbs 03/25/2025 BMI 24.78 kg/m2 03/25/2025 Encounters Encounter Location Date Provider Diagnosis Chas Noel MD [address] [id number] 04/16/2024 Chas Noel Type 2 diabetes mellitus with diabetic chronic kidney disease E11.22 ; Myelodysplastic syndrome, unspecified D46.9 ; Generalized anxiety disorder F41.1 ; Atherosclerotic heart disease of [place]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 I25.118 ; Mixed hyperlipidemia E78.2 ; Gastro-esophageal reflux disease without esophagitis K21.9 ; Other spondylosis with radiculopathy, lumbosacral region M47.27 ; Nicotine dependence, cigarettes, with unspecified nicotine-induced disorders F17.219 ; Vitamin D deficiency, unspecified E55.9 and Encounter for immunization Z23 Chas Noel MD [address] [id number] 05/14/2024 Chas Noel Type 2 diabetes mellitus with diabetic chronic kidney disease E11.22 ; Encounter for general adult medical examination without abnormal findings Z00.00 ; Myelodysplastic syndrome, unspecified D46.9 ; Generalized anxiety disorder F41.1 ; Atherosclerotic heart disease of [place] coronary artery with other forms of angina [...] other viral diseases Z11.59 Chas Noel MD [address] [id number] 08/15/2024 Chas Noel Type 2 diabetes mellitus with diabetic chronic kidney disease E11.22 ; Myelodysplastic syndrome, unspecified D46.9 ; Generalized anxiety disorder F41.1 ; Atherosclerotic heart disease of [place]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 I25.118 ; Mixed hyperlipidemia E78.2 ; Gastro-esophageal reflux disease without esophagitis K21.9 ; Other spondylosis with radiculopathy, lumbosacral region M47.27 ; Nicotine dependence, cigarettes, with unspecified nicotine-induced disorders F17.219 and Vitamin D deficiency, unspecified E55.9 Chas Noel MD [address] [id number] 09/23/2024 Chas Noel Type 2 diabetes mellitus with diabetic chronic kidney disease E11.22 ; Atherosclerotic heart disease of [place]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 I25.118 ; Myelodysplastic syndrome, unspecified D46.9 ; Generalized anxiety disorder F41.1 ; Mixed hyperlipidemia E78.2 ; Gastro-esophageal reflux disease without esophagitis K21.9 ; Other spondylosis with radiculopathy, lumbosacral region M47.27 ; Nicotine dependence, cigarettes, with unspecified nicotine-induced disorders F17.219 and Vitamin D deficiency, unspecified E55.9 Chas Noel MD [address] [id number] 01/08/2025 Eugenia Ford Acute cough R05.1 an d Acute upper respiratory infection, unspecified J06.9 Chas Noel MD [address] [id number] 02/03/2025 Chas Noel Type 2 diabetes mellitus with diabetic chronic kidney disease E11.22 ; Atherosclerotic heart disease of [place] coronary artery with other forms of angina [...] Encounter for immunization Z23 Chas Noel MD [address] [id number] 03/25/2025 Chas Noel Hypertrophy of breas t N62 Chas Noel MD [address] [id number] 10/16/2024 Chas Noel MD [address] [id number] 01/09/2025 Chas Noel MD [address] [id number] 03/27/2025 Chas Noel Hypertrophy of breas t N62 Chas Noel MD [address] [id number] 08/12/2024 Chas Noel MD [facility] [address] [place] [id number] 12/30/2024 Chas Noel MD [address] [id number] 12/30/2024 Chas Noel MD [address] [id number] 12/30/2024 Chas Noel Acute frontal sinusitis, unspecified J01.10 Chas Noel MD [address] [id number] 03/19/2025 Chas Noel Assessments Encounter Date Diagnosis (ICD Code) Assessment Notes Treatment Notes Treatment Clinical Notes Section Notes 05/14/2024 Type 2 diabetes mellitus with diabetic [...] disease state. 09/23/2024 Atherosclerotic heart disease of [place] coronary artery with other forms of angina [...] risk for complications from a medical perspective. 12/30/2024 Acute frontal sinusitis, unspecified (ICD-10 - [...] this year. 02/03/2025 Atherosclerotic heart disease of [place]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 (ICD-10 - I25.118) Symptomatically stable at present time. Continue current control comorbidities including hyperlipidemia 03/25/2025 Hypertrophy of breast (ICD-10 - N62) Tenderness and pain in the left breast, especially when pressed, with swelling present. Concern for possible tumor, hormonal imbalance, or medication side effect. No symptoms on the right side. Patient scheduled for blood work and mammogram to evaluate underlying cause. - Order hormone panel to assess for hormonal causes. - Order blood work to evaluate for other contributing factors. - Order mammogram to rule out tumor or other breast pathology. 03/27/2025 Hypertrophy of breast (ICD-10 - N62) 04/16/2024 Myelodysplastic syndrome, unspecified (ICD-10 - D46.9) [...] well with current medical therapy. Continue same 02/03/2025 Myelodysplastic syndrome, unspecified (ICD-10 - D46.9) [...] periodic follow-up with hematology and Retacrit injections 05/14/2024 Generalized anxiety disorder (ICD-10 - F41.1) Stable at present. Continue current medical therapy 08/15/2024 Atherosclerotic heart disease of [place]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 (ICD-10 - I25.118) Symptomatically stable without any active symptoms. Continue current medical therapy. 09/23/2024 Generalized anxiety disorder (ICD-10 - F41.1) Fair control and stable with current medical therapy 02/03/2025 Generalized anxiety disorder (ICD-10 - F41.1) Stable with current medical therapy. 04/16/2024 Atherosclerotic heart disease of [place]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 (ICD-10 - I25.118) Symptomatically stable. He says he does not have any progressive shortness of breath nor chest discomfort that would suggest progressive coronary disease and angina. Continue control of comorbidities 04/16/2024 Mixed hyperlipidemia (ICD-10 - E78.2) Stable with LDL less than 50. Continue current medical therapy. 02/03/2025 Mild protein-calorie malnutrition (ICD-10 - E44.1) He is losing weight. He says he is unable to eat due to his dentures and that may be contributing to this. He has lost muscle mass as well and some of this may also be due to his progressive diseases. Continue nutritional support and encourage supplements 09/23/2024 Mixed hyperlipidemia (ICD-10 - E78.2) Controlled with current medical therapy with LDL less than 50. His goal would be LDL less than 40 to minimize plaque progression and hopefully allow plaque volume regression. 08/15/2024 Mixed hyperlipidemia (ICD-10 - E78.2) Stable with LDL less than 50. Continue current statin therapy. He is at goal which would be LDL less than 50 05/14/2024 Atherosclerotic heart disease of [place]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 (ICD-10 - I25.118) Stable without any active symptoms. Continue medical therapy with beta-savage and statin and aspirin 05/14/2024 Mixed hyperlipidemia (ICD-10 - E78.2) Stable [...] at goal with LDL less than 40 04/16/2024 Gastro-esophageal reflux disease without esophagitis (ICD-10 [...] another MRI and evaluation for surgical intervention 02/03/2025 Gastro-esophageal reflux disease without esophagitis (ICD-10 - K21.9) Symptomatically stable at present 09/23/2024 Other spondylosis with radiculopathy, lumbosacral region (ICD-10 - M47.27) Stable with periodic injections 08/15/2024 Other spondylosis with radiculopathy, lumbosacral region (ICD-10 - M47.27) Stable with periodic injections. He said he just had his injection last week as well. 05/14/2024 Gastro-esophageal reflux disease without esophagitis (ICD-10 - K21.9) Symptomatically stable at present. 05/14/2024 Other spondylosis with radiculopathy, lumbosacral region (ICD-10 - M47.27) Stable with periodic injections. Continue same. 08/15/2024 Nicotine dependence, cigarettes, with unspecified nicotine-induced disorders (ICD-10 - F17.219) [employer] smoking cessation. This would not only benefit his coronary artery disease but may also benefit his myelodysplasia 09/23/2024 Nicotine dependence, cigarettes, with unspecified nicotine-induced disorders (ICD-10 - F17.219) Smoking cessation has been counseled in the past 02/03/2025 Other spondylosis with radiculopathy, lumbosacral region (ICD-10 - M47.27) He is having increasing pain but has follow-up with pain management for reevaluation for injection 04/16/2024 Nicotine dependence, cigarettes, with unspecified nicotine-induced disorders (ICD-10 - F17.219) He is smoking again. [employer] smoking cessation. 04/16/2024 Vitamin D deficiency, unspecified (ICD-10 - E55.9) Fair control and prior labs reviewed. Recommend vitamin D supplementation for goal level of 30+. Recheck status 02/03/2025 Calculus of gallbladder and bile duct [...] colonoscopies until he is 70 years old. 05/14/2024 Nicotine dependence, cigarettes, with unspecified nicotine-induced disorders (ICD-10 - F17.219) [employer] smoking cessation. 02/03/2025 Nicotine dependence, cigarettes, with unspecified nicotine-induced disorders (ICD-10 - F17.219) He continues to smoke. [employer] smoking cessation to potentially benefit his myelodysplasia and heart disease 04/16/2024 Encounter for immunization (ICD-10 - Z23) 02/03/2025 Vitamin D deficiency, unspecified (ICD-10 - [...] syntax. Also labs were reviewed with patient. 03/25/2025 Other This note was created with a combination of voice dictation recognition software in combination with voice recognition software with AI as allowed by patient consent. It may contain errors of grammar and syntax. Also labs were reviewed with patient. Plan Of Treatment Pending Test Test Name Order Date COMPLETE CBC WITH DIFF 02/02/2023 FOLIC ACID 02/02/2023 FOLATE 08/21/2018 CR Upper GI Small Bowel Series 3 [facility] 03/27/2025 CT Low Dose Lung Screening 02/01/2023 Hemoglobin O5t-209443 05/14/2024 Hemoglobin W4v-239825 02/03/2025 Urinalysis, Complete-222592 02/03/2025 Urinalysis, Complete-755489 05/14/2024 Prolactin-775378 03/25/2025 Estradiol-554525 03/25/2025 CBC With Differential/Platelet-931199 CBC With Differential/Platelet-090324 Reticulocyte Count-782273 05/14/2024 Prostate-Specific Ag-866910 05/14/2024 Testosterone, F Eqlib+T LC/MS-190648 Vitamin D, 59-Wumnipz-718337 05/14/2024 Vitamin D, 79-Tfrldlm-041505 02/03/2025 Glucose Tolerance (4 Sp Blood)-958348 Albumin/Creatinine Ratio,Urine-563522 Albumin/Creatinine Ratio,Urine-854964 Comp. Metabolic Panel (14)-[id number] 2023 Comp. Metabolic Panel (14)-315501 2024 LP+Non-HDL Cholesterol-786806 05/14/2024 LP+Non-HDL Cholesterol-731930 02/03/2025 HCV Antibody-502129 05/14/2024 Next Appt Details Provider Name:Chas Noel , 05/30/2025 10:00:00 AM, [address] [facility], [address], [place], [place], [phone], Insurance Providers Payer Name Payer Address Payer Phone Subscriber Number Group Number Insured Name Patient Relationship to Insured Coverage Start Date Coverage End Date [employer] [address] [address] [place] [address] [id number] Man Joe Self - patient is the [...]
--- OUTSIDE RECORDS SUMMARY | 2025-03-31 12:48 | XMS_ITS | Clinical Summary ---
Author Organization [facility] Address [address] [place] [phone] Phone Care Team Providers Care Fire Alarm Installer Name Role Phone Chas Borden MD Primary Care Provider [phone] Allergies No known active allergies Medications multivitamin [...] 1974 Zoster Vaccines (1 of 2) 2005 Depression Screening 07/10/2024 Cholesterol Screening (Lipid Panel) 10/03/2024 Colorectal Cancer Screening: Colonoscopy 10/03/2024 Hepatitis C Screening 10/03/2024 Social Influencers of Health Screening 10/03/2024 COVID-19 Vaccine (1 - 2023-2 5 season) 2025 Influenza Vaccine (#1) 2025 Falls Risk Assessment [...] AM EDT Narrative 03/30/2020 12:37 PM EDT [facility] Diagnostic Imaging Department [address] [place] [address] Patient: NEREIDAOMARMAN SOTOMAYOR /Age/Sex: 1955 - 65 - M Unit#: [id number] Location/Status: SPDIUS/REG CLI Mnemonic/[facility] Ordering Physician: CHAS BORDEN MD US Abdomen [...] bifurcation. IMPRESSION: No visualized abdominal aortic aneurysm. [id number] Dictating Physician: SANTIAGO JON MD Electronically Signed by: SANTIAGO JON MD Dic Date/Time: 03/30/20 1236 Sign date/Time: 03/30/20 1237 Procedure Note Santiago Jon MD - 06/29/2022 [facility] Diagnostic Imaging Department [address] [place] [id number] Patient: BRANMAN MarinelliO.B./Age/Sex: 1955 - 65 - M Unit#: [id number] Location/Status: SPDIUS/REG CLI Mnemonic/Ordering Site: [facility] Ordering [...] bifurcation. IMPRESSION: No visualized abdominal aortic aneurysm. [id number] Dictating Physician: SANTIAGO JON MD Electronically Signed by: SANTIAGO JON MD Dic Date/Time: 03/30/20 1236 Sign date/Time: 03/30/20 1237 Chas Borden MD IMG PROCEDURES Final Result from Last 3 Months or Most Recently Relevant to Health Maintenance Insurance [employer] [facility] MEDICARE Care Teams Fire Alarm Installer Relationship Specialty Start Date End Date Chas Borden MD [address] [place] [phone] PCP - General Internal Medicine 10/16/24
[2025-04-04 18:54] LABS: Testosterone, Free 43.8 pg/mL (30.0-135.0)
[2025-04-10 04:39] LABS: Estradiol Free 0.63 pg/mL; Estradiol, Ultrasensitive 34 pg/mL (< OR = 29)
== END 2025-03-31 10:30 | disposition home or self-care (01) ==
LOC: HO.LAB 10:29
PROVIDERS: Visit Provider Internal Medicine
DX: N62 Hypertrophy of breast (principal)
CPT/HCPCS: 36415; 82670; 82681; 84146; 84402; 84403

== ENCOUNTER 2025-04-10 08:18 | Outpatient (REF) | payer OTHER, SELFPAY ==
--- OUTSIDE RECORDS SUMMARY | 2025-04-10 08:28 | XMS_ITS | Patient Health Record ---
Author Organization [facility] Address [address] [id number] Care Team Providers Care Garage Door Opener Installer Name Role Phone Chas Noel Primary Care Provider [phone] [address] Unavailable [phone] Allergies No Known Allergies Results Component Value Reference Range Notes Hemoglobin A1C Reviewed date:08/15/2024 04:32:37 PM Interpretation: Performing Lab: Notes/Report: [facility] [place] [facility] ([facility] [place] [facility]), [facility] Lot: [id number] Respiratory Panel w/ SARS-Co [id number] Reviewed date:01/09/2025 01:56:02 PM Interpretation: Performing Lab:[facility] Reyes, [address] [place] [address], [place], Phone - [phone], Director - Jolene Notes/Report: Adenovirus Not Detected [...] Mycoplasma pneumoniae Not Detected Not Detected Hemoglobin V4o-[id number] Reviewed date:04/24/2024 06:31:12 PM Interpretation: Performing Lab:[facility] [place], [address] [place] [address], Phone - [phone], Director - Jolene Notes/Report: Hemoglobin A1c 6.3 4.8-5.6 % . Prediabetes: 5.7 - 6.4 Diabetes: >6.4 Glycemic control for adults with diabetes: <7.0 Urinalysis, Complete-[id number] Reviewed date:04/24/2024 06:31:12 PM Interpretation: Performing Lab:[facility], [address] [place] [address], Phone - [phone], Director - Jolene Notes/Report: Specific [place] 1.024 1.005-1.030 pH 5.5 5.0-7.5 Urine-Color Yellow [...] None seen None seen/Few CBC With Differential/Platel et-456692 Reviewed date:04/24/2024 06:31:12 PM Interpretation: Performing Lab:[facility] [place], [address] [place] [address], Phone - [phone], Director - Jolene Notes/Report: WBC 9.8 3.4-10.8 [...] NRBC 1 0 - 0 % Reticulocyte Count-997749 Reviewed date:04/24/2024 06:31:12 PM Interpretation: Performing Lab:[facility] [place], [address] [place] [address], Phone - [phone], Director - Jolene Notes/Report: Reticulocyte Count 2.3 0.6-2.6 % Request Problem TNP Test not performed. Sample contaminated with EDTA which is not suitable for test ordered. TEST: [id number] Sodium Panel: 171886 349092 Potassium Panel: 022714 722672 Chloride Panel: 174348 418213 Carbon Dioxide, Total Panel: 238163 698643 Calcium Panel: 060961 084897 Alkaline Phosphatase Panel: 513864 Vitamin D, 68-Cuhqugz-590444 Reviewed date:04/24/2024 06:31:13 PM Interpretation: Performing Lab:[facility] [place], [address] [place] [address], [place], Phone - [phone], Director - Jolene Notes/Report: Vitamin D, 25-Hydroxy 28.1 30.0-100.0 ng/mL Vitamin D deficiency has been defined by the [place] of Medicine and an Endocrine Society practice guideline as a level of serum 25-OH vitamin D less than 20 ng/mL (1,2). The Endocrine Society went on to further define vitamin D insufficiency as a level between 21 and 29 ng/mL (2). 1. IOM ([place] of Medicine). 2010. Dietary reference intakes for calcium and D. [place]: The National Academies Press. 2. Kiko MF, Gigi NC, Anya CUMMINGS, et al. Evaluation, treatment, and prevention of vitamin D deficiency: an Endocrine Society clinical practice guideline. JCEM. 2011 Bud; 96(7):1911-30. Albumin/Creatinine Ratio,Uri ne-670744 Reviewed date:04/24/2024 06:31:13 PM Interpretation: Performing Lab:[facility] Reyes, [address] [place] [address], Phone - [phone], Director - MDLizzydry Notes/Report: Creatinine, Urine 238.5 Not Estab. mg/dL Albumin, Urine 31.5 Not Estab. ug/mL Alb/Creat Ratio 13 0-29 mg/g creat Normal: 0 - 29 Moderately increased: 30 - 300 Severely increased: >300 Comp. Metabolic Panel (14)-3 76326 Reviewed date:04/24/2024 06:31:13 PM Interpretation: Performing Lab:[facility] Reyes, [address] [place] [address], [place], Phone - [phone], Director - Payaly Notes/Report: Glucose 96 70-99 mg/dL BUN 7 [...] IU/L ALT (SGPT) 21 0-44 IU/L LP+Non-HDL Cholesterol-94743 5 Reviewed date:04/24/2024 06:31:13 PM Interpretation: Performing Lab:[facility]nal[facility]mond Reyes, [address] [facility], [place], Phone - [phone], Director - MDJodry Notes/Report: Cholesterol, Total 92 100-199 mg/dL Triglycerides 57 0-149 mg/dL HDL Cholesterol 47 >39 mg/dL VLDL Cholesterol Romeo 13 5-40 mg/dL LDL Chol Calc ([facility]) 32 0-99 mg/dL Non-HDL Cholesterol 45 0-129 mg/dL EKG Reviewed date:09/27/2024 03:02:43 PM Interpretation: Performing [...] Intramuscular 04/08/2020 Administered Mfd by [employer] Pasteur QHWUP-28-Bnyspsp Vaccine Unknown 09/10/2020 Administered APUXT-60-Poeiebe Vaccine Unknown 10/08/2020 Administered TPDYN-27-Dfuojdj Vaccine Unknown 05/25/2021 Administered COVID-19 Moderna BiValent Booster Unknown 04/25/2022 Administered *Tdap IM Intramuscular 07/27/2016 Administered *PREVNAR 20 IM Intramuscular 02/03/2025 Administered *Pneumococcal polysaccharide PPV23 IM Intramuscular 04/27/2021 Administered *Influenza-Medicare-A S IM Intramuscular 04/24/2019 Administered *Influenza-Medicare-A S IM Intramuscular 04/27/2021 Administered *Jtnkegavb-Uegviib-Fh gh Dose-65+ IM Intramuscular 04/16/2024 Administered *Influenza, [...] W/U Status Risk Notes Problem Myelodysplastic syndrome (687355445) Myelodysplastic syndrome, unspecified (D46.9) Active confirmed Problem Folate deficiency anemia (74721279) Folate deficiency anemia, 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) Active confirmed Problem Diabetic renal disease (350806390) Type 2 diabetes mellitus with diabetic chronic kidney disease (E11.22) Active confirmed Problem Malnutrition of mild degree ([place]: 75% to less than 90% of standard weight) (62278114) Mild protein-calorie malnutrition (E44.1) Active confirmed Problem Vitamin D deficiency (44891104) Vitamin D deficiency, unspecified (E55.9) Active confirmed Problem Mixed hyperlipidemia (737837019) Mixed hyperlipidemia (E78.2) Active confirmed Problem Mental disorder caused by drug (227364084) Nicotine dependence, cigarettes, with unspecified nicotine-induced disorders (F17.219) Active confirmed Problem Generalized anxiety disorder (82827670) Generalized anxiety disorder (F41.1) Active confirmed Problem Angina co-occurrent and due to coronary arteriosclerosis (disorder) (37492963187073834) 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) Active confirmed Problem Atrial premature depolarization (376481542) Atrial premature depolarization (I49.1) Active confirmed Problem Gastro-esophageal reflux disease without esophagitis (545702734) Gastro-esophageal reflux disease without esophagitis (K21.9) Active confirmed Problem Gallbladder and bile duct calculi (796712094) Calculus of gallbladder and bile duct without cholecystitis without obstruction (K80.70) Active confirmed Problem Lumbosacral spondylosis without myelopathy (18931345) Other spondylosis with radiculopathy, lumbosacral region (M47.27) Active confirmed Problem Cervical disc disorder with radiculopathy (965512301) Cervical disc disorder with radiculopathy, high cervical region (M50.11) Active confirmed Problem Displacement of lumbar intervertebral disc without myelopathy (65833828) Other intervertebral disc displacement, lumbosacral region (M51.27) Active confirmed Problem Chronic kidney disease stage 2 (920243547) Chronic kidney disease, stage 2 (mild) (N18.2) Active confirmed Problem Hypertrophy of breast (544936380) Hypertrophy of breast (N62) Active confirmed Problem Syncope and collapse (900022005) Syncope and collapse (R55) Active confirmed Problem Family history of malignant neoplasm of gastrointestinal tract (844131840) Family history of malignant neoplasm of digestive organs (Z80.0) Active confirmed Problem Lower urinary tract symptoms due to benign prostatic hypertrophy (39804673220261) Benign prostatic hyperplasia with lower urinary tract symptoms (N40.1) Active confirmed Problem Age-related nuclear cataract of right eye (448197053111354) Age-related nuclear cataract, right eye (H25.11) Problem resolved confirmed Problem Age-related nuclear cataract of left eye (190328761345085) Age-related nuclear cataract, left eye (H25.12) Problem [...] Date Provider Diagnosis Chas Noel MD [address] [id number] 04/16/2024 Chas Noel Type 2 diabetes mellitus with diabetic chronic kidney disease E11.22 ; Myelodysplastic syndrome, unspecified D46.9 ; Generalized anxiety disorder F41.1 ; Atherosclerotic heart disease of [place]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 I25.118 ; Mixed hyperlipidemia E78.2 ; Gastro-esophageal reflux disease without esophagitis K21.9 ; Other spondylosis with radiculopathy, lumbosacral region M47.27 ; Nicotine dependence, cigarettes, with unspecified nicotine-induced disorders F17.219 ; Vitamin D deficiency, unspecified E55.9 and Encounter for immunization Z23 Chas Noel MD [address] [id number] 05/14/2024 Chas Noel Type 2 diabetes mellitus with diabetic chronic kidney disease E11.22 ; Encounter for general adult medical examination without abnormal findings Z00.00 ; Myelodysplastic syndrome, unspecified D46.9 ; Generalized anxiety disorder F41.1 ; Atherosclerotic heart disease of [place] coronary artery with other forms of angina [...] viral diseases Z11.59 Chas Noel MD [address] [id number] 08/15/2024 Chas Noel Type 2 diabetes mellitus with diabetic chronic kidney disease E11.22 ; Myelodysplastic syndrome, unspecified D46.9 ; Generalized anxiety disorder F41.1 ; Atherosclerotic heart disease of [place]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 I25.118 ; Mixed hyperlipidemia E78.2 ; Gastro-esophageal reflux disease without esophagitis K21.9 ; Other spondylosis with radiculopathy, lumbosacral region M47.27 ; Nicotine dependence, cigarettes, with unspecified nicotine-induced disorders F17.219 and Vitamin D deficiency, unspecified E55.9 Chas Noel MD [address] [id number] 09/23/2024 Chas Noel Type 2 diabetes mellitus with diabetic chronic kidney disease E11.22 ; Atherosclerotic heart disease of [place]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 I25.118 ; Myelodysplastic syndrome, unspecified D46.9 ; Generalized anxiety disorder F41.1 ; Mixed hyperlipidemia E78.2 ; Gastro-esophageal reflux disease without esophagitis K21.9 ; Other spondylosis with radiculopathy, lumbosacral region M47.27 ; Nicotine dependence, cigarettes, with unspecified nicotine-induced disorders F17.219 and Vitamin D deficiency, unspecified E55.9 Chas Noel MD [address] [id number] 01/08/2025 Eugenia Ford Acute cough R05.1 an d Acute upper respiratory infection, unspecified J06.9 Chas Noel MD [address] [id number] 02/03/2025 Chas Noel Type 2 diabetes mellitus with diabetic chronic kidney disease E11.22 ; Atherosclerotic heart disease of [place] coronary artery with other forms of angina [...] for immunization Z23 Chas Noel MD [address] [id number] 03/25/2025 Chas Noel Hypertrophy of breas t N62 Chas Noel MD [address] [id number] 10/16/2024 Chas Noel MD [address] [id number] 01/09/2025 Chas Noel MD [address] [id number] 03/27/2025 Chas Noel Hypertrophy of breas t N62 Chas Noel MD [address] [id number] 08/12/2024 Chas Noel MD [address] [id number] 12/30/2024 Chas Noel MD [address] [id number] 12/30/2024 Chas Noel MD [address] [id number] 12/30/2024 Chas Noel Acute frontal sinusitis, unspecified J01.10 Chas Noel MD [address] [id number] 03/19/2025 Chas Noel Assessments Encounter Date Diagnosis (ICD Code) Assessment Notes Treatment Notes Treatment Clinical Notes Section Notes 04/16/2024 Myelodysplastic syndrome, unspecified (ICD-10 - D46.9) [...] status in adjust medical therapy if indicated 08/15/2024 Myelodysplastic syndrome, unspecified (ICD-10 - D46.9) [...] new or worsening symptoms despite these treatments 03/25/2025 Hypertrophy of breast (ICD-10 - N62) [...] 03/27/2025 Hypertrophy of breast (ICD-10 - N62) 09/23/2024 Atherosclerotic heart disease of [place] coronary artery with other forms of angina [...] this year. 02/03/2025 Atherosclerotic heart disease of [place]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 (ICD-10 - I25.118) Symptomatically stable at present time. Continue current control comorbidities including hyperlipidemia 05/14/2024 Type 2 diabetes mellitus with diabetic [...] to get Procrit as well as transfusions. 04/16/2024 Generalized anxiety disorder (ICD-10 - F41.1) [...] need transfusion given his myelodysplastic syndrome. 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 Continue current medical therapy. 04/16/2024 Atherosclerotic heart disease of [place] coronary artery with other forms of angina [...] - F41.1) Stable with current medical therapy. 05/14/2024 Generalized anxiety disorder (ICD-10 - F41.1) Stable at present. 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 This would not only benefit his coronary artery disease but may also benefit his myelodysplasia 04/16/2024 Nicotine dependence, cigarettes, with unspecified nicotine-induced disorders (ICD-10 - F17.219) He is smoking again. 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 09/23/2024 Nicotine dependence, cigarettes, with [...] Encounter for immunization (ICD-10 - Z23) 02/03/2025 Nicotine dependence, cigarettes, with unspecified nicotine-induced disorders (ICD-10 - F17.219) He continues to smoke. 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 05/14/2024 Vitamin D deficiency, unspecified [...] CT Low Dose Lung Screening 02/01/2023 Hemoglobin X8y-309617 02/03/2025 Hemoglobin H5e-197365 05/14/2024 Urinalysis, Complete-710674 05/14/2024 Urinalysis, Complete-499744 02/03/2025 Prolactin-657869 03/25/2025 Estradiol-872746 03/25/2025 CBC With Differential/Platelet-153413 CBC With Differential/Platelet-679171 Reticulocyte Count-972742 05/14/2024 Prostate-Specific Ag-877853 05/14/2024 Testosterone, F Eqlib+T LC/MS-754636 Vitamin D, 96-Ikljlit-994533 05/14/2024 Vitamin D, 96-Ggticti-522923 02/03/2025 Glucose Tolerance (4 Sp Blood)-341621 Albumin/Creatinine Ratio,Urine-001438 Albumin/Creatinine Ratio,Urine-661384 Comp. Metabolic Panel (14)-100747 2023 Comp. Metabolic Panel (14)-262758 2024 LP+Non-HDL Cholesterol-706044 02/03/2025 LP+Non-HDL Cholesterol-320446 05/14/2024 HCV Antibody-076612 05/14/2024 Next Appt Details Provider Name:Chas Noel , 05/30/2025 10:00:00 AM, [address] [facility], [address], [place], [place], [phone], Insurance Providers Payer Name Payer Address Payer Phone Subscriber Number Group Number Insured Name Patient Relationship to Insured Coverage Start Date Coverage End Date [employer] [place] [address] [address] [place] [phone] [id number] 2 Man Joe Self - patient is [...]
--- OUTSIDE RECORDS SUMMARY | 2025-04-10 08:28 | XMS_ITS | Clinical Summary ---
Author Organization [facility] Address [address] [place] [phone] Phone Care Team Providers Care Lead Burner Apprentice Name Role Phone Chas Borden MD Primary Care Provider [phone] Allergies No known active allergies Medications multivitamin [...] Safety Answer Date Record ed Physical Abuse Unrecognized value 10/16/2024 Verbal Abuse Unrecognized value 10/16/2024 Sex and Gender Information Value Date [...] [facility] Diagnostic Imaging Department [address] [place] [address] Patient: BRANMAN /Age/Sex: 1955 - 65 - M Unit#: [id number] Location/Status: SPDIUS/REG CLI Mnemonic/Ordering Site: [facility] Ordering Physician: CHAS BORDEN MD US Abdomen [...] bifurcation. IMPRESSION: No visualized abdominal aortic aneurysm. [id number] Dictating Physician: SANTIAGO JON MD Electronically Signed by: SANTIAGO JON MD Dic Date/Time: 03/30/20 1236 Sign date/Time: 03/30/20 1237 Procedure Note Santiago Jon MD - 06/29/2022 [facility] Diagnostic Imaging Department [address] [place], [place] [id number] Patient: BRANMANO.B./Age/Sex: 1955 - 65 - M Unit#: [id number] Location/Status: SPDIUS/REG CLI Mnemonic/Ordering Site: [facility]/SP[facility] Ordering [...] bifurcation. IMPRESSION: No visualized abdominal aortic aneurysm. [id number] Dictating Physician: SANTIAGO JON MD Electronically Signed by: SANTIAGO JON MD Dic Date/Time: 03/30/20 1236 Sign date/Time: 03/30/20 1237 [facility] Final Result from Last 3 Months or Most Recently Relevant to Health Maintenance Insurance [employer] CarePayment [facility] MEDICARE Care Teams Lead Burner Apprentice Relationship Specialty Start Date End Date Chas Borden MD [address] [place] [id number] PCP - General Internal Medicine 10/16/24
== END 2025-04-10 08:19 | disposition home or self-care (01) ==
LOC: CF 08:18
PROVIDERS: Visit Provider Internal Medicine
DX: Z13.89 Encounter for screening for other disorder (principal)

== ENCOUNTER 2025-04-17 06:22 | Outpatient (REF) | payer OTHER, SELFPAY ==
--- NOTE | ~2025-04-17 | FL_ITS ---
EXAMINATION: FL GUIDANCE ONLY HISTORY: M54.16 - Radiculopathy, lumbar region COMPARISON: None available. TECHNIQUE: Fluoroscopy time: 0.1 minute. Cumulative Dose: 1.59 mGy. DAP: 0.0141 mGycm2 Images: 3. FINDINGS: Fluoroscopic spot films of the lumbar spine demonstrate a needle and contrast material in the region of the right L5-S1 facet joint. FL/FL guidance in treatment room IMPRESSION: Fluoroscopy during procedure. Please see procedure report for additional information. Electronically signed by: Jad Darden MD 04/17/2025 03:02 PM EDT
== END 2025-04-17 06:23 | disposition home or self-care (01) ==
LOC: CF 06:22
PROVIDERS: Visit Provider Internal Medicine
DX: M54.16 Radiculopathy, lumbar region (principal)
CPT/HCPCS: 64483; J1100; J2003; J2795; Q9967

== ENCOUNTER 2025-04-17 12:23 | Outpatient (AMB) | payer OTHER, SELFPAY ==
--- NOTE | 2025-04-17 12:31 | MHC.OFFVIS ---
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 Denies any recent cough, cold, infection, fever or other significant changes in medical history since last office visit. [facility] Medical History Myelodysplastic syndrome GERD (gastroesophageal reflux disease) Generalized anxiety disorder BPH (benign prostatic hyperplasia) Nicotine dependence, cigarettes, uncomplicated Surgical History History of bone marrow biopsy History of cataract surgery Family History Mother Colon cancer, Onset Age: 84 Social History Household Members: Spouse Household Members Other:: 2 Housing: House Do you presently have visiting nurse or other home services: No Patient Tobacco Use Status: Current everyday Tobacco user Tobacco use type: Cigarette and Cigar Cigarette Packs Per Day: 1 Years Smoked: onset 16yo, 1ppd x 52yrs, now 1/2ppd - 50pyh Second Hand Smoke Exposure: No Use of substances other than those prescribed or required for medical reasons: No Have you been hit, kicked, punched, or otherwise hurt by someone within the past year? If so, by whom?: No Do you feel safe in your current relationship?: Yes Do you have thoughts of harming others: None Do you have a plan to hurt others: No Plan service: No Current occupational status: retired Physical Exam Vital Signs: Last Vital Signs Pulse 100 04/17/25 12:32 BP 129/57 L 04/17/25 12:32 Pulse Ox 62 L 04/17/25 12:32 Oxygen Delivery Method Room Air 04/17/25 12:32 BMI result Body Mass Index 24.2 Office Procedures Details: Transforaminal epidural steroid injection, RIGHT L5 After obtaining written consent, pre-procedure blood pressure and heart rate were stable and recorded in the nursing record. The patient was placed in the prone position on the fluoroscopy table. The lumbosacral area was prepped with chloraprep, allowed to dry and draped in sterile fashion. Using fluoroscopy, the skin overlying our target was anesthetized with 0.5% lidocaine. A 22 gauge 3.5 inch spinal needle was advanced to the safe triangle in the upper pole of the RIGHT L5 foramen. No paresthesias were elicited with needle placement and aspiration was negative for blood and CSF. Correct needle position was confirmed with approximately 1 ml contrast dye (Omnipaque 180 mg/ml) injected under real-time fluoroscopy. No evidence of vascular or intrathecal uptake was seen and there was both epidural and peripheral spread of the contrast agent. 10 mg dexamethasone plus 1 ml containing 0.5% lidocaine was slowly injected. The needle was flushed and removed. The skin was cleansed and a sterile bandages were applied. The patient tolerated the procedure well and no complications were encountered. Following the procedure the patient's vital signs were stable. The patient was discharged home in good condition with post-procedural instructions. Time Out: Immediately prior to the procedure, the following was verbally confirmed that there is a signed consent form and that the correct patient, planned procedure, site and side are consistent with documentation and that necessary equipment and/or blood products are available prior to the start of the case. Complications: none EBL: <5 cc 65566 - Lumbar/Sacral Procedure code (CPT) selection complete Assessment & Plan Assessment & Plan (1) Lumbar radiculopathy: Code(s): M54.16 - Radiculopathy, lumbar region Category: Medical Plan Patient is status post right L5 transforaminal epidural steroid injection. Patient tolerated procedure well and was discharged home in stable condition with discharge instructions. All questions were answered. We will follow-up via telephone or in clinic to assess response to therapy. A follow-up appointment was made during today's visit. Orders: Orders FL guidance in treatment room 04/17/25 M54.16 - Radiculopathy, lumbar region Coding Level of Care Code Procedure Only Diagnoses Lumbar radiculopathy M54.16 CPT Codes Transforaminal Epidural Steroid Inj - TESI 3: 96493 - Lumbar/Sacral ([id number])
[2025-04-17 12:32] VITALS: BP 129/57; PULSE 100; O2SAT 62; BMI 24.2
== END 2025-04-17 13:28 | disposition home or self-care (01) ==
LOC: HO.PMCPRC 12:23
PROVIDERS: PCP Internal Medicine; Visit Provider Internal Medicine
DX: M54.16 Radiculopathy, lumbar region (principal)
CPT/HCPCS: 64483

== ENCOUNTER 2025-06-02 12:10 | Outpatient (AMB) | payer OTHER, SELFPAY ==
--- NOTE | 2025-06-02 12:24 | MHC.OFFVIS ---
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 The patient reports that the previous injection did not provide relief, indicating persistent pain from the middle of the back down to the heel. The pain has been attributed to both L5 and S1 nerve root compression, with the S1 nerve root being associated with the pain radiating to the heel. The patient has a history of disc herniation, which is contributing to the nerve compression. Previous interventions included multiple L5 injections, which initially provided relief but have since become ineffective. The patient has not engaged in physical therapy due to acute pain, although it was recommended as a complementary measure to the injections. Pain Description - Onset and Timing: Persistent pain following L5 transforaminal injection. - Quality and Character: Pain radiates from the middle of the back down to the heel. - Primary Location: Middle of the back. - Areas of Radiation: Heel, associated with S1 nerve root compression. - Exacerbating Factors: Ineffective L5 injections. - Relieving Factors: None noted in the conversation. - Interference with Activities: Not explicitly discussed. Physical Exam - Appears afebrile. - Alert and oriented. - Mood and affect appropriate. - Follows and participates in conversation appropriately. - Respiratory effort is unlabored. Pain Management - Affect: Not explicitly discussed. - Analgesia: Previous L5 injections were ineffective; considering S1 injection. - Adverse Effects: Not explicitly discussed. - Activities of Daily Living: Not explicitly discussed. - Aberrant Drug Related Behaviors: Not explicitly discussed. [facility] Medical History Myelodysplastic syndrome GERD (gastroesophageal reflux disease) Generalized anxiety disorder BPH (benign prostatic hyperplasia) Nicotine dependence, cigarettes, uncomplicated Surgical History History of bone marrow biopsy History of cataract surgery Family History Mother Colon cancer, Onset Age: 84 Social History Household Members: Spouse Household Members Other:: 2 Housing: House Do you presently have visiting nurse or other home services: No Patient Tobacco Use Status: Current everyday Tobacco user Tobacco use type: Cigarette and Cigar Cigarette Packs Per Day: 1 Years Smoked: onset 16yo, 1ppd x 52yrs, now 1/2ppd - 50pyh Second Hand Smoke Exposure: No service: No Current occupational status: retired Physical Exam Vital Signs: Last Vital Signs Pulse 75 06/02/25 12:26 Resp 16 06/02/25 12:26 BP 125/58 L 06/02/25 12:26 Pulse Ox 99 06/02/25 12:26 Oxygen Delivery Method Room Air 06/02/25 12:26 BMI result Body Mass Index 24.3 Assessment & Plan Assessment & Plan (1) Lumbar radiculopathy: Code(s): M54.16 - Radiculopathy, lumbar region Category: Medical Plan Plan Patient was informed and verbally consented to the use of an ambient scribe for clinic note documentation during this visit. 1. S1 Radiculopathy - Plan to perform a right S1 transforaminal albuterol steroid injection in July to address S1 radiculopathy. - Encourage initiation of a stretching routine and physical therapy to complement the injection therapy. 2. L5 Nerve Root Compression - Previous L5 injections have been ineffective; considering targeting S1 for better relief. 3. Disc Herniation - Disc herniation is contributing to nerve compression; physical therapy recommended to aid in natural resolution. Discussion Notes I discussed with the patient the plan to perform a right S1 transforaminal albuterol steroid injection in July to address the S1 radiculopathy. We also talked about the importance of starting a stretching routine and engaging in physical therapy to complement the injection therapy. I explained that previous L5 injections have been ineffective, and targeting S1 might provide better relief. Patient Instructions - Plan for a right S1 transforaminal albuterol steroid injection in July. - Start a stretching routine and engage in physical therapy to help manage pain and improve mobility. Coding Level of Care Code Est Pt Level 4 (09438) Diagnoses Lumbar radiculopathy M54.16
[2025-06-02 12:26] VITALS: BP 125/58; PULSE 75; RESP 16; O2SAT 99; BMI 24.3
--- OUTSIDE RECORDS SUMMARY | 2025-06-02 16:15 | XMS_ITS | Clinical Summary ---
Author Organization [facility] Address [address] [place] [phone] Phone Care Team Providers Care Milk Runner Name Role Phone Chas Borden MD Primary Care Provider [phone] Allergies No known active allergies Medications multivitamin [...] Health Maintenance Due Date Last Done Comments Colorectal Cancer Screening: Colonoscopy 1955 DTaP,Tdap,and Td Vaccines (1 - Tdap) 1974 Pneumococcal Vaccine: 50+ Ye ars (1 of 2 - PCV) 1974 Zoster Vaccines (1 of 2) 2005 Depression Screening 07/10/2024 Cholesterol Screening (Lipid Panel) 10/03/2024 Hepatitis C Screening 10/03/2024 Social Influencers of Health Screening 10/03/2024 COVID-19 Vaccine (1 - 2024-2 6 season) 2025 Influenza Vaccine (#1) 2025 Falls [...] AM EDT Narrative 03/30/2020 12:37 PM EDT [facility] Diagnostic Imaging Department [address] [place] [address] Patient: BRANMAN /Age/Sex: 1955 - 65 - M Unit#: [id number] Location/Status: SPDIUS/REG CLI Mnemonic/Ordering Site: [facility] Ordering [...] bifurcation. IMPRESSION: No visualized abdominal aortic aneurysm. [id number] Dictating Physician: SANTIAGO JON MD Electronically Signed by: SANTIAGO JON MD Dic Date/Time: 03/30/20 1236 Sign date/Time: 03/30/20 1237 Procedure Note Santiago Jon MD - 06/29/2022 [facility] Diagnostic Imaging Department [address] [place], [place] [id number] Patient: BRANMANO.B./Age/Sex: 1955 - 65 - M Unit#: [id number] Location/Status: SPDIUS/REG CLI Mnemonic/Ordering Site: [facility] Ordering [...] bifurcation. IMPRESSION: No visualized abdominal aortic aneurysm. [id number] Dictating Physician: SANTIAGO JON MD Electronically Signed by: SANTIAGO JON MD Dic Date/Time: 03/30/20 1236 Sign date/Time: 03/30/20 1237 [facility] Final Result from Last 3 Months or Most Recently Relevant to Health Maintenance Insurance [employer] [facility] MEDICARE Care Teams Milk Runner Relationship Specialty Start Date End Date Chas Borden MD [address] [place] [phone] PCP - General Internal Medicine 10/16/24
== END 2025-06-02 12:54 | disposition home or self-care (01) ==
LOC: HO.PMC 12:11
PROVIDERS: PCP Internal Medicine; Visit Provider Internal Medicine
DX: M54.16 Radiculopathy, lumbar region (principal)
CPT/HCPCS: 99214

== ENCOUNTER 2025-06-04 12:18 | Outpatient (REF) | payer OTHER, SELFPAY ==
--- NOTE | ~2025-06-04 | MM_ITS ---
EXAMINATION: MM DIAGNOSTIC DIGITAL BREAST TOMOSYNTHESIS, BILATERAL Bilateral Limited ultrasound. CLINICAL INFORMATION: Bilateral palpable lumps retroareolar region and pain for 3 to 4 months. COMPARISON: Mammography: Comparison is made with relevant prior exams. TECHNIQUE: Digital breast mammography with tomosynthesis is performed in both the craniocaudal and mediolateral oblique views along with computer-aided detection (CAD). FINDINGS: Bilateral retroareolar moderate gynecomastia which correlate with the bilateral triangular markers indicating sites of pain and palpable lump. There are no significant masses, abnormal calcifications, or other abnormalities. Results are provided to the patient at time of visit by the technologist. MM/MM tomosynthesis diagnostic BI IMPRESSION: Bilateral moderate gynecomastia correlating with patients pain and palpable lumps. ASSESSMENT: BI-RADS Category 2: Benign RECOMMENDATION: Recommend clinical evaluation and followup. Electronically signed by: Jayde Hansen DO 06/04/2025 01:51 PM [facility] [place]
--- NOTE | ~2025-06-04 | US_ITS ---
EXAMINATION: MM DIAGNOSTIC DIGITAL BREAST TOMOSYNTHESIS, BILATERAL Bilateral Limited ultrasound. CLINICAL INFORMATION: Bilateral palpable lumps retroareolar region and pain for 3 to 4 months. COMPARISON: Mammography: Comparison is made with relevant prior exams. TECHNIQUE: Digital breast mammography with tomosynthesis is performed in both the craniocaudal and mediolateral oblique views along with computer-aided detection (CAD). FINDINGS: Bilateral retroareolar moderate gynecomastia which correlate with the bilateral triangular markers indicating sites of pain and palpable lump. There are no significant masses, abnormal calcifications, or other abnormalities. Results are provided to the patient at time of visit by the technologist. US/US Breast BI Limited Mamm Only IMPRESSION: Bilateral moderate gynecomastia correlating with patients pain and palpable lumps. ASSESSMENT: BI-RADS Category 2: Benign RECOMMENDATION: Recommend clinical evaluation and followup. Electronically signed by: Jayde Hansen DO 06/04/2025 01:51 PM EST
--- OUTSIDE RECORDS SUMMARY | 2025-06-04 15:21 | XMS_ITS | Data Portability ---
Author Organization [facility] Address [address] [address] Care Team Providers Care Metrology Manager Name Role Phone BORDENTITA Primary Care Provider [...] By Organization Details Last Modified Time 08/15/2023 [id number] He was advised against bed rest lasting longer than four days and to continue activities as tolerated. [email or web address] Not available 08/15/2023 14:01:25 11/14/2023 [id number] He was advised against bed rest lasting longer than four days and to continue activities as tolerated. [email or web address] Not available 11/14/2023 10:55:13 08/15/2024 [id number] He was advised against bed rest lasting longer than four days and to continue activities as tolerated. [email or web address] Not available 08/15/2024 10:24:49 Reason for Referral None Reported. Problems Name Problem SNOMED Code Status Onset Date Resolution Date Notes Provider Name and Address Organization Details Recorded Time Lumbosacral radiculopathy 5230244 Active Eddi ellison MD [address] [facility] , [facility] [address], [place], [address], [place] [facility] 9 15:50:02 Degeneration of lumbar intervertebral disc 40916878 Active Eddi ellison MD [address] [facility] , [place] [address], [place], [address], [place] [facility] 9 15:50:11 Lumbosacral spondylosis without myelopathy 88294828 Active Eddi ellison MD [address] [facility] , [facility] [address], [place], [place], 9, [place] [facility] 9 15:50:26 Spinal stenosis of lumbar region 87932414 Active Eddi ellison MD [address] [facility] , [facility] [address], [place], [place], 9, [place] [facility] 9 15:50:39 Problem Notes None recorded. Procedures Surgical History Date Name Laterality Status Provider Name and Address Organization Details Recorded Time 08/15/19 25 Lumbar Epidural steroid injection under fluoroscopic guidance completed Eddi Sanchez MD [address] , [address], [place], [address], [place] [facility] 08/15/2024 10:23:05 05/15/20 24 Lumbar Epidural steroid injection under fluoroscopic guidance completed Eddi Sanchez MD [address] [facility] , [address], [place], [address], [place] [facility] 05/15/2024 14:35:05 02/06/20 24 Lumbar Epidural steroid injection under fluoroscopic guidance completed Eddi Sanchez MD [address] [facility] [facility] , [address], [place], [address], [place] [facility] 2024 09:05:55 11/14/19 24 Lumbar Epidural steroid injection under fluoroscopic guidance completed Eddi Sanchez MD [address] [facility] , [address], [place], [address], [place] [facility] 11/14/2023 10:55:57 08/15/19 24 Lumbar Epidural steroid injection under fluoroscopic guidance completed Eddi Sanchez MD [address] [facility] , [address], [place], [address], [place] [facility] 08/15/2023 14:02:28 05/11/20 23 Lumbar Epidural steroid injection under fluoroscopic guidance completed Eddi Sanchez MD [address] [facility] [facility] , [address], [place], [address], [place] [facility] 05/11/2023 13:44:22 02/08/20 23 Lumbar Epidural steroid injection under fluoroscopic guidance completed Eddi Sanchez MD [address] [facility] [facility] , [address], [place], [address], [place] [facility] 02/07/2023 14:32:47 11/09/19 23 Lumbar Epidural steroid injection under fluoroscopic guidance completed Eddi Sanchez MD [address] [facility] , [address], [place], [address], [place] [facility] 11/08/2022 11:49:19 08/18/19 23 Lumbar Epidural steroid injection under fluoroscopic guidance completed Eddi Sanchez MD [address] [facility] , [address], [place], [address], [place] [facility] 08/18/2022 13:38:49 05/31/20 22 Lumbar Epidural steroid injection under fluoroscopic guidance completed Eddi Sanchez MD [address] [facility] [facility] , [address], [place], [address], [place] [facility] 05/31/2022 12:01:38 02/17/20 22 Lumbar Epidural steroid injection under fluoroscopic guidance completed Eddi Sanchez MD [address] [facility] [facility] , [address], [place], [address], [place] [facility] 02/16/2022 11:18:13 11/18/19 22 Lumbar Epidural steroid injection under fluoroscopic guidance completed Eddi Sanchez MD [address] [facility] [facility] , [address], [place], [address], [place] [facility] 11/17/2021 13:34:00 08/03/19 22 Lumbar Epidural steroid injection under fluoroscopic guidance completed Eddi Sanchez MD [address] [facility] , [address], [place], [address], [place] [facility] 08/03/2021 13:51:35 05/04/20 21 Lumbar Epidural steroid injection under fluoroscopic guidance completed Eddi Sanchez MD [address] [facility] [facility] , [address], [place], [address], [place] [facility] 05/04/2021 09:45:14 02/03/20 21 Lumbar Epidural steroid injection under fluoroscopic guidance completed Eddi Sanchez MD [address] [facility] , [address], [place], [address], [place] [facility] 02/02/2021 09:56:45 10/29/19 21 Lumbar Epidural steroid injection under fluoroscopic guidance completed Eddi Sanchez MD [address] [facility] , [address], [place], [address], [place] [facility] 10/28/2020 11:04:44 07/08/20 20 Lumbar Epidural steroid injection under fluoroscopic guidance completed Eddi Sanchez MD [address] [facility] , [address], [place], [address], [place] [facility] 07/08/2020 09:25:16 01/28/20 20 Lumbar Epidural steroid injection under fluoroscopic guidance completed Eddi Sanchez MD [address] [facility] , [address], [place], [address], [place] [facility] 01/28/2020 11:40:25 08/28/19 20 Lumbar Epidural steroid injection under fluoroscopic guidance completed Eddi Sanchez MD [address] [facility] , [address], [place], [address], [place] [facility] 08/28/2019 13:27:06 03/26/20 19 Lumbar Epidural steroid injection under fluoroscopic guidance completed Eddi Sanchez MD [address] [facility] , [address], [place], [address], [place] [facility] 03/26/2019 10:59:17 01/02/20 19 Lumbar Epidural steroid injection under fluoroscopic guidance completed Eddi Sanchez MD [address] [facility] , [address], [place], [address], [place] [facility] 01/01/2019 18:23:14 11/14/19 19 Lumbar Epidural steroid injection under fluoroscopic guidance completed Eddi Sanchez MD [address] [facility] , [address], [place], [address], [place] [facility] 11/14/2018 08:43:51 [...] (PF) 0.5 mL intramuscul ar syringe [facility] completed Not Available Not Available Not Available morphine 30 mg tablet, crush resistant, extended release Take 1 tablet every 12 hours by oral route. 03/26 completed Not Available Not Available Not Available Flublok Quad (PF) 180 mcg (45 mcg x 4)/0.5 mL IM syringe [facility] 02/02 completed Not Available Not Available Not Available Vitals Date Recorded Body height Heart rate Oxygen saturation Systolic And Diastolic Provider Name and Address Organization Details Last Updated DateTime 08/15/2023 172.72 cm 65 /min 98 % 111/38 mm[Hg] Delia Oswald [place] [facility] 08/15/2023 13:41:50 Date Recorded Body height Heart rate Oxygen saturation Pain severity - 0-10 verbal numeric rating [Score] - Reported Systolic And Diastolic Provider Name and Address Organization Details Last Updated DateTime 5 172.72 cm 76 /min 98 % 4 129/44 mm[Hg] Seble Mcgregorrino [facility] 5 09:24:11 Date Recorded Body height Heart rate Oxygen saturation Systolic And Diastolic Provider Name and Address Organization Details Last Updated DateTime 11/14/2023 172.72 cm 83 /min 97 % 116/42 mm[Hg] Angela Ortegaloki [facility] 11/14/2023 10:33:00 Date Recorded Body height Heart rate Oxygen saturation Systolic And Diastolic Provider Name and Address Organization Details Last Updated DateTime 2024 172.72 cm 62 /min 98 % 119/44 mm[Hg] Delia Oswald [facility] 2024 08:33:01 Date Recorded Body height Pain severity - 0-10 verbal numeric rating [Score] - Reported Body mass index (BMI) Body weight Oxygen saturation Heart rate Systolic And Diastolic Provider Name and Address Organization Details Last Updated DateTime 4 172.72 cm 5 26.5 kg/m2 36848.0 7 g 98 % 73 /min 101/47 mm[Hg] Jackie Thakkar [facility] 4 14:08:54 Social History Question Answer Notes LastModified by Organizat ion Details LastModified Time Tobacco Smoking Status Never Smoker Occasional cigar smoker Not [facility] 04/24/2020 03:16:11 Which Illicit Or Recreational Drugs Have You Used? None [id number] Information not available 04/24/2020 Education 12 Information n ot available 11/07/2018 Live Alone Or With Others? With Others Information not available 11/07/2018 GED No Information n ot available 11/07/2018 Marital Status Informati on not available 11/07/2018 What Was The Date Of Your Most Recent Tobacco Screening? 01/01/2019 [id number] Information not available 04/24/2020 Sex: Unknown Functional Status Question Answer Note LastModified by Organization D etails LastModified Time What is your level of alcohol consumption? None [id number] Information not available 04/24/2020 Are you currently employed? No [id number] Information not available 04/24/2020 What is your [...] Diagnosis SNOMED-CT Code Diagnosis ICD10 Code Diagnosis IMO Codes Diagnosis Note [id number] Eddi Sanchez MD PAIN OFFICE [address] [place] [address] 11/07/2018 14:04:21 11/07/2018 16:05:18 Lumbosacral radiculopathy 9490664 M54.17 Degenerati on of lumbar intervertebral disc 87423033 M51.36 Lumbosacra l spondylosis without myelopathy 64931687 M47.817 Spinal bhumi nosis of lumbar region 82029037 M48.061 89378 Eddi Sanchez MD PAIN OFFICE [address] [place] [address] 11/13/2018 14:30:19 11/14/2018 11:34:42 Lumbosacral radiculopathy 1861379 M54.17 Degenerati on of lumbar intervertebral disc 39851077 M51.36 Lumbosacra l spondylosis without myelopathy 33163978 M47.817 Spinal bhumi nosis of lumbar region 88891208 M48.061 74033 Eddi Sanchez MD PAIN OFFICE [address] [place] [address] 12/06/2018 14:16:15 12/06/2018 15:28:49 Lumbosacral radiculopathy 2998465 M54.17 Degenerati on of lumbar intervertebral disc 94286364 M51.36 Lumbosacra l spondylosis without myelopathy 24389373 M47.817 Spinal bhumi nosis of lumbar region 88403674 M48.061 03741 Eddi Sanchez MD [facility] [address] [facility] [place] [address] 01/01/2019 13:04:31 01/01/2019 18:26:49 Lumbosacral radiculopathy 8488210 M54.17 Degenerati on of lumbar intervertebral disc 55022882 M51.36 Lumbosacra l spondylosis without myelopathy 59386285 M47.817 Spinal bhumi nosis of lumbar region 16257096 M48.061 39010 Eddi Sanchez MD [facility] [address] [facility] [place] [address] 03/26/2019 10:19:14 03/26/2019 11:02:16 Lumbosacral radiculopathy 1299709 M54.17 Degenerati on of lumbar intervertebral disc 36520581 M51.36 Lumbosacra l spondylosis without myelopathy 30252454 M47.817 Spinal bhumi nosis of lumbar region 79528683 M48.061 69242 Eddi Sanchez MD PAIN OFFICE [address] [facility] [place] [address] 08/28/2019 12:47:58 08/28/2019 13:30:23 Lumbosacral radiculopathy 1051168 M54.17 Degenerati on of lumbar intervertebral disc 80053307 M51.36 Lumbosacra l spondylosis without myelopathy 52385452 M47.817 Spinal bhumi nosis of lumbar region 87673712 M48.061 02359 Eddi Sanchez MD [facility] [address] [facility] [place] [address] 01/28/2020 11:16:52 01/28/2020 14:56:45 Lumbosacral radiculopathy 1105175 M54.17 Degenerati on of lumbar intervertebral disc 05179763 M51.36 Lumbosacra l spondylosis without myelopathy 99796842 M47.817 Spinal bhumi nosis of lumbar region 03655896 M48.061 41571 Eddi Sanchez MD [facility] [address] [facility] [address] 07/08/2020 09:22:42 07/08/2020 11:19:23 Lumbosacral radiculopathy 0619659 M54.17 Degenerati on of lumbar intervertebral disc 32007562 M51.36 Lumbosacra l spondylosis without myelopathy 43402324 M47.817 Spinal bhumi nosis of lumbar region 51815528 M48.061 09383 Eddi Sanchez MD PAIN OFFICE [address] [facility] [place] [address] 10/28/2020 09:52:49 10/28/2020 16:05:47 Lumbosacral radiculopathy 1397955 M54.17 Degenerati on of lumbar intervertebral disc 06625471 M51.36 Lumbosacra l spondylosis without myelopathy 98510467 M47.817 Spinal bhumi nosis of lumbar region 73661911 M48.061 16220 Eddi Sanchez MD PAIN OFFICE [address] [facility] [place] [address] 02/02/2021 09:24:48 02/02/2021 10:27:20 Lumbosacral radiculopathy 8055565 M54.17 Degenerati on of lumbar intervertebral disc 15703783 M51.36 Lumbosacra l spondylosis without myelopathy 34533347 M47.817 Spinal bhumi nosis of lumbar region 23965478 M48.061 20614 Eddi Sanchez MD PAIN OFFICE [address] [facility] [place] [address] 05/04/2021 09:11:40 05/04/2021 09:58:06 Lumbosacral radiculopathy 8742872 M54.17 Degenerati on of lumbar intervertebral disc 77427290 M51.36 Lumbosacra l spondylosis without myelopathy 18805348 M47.817 Spinal bhumi nosis of lumbar region 00760435 M48.061 00001 Eddi Sanchez MD PAIN OFFICE [address] [facility] [place] [address] 08/03/2021 13:20:36 08/03/2021 14:49:32 Lumbosacral radiculopathy 7839233 M54.17 Degenerati on of lumbar intervertebral disc 94093086 M51.36 Lumbosacra l spondylosis without myelopathy 41056745 M47.817 Spinal bhumi nosis of lumbar region 38199115 M48.061 22820 Eddi Sanchez MD PAIN OFFICE [address] [place] [address] 11/17/2021 13:01:32 11/17/2021 13:36:27 Lumbosacral radiculopathy 0243049 M54.17 Degenerati on of lumbar intervertebral disc 81041394 M51.36 Lumbosacra l spondylosis without myelopathy 82870238 M47.817 Spinal bhumi nosis of lumbar region 66980649 M48.061 35426 Eddi Sanchez MD PAIN OFFICE [address] [place] [address] 01/07/2022 11:31:26 01/11/2022 09:36:03 Lumbosacral radiculopathy 8251364 M54.17 76001 Eddi Sanchez MD PAIN OFFICE [address] [place] [address] 02/16/2022 10:53:02 02/16/2022 14:02:50 Lumbosacral radiculopathy 7417108 M54.17 Degenerati on of lumbar intervertebral disc 54749926 M51.36 Lumbosacra l spondylosis without myelopathy 26732592 M47.817 Spinal bhumi nosis of lumbar region 54071099 M48.061 30238 Eddi Sanchez MD PAIN OFFICE [address] [place] [address] 05/31/2022 09:53:11 05/31/2022 14:22:50 Lumbosacral radiculopathy 9194778 M54.17 Degenerati on of lumbar intervertebral disc 64051623 M51.36 Lumbosacra l spondylosis without myelopathy 83233944 M47.817 Spinal bhumi nosis of lumbar region 08005636 M48.061 54937 Eddi Sanchez MD [facility] [address] [facility] [place] [address] 08/18/2022 11:12:06 08/18/2022 13:45:18 Lumbosacral radiculopathy 8870766 M54.17 Degenerati on of lumbar intervertebral disc 96694108 M51.36 Spinal bhumi nosis of lumbar region 28302802 M48.062 23979 Eddi Sanchez MD [facility] [address] [facility] [address] 11/08/2022 11:25:10 11/08/2022 14:29:03 Lumbosacral radiculopathy 9109442 M54.17 Degenerati on of lumbar intervertebral disc 19726870 M51.36 Spinal bhumi nosis of lumbar region 78783841 M48.062 30955 Eddi Sanchez MD [facility] [address] [facility] [place] [address] 01/20/2023 10:14:06 01/20/2023 10:40:11 Lumbosacral radiculopathy 1477480 M54.17 Degenerati on of lumbar intervertebral disc 03440487 M51.36 Lumbosacra l spondylosis without myelopathy 06630873 M47.817 Spinal bhumi nosis of lumbar region 87627292 M48.061 59703 Eddi Sanchez MD [facility] [address] [facility] [address] 02/07/2023 12:59:20 02/07/2023 14:44:01 Lumbosacral radiculopathy 8216088 M54.17 Degenerati on of lumbar intervertebral disc 34264704 M51.36 Spinal bhumi nosis of lumbar region 55250941 M48.062 10645 Eddi Sanchez MD PAIN OFFICE [address] [facility] [address] 05/11/2023 11:21:41 05/11/2023 13:50:13 Spinal stenosis of lumbar region 85860856 M48.062 Lumbosacra l radiculopathy 1725729 M54.17 Degenerati on of lumbar intervertebral disc 80835159 M51.36 48535 Eddi Sanchez MD [facility] [address] [place] [address] 08/15/2023 13:25:57 08/15/2023 14:23:43 Spinal stenosis of lumbar region 56998459 M48.062 Lumbosacra l radiculopathy 1428841 M54.17 Degenerati on of lumbar intervertebral disc 71475236 M51.36 40597 Eddi Sanchez MD [facility] [address] [address] 11/14/2023 10:21:58 11/14/2023 11:00:27 Spinal stenosis of lumbar region 60729940 M48.062 Lumbosacra l radiculopathy 9402752 M54.17 Degenerati on of lumbar intervertebral disc 44386715 M51.36 49389 Eddi Sanchez MD [facility] [address] [address] 2024 08:29:21 2024 09:08:44 Spinal stenosis of lumbar region 59235593 M48.062 Lumbosacra l radiculopathy 0364416 M54.17 Degenerati on of lumbar intervertebral disc 59752433 M51.36 33879 Eddi Sanchez MD [facility] [address] [place] [address] 05/15/2024 13:56:51 05/15/2024 15:51:39 Spinal stenosis of lumbar region 15263129 M48.062 Lumbosacra l radiculopathy 4816436 M54.17 Degenerati on of lumbar intervertebral disc 30804623 M51.362 66866 Eddi Sanchez MD [facility] [address] [place] [address] 08/15/2024 09:14:54 08/15/2024 14:55:48 Spinal stenosis of lumbar region 65793626 M48.062 Lumbosacra l radiculopathy 5719074 M54.17 Degenerati on of lumbar intervertebral disc 33392144 M51.362 Health Concerns Section Related Observation LastModified by Organization Detai ls LastModified Time None Recorded Concern Status LastModified by Organization Details LastModified Time None Recorded Advance Directives Directive None Recorded Payers Insurance Date Sequence Insurance Name Policy Number Policy Nye Covered Member ID Nye Member ID Guarantor Name 2024 1 [facility] [id number] Man Garreffi [id number] Man Garreffi 11/16/2024 1 [employer] [facility] (EPO) [id number] Amisha Greenwood Garreffi [id number] Man Garreffi 2024 1 MEDICARE B-[place]: [employer] Man Evans Garreffi [id number] Man Joe Notes Date Note Type Note Provider Name and Address Organization Details Recorded Time 08/15/2023 text/html He is here today for a lumbar epidural steroid injection under fluoroscopic guidance. He is seeing his PCP regularly.He has macrocytic anemia and is seeing Dr. Kim and had a bone marrow biopsy done. His platelet count is within normal limits. Eddi Sanchez MD [address] [place] [address] , [facility] [address], [place], [address], [facility] - [facility] Management 08/15/2023 16:52:24 11/14/2023 text/html He is here today for a lumbar epidural steroid injection under fluoroscopic guidance. He is seeing his PCP regularly.He has macrocytic anemia and is seeing Dr. Kim and had a bone marrow biopsy done. His platelet count is within normal limits. Eddi Sanchez MD [address] [place] [address] , [address], [place], [address], [facility] - Pain Management 11/14/2023 16:22:56 2024 text/html [...] his latest results Eddi Sanchez MD [address] [facility] , [address], [place], [address], [facility] - Pain Management 2024 10:06:16 05/15/2024 text/html He is here today for a lumbar epidural steroid injection under fluoroscopic guidance. He is seeing his PCP regularly. Eddi Sanchez MD [address] [facility] , [address], [place], [address], [facility] - [facility] Management 05/15/2024 15:54:49 08/15/2024 text/html He is here today for a lumbar epidural steroid injection under fluoroscopic guidance. He is seeing his PCP regularly.He had a blood transfusion for his macrocytic anemia recently Eddi Sanchez MD [address] [facility] , [address], [place], [address], [facility] - [facility] Management 08/15/2024 15:22:41
--- OUTSIDE RECORDS SUMMARY | 2025-06-04 15:22 | XMS_ITS | Clinical Summary ---
Author Organization [facility] Address [address] [place] [address] Phone Care Team Providers Care Team Supervisor Name Role Phone Chas Borden MD Primary Care Provider [phone] Allergies No known active allergies Medications multivitamin [...] AM EDT Narrative 03/30/2020 12:37 PM EDT [facility] Diagnostic Imaging Department [address] [place] [address] Patient: BRANMAN /Age/Sex: 1955 - 65 - M Unit#: [id number] Location/Status: SPDIUS/REG CLI Mnemonic/Ordering Site: [facility] Ordering [...] bifurcation. IMPRESSION: No visualized abdominal aortic aneurysm. [id number] Dictating Physician: SANTIAGO JON MD Electronically Signed by: SANTIAGO JON MD Dic Date/Time: 03/30/20 1236 Sign date/Time: 03/30/20 1237 Procedure Note Santiago Jon MD - 06/29/2022 [facility] Diagnostic Imaging Department [address] [place], [place] [address] Patient: BRANMANO.B./Age/Sex: 1955 - 65 - M Unit#: [id number] Location/Status: SPDIUS/REG CLI Mnemonic/Ordering Site: [facility]/SPUS Ordering [...] bifurcation. IMPRESSION: No visualized abdominal aortic aneurysm. [id number] Dictating Physician: SANTIAGO JON MD Electronically Signed by: SANTIAGO JON MD Dic Date/Time: 03/30/20 1236 Sign date/Time: 03/30/20 1237 Chas Borden MD [facility] Final Result from Last 3 Months or Most Recently Relevant to Health Maintenance Insurance [employer] [facility] MEDICARE Care Teams Team Supervisor Relationship Specialty Start Date End Date Chas Borden MD [address] [place] [phone] PCP - General Internal Medicine 10/16/24
== END 2025-06-04 12:19 | disposition home or self-care (01) ==
LOC: HO.MAMMO 12:18
PROVIDERS: PCP Internal Medicine; Visit Provider Internal Medicine
DX: N62 Hypertrophy of breast (principal)
CPT/HCPCS: 76642; 77062; 77066

== ENCOUNTER → 2025-06-04 12:30 | Outpatient (BNV) | payer OTHER, SELFPAY | PROVIDERS: PCP Internal Medicine; Visit Provider Internal Medicine | DX: N62 Hypertrophy of breast (principal) | CPT/HCPCS: 76642; 77062; 77066 ==

== ENCOUNTER 2025-06-14 14:48 | Emergency (ER) | payer OTHER, SELFPAY ==
[2025-06-14] VITALS (13 sets, daily range): BP systolic 109–142; BP diastolic 33–63; PULSE 64–72; RESP 10–18; TEMP 36.6–36.9; O2SAT 96–100; BMI 24.7
--- NOTE | 2025-06-14 15:03 | ECG_ITS ---
Test Reason : CHEST PAIN Blood Pressure : */* mmHG Vent. Rate : 64 BPM Atrial Rate : 64 BPM P-R Int : 208 ms QRS Dur : 84 ms QT Int : 416 ms P-R-T Axes : 82 75 69 degrees QTcB Int : 429 ms Normal sinus rhythm Normal ECG When compared with ECG of 04-Nov-2024 11:50, Premature ventricular complexes are no longer Present Referred By: Benton Thomas Electronically Signed By: JANEY CORNELL
[2025-06-14] MEDS: Lactated Ringers 1,000 ML 999 ML IV (15:11)
--- NOTE | 2025-06-14 15:13 | ED.SYNCOPE ---
HPI - Syncope General Chief Complaint: Syncope Stated Complaint: VOMITING SYNCOPE Time Seen by Provider: 06/14/25 14:55 Source: patient and EMS Mode of arrival: EMS Limitations: no limitations History of Present Illness HPI narrative: This is a 70 years old male with a history of type 2 diabetes presented to the ED via ambulance after a near syncopal episode. Trying to move this no lower and got dizzy almost passed out vomited x1 transported here by ambulance. Denies any chest pain shortness of breath any other systemic complaints MD complaint: felt faint and almost passed out Onset (ago): hour(s) (1) Prodromal symptoms: lightheaded Witnessed: Yes - by Bystander Context: during exertion Injuries sustained associated with event: none Current symptoms: none Related Data Home Medications ?Medication ?Instructions ?Recorded ?Confirmed escitalopram oxalate 10 mg tablet 10 mg PO DAILY 04/22/23 06/02/25 famotidine 10 mg tablet 10 mg PO DAILY 04/22/23 06/02/25 aspirin 81 mg chewable tablet 1 tab PO DAILY 09/04/23 06/02/25 metoprolol succinate 50 mg 50 mg PO DAILY 09/04/23 06/02/25 tablet,extended release 24 hr rosuvastatin 40 mg tablet 40 mg PO DAILY 10/30/23 06/02/25 Allergies Allergy/AdvReac Type Severity Reaction Status Date / Time No Known Allergies Allergy Verified 06/14/25 14:59 Review of Systems Constitutional: Constitutional: Reports no additional constitutional complaints Cardiovascular: Cardiovascular: Reports no additional cardiovascular complaints [facility] Past Medical History [facility] Narrative: Patient has a history of myelodysplastic syndrome, history of GERD, history of type 2 diabetes Medical History Myelodysplastic syndrome GERD (gastroesophageal reflux disease) Generalized anxiety disorder BPH (benign prostatic hyperplasia) Nicotine dependence, cigarettes, uncomplicated Surgical History History of bone marrow biopsy History of cataract surgery Family History Family History Mother Colon cancer, Onset Age: 84 Social History Social History Household Members: Spouse Household Members Other:: 2 Housing: House Do you presently have visiting nurse or other home services: No Patient Tobacco Use Status: Current everyday Tobacco user Tobacco use type: Cigarette and Cigar Cigarette Packs Per Day: 1 Years Smoked: onset 16yo, 1ppd x 52yrs, now 1/2ppd - 50pyh Second Hand Smoke Exposure: No Advance Directives: No Advance Directives Information Provided: No service: No Current occupational status: retired Physical Exam Exam: Exam: On examination he is not in distress his vital signs showed a blood pressure of 119/33 with a heart rate of 72 afebrile Vital Signs: Vital Signs: Last Vital Signs Temp 98.0 F 06/14/25 20:21 Pulse 66 06/14/25 20:21 Resp 18 06/14/25 20:21 BP 125/57 L 06/14/25 20:21 Pulse Ox 98 06/14/25 20:21 O2 Del Method Room Air 06/14/25 20:21 BMI result Body Mass Index 24.7 Const: General: cooperative, healthy appearing, comfortable, no acute distress and alert Nutritional Appearance: average body habitus Orientation/consciousness: patient oriented x3 HEENT: Head: Yes normal to inspection Ears: hearing grossly normal bilaterally General nose exam: Normal external nose present Face and sinus: Yes normal facial exam Neck: Neck: Yes normal visual inspection and Yes full ROM Chest: Chest palpation & inspection: normal inspection of the chest Resp: Effort & Inspection: normal respiratory effort Cardio: Jugular venous distension: no JVD Rate: regular rate Rhythm: regular rhythm GI: Inspection: Yes normal to inspection Palpation (GI): Soft to palpation, not firm and nontender Skin: General skin exam: no rashes or lesions noted and elasticity normal Lesions: no lesions Rashes: no rashes Neuro: General: patient oriented x3 Cranial nerves: Yes CN's II-XII intact bilaterally Course Reevaluation(s) Reevaluation #1: CBC resulted hemoglobin 7.2 I discussed with the patient and about possible transfusion 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 Carroll Time: 15:57 Medications Administered Discontinued Medications Generic Name Dose Route Start Last Admin Trade Name Freq PRN Reason Stop Dose Admin Lactated Ringer's 1,000 mls @ 999 mls/hr 06/14/25 15:15 06/14/25 16:08 Lr IV 06/14/25 16:15 Infused .Q1H1M NAZARIO Infusion Ondansetron HCl 4 mg 06/14/25 15:03 06/14/25 15:10 Ondansetron Hcl 4 Mg/2 Ml Vial IVPUSH 06/14/25 15:04 4 mg ONCE ONE Administration Medical Decision Making Medical Decision Making [facility] Narrative: Patient presented to the ED after a near syncopal episode we will obtain electrocardiogram labs we will monitor telemetry Patient's hemoglobin came back low at approximately 7.2 this is slightly lower than baseline of 8-9. A unit of blood was transfused. Patient is symptomatically feel improved ambulated well not orthostatic not having any evidence of GI bleed has a history of myelodysplastic syndrome. Patient is troponin was negative. My interpretation of patient's EKG showed a sinus rhythm heart rate is 60 WA QRS QTC normal no acute ST segment elevation. Patient to be discharged home. Currently in stable condition. Differential Diagnosis Differential Diagnoses: The differential diagnosis associated with the presentation includes Differential diagnosis cardiac arrhythmia/dehydration/vasovagal episode Admission/Observation Consideration of admission/observation: Escalation of care including admission/observation considered Lab Data 06/14/25 15:16 06/14/25 15:16 Labs: Lab Results 06/14/25 06/14/25 Range/Units 15:16 16:05 WBC 7.0 (4.8-10.8) X10*3/uL RBC 2.04 L (4.60-5.80) X10*6/uL Hgb 7.2 L (14.0-18.0) g/dl Hct 21.4 L (42.0-52.0) % MCV 104.9 H (80.0-98.0) fL MCH 35.3 H (27.0-33.0) pg MCHC 33.6 (31.0-36.0) g/dl RDW 29.4 H (11.0-16.0) % Plt Count 302 (160-400) X10*3/uL MPV 11.7 (9.4-12.4) fL Immature Gran % (Auto) 0.3 (0.0-0.4) % Neut % (Auto) 47.2 (45-73) % Lymph % (Auto) 40.7 H (20-40) % Webb % (Auto) 7.9 (2-11) % Eos % (Auto) 2.2 (0-4) % Baso % (Auto) 1.7 (0-2) % Lymph # (Auto) 2.8 (1.2-4.9) X10*3/uL Webb # (Auto) 0.6 (0.1-1.2) X10*3/uL Eos # (Auto) 0.2 (0.0-0.4) X10*3/uL Baso # (Auto) 0.1 (0.0-0.2) X10*3/uL Abs Immat Gran (auto) 0.02 (0.00-0.03) X10*3/uL Absolute Neuts (auto) 3.3 (2.0-8.3) x10*3/uL Absolute Nucleated RBC 0.050 H (0.0-0.012) X10*3/uL Nucleated RBC % (auto) 0.7 H (0.0-0.2) /100WBC Sodium 142 (135-145) mmol/L Potassium 4.3 (3.3-5.1) mmol/L Chloride 109 H (96-108) mmol/L Carbon Dioxide 25 (22-29) mmol/L Anion Gap 12 (12-20) BUN 11 (9-16) mg/dL Creatinine 0.81 (0.5-1.4) mg/dL Estim Creat Clear Calc 82.0 Estimated GFR > 60 Random Glucose 91 (60-115) mg/dL Calcium 8.9 D (8.4-10.2) mg/dL Total Bilirubin 0.7 (0.0-1.0) mg/dL AST 39 H (5-37) U/L ALT 32 (0-40) U/L Alkaline Phosphatase 70 (39-117) U/L Troponin I High Sens < 2.7 (<3.5-35.0) ng/L Total Protein 6.0 L (6.5-8.0) g/dL Albumin 3.9 (3.5-5.0) g/dL Blood Type A Positive Antibody Screen NEGATIVE Crossmatch See Detail Independent Interpretation I performed an independent interpretation of an: EKG (EKG was reviewed interpreted by me as sinus rhythm rate [address]-T changes this is a normal EKG) Discharge Plan Discharge Clinical Impression: Near syncope Anemia Qualifiers: Anemia type: bone marrow failure Bone marrow failure anemia type: unspecified bone marrow failure Qualified Code(s): D61.9 - Aplastic anemia, unspecified Patient Disposition: Home, Self-Care Instructions: Anemia (ED), Near Syncope (ED) Prescriptions: No Action famotidine 10 mg Tablet 10 mg PO DAILY escitalopram oxalate 10 mg tablet 10 mg PO DAILY metoprolol succinate 50 mg tablet extended release 24 hr 50 mg PO DAILY aspirin 81 mg tablet,chewable 1 tab PO DAILY rosuvastatin 40 mg tablet 40 mg PO DAILY Referrals: Chas Noel MD [Primary Care Provider, Internal Medicine] - 06/17/25 Print Language: Chinese
[2025-06-14 15:21] LABS: Hematocrit 21.4 % (42.0-52.0); Hemoglobin 7.2 g/dl (14.0-18.0); Imm Gran Abs Auto 0.02 X10*3/uL (0.00-0.03); Imm Gran Pct Auto 0.3 % (0.0-0.4); Lymphocytes Absolute Auto 2.8 X10*3/uL (1.2-4.9); MANUAL DIFF FLAG NO; Mean Corpuscular HGB Conc 33.6 g/dl (31.0-36.0); Mean Corpuscular Hemoglobin 35.3 pg (27.0-33.0); Mean Corpuscular Volume 104.9 fL (80.0-98.0); NRBC Abs Auto 0.050 X10*3/uL (0.0-0.012); NRBC Pct Auto 0.7 /100WBC (0.0-0.2); Platelet Count 302 X10*3/uL (160-400); Red Blood Count 2.04 X10*6/uL (4.60-5.80); White Blood Count 7.0 X10*3/uL (4.8-10.8)
[2025-06-14 15:35] LABS: Alanine Aminotransferase 32 U/L (0-40); Albumin Level 3.9 g/dL (3.5-5.0); Alkaline Phosphatase 70 U/L (39-117); Anion Gap 12 (12-20); Aspartate Amino Transferase 39 U/L (5-37); Blood Urea Nitrogen 11 mg/dL (9-16); Calcium 8.9 mg/dL (8.4-10.2); Carbon Dioxide 25 mmol/L (22-29); Chloride 109 mmol/L (96-108); Creatinine Clr Calc Pharmacy 82.0; Estimated Glomerular Filt Rate > 60; Potassium 4.3 mmol/L (3.3-5.1); Sodium 142 mmol/L (135-145); Total Protein 6.0 g/dL (6.5-8.0)
--- OUTSIDE RECORDS SUMMARY | 2025-06-14 16:05 | XMS_ITS | Data Portability ---
Author Organization [facility] Address [address] [address] Care Team Providers Care Javascript Application Developer Name Role Phone BORDENTITA Primary Care Provider [...] By Organization Details Last Modified Time 08/15/2023 [id number] He was advised against bed rest lasting longer than four days and to continue activities as tolerated. [email or web address] Not available 08/15/2023 14:01:25 11/14/2023 [id number] He was advised against bed rest lasting longer than four days and to continue activities as tolerated. [email or web address] Not available 11/14/2023 10:55:13 08/15/2024 [id number] He was advised against bed rest lasting longer than four days and to continue activities as tolerated. [email or web address] Not available 08/15/2024 10:24:49 Reason for Referral None Reported. Problems Name Problem SNOMED Code Status Onset Date Resolution Date Notes Provider Name and Address Organization Details Recorded Time Lumbosacral radiculopathy 4334163 Active Eddi ellison MD [address] [facility] , [facility] [address], [place], [address], [place] [facility] 9 15:50:02 Degeneration of lumbar intervertebral disc 03118139 Active Eddi ellison MD [address] [facility] , [address] [place] [address], [place], [address], [place] [facility] 9 15:50:11 Lumbosacral spondylosis without myelopathy 00952997 Active Eddi ellison MD [address] [facility] , [facility] [address], [place], [address], [place] [facility] 9 15:50:26 Spinal stenosis of lumbar region 92856665 Active Eddi ellison MD [address] [facility] , [facility] [address], [place], [place], [address], [place] [facility] 9 15:50:39 Problem Notes None recorded. Procedures Surgical History Date Name Laterality Status Provider Name and Address Organization Details Recorded Time 08/15/19 25 Lumbar Epidural steroid injection under fluoroscopic guidance completed Eddi Sanchez MD [address] , [address], [place], [address], [place] [facility] 08/15/2024 10:23:05 05/15/20 24 Lumbar Epidural steroid injection under fluoroscopic guidance completed Eddi Sanchez MD [address] [facility] , [address], [place], [address], [place] [facility] 05/15/2024 14:35:05 02/06/20 24 Lumbar Epidural steroid injection under fluoroscopic guidance completed Eddi Sanchez MD [address] [facility] , [address], [place], [address], [place] [facility] 2024 09:05:55 11/14/19 24 Lumbar Epidural steroid injection under fluoroscopic guidance completed Eddi Sanchez MD [address] [facility] , [address], [place], [address], [place] [facility] 11/14/2023 10:55:57 08/15/19 24 Lumbar Epidural steroid injection under fluoroscopic guidance completed Eddi Sanchez MD [address] [facility] , [address], [place], [address], [place] [facility] 08/15/2023 14:02:28 05/11/20 23 Lumbar Epidural steroid injection under fluoroscopic guidance completed Eddi Sanchez MD [address] [facility] , [address], [place], [address], [place] [facility] 05/11/2023 13:44:22 02/08/20 23 Lumbar Epidural steroid injection under fluoroscopic guidance completed Eddi Sanchez MD [address] [facility] , [address], [place], [address], [place] [facility] 02/07/2023 14:32:47 11/09/19 23 Lumbar Epidural steroid injection under fluoroscopic guidance completed Eddi Sanchez MD [address] [facility] , [address], [place], [address], [place] [facility] 11/08/2022 11:49:19 08/18/19 23 Lumbar Epidural steroid injection under fluoroscopic guidance completed Eddi Sanchez MD [address] [facility] , [address], [place], [address], [place] [facility] 08/18/2022 13:38:49 05/31/20 22 Lumbar Epidural steroid injection under fluoroscopic guidance completed Eddi Sanchez MD [address] [facility] , [address], [place], [address], [place] [facility] 05/31/2022 12:01:38 02/17/20 22 Lumbar Epidural steroid injection under fluoroscopic guidance completed Eddi Sanchez MD [address] [facility] , [address], [place], [address], [place] [facility] 02/16/2022 11:18:13 11/18/19 22 Lumbar Epidural steroid injection under fluoroscopic guidance completed Eddi Sanchez MD [address] [facility] , [address], [place], [address], [place] [facility] 11/17/2021 13:34:00 08/03/19 22 Lumbar Epidural steroid injection under fluoroscopic guidance completed Eddi Sanchez MD [address] [facility] , [address], [place], [address], [place] [facility] 08/03/2021 13:51:35 05/04/20 21 Lumbar Epidural steroid injection under fluoroscopic guidance completed Eddi Sanchez MD [address] [facility] , [address], [place], [address], [place] [facility] 05/04/2021 09:45:14 02/03/20 21 Lumbar Epidural steroid injection under fluoroscopic guidance completed Eddi Sanchez MD [address] [facility] , [address], [place], [address], [place] [facility] 02/02/2021 09:56:45 10/29/19 21 Lumbar Epidural steroid injection under fluoroscopic guidance completed Eddi Sanchez MD [address] [facility] , [address], [place], [address], [place] [facility] 10/28/2020 11:04:44 07/08/20 20 Lumbar Epidural steroid injection under fluoroscopic guidance completed Eddi Sanchez MD [address] [facility] , [address], [place], [address], [place] [facility] 07/08/2020 09:25:16 01/28/20 20 Lumbar Epidural steroid injection under fluoroscopic guidance completed Eddi Sanchez MD [address] [facility] , [address], [place], [address], [place] [facility] 01/28/2020 11:40:25 08/28/19 20 Lumbar Epidural steroid injection under fluoroscopic guidance completed Eddi Sanchez MD [address] [facility] , [address], [place], [address], [place] [facility] 08/28/2019 13:27:06 03/26/20 19 Lumbar Epidural steroid injection under fluoroscopic guidance completed Eddi Sanchez MD [address] [facility] , [address], [place], [address], [place] [facility] 03/26/2019 10:59:17 01/02/20 19 Lumbar Epidural steroid injection under fluoroscopic guidance completed Eddi Sanchez MD [address] [facility] , [address], [place], [address], [place] [facility] 01/01/2019 18:23:14 11/14/19 19 Lumbar Epidural steroid injection under fluoroscopic guidance completed Eddi Sanchez MD [address] [facility] , [address], [place], [address], [place] [facility] 11/14/2018 08:43:51 [...] (PF) 0.5 mL intramuscul ar syringe [facility] completed Not Available Not Available Not Available morphine 30 mg tablet, crush resistant, extended release Take 1 tablet every 12 hours by oral route. 03/26 completed Not Available Not Available Not Available Flublok Quad (PF) 180 mcg (45 mcg x 4)/0.5 mL IM syringe [facility] 02/02 completed Not Available Not Available [...] 98 % 4 129/44 mm[Hg] Seble Mcgregorrino [facility] 5 09:24:11 Date Recorded Body height Heart rate Oxygen saturation Systolic And Diastolic Provider Name and Address Organization Details Last Updated DateTime 11/14/2023 172.72 cm 83 /min 97 % 116/42 mm[Hg] Angela Ortegaloki [facility] 11/14/2023 10:33:00 Date Recorded Body height Heart rate Oxygen saturation Systolic And Diastolic Provider Name and Address Organization Details Last Updated DateTime 2024 172.72 cm 62 /min 98 % 119/44 mm[Hg] Delia Oswald [facility] 2024 08:33:01 Date Recorded Body height Pain severity - 0-10 verbal numeric rating [Score] - Reported Body mass index (BMI) Body weight Oxygen saturation Heart rate Systolic And Diastolic Provider Name and Address Organization Details Last Updated DateTime 4 172.72 cm 5 26.5 kg/m2 12656.0 7 g 98 % 73 /min 101/47 mm[Hg] Jackie Thakkar [facility] 4 14:08:54 Social History Question Answer Notes LastModified by Organizat ion Details LastModified Time Tobacco Smoking Status Never Smoker Occasional cigar smoker Not Available [facility] 04/24/2020 03:16:11 Which Illicit Or Recreational Drugs Have You Used? None [id number] Information not available 04/24/2020 Education 12 Information n ot available 11/07/2018 Live Alone Or With Others? With Others Information not available 11/07/2018 GED No Information n ot available 11/07/2018 Marital Status Informati on not available 11/07/2018 What Was The Date Of Your Most Recent Tobacco Screening? 01/01/2019 [id number] Information not available 04/24/2020 Sex: Unknown Functional Status Question Answer Note LastModified by Organization D etails LastModified Time What is your level of alcohol consumption? None [id number] Information not available 04/24/2020 Are you currently employed? No [id number] Information not available 04/24/2020 What is your [...] ICD10 Code Diagnosis IMO Codes Diagnosis Note [id number] Eddi Sanchez MD PAIN OFFICE [address] [place] [address] 11/07/2018 14:04:21 11/07/2018 16:05:18 Lumbosacral radiculopathy 3594360 M54.17 Degenerati on of lumbar intervertebral disc 04503754 M51.36 Lumbosacra l spondylosis without myelopathy 50977908 M47.817 Spinal bhumi nosis of lumbar region 75749645 M48.061 02684 Eddi Sanchez MD PAIN OFFICE [address] [place] [address] 11/13/2018 14:30:19 11/14/2018 11:34:42 Lumbosacral radiculopathy 2330732 M54.17 Degenerati on of lumbar intervertebral disc 43881930 M51.36 Lumbosacra l spondylosis without myelopathy 24550786 M47.817 Spinal bhumi nosis of lumbar region 62326948 M48.061 01332 Eddi Sanchez MD PAIN OFFICE [address] [place] [address] 12/06/2018 14:16:15 12/06/2018 15:28:49 Lumbosacral radiculopathy 8196801 M54.17 Degenerati on of lumbar intervertebral disc 15641062 M51.36 Lumbosacra l spondylosis without myelopathy 69000757 M47.817 Spinal bhumi nosis of lumbar region 98571727 M48.061 25811 Eddi Sanchez MD [facility] [address] [facility] [place] [address] 01/01/2019 13:04:31 01/01/2019 18:26:49 Lumbosacral radiculopathy 9095132 M54.17 Degenerati on of lumbar intervertebral disc 41020438 M51.36 Lumbosacra l spondylosis without myelopathy 53012895 M47.817 Spinal bhumi nosis of lumbar region 30076956 M48.061 46524 Eddi Sanchez MD [facility] [address] [facility] [place] [place] [address] 03/26/2019 10:19:14 03/26/2019 11:02:16 Lumbosacral radiculopathy 4382445 M54.17 Degenerati on of lumbar intervertebral disc 23350239 M51.36 Lumbosacra l spondylosis without myelopathy 85535956 M47.817 Spinal bhumi nosis of lumbar region 63692660 M48.061 03679 Eddi Sanchez MD PAIN OFFICE [address] [facility] [place] [place] [address] 08/28/2019 12:47:58 08/28/2019 13:30:23 Lumbosacral radiculopathy 9261144 M54.17 Degenerati on of lumbar intervertebral disc 62712386 M51.36 Lumbosacra l spondylosis without myelopathy 75387032 M47.817 Spinal bhumi nosis of lumbar region 11537967 M48.061 35116 Eddi Sanchez MD [facility] [address] [facility] [place] [place] [address] 01/28/2020 11:16:52 01/28/2020 14:56:45 Lumbosacral radiculopathy 3568503 M54.17 Degenerati on of lumbar intervertebral disc 44779386 M51.36 Lumbosacra l spondylosis without myelopathy 95355262 M47.817 Spinal bhumi nosis of lumbar region 45929533 M48.061 70826 Eddi Sanchez MD [facility] [address] [facility] [place] [address] 07/08/2020 09:22:42 07/08/2020 11:19:23 Lumbosacral radiculopathy 2643744 M54.17 Degenerati on of lumbar intervertebral disc 46785262 M51.36 Lumbosacra l spondylosis without myelopathy 81032912 M47.817 Spinal bhumi nosis of lumbar region 12201112 M48.061 92367 Eddi Sanchez MD PAIN OFFICE [address] [facility] [place] [address] 10/28/2020 09:52:49 10/28/2020 16:05:47 Lumbosacral radiculopathy 4736191 M54.17 Degenerati on of lumbar intervertebral disc 12967924 M51.36 Lumbosacra l spondylosis without myelopathy 24792834 M47.817 Spinal bhumi nosis of lumbar region 22606146 M48.061 60525 Eddi Sanchez MD PAIN OFFICE [address] [facility] [place] [address] 02/02/2021 09:24:48 02/02/2021 10:27:20 Lumbosacral radiculopathy 6807518 M54.17 Degenerati on of lumbar intervertebral disc 51747710 M51.36 Lumbosacra l spondylosis without myelopathy 96304843 M47.817 Spinal bhumi nosis of lumbar region 84330599 M48.061 43480 Eddi Sanchez MD PAIN OFFICE [address] [facility] [place] [address] 05/04/2021 09:11:40 05/04/2021 09:58:06 Lumbosacral radiculopathy 0716774 M54.17 Degenerati on of lumbar intervertebral disc 42989879 M51.36 Lumbosacra l spondylosis without myelopathy 50762376 M47.817 Spinal bhumi nosis of lumbar region 92913780 M48.061 24948 Eddi Sanchez MD PAIN OFFICE [address] [facility] [place] [address] 08/03/2021 13:20:36 08/03/2021 14:49:32 Lumbosacral radiculopathy 0074794 M54.17 Degenerati on of lumbar intervertebral disc 04444561 M51.36 Lumbosacra l spondylosis without myelopathy 79492352 M47.817 Spinal bhumi nosis of lumbar region 56366094 M48.061 47456 Eddi Sanchez MD PAIN OFFICE [address] [place] [address] 11/17/2021 13:01:32 11/17/2021 13:36:27 Lumbosacral radiculopathy 6149315 M54.17 Degenerati on of lumbar intervertebral disc 58454271 M51.36 Lumbosacra l spondylosis without myelopathy 80111725 M47.817 Spinal bhumi nosis of lumbar region 19958510 M48.061 19422 Eddi Sanchez MD PAIN OFFICE [address] [place] [address] 01/07/2022 11:31:26 01/11/2022 09:36:03 Lumbosacral radiculopathy 3319829 M54.17 13691 Eddi Sanchez MD PAIN OFFICE [address] [place] [address] 02/16/2022 10:53:02 02/16/2022 14:02:50 Lumbosacral radiculopathy 9870779 M54.17 Degenerati on of lumbar intervertebral disc 53975624 M51.36 Lumbosacra l spondylosis without myelopathy 00774462 M47.817 Spinal bhumi nosis of lumbar region 74297280 M48.061 37296 Eddi Sanchez MD PAIN OFFICE [address] [place] [address] 05/31/2022 09:53:11 05/31/2022 14:22:50 Lumbosacral radiculopathy 5502463 M54.17 Degenerati on of lumbar intervertebral disc 98673358 M51.36 Lumbosacra l spondylosis without myelopathy 03662174 M47.817 Spinal bhumi nosis of lumbar region 53773482 M48.061 43960 Eddi Sanchez MD [facility] [address] [facility] [place] [address] 08/18/2022 11:12:06 08/18/2022 13:45:18 Lumbosacral radiculopathy 3032127 M54.17 Degenerati on of lumbar intervertebral disc 03186871 M51.36 Spinal bhumi nosis of lumbar region 83464033 M48.062 93241 Eddi Sanchez MD [facility] [address] [facility] [place] [address] 11/08/2022 11:25:10 11/08/2022 14:29:03 Lumbosacral radiculopathy 2277362 M54.17 Degenerati on of lumbar intervertebral disc 02290985 M51.36 Spinal bhumi nosis of lumbar region 74103501 M48.062 31823 Eddi Sanchez MD [facility] [address] [facility] [place] [address] 01/20/2023 10:14:06 01/20/2023 10:40:11 Lumbosacral radiculopathy 5010505 M54.17 Degenerati on of lumbar intervertebral disc 92302292 M51.36 Lumbosacra l spondylosis without myelopathy 15792228 M47.817 Spinal bhumi nosis of lumbar region 78929140 M48.061 10157 Eddi Sanchez MD [facility] [address] [facility] [place] [address] 02/07/2023 12:59:20 02/07/2023 14:44:01 Lumbosacral radiculopathy 8072004 M54.17 Degenerati on of lumbar intervertebral disc 09791666 M51.36 Spinal bhumi nosis of lumbar region 36381698 M48.062 06571 Eddi Sanchez MD PAIN OFFICE [address] [facility] [place] [address] 05/11/2023 11:21:41 05/11/2023 13:50:13 Spinal stenosis of lumbar region 76164117 M48.062 Lumbosacra l radiculopathy 7552683 M54.17 Degenerati on of lumbar intervertebral disc 79260029 M51.36 12944 Eddi Sanchez MD [facility] [address] [place] [address] 08/15/2023 13:25:57 08/15/2023 14:23:43 Spinal stenosis of lumbar region 83208353 M48.062 Lumbosacra l radiculopathy 0731243 M54.17 Degenerati on of lumbar intervertebral disc 55841500 M51.36 12343 Eddi Sanchez MD [facility] [address] [place] [address] 11/14/2023 10:21:58 11/14/2023 11:00:27 Spinal stenosis of lumbar region 11921760 M48.062 Lumbosacra l radiculopathy 1033237 M54.17 Degenerati on of lumbar intervertebral disc 57412841 M51.36 69772 Eddi Sanchez MD [facility] [address] [place] [address] 2024 08:29:21 2024 09:08:44 Spinal stenosis of lumbar region 42220906 M48.062 Lumbosacra l radiculopathy 6028148 M54.17 Degenerati on of lumbar intervertebral disc 75167851 M51.36 55036 Eddi Sanchez MD [facility] [address] [place] [address] 05/15/2024 13:56:51 05/15/2024 15:51:39 Spinal stenosis of lumbar region 66435197 M48.062 Lumbosacra l radiculopathy 4252585 M54.17 Degenerati on of lumbar intervertebral disc 82710817 M51.362 26500 Eddi Sanchez MD [facility] [address] [place] [address] 08/15/2024 09:14:54 08/15/2024 14:55:48 Spinal stenosis of lumbar region 65465233 M48.062 Lumbosacra l radiculopathy 7148504 M54.17 Degenerati on of lumbar intervertebral disc 86786105 M51.362 Health Concerns Section Related Observation LastModified by Organization Detai ls LastModified Time None Recorded Concern Status LastModified by Organization Details LastModified Time None Recorded Advance Directives Directive None Recorded Payers Insurance Date Sequence Insurance Name Policy Number Policy Nye Covered Member ID Nye Member ID Guarantor Name 2024 1 ED [facility] [id number] Man Garreffi [id number] Man Garreffi 11/16/2024 1 BLUE [employer] [facility] (EPO) [id number] Amisha Greenwood Garreffi [id number] Man Garreffi 2024 1 MEDICARE [place] [employer] Man Evans Garreffi [id number] Man Joe Notes Date Note Type Note Provider Name and Address Organization Details Recorded Time 08/15/2023 text/html He is here today for a lumbar epidural steroid injection under fluoroscopic guidance. He is seeing his PCP regularly.He has macrocytic anemia and is seeing Dr. Kim and had a bone marrow biopsy done. His platelet count is within normal limits. Eddi Sanchez MD [address] [place] [address] , [facility] [address], [place], [address], [facility] - [facility] 08/15/2023 16:52:24 11/14/2023 text/html He is here today for a lumbar epidural steroid injection under fluoroscopic guidance. He is seeing his PCP regularly.He has macrocytic anemia and is seeing Dr. Kim and had a bone marrow biopsy done. His platelet count is within normal limits. Eddi Sanchez MD [address] [place] [address] , [address], [place], [address], [facility] - [facility] 11/14/2023 16:22:56 2024 text/html [...] his latest results Eddi Sanchez MD [address] [facility] , [address], [place], [address], [facility] - [facility] 2024 10:06:16 05/15/2024 text/html He is here today for a lumbar epidural steroid injection under fluoroscopic guidance. He is seeing his PCP regularly. Eddi Sanchez MD [address] [facility] , [address], [place], [address], [facility] - [facility] 05/15/2024 15:54:49 08/15/2024 text/html He is here today for a lumbar epidural steroid injection under fluoroscopic guidance. He is seeing his PCP regularly.He had a blood transfusion for his macrocytic anemia recently Eddi Sanchez MD [address] [facility] , [address], [place], [address], [facility] - [facility] 08/15/2024 15:22:41
--- OUTSIDE RECORDS SUMMARY | 2025-06-14 16:05 | XMS_ITS | Clinical Summary ---
Author Organization [facility] Address [address] [place] [address] Phone Care Team Providers Care Social Work Professor Name Role Phone Chas Borden MD Primary Care Provider [phone] Allergies No known active allergies Medications multivitamin [...] EDT Narrative 03/30/2020 12:37 PM EDT [facility] Diagnostic Imaging Department [address] [place] [address] Patient: BRANMAN /Age/Sex: 1955 - 65 - M Unit#: [id number] Location/Status: SPDIUS/REG CLI Mnemonic/Ordering Site: [facility]UD/[facility]ACE Ordering [...] bifurcation. IMPRESSION: No visualized abdominal aortic aneurysm. [id number] Dictating Physician: SANTIAGO JON MD Electronically Signed by: SANTIAGO JON MD Dic Date/Time: 03/30/20 1236 Sign date/Time: 03/30/20 1237 Procedure Note Santiago Jon MD - 06/29/2022 [facility] Diagnostic Imaging Department [address] [place], [place] [address] Patient: BRANMANO.B./Age/Sex: 1955 - 65 - M Unit#: [id number] Location/Status: SPDIUS/REG CLI Mnemonic/Ordering Site: [facility]CRSTUD/SPUS Ordering [...] bifurcation. IMPRESSION: No visualized abdominal aortic aneurysm. [id number] Dictating Physician: SANTIAGO JON MD Electronically Signed by: SANTIAGO JON MD Dic Date/Time: 03/30/20 1236 Sign date/Time: 03/30/20 1237 Chas Borden MD [facility] PROCEDURES Final Result from Last 3 Months or Most Recently Relevant to Health Maintenance Insurance [place] [employer] [facility] MEDICARE Care Teams Social Work Professor Relationship Specialty Start Date End Date Chas Borden MD [address] [place] [id number] PCP - General Internal Medicine 10/16/24
[2025-06-14 16:16] LABS: Troponin-I High Sensitivity < 2.7 ng/L (<3.5-35.0)
== END 2025-06-14 20:41 | disposition home or self-care (01) ==
PROVIDERS: Emergency Provider Emergency Medicine; PCP Internal Medicine
DX: R55 Syncope and collapse (principal); D61.9 Aplastic anemia, unspecified; R11.10 Vomiting, unspecified; E11.9 Type 2 diabetes mellitus without complications; K21.9 Gastro-esophageal reflux disease without esophagitis; F17.200 Nicotine dependence, unspecified, uncomplicated; Z71.6 Tobacco abuse counseling; Z79.899 Other long term (current) drug therapy
CPT/HCPCS: 36415; 80053; 84484; 85025; 86850; 86900; 86901; 86923; 93005; 96361; 96374; 99284; 99285; J2405; J7120; P9016

== ENCOUNTER → 2025-06-14 15:03 | Outpatient (BNV) | payer OTHER, SELFPAY | PROVIDERS: Emergency Provider Emergency Medicine; PCP Internal Medicine; Visit Provider Internal Medicine | DX: R07.9 Chest pain, unspecified (principal) | CPT/HCPCS: 93010 ==

== ENCOUNTER → 2025-07-07 14:14 | Outpatient (BNV) | payer OTHER, SELFPAY | PROVIDERS: PCP Internal Medicine; Referring Provider Internal Medicine Hematology; Visit Provider Internal Medicine | DX: R55 Syncope and collapse (principal) | CPT/HCPCS: 93010 ==

== ENCOUNTER → 2025-07-09 12:43 | Outpatient (REF) | payer OTHER, SELFPAY ==
--- OUTSIDE RECORDS SUMMARY | 2025-05-30 05:00 | XMS_ITS ---
Author Organization [facility] Noel MD Address [address] [place] [phone] Care Team Providers Care Grocery Checker Name Role Phone Chas Noel Primary Care Provider REASON FOR VISIT awv Encounters Encounter Location Date Provider Diagnosis Chas Noel MD [address] [place] [address] [place] [phone] 05/30/2025 Chas Noel Plan Of Treatment Next Appt Details Provider Name:Chas Noel , 10/28/2025 10:00:00 AM, [address] [place] [address], [phone], Provider Name:Chas Noel , 06/10/2026 01:30:00 PM, [address] [place] [address], [phone], Progress Notes * Kelly JOEsDOB:1954 (70 yo M)Acc No.[id number]:05/30/2025 Progress Note Patient: Thomas Man CARLIN Provider: Vannesa Noel MD :1955 A ge:70 Y S ex:Male Date:05/30/2025 Address:[address] [place], [place] [id number] Subjective: * Chief Complaints: * 1 . Awv. * Medical History: * Ocular Surgical History: Objective: * Vitals: Past Vitals:* 03/25/2025 Temp:97.1F, Wt:163lbs, BMI:2 4.78Index, Ht:5 ft 8 in * 02/03/2025 Temp:96.8F, HR:69/min, BP:Si tting Right Arm: 100/40mm Hg, Wt:163lbs, BMI:24.78Index, Ht:5 ft 8 in, Oxygen sat %:97% * 01/08/2025 Temp:96.3F, HR:76/min, Wt:17 1lbs, BMI:26Index, Ht:5 ft 8 in, Oxygen sat %:97% Assessment: Plan: * Treatment: * Images: Billing Information: * Visit Code: * Procedure Codes: * Electronic signature of Jesika Noel MD on 07/09/2025 at 02:19 PM EST Sign off status: Pending * Provider: Vannesa Noel MD Date: 07/30/2024 Generated for Josh quispe/[place]/Kina on: 02:19 PM EST
--- OUTSIDE RECORDS SUMMARY | 2025-06-02 06:00 | XMS_ITS ---
Author Organization Chas Noel MD Address [address] [place] [phone] Care Team Providers Care Security Risk Analyst Name Role Phone Chas Noel Primary Care Provider [phone] REASON FOR VISIT AWV Encounters Encounter Location Date Provider Diagnosis Chas Noel MD [address] [place] [address] [place] [phone] 06/02/2025 Chas Noel Plan Of Treatment Next Appt Details Provider Name:Chas Noel , 10/28/2025 10:00:00 AM, [address] [place] [address], [phone], Provider Name:Chas Noel , 06/10/2026 01:30:00 PM, [address] [place] [address], [phone], Progress Notes * Kelly JOEsDOB:1954 (70 yo M)Acc No.[id number]:06/02/2025 Progress Note Patient: Thomas Man CARLIN Provider: Vannesa Noel MD Resource:Savanna Tracy :1955 A ge:70 Y S ex:Male Date:06/02/2025 Address:[address] [place], [place] [id number] Subjective: * Chief Complaints: * 1 . AWV. * Medical History: * Ocular Surgical History: [...] of Jesika Noel MD on 07/09/2025 at 02:20 PM EST Sign off status: Pending * Provider: Vannesa Noel MD Date: 08/02/2024 Generated for Josh quispe/[place]/Shainaitting on: 02:20 PM EST
--- OUTSIDE RECORDS SUMMARY | 2025-07-07 11:26 | XMS_ITS ---
Author Organization Chas Noel MD Address [address] [place] [id number] Care Team Providers Care Tapper Operator Name Role Phone Chas Noel Primary Care Provider REASON FOR VISIT RE:Vagal incidents Encounters Encounter Location Date Provider Diagnosis Chas Noel MD [address] [phone] 07/07/2025 Chas Noel Bradycardia, unspecified R00.1 Assessments Encounter Date Diagnosis (ICD Code) Assessment Notes Treatment Notes Treatment Clinical Notes Section Notes 07/07/2025 Bradycardia, unspecified (ICD-10 - R00.1) Plan Of Treatment Pending Test Test Name Order Date Holter Test 07/07/2025 Next Appt Details Provider Name:Chas Noel , 10/28/2025 10:00:00 AM, [address] [place] [address], [phone], Provider Name:Chas Noel , 06/10/2026 01:30:00 PM, [address] [place] [address], [phone], Progress Notes * Javan JOEOB:1954 (70 yo M)Acc No.[id number]:07/07/2025 Patient: Thomas Man CARLIN :1955 A ge:70 Y S ex:Male Address:[address] [place] [address], [phone] Subjective: * Chief Complaints: * R E:Vagal incidents * Medical History: * Surgical History: * Hospitalization/Major Diagno stic Procedure: * Medications: Objective: * Vitals: Past Vitals:* 06/02/2025 Temp:98.2F, HR:64/min, BP:Si tting Right Arm:122/54mm Hg, Wt:160.6lbs, BMI:24.42Index, Ht:5 ft 8 in, Oxygen sat %:97% * 03/25/2025 Temp:97.1F, Wt:163lbs, BMI:2 4.78Index, Ht:5 ft 8 in * 02/03/2025 Temp:96.8F, HR:69/min, BP:Si tting Right Arm: 100/40mm Hg, Wt:163lbs, BMI:24.78Index, Ht:5 ft 8 in, Oxygen sat %:97% * Physical Examination: Assessment: * Assessment: 1. B radycardia, unspecified - R00.1 (Primary) Plan: * Treatment: * Procedure Codes: * true * Date: Generated for Josh quispe/[place]/Kina on: 02:20 PM EST
--- OUTSIDE RECORDS SUMMARY | 2025-07-09 14:20 | XMS_ITS | Data Portability ---
Author Organization [facility] Address [address] [address] Care Team Providers Care Grades 1 Through 6 Teacher Name Role Phone BORDENTITA Primary Care Provider [phone] Assessment Encounter Date Assessment Date Assessment LastModified [...] By Organization Details Last Modified Time 08/15/2023 [id number] He was advised against bed rest lasting longer than four days and to continue activities as tolerated. [email or web address] Not available 08/15/2023 14:01:25 11/14/2023 [id number] He was advised against bed rest lasting longer than four days and to continue activities as tolerated. [email or web address] Not available 11/14/2023 10:55:13 08/15/2024 14001 He was advised against bed rest lasting longer than four days and to continue activities as tolerated. [email or web address] Not available 08/15/2024 10:24:49 Reason for Referral None Reported. Problems Name Problem SNOMED Code Status Onset Date Resolution Date Notes Provider Name and Address Organization Details Recorded Time Lumbosacral radiculopathy 2403861 Active Eddi ellison MD [address] [facility] , [facility], [place], [address], [place] [facility] 9 15:50:02 Degeneration of lumbar intervertebral disc 45961000 Active Eddi ellison MD [address] [facility] , [place] [address], [place], [address], [place] [facility] 9 15:50:11 Lumbosacral spondylosis without myelopathy 72590451 Active Eddi ellison MD [address] [facility] , [facility], [place], [place], 9, [place] [facility] 9 15:50:26 Spinal stenosis of lumbar region 59965730 Active Eddi ellison MD [address] [facility] , [facility], [place], [place], 9, [place] [facility] 9 15:50:39 Problem Notes None recorded. Procedures Surgical History Date Name Laterality Status Provider Name and Address Organization Details Recorded Time 08/15/19 25 Lumbar Epidural steroid injection under fluoroscopic guidance completed Eddi Sanchez MD [address] , [address], [place], [address], [place] [facility] 08/15/2024 10:23:05 05/15/20 24 Lumbar Epidural steroid injection under fluoroscopic guidance completed Eddi Sanchez MD [address] [employer] [facility] , [address], [place], [address], [place] [facility] 05/15/2024 14:35:05 02/06/20 24 Lumbar Epidural steroid injection under fluoroscopic guidance completed Eddi Sanchez MD [address] [employer] [facility] , [address], [place], [address], [place] [facility] 2024 09:05:55 11/14/19 24 Lumbar Epidural steroid injection under fluoroscopic guidance completed Eddi Sanchez MD [address] [employer] [facility] , [address], [place], [address], [place] [facility] 11/14/2023 10:55:57 08/15/19 24 Lumbar Epidural steroid injection under fluoroscopic guidance completed Eddi Sanchez MD [address] [employer] [facility] , [address], [place], [address], [place] [facility] 08/15/2023 14:02:28 05/11/20 23 Lumbar Epidural steroid injection under fluoroscopic guidance completed Eddi Sanchez MD [address] [employer] [facility] , [address], [place], [address], [place] [facility] 05/11/2023 13:44:22 02/08/20 23 Lumbar Epidural steroid injection under fluoroscopic guidance completed Eddi Sanchez MD [address] [employer] [facility] , [address], [place], [address], [place] [facility] 02/07/2023 14:32:47 11/09/19 23 Lumbar Epidural steroid injection under fluoroscopic guidance completed Eddi Sanchez MD [address] [employer] [facility] , [address], [place], [address], [place] [facility] 11/08/2022 11:49:19 08/18/19 23 Lumbar Epidural steroid injection under fluoroscopic guidance completed Eddi Sanchez MD [address] [facility] , [address], [place], [address], [place] [facility] 08/18/2022 13:38:49 05/31/20 22 Lumbar Epidural steroid injection under fluoroscopic guidance completed Eddi Sanchez MD [address] [employer] [facility] , [address], [place], [address], [place] [facility] 05/31/2022 12:01:38 02/17/20 22 Lumbar Epidural steroid injection under fluoroscopic guidance completed Eddi Sanchez MD [address] [employer] [facility] , [address], [place], [address], [place] [facility] 02/16/2022 11:18:13 11/18/19 22 Lumbar Epidural steroid injection under fluoroscopic guidance completed Eddi Sanchez MD [address] [employer] [facility] , [address], [place], [address], [place] [facility] 11/17/2021 13:34:00 08/03/19 22 Lumbar Epidural steroid injection under fluoroscopic guidance completed Eddi Sanchez MD [address] [employer] [facility] , [address], [place], [address], [place] [facility] 08/03/2021 13:51:35 05/04/20 21 Lumbar Epidural steroid injection under fluoroscopic guidance completed Eddi Sanchez MD [address] [employer] [facility] , [address], [place], [address], [place] [facility] 05/04/2021 09:45:14 02/03/20 21 Lumbar Epidural steroid injection under fluoroscopic guidance completed Eddi Sanchez MD [address] [facility] , [address], [place], [address], [place] [facility] 02/02/2021 09:56:45 10/29/19 21 Lumbar Epidural steroid injection under fluoroscopic guidance completed Eddi Sanchez MD [address] [facility] , [address], [place], [address], [place] [facility] 10/28/2020 11:04:44 07/08/20 20 Lumbar Epidural steroid injection under fluoroscopic guidance completed Eddi Sanchez MD [address] [facility] , [address], [place], [address], [place] [facility] 07/08/2020 09:25:16 01/28/20 20 Lumbar Epidural steroid injection under fluoroscopic guidance completed Eddi Sanchez MD [address] [facility] , [address], [place], [address], [place] [facility] 01/28/2020 11:40:25 08/28/19 20 Lumbar Epidural steroid injection under fluoroscopic guidance completed Eddi Sanchez MD [address] [facility] , [address], [place], [address], [place] [facility] 08/28/2019 13:27:06 03/26/20 19 Lumbar Epidural steroid injection under fluoroscopic guidance completed Eddi Sanchez MD [address] [facility] , [address], [place], [address], [place] [facility] 03/26/2019 10:59:17 01/02/20 19 Lumbar Epidural steroid injection under fluoroscopic guidance completed Eddi Sanchez MD [address] [facility] , [address], [place], [address], [place] [facility] 01/01/2019 18:23:14 11/14/19 19 Lumbar Epidural steroid injection under fluoroscopic guidance completed Eddi Sanchez MD [address] [facility] , [address], [place], [address], [place] [facility] 11/14/2018 08:43:51 [...] (PF) 0.5 mL intramuscul ar syringe [facility] completed Not Available Not Available Not Available morphine 30 mg tablet, crush resistant, extended release Take 1 tablet every 12 hours by oral route. 03/26 completed Not Available Not Available Not Available Flublok Quad (PF) 180 mcg (45 mcg x 4)/0.5 mL IM syringe [facility]02 completed Not Available Not Available Not [...] 98 % 4 129/44 mm[Hg] Seble Mcgregorrino [facility] 5 09:24:11 Date Recorded Body height Heart rate Oxygen saturation Systolic And Diastolic Provider Name and Address Organization Details Last Updated DateTime 11/14/2023 172.72 cm 83 /min 97 % 116/42 mm[Hg] Angela Ortegaloki [facility] 11/14/2023 10:33:00 Date Recorded Body height Heart rate Oxygen saturation Systolic And Diastolic Provider Name and Address Organization Details Last Updated DateTime 2024 172.72 cm 62 /min 98 % 119/44 mm[Hg] Delia Oswald [facility] 2024 08:33:01 Date Recorded Body height Pain severity - 0-10 verbal numeric rating [Score] - Reported Body mass index (BMI) Body weight Oxygen saturation Heart rate Systolic And Diastolic Provider Name and Address Organization Details Last Updated DateTime 4 172.72 cm 5 26.5 kg/m2 06188.0 7 g 98 % 73 /min 101/47 mm[Hg] Jackie Thakkar [facility] 4 14:08:54 Social History Question Answer Notes LastModified by Organizat ion Details LastModified Time Tobacco Smoking Status Never Smoker Occasional cigar smoker Not Available [facility] 04/24/2020 03:16:11 Which Illicit Or Recreational Drugs Have You Used? None [id number] Information not available 04/24/2020 Education 12 Information n ot available 11/07/2018 Live Alone Or With Others? With Others Information not available 11/07/2018 GED No Information n ot available 11/07/2018 Marital Status Informati on not available 11/07/2018 What Was The Date Of Your Most Recent Tobacco Screening? 01/01/2019 [id number] Information not available 04/24/2020 Sex: Unknown Functional Status Question Answer Note LastModified by Organization D etails LastModified Time What is your level of alcohol consumption? None [id number] Information not available 04/24/2020 Are you currently employed? No [id number] Information not available 04/24/2020 What is your [...] ICD10 Code Diagnosis IMO Codes Diagnosis Note [id number] Eddi Sanchez MD PAIN OFFICE [address] [place] [address] 11/07/2018 14:04:21 11/07/2018 16:05:18 Lumbosacral radiculopathy 3661045 M54.17 Degenerati on of lumbar intervertebral disc 65038609 M51.36 Lumbosacra l spondylosis without myelopathy 34372809 M47.817 Spinal bhumi nosis of lumbar region 88041072 M48.061 75311 Eddi Sanchez MD PAIN OFFICE [address] [place] [address] 11/13/2018 14:30:19 11/14/2018 11:34:42 Lumbosacral radiculopathy 9132937 M54.17 Degenerati on of lumbar intervertebral disc 80902848 M51.36 Lumbosacra l spondylosis without myelopathy 09145698 M47.817 Spinal bhumi nosis of lumbar region 13981450 M48.061 [id number] Eddi Sanchez MD PAIN OFFICE [address] [place] [address] 12/06/2018 14:16:15 12/06/2018 15:28:49 Lumbosacral radiculopathy 1371542 M54.17 Degenerati on of lumbar intervertebral disc 99209193 M51.36 Lumbosacra l spondylosis without myelopathy 19044984 M47.817 Spinal bhumi nosis of lumbar region 95314028 M48.061 67153 Eddi Sanchez MD [facility] [address] [facility] [place] [address] 01/01/2019 13:04:31 01/01/2019 18:26:49 Lumbosacral radiculopathy 5112363 M54.17 Degenerati on of lumbar intervertebral disc 04369008 M51.36 Lumbosacra l spondylosis without myelopathy 19734331 M47.817 Spinal bhumi nosis of lumbar region 26706466 M48.061 65597 Eddi Sanchez MD [facility] [address] [facility] [place] [address] 03/26/2019 10:19:14 03/26/2019 11:02:16 Lumbosacral radiculopathy 4418433 M54.17 Degenerati on of lumbar intervertebral disc 36443804 M51.36 Lumbosacra l spondylosis without myelopathy 11532840 M47.817 Spinal bhumi nosis of lumbar region 37197456 M48.061 55495 Eddi Sanchez MD PAIN OFFICE [address] [facility] [place] [address] 08/28/2019 12:47:58 08/28/2019 13:30:23 Lumbosacral radiculopathy 9745126 M54.17 Degenerati on of lumbar intervertebral disc 11301790 M51.36 Lumbosacra l spondylosis without myelopathy 23813572 M47.817 Spinal bhumi nosis of lumbar region 20487616 M48.061 33521 Eddi Sanchez MD [facility] [address] [facility] [place] [address] 01/28/2020 11:16:52 01/28/2020 14:56:45 Lumbosacral radiculopathy 8439052 M54.17 Degenerati on of lumbar intervertebral disc 80003271 M51.36 Lumbosacra l spondylosis without myelopathy 16268740 M47.817 Spinal bhumi nosis of lumbar region 68647907 M48.061 21412 Eddi Sanchez MD [facility] [address] [facility] [place] [address] 07/08/2020 09:22:42 07/08/2020 11:19:23 Lumbosacral radiculopathy 0755471 M54.17 Degenerati on of lumbar intervertebral disc 83806967 M51.36 Lumbosacra l spondylosis without myelopathy 37113344 M47.817 Spinal bhumi nosis of lumbar region 12334312 M48.061 51517 Eddi Sanchez MD PAIN OFFICE [address] [facility] [place] [address] 10/28/2020 09:52:49 10/28/2020 16:05:47 Lumbosacral radiculopathy 3031615 M54.17 Degenerati on of lumbar intervertebral disc 46372279 M51.36 Lumbosacra l spondylosis without myelopathy 85126138 M47.817 Spinal bhumi nosis of lumbar region 56788338 M48.061 48931 Eddi Sanchez MD PAIN OFFICE [address] [facility] [place] [address] 02/02/2021 09:24:48 02/02/2021 10:27:20 Lumbosacral radiculopathy 7336367 M54.17 Degenerati on of lumbar intervertebral disc 28137515 M51.36 Lumbosacra l spondylosis without myelopathy 15094302 M47.817 Spinal bhumi nosis of lumbar region 07993838 M48.061 50424 Eddi Sanchez MD PAIN OFFICE [address] [facility] [place] [address] 05/04/2021 09:11:40 05/04/2021 09:58:06 Lumbosacral radiculopathy 7003489 M54.17 Degenerati on of lumbar intervertebral disc 69379564 M51.36 Lumbosacra l spondylosis without myelopathy 10394090 M47.817 Spinal bhumi nosis of lumbar region 32765407 M48.061 46372 Eddi Sanchez MD PAIN OFFICE [address] [facility] [place] [address] 08/03/2021 13:20:36 08/03/2021 14:49:32 Lumbosacral radiculopathy 4919131 M54.17 Degenerati on of lumbar intervertebral disc 83995931 M51.36 Lumbosacra l spondylosis without myelopathy 50989009 M47.817 Spinal bhumi nosis of lumbar region 11287621 M48.061 35130 Eddi Sanchez MD PAIN OFFICE [address] [place] [address] 11/17/2021 13:01:32 11/17/2021 13:36:27 Lumbosacral radiculopathy 9895924 M54.17 Degenerati on of lumbar intervertebral disc 36451703 M51.36 Lumbosacra l spondylosis without myelopathy 84961150 M47.817 Spinal bhumi nosis of lumbar region 73046326 M48.061 36584 Eddi Sanchez MD PAIN OFFICE [address] [place] [address] 01/07/2022 11:31:26 01/11/2022 09:36:03 Lumbosacral radiculopathy 3784382 M54.17 31658 Eddi Sanchez MD PAIN OFFICE [address] [place] [address] 02/16/2022 10:53:02 02/16/2022 14:02:50 Lumbosacral radiculopathy 2695024 M54.17 Degenerati on of lumbar intervertebral disc 26590119 M51.36 Lumbosacra l spondylosis without myelopathy 26601189 M47.817 Spinal bhumi nosis of lumbar region 88497598 M48.061 23325 Eddi Sanchez MD PAIN OFFICE [address] [place] [address] 05/31/2022 09:53:11 05/31/2022 14:22:50 Lumbosacral radiculopathy 3698658 M54.17 Degenerati on of lumbar intervertebral disc 40114243 M51.36 Lumbosacra l spondylosis without myelopathy 16684156 M47.817 Spinal bhumi nosis of lumbar region 34635110 M48.061 26473 Eddi Sanchez MD [facility] [address] [facility] [place] [address] 08/18/2022 11:12:06 08/18/2022 13:45:18 Lumbosacral radiculopathy 0675063 M54.17 Degenerati on of lumbar intervertebral disc 55831418 M51.36 Spinal bhumi nosis of lumbar region 92771046 M48.062 25144 Eddi Sanchez MD [facility] [address] [facility] [place] [address] 11/08/2022 11:25:10 11/08/2022 14:29:03 Lumbosacral radiculopathy 6808278 M54.17 Degenerati on of lumbar intervertebral disc 51529201 M51.36 Spinal bhumi nosis of lumbar region 60645378 M48.062 79717 Eddi Sanchez MD [facility] [address] [facility] [place] [address] 01/20/2023 10:14:06 01/20/2023 10:40:11 Lumbosacral radiculopathy 7523071 M54.17 Degenerati on of lumbar intervertebral disc 55745470 M51.36 Lumbosacra l spondylosis without myelopathy 87477395 M47.817 Spinal bhumi nosis of lumbar region 34906166 M48.061 08873 Eddi Sanchez MD [facility] [address] [facility] [place] [address] 02/07/2023 12:59:20 02/07/2023 14:44:01 Lumbosacral radiculopathy 3248951 M54.17 Degenerati on of lumbar intervertebral disc 73582922 M51.36 Spinal bhumi nosis of lumbar region 59787317 M48.062 95350 Eddi Sanchez MD PAIN OFFICE [address] [facility] [place] [address] 05/11/2023 11:21:41 05/11/2023 13:50:13 Spinal stenosis of lumbar region 44949007 M48.062 Lumbosacra l radiculopathy 3616356 M54.17 Degenerati on of lumbar intervertebral disc 71516267 M51.36 63296 Eddi Sanchez MD [facility] [address] [place] [address] 08/15/2023 13:25:57 08/15/2023 14:23:43 Spinal stenosis of lumbar region 95268430 M48.062 Lumbosacra l radiculopathy 7785630 M54.17 Degenerati on of lumbar intervertebral disc 93524156 M51.36 08919 Eddi Sanchez MD [facility] [address] [place] [address] 11/14/2023 10:21:58 11/14/2023 11:00:27 Spinal stenosis of lumbar region 30930534 M48.062 Lumbosacra l radiculopathy 7561788 M54.17 Degenerati on of lumbar intervertebral disc 19329522 M51.36 61855 Eddi Sanchez MD [facility] [address] [place] [address] 2024 08:29:21 2024 09:08:44 Spinal stenosis of lumbar region 44908605 M48.062 Lumbosacra l radiculopathy 7076672 M54.17 Degenerati on of lumbar intervertebral disc 16471269 M51.36 [id number] Eddi Sanchez MD [facility] [address] [place] [address] 05/15/2024 13:56:51 05/15/2024 15:51:39 Spinal stenosis of lumbar region 59811167 M48.062 Lumbosacra l radiculopathy 3353256 M54.17 Degenerati on of lumbar intervertebral disc 48484159 M51.362 50179 Eddi Sanchez MD [facility] [address] [place] [address] 08/15/2024 09:14:54 08/15/2024 14:55:48 Spinal stenosis of lumbar region 36679295 M48.062 Lumbosacra l radiculopathy 3788210 M54.17 Degenerati on of lumbar intervertebral disc 15905534 M51.362 Health Concerns Section Related Observation LastModified by Organization Detai ls LastModified Time None Recorded Concern Status LastModified by Organization Details LastModified Time None Recorded Advance Directives Directive None Recorded Payers Insurance Date Sequence Insurance Name Policy Number Policy Nye Covered Member ID Nye Member ID Guarantor Name 2024 1 [facility] [id number] Man Garreffi [id number] Man Garreffi 11/16/2024 1 [employer] [facility] (EPO) [id number] Amisha Greenwood Garreffi [id number] Man Garreffi 2024 1 MEDICARE [place]: [facility] Man Evans Garreffi [id number] Man Joe Notes Date Note Type Note Provider Name and Address Organization Details Recorded Time 08/15/2023 text/html He is here today for a lumbar epidural steroid injection under fluoroscopic guidance. He is seeing his PCP regularly.He has macrocytic anemia and is seeing Dr. Kim and had a bone marrow biopsy done. His platelet count is within normal limits. Eddi Sanchez MD [address] [place] [address] , [facility], [place], [address], [facility] - [facility] Management 08/15/2023 16:52:24 11/14/2023 text/html He is here today for a lumbar epidural steroid injection under fluoroscopic guidance. He is seeing his PCP regularly.He has macrocytic anemia and is seeing Dr. Kim and had a bone marrow biopsy done. His platelet count is within normal limits. Eddi Sanchez MD [address] [place] [address] , [address], [place], [address], [facility] - Pain Management 11/14/2023 16:22:56 2024 [...] his latest results Eddi Sanchez MD [address] [facility] , [address], [place], [address], [facility] - Pain Management 2024 10:06:16 05/15/2024 text/html He is here today for a lumbar epidural steroid injection under fluoroscopic guidance. He is seeing his PCP regularly. Eddi Sanchez MD [address] [facility] , [address], [place], [address], [facility] - Pain Management 05/15/2024 15:54:49 08/15/2024 text/html He is here today for a lumbar epidural steroid injection under fluoroscopic guidance. He is seeing his PCP regularly.He had a blood transfusion for his macrocytic anemia recently Eddi Sanchez MD [address] [facility] , [address], [place], [address], [facility] - Pain Management 08/15/2024 15:22:41
--- OUTSIDE RECORDS SUMMARY | 2025-07-09 14:20 | XMS_ITS | Patient Health Record ---
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 Bulk Plant Agent Name Role Phone [facility] Primary Care Provider Eugenia Ford Unavailable [phone] Allergies No Known Allergies Results Component Value Reference Range Notes Hemoglobin A1C Reviewed date:08/15/2024 04:32:37 PM Interpretation: Performing Lab: Notes/Report: DCA [facility] 2 (DCA [facility] 2), [facility] Lot: [id number] EKG Reviewed date:09/27/2024 03:02:43 PM Interpretation: Performing Lab: Notes/Report: ECGDiastolicBP 46 ECGHr 69 ECGPRInterval 180 ECGPWaveAxis 66 ECGQRSDuration 84 ECGQrsWaveAxis 52 ECGQTcInterval 409 ECGQTInterval 394 ECGSystolicBP 118 ECGTWaveAxis 55 RR_DiastolicBP 0 RR_MaxRRInterval 0 RR_MeanHR 0 RR_MeanRRInterval 0 RR_MinRRInterval 0 RR_NumBeats 0 RR_NumNormalBeats 0 RR_SystolicBP 0 Respiratory Panel w/ SARS-Co V2-030400 Reviewed date:01/09/2025 01:56:02 PM Interpretation: Performing Lab:Niyah Reyes, [address] [place] [address], [place], Phone - [phone], Director - Jolene Notes/Report: Adenovirus Not Detected [...] Detected Mycoplasma pneumoniae Not Detected Not Detected US BREAST LIMITED BILAT (Not yet reviewed by provider) Interpretation: Performing Lab: Notes/Report: Reason For Referral Diagnosis 1 Encounter for screen ing for malignant neoplasm of colon (Z12.11) Referral Organization [facility] Referring Provider First Name Chas Referring Provider Last Name Bert Referring Provider Speciality Internal M edicine Referred Provider Jad James Referred Provider Specialty Gastroentero logy General Notes [facility] PM >[facility]ed, [facility] 11:06:15 AM >Received fax, Dr James no longer accepting new patients, TE sent to provider Referral Priority Routine Medications Medication SIG (Take, Route, Frequency, Duration) Notes Start Date End Date Status Escitalopram Oxalate 10 MG TAKE 1 TABLET BY MOUTH DAILY; Duration: 90 Active Metoprolol Succinate ER 50 MG TAKE 1/2 A TABLET (25MG) BY MOUTH ONCE EVERY DAY; Duration: 30 Active Rosuvastatin Calcium 40 MG TAKE ONE (1) TABLET BY MOUTH EVERY DAY; Duration: 30 Active LORazepam 1 MG 1 tablet at bedtime as needed Orally Every 8 hours 04/25/2023 Not-Taking Zinc Active Aspirin Low Dose 81 MG TAKE 1 TABLET BY MOUTH ONCE A DAY; Duration: 30 Active Famotidine 20 MG 1 tablet at bedtime Orally Once a day Active Immunizations Vaccine Route Administration Date Status Comme nts *Influenza, High Dose Seasonal, Quadrivatent IM Intramuscular 04/25/2023 Administered *Dfqokfqzm-Jdlsycu-Pq gh Dose-65+ IM Intramuscular 04/16/2024 Administered *Influenza-Medicare-A S IM Intramuscular 04/24/2019 Administered *Influenza-Medicare-A S IM Intramuscular 04/27/2021 Administered *Pneumococcal polysaccharide PPV23 IM Intramuscular 04/27/2021 Administered *PREVNAR 20 IM Intramuscular 02/03/2025 Administered *Tdap IM Intramuscular 07/27/2016 Administered COVID-19 Moderna BiValent Booster Unknown 04/25/2022 Administered POPZX-62-Fvklxkn Vaccine Unknown 09/10/2020 Administered BVKNZ-27-Sctwjxu Vaccine Unknown 10/08/2020 Administered KRKYQ-46-Dxcggcc Vaccine Unknown 05/25/2021 Administered Influenza (Fluad) Unknown 04/25/2022 Administered Influenza, [...] W/U Status Risk Notes Problem Myelodysplastic syndrome (976851350) Myelodysplastic syndrome, unspecified (D46.9) Active confirmed Problem Folate deficiency anemia (60066816) Folate deficiency anemia, 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) Active confirmed Problem Diabetic renal disease (696550502) Type 2 diabetes mellitus with diabetic chronic kidney disease (E11.22) Active confirmed Problem Malnutrition of mild degree ([place]: 75% to less than 90% of standard weight) (46855082) Mild protein-calorie malnutrition (E44.1) Active confirmed Problem Vitamin D deficiency (42322427) Vitamin D deficiency, unspecified (E55.9) Active confirmed Problem Mixed hyperlipidemia (050988110) Mixed hyperlipidemia (E78.2) Active confirmed Problem Mental disorder caused by drug (321486177) Nicotine dependence, cigarettes, with unspecified nicotine-induced disorders (F17.219) Active confirmed Problem Generalized anxiety disorder (41719441) Generalized anxiety disorder (F41.1) Active confirmed Problem Angina co-occurrent and due to coronary arteriosclerosis (disorder) (96671152994325569) 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) Active confirmed Problem Atrial premature depolarization (030081085) Atrial premature depolarization (I49.1) Active confirmed Problem Gastro-esophageal reflux disease without esophagitis (806818079) Gastro-esophageal reflux disease without esophagitis (K21.9) Active confirmed Problem Gallbladder and bile duct calculi (227681957) Calculus of gallbladder and bile duct without cholecystitis without obstruction (K80.70) Active confirmed Problem Lumbosacral spondylosis without myelopathy (53098304) Other spondylosis with radiculopathy, lumbosacral region (M47.27) Active confirmed Problem Cervical disc disorder with radiculopathy (088341332) Cervical disc disorder with radiculopathy, high cervical region (M50.11) Active confirmed Problem Displacement of lumbar intervertebral disc without myelopathy (04350540) Other intervertebral disc displacement, lumbosacral region (M51.27) Active confirmed Problem Chronic kidney disease stage 2 (984072799) Chronic kidney disease, stage 2 (mild) (N18.2) Active confirmed Problem Hypertrophy of breast (340472464) Hypertrophy of breast (N62) Active confirmed Problem Syncope and collapse (001534796) Syncope and collapse (R55) Active confirmed Problem Family history of malignant neoplasm of gastrointestinal tract (934992923) Family history of malignant neoplasm of digestive organs (Z80.0) Active confirmed Problem Lower urinary tract symptoms due to benign prostatic hypertrophy (73902952380605) Benign prostatic hyperplasia with lower urinary tract symptoms (N40.1) Active confirmed Problem Age-related nuclear cataract of right eye (051068777341489) Age-related nuclear cataract, right eye (H25.11) Problem resolved confirmed Problem Age-related nuclear cataract of left eye (388709995459655) Age-related nuclear cataract, left eye (H25.12) Problem resolved confirmed Vital Signs Heart Rate 64 /min 06/02/2025 Temperature 98.2 degrees Fahrenheit 06/02/2025 Blood pressure diastolic 54 mm Hg 06/02/2025 Oximetry 97 % 06/02/2025 Height 5 ft 8 in in 06/02/2025 Blood pressure systolic 122 mm Hg 06/02/2025 Weight 160.6 lbs 06/02/2025 BMI 24.42 kg/m2 06/02/2025 Encounters Encounter Location Date Provider Diagnosis [facility] MD [address] [id number] 08/15/2024 Chas Noel Type 2 diabetes mellitus with diabetic chronic kidney disease E11.22 ; Myelodysplastic syndrome, unspecified D46.9 ; Generalized anxiety disorder F41.1 ; Atherosclerotic heart disease of [place]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 I25.118 ; Mixed hyperlipidemia E78.2 ; Gastro-esophageal reflux disease without esophagitis K21.9 ; Other spondylosis with radiculopathy, lumbosacral region M47.27 ; Nicotine dependence, cigarettes, with unspecified nicotine-induced disorders F17.219 and Vitamin D deficiency, unspecified E55.9 Chas Noel MD [address] [id number] 09/23/2024 Chas Noel Type 2 diabetes mellitus with diabetic chronic kidney disease E11.22 ; Atherosclerotic heart disease of [place]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 I25.118 ; Myelodysplastic syndrome, unspecified D46.9 ; Generalized anxiety disorder F41.1 ; Mixed hyperlipidemia E78.2 ; Gastro-esophageal reflux disease without esophagitis K21.9 ; Other spondylosis with radiculopathy, lumbosacral region M47.27 ; Nicotine dependence, cigarettes, with unspecified nicotine-induced disorders F17.219 and Vitamin D deficiency, unspecified E55.9 Chas Noel MD [address] [id number] 01/08/2025 Eugenia Ford Acute cough R05.1 an d Acute upper respiratory infection, unspecified J06.9 Chas Noel MD [address] [id number] 02/03/2025 Chas Noel Type 2 diabetes mellitus with diabetic chronic kidney disease E11.22 ; Atherosclerotic heart disease of [place] coronary artery with other forms of angina [...] Encounter for immunization Z23 Chas Noel MD [address] [id number] 03/25/2025 Chas Noel Hypertrophy of breas t Amanda2 Chas Noel MD [address] [id number] 06/02/2025 Chas Noel Encounter for genera l adult medical examination without abnormal findings Z00.00 ; Type 2 diabetes mellitus with diabetic chronic kidney disease E11.22 ; Myelodysplastic syndrome, unspecified D46.9 ; Generalized anxiety disorder F41.1 ; Atherosclerotic heart disease of [place]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 I25.118 ; Gastro-esophageal reflux disease without esophagitis K21.9 ; Other spondylosis with radiculopathy, lumbosacral region M47.27 ; Family history of malignant neoplasm of digestive organs Z80.0 ; Vitamin D deficiency, unspecified E55.9 ; Mixed hyperlipidemia E78.2 ; Nicotine dependence, cigarettes, with unspecified nicotine-induced disorders F17.219 ; Encounter for screening for malignant neoplasm of colon Z12.11 ; Encounter for screening for malignant neoplasm of prostate Z12.5 ; Encounter for screening for cardiovascular disorders Z13.6 ; Encounter for immunization Z23 ; Encounter for antibody response examination Z01.84 and Encounter for screening for other viral diseases Z11.59 Chas Noel MD [address] [id number] 10/16/2024 Chas Noel MD [address] [id number] 01/09/2025 Chas Noel MD [address] [id number] 03/27/2025 Chas Noel Hypertrophy of breas t Tere Noel MD [address] [id number] 05/05/2025 Chas Noel Hypertrophy of breas t Tere Noel MD [address] [id number] 06/03/2025 Chas Noel MD [address] [id number] 06/23/2025 Chas Noel MD [address] [place] [address], [place] [id number] 08/12/2024 Chas Noel MD [address] [place] [address], [place] [id number] 12/30/2024 Chas Noel MD [address] [facility] [address] [place] [id number] 12/30/2024 Chas Noel MD [address] [place] [id number] 12/30/2024 Chas Noel Acute frontal sinusitis, unspecified J01.10 Chas No[facility] MD [address] [place] [address], [place] [id number] 03/19/2025 Chas Noel MD [address] [facility] [address] [place] [address], [place] [id number] 05/17/2025 Chas Noel MD [address] [place] [id number] 05/25/2025 Chas Noel MD [address] [id number] 07/07/2025 Chas Noel MD [address] [place] [id number] 07/07/2025 Chas Noel MD [address] [id number] 07/07/2025 Chas Noel Bradycardia, unspecified R00.1 Assessments [...] disease state. 09/23/2024 Atherosclerotic heart disease of [place] coronary artery with other forms of angina [...] this year. 02/03/2025 Atherosclerotic heart disease of [place] coronary artery with other forms of angina [...] 03/27/2025 Hypertrophy of breast (ICD-10 - N62) 05/05/2025 Hypertrophy of breast (ICD-10 - N62) 06/02/2025 Type 2 diabetes mellitus with diabetic chronic kidney disease (ICD-10 - E11.22) Continue lifestyle modification for treatment of his diabetes. His A1c is probably higher than measured due to the rapid turnover of red cells with his history of myelodysplasia 06/02/2025 Encounter for general adult medical examination without abnormal findings (ICD-10 - Z00.00) General healthcare up-to-date. Check routine labs. Healthcare proxy already on file 07/07/2025 Bradycardia, unspecified (ICD-10 - R00.1) 06/02/2025 Myelodysplastic syndrome, unspecified (ICD-10 - D46.9) Fair [...] medical therapy 08/15/2024 Atherosclerotic heart disease of [place]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 (ICD-10 - I25.118) Symptomatically stable without any active symptoms. Continue current medical therapy. 09/23/2024 Generalized anxiety disorder (ICD-10 - F41.1) Fair control and stable with current medical therapy 02/03/2025 Generalized anxiety disorder (ICD-10 - F41.1) Stable with current medical therapy. 06/02/2025 Generalized anxiety disorder (ICD-10 - F41.1) Stable at present. Continue current medical therapy 06/02/2025 Atherosclerotic heart disease of [place] coronary artery with other forms of angina [...] at goal with LDL less than 40 06/02/2025 Gastro-esophageal reflux disease without esophagitis (ICD-10 - K21.9) Symptomatically stable at present. 06/02/2025 Other spondylosis with radiculopathy, lumbosacral region (ICD-10 - M47.27) Stable with periodic injections. Continue same. 02/03/2025 Gastro-esophageal reflux disease without esophagitis (ICD-10 - K21.9) Symptomatically stable at present 08/15/2024 Other spondylosis with radiculopathy, lumbosacral region (ICD-10 - M47.27) Stable with periodic injections. He said he just had his injection last week as well. 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 This would not only benefit his coronary artery disease but may also benefit his myelodysplasia 09/23/2024 Nicotine dependence, cigarettes, with unspecified nicotine-induced disorders (ICD-10 - F17.219) Smoking cessation has been counseled in the past 02/03/2025 Other spondylosis with radiculopathy, lumbosacral region (ICD-10 - M47.27) He is having increasing pain but has follow-up with pain management for reevaluation for injection 06/02/2025 Family history of malignant neoplasm of digestive organs (ICD-10 - Z80.0) Recommend colonoscopy and he is agreeable to get one done. 02/03/2025 Calculus of gallbladder and bile duct without cholecystitis without obstruction (ICD-10 - K80.70) Remains asymptomatic 06/02/2025 Vitamin D deficiency, unspecified (ICD-10 - E55.9) Check level to verify that there is no deficiency Fair control on prior labs reviewed and recommend vitamin D supplementation for goal level of 50+ 09/23/2024 Vitamin D deficiency, unspecified (ICD-10 - E55.9) Fair control on prior labs as reviewed. Recommend vitamin D supplementation for goal level of 30+ 08/15/2024 Vitamin D deficiency, unspecified (ICD-10 - E55.9) Fair control and prior labs reviewed. Recommend vitamin D supplementation or increased dietary vitamin D such as fish for goal level of 30+ and if possible 50+ 06/02/2025 Mixed hyperlipidemia (ICD-10 - E78.2) Stable with LDL less than 50. Continue current statin therapy 02/03/2025 Nicotine dependence, cigarettes, with unspecified nicotine-induced disorders (ICD-10 - F17.219) He continues to smoke. 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 06/02/2025 Encounter for screening for malignant neoplasm of colon (ICD-10 - Z12.11) Due for colon cancer screening. He reports he wants this to be completed through [facility] 02/03/2025 Encounter for immunization (ICD-10 - Z23) 06/02/2025 Encounter for screening for malignant neoplasm of prostate (ICD-10 - Z12.5) Can check PSA has prostate cancer screening realizing the limitation of this test as a screening test 06/02/2025 Encounter for screening for cardiovascular disorders (ICD-10 - Z13.6) Blood pressure is stable. Can check for comorbidity of hyperlipidemia and hyperglycemia to further assess risk. 06/02/2025 Encounter for immunization (ICD-10 - Z23) Vaccines up to date 06/02/2025 Encounter for antibody response examination (ICD-10 - Z01.84) Titers have been checked in the past and there is immunity to rubeola 06/02/2025 Encounter for screening for other viral diseases (ICD-10 - Z11.59) Can screen for hepatitis C as per general recommendation 08/15/2024 Other This note was created with [...] syntax. Also labs were reviewed with patient. 06/02/2025 Other Plan Of Treatment Pending Test Test Name Order Date COMPLETE CBC WITH DIFF 02/02/2023 FOLIC ACID 02/02/2023 FOLATE 08/21/2018 CR Upper GI Small Bowel Series [facility] 03/27/2025 CT Low Dose Lung Screening 02/01/2023 Hemoglobin C4i-778018 05/14/2024 Hemoglobin D8a-518728 02/03/2025 Hemoglobin U1j-283345 06/02/2025 Urinalysis, Complete-343699 06/02/2025 Urinalysis, Complete-824538 02/03/2025 Urinalysis, Complete-776565 05/14/2024 Prolactin-349107 03/25/2025 Estradiol-880851 03/25/2025 CBC With Differential/Platelet-515684 CBC With Differential/Platelet-281166 CBC With Differential/Platelet-934081 Reticulocyte Count-024756 05/14/2024 Prostate-Specific Ag-826780 05/14/2024 Prostate-Specific Ag-953542 06/02/2025 Testosterone, F Eqlib+T LC/MS-348847 Vitamin D, 94-Tvsjoub-160778 06/02/2025 Vitamin D, 99-Roedihz-805382 05/14/2024 Vitamin D, 34-Ipydbrz-449653 02/03/2025 Glucose Tolerance (4 Sp Blood)-357396 Albumin/Creatinine Ratio,Urine-075209 Albumin/Creatinine Ratio,Urine-626728 Comp. Metabolic Panel (14)-285222 2024 Comp. Metabolic Panel (14)-195424 2023 Comp. Metabolic Panel (14)-236325 2024 LP+Non-HDL Cholesterol-512133 06/02/2025 LP+Non-HDL Cholesterol-815567 05/14/2024 LP+Non-HDL Cholesterol-103911 02/03/2025 HCV Antibody-648011 05/14/2024 HCV Antibody-503236 06/02/2025 MG MAMMO DIGITAL DIAGNOSTIC BILAT 2024 US BREAST LIMITED BILAT 05/05/2025 Next Appt Details Provider Name:Mariorhina Bert , 10/28/2025 10:00:00 AM, [address] [place] [address], [phone], Provider Name:Mariorhina Bert , 06/10/2026 01:30:00 PM, [address] [place] [address], [phone], Insurance Providers Payer Name Payer Address Payer Phone Subscriber Number Group Number Insured Name Patient Relationship to Insured Coverage Start Date Coverage End Date BC[facility] OF [facility] [address] [place] [address] [id number] Man Joe Self - patient is the [...]
--- OUTSIDE RECORDS SUMMARY | 2025-07-09 14:20 | XMS_ITS | Clinical Summary ---
Author Organization [facility] Address [address] [place] [phone] Phone Care Team Providers Care Bulb Grower Name Role Phone Chas Borden MD Primary Care Provider [phone] Allergies No known active allergies Medications multivitamin [...] Orientation Straight 10/16/2024 6: 19 AM EDT Last Filed Vital Signs Vital Sign Reading [...] EDT Narrative 03/30/2020 12:[address] [facility] Diagnostic Imaging Department [address] [place] [address] Patient: BRANMAN /Age/Sex: 1955 - 65 - M Unit#: [id number] Location/Status: SPDIUS/REG CLI Mnemonic[facility] Ordering Physician: CHAS BORDEN MD US Abdomen [...] bifurcation. IMPRESSION: No visualized abdominal aortic aneurysm. [id number] Dictating Physician: SANTIAGO JON MD Electronically Signed by: SANTIAGO JON MD Dic Date/Time: 03/30/20 1236 Sign date/Time: 03/30/20 1237 Procedure Note Santiago Jon MD - 06/29/2022 [facility] Diagnostic Imaging Department [address] [place] [address] Patient: BRANMAN D.O.B./Age/Sex: 1955 - 65 - M Unit#: [id number] [facility]ing Site: [facility] Ordering Physician: CHAS [...] bifurcation. IMPRESSION: No visualized abdominal aortic aneurysm. [id number] Dictating Physician: SANTIAGO JON MD Electronically Signed by: SANTIAGO JON MD Dic Date/Time: 03/30/20 1236 Sign date/Time: 03/30/20 1237 [facility] Final Result from Last 3 Months or Most Recently Relevant to Health Maintenance Insurance [facility] MEDICARE Care Teams Bulb Grower Relationship Specialty Start Date End Date Chas Borden MD [address] [place] [id number] PCP - General Internal Medicine 10/16/24
== END ==
LOC: HO.CARD 12:43
PROVIDERS: PCP Internal Medicine; Visit Provider Internal Medicine
DX: R00.1 Bradycardia, unspecified (principal)
CPT/HCPCS: 93242

== ENCOUNTER → 2025-07-09 12:53 | Outpatient (BNV) | payer OTHER, SELFPAY | PROVIDERS: PCP Internal Medicine; Visit Provider Internal Medicine | DX: R42 Dizziness and giddiness (principal) | CPT/HCPCS: 93244 ==